=== PATIENT | male | born 1965 | race Caucasian/White ===

== ENCOUNTER 2025-10-07 09:55 | Emergency (ER) | payer OTHER, SELFPAY ==
[2025-10-07 09:59] VITALS: BP 133/91; PULSE 65; RESP 12; TEMP 36.7; O2SAT 99; BMI 29.8
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
--- NOTE | 2025-10-07 11:20 | CT_ITS ---
PROCEDURE: BRAIN/HEAD WITHOUT CONTRAST 10/07/2025 REASON FOR EXAM: DIZZINESS TECHNIQUE: Procedure Code: CTBR Modality: CT Procedure: BRAIN/HEAD WITHOUT CONTRAST Coronal and Sagittal reconstruction series were provided. One or more dose reduction techniques were used (e.g., Automated exposure control, adjustment of the mA and/or kV according to patient size, use of iterative reconstruction technique. RADIATION DOSE SUMMARY: CTDlvol: 44.99 mGy DLP: 762.36 mGycm COMPARISON: None. FINDINGS: Brain: No acute territorial infarction. No acute intracranial hemorrhage. No mass-effect or midline shift. Diffuse white matter hypodensities which are nonspecific but likely due to chronic small-vessel ischemia. Parenchymal volume loss consistent with brain atrophy. No ventriculomegaly. The orbits are unremarkable. The craniocervical junction is unremarkable. CSF Spaces: Mild generalized cerebral atrophy Sinuses/Mastoids: Clear. Bones: No acute bony abnormalities. CT/Brain/Head without Contrast IMPRESSION: No acute intracranial abnormalities. Reading Location: [id number]
[2025-10-07 11:56] VITALS: BP 141/97; PULSE 62; RESP 12; O2SAT 98
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
[2025-10-07 12:36] VITALS: BP 145/80; PULSE 64; RESP 14; TEMP 36.6; O2SAT 100
== END 2025-10-07 12:37 | disposition home or self-care (01) ==
LOC: ED 10:41
PROVIDERS: Emergency Provider Emergency Medicine; PCP Family Medicine; Visit Provider Emergency Medicine
DX: H81.391 Other peripheral vertigo, right ear (principal); F41.9 Anxiety disorder, unspecified; Z87.891 Personal history of nicotine dependence; E78.00 Pure hypercholesterolemia, unspecified; Z79.899 Other long term (current) drug therapy
CPT/HCPCS: 70450; 99285; A4216

== ENCOUNTER 2025-10-12 13:15 | Observation (INO) | payer OTHER, SELFPAY ==
[2025-10-12 13:16] VITALS: BP 168/83; PULSE 71; RESP 10; TEMP 36.6; O2SAT 98; BMI 29.1
[2025-10-12 13:22] VITALS: BMI 29.0
--- NOTE | 2025-10-12 13:42 | EKG12_ITS ---
Test Reason : Blood Pressure : */* mmHG Vent. Rate : 67 BPM Atrial Rate : 67 BPM P-R Int : 152 ms QRS Dur : 92 ms QT Int : 396 ms P-R-T Axes : 42 -18 9 degrees QTcB Int : 418 ms Normal sinus rhythm Minimal voltage criteria for LVH, may be normal variant ( R in aVL ) Borderline ECG Confirmed by Joshua Baxter ([id number]), social media editor LB OMALLEY ([id number]) on 10/14/2025 8:26:45 AM Referred By: Confirmed By: Joshua Baxter
--- NOTE | 2025-10-12 13:42 | CT_ITS ---
PROCEDURE: BRAIN/HEAD WITHOUT CONTRAST 10/12/2025 REASON FOR EXAM: AMS, CONFUSION TECHNIQUE: Procedure Code: CTBR Modality: CT Procedure: BRAIN/HEAD WITHOUT CONTRAST Coronal and Sagittal reconstruction series were provided. One or more dose reduction techniques were used (e.g., Automated exposure control, adjustment of the mA and/or kV according to patient size, use of iterative reconstruction technique. RADIATION DOSE SUMMARY: DLP: 779 mGycm COMPARISON: CT from 10/07/2025 FINDINGS: There is no acute infarct, intracranial hemorrhage, or mass effect. There is no hydrocephalus or significant midline shift. There is mild chronic microvascular ischemic changes and mild parenchymal volume loss. No acute, depressed calvarial fractures. No large scalp hematomas. The paranasal sinuses are clear. CT/Brain/Head without Contrast IMPRESSION: No acute intracranial process. Reading Location: [id number]
--- NOTE | 2025-10-12 13:43 | CT_ITS ---
PROCEDURE: CTA HEAD AND NECK W/ CONTRAST 10/12/2025 REASON FOR EXAM: HYPERTENSIVE 220S FOR EMS, MENTAL STATUS CHANGES TECHNIQUE: Procedure Code: CTCTA.HDNCK Modality: CT Procedure: CTA HEAD AND NECK W/ CONTRAST Multiplanar Sagittal and Coronal images were obtained. CONTRAST: 100 mL of Isovue 370 One or more dose reduction techniques were used (e.g., Automated exposure control, adjustment of the mA and/or kV according to patient size, use of iterative reconstruction technique). RADIATION DOSE SUMMARY: DLP: 1516 mGycm COMPARISON: None FINDINGS: The aortic arch demonstrates a type I configuration. The ostia of the great vessels are patent. There is conventional branching. The right CCA is patent. There is no significant stenosis of the right carotid bifurcation by NASCET criteria although there is calcified plaque. The cervical right ICA is patent. There is minimal stenosis at the right carotid siphon due to atherosclerotic plaque. The right MCA and right ARGELIA appear patent. There is no large vessel occlusion. The left CCA is patent. There is no significant stenoses at the left carotid bifurcation by NASCET criteria although there is calcified plaque. The cervical left ICA is patent. The left MCA and left ARGELIA appear patent. There is no large vessel occlusion. The right vertebral artery arises from the right subclavian artery. The left vertebral artery arises from the left subclavian artery. Both vertebral arteries are patent. Left vertebral artery dominance. Both posterior cerebral arteries arise from the tip of the basilar. Both proximal ENTERPRISE SOFTWARE DEVELOPER segments are patent. There is no large vessel occlusion. There is no enhancing intracranial mass. Shotty cervical lymph nodes are identified. The thyroid gland is heterogeneous. The lung apices demonstrate no pneumothorax. No destructive osseous abnormalities identified. CT/CTA Head AND Neck W/ Contrast IMPRESSION: No high-grade stenosis or large vessel occlusion. No sizable aneurysm is noted . Scattered mild atherosclerotic plaque. Minimal stenosis of the right carotid s iphon. Reading Location: [id number]
--- OUTSIDE RECORDS SUMMARY | 2025-10-12 13:52 | XMS RPT_ITS | CCD ---
Author Organization [facility] Care Team Providers Care Histological Illustrator Name Role Phone Steve Baron Unavailable Unavailable Steve Baron Unavailable LEXUS BARRAZA Unavailable Unavailcheng Baron MD, Steve Gallardo Primary Care Provider Steve Baron MD Primary Care Provider Steve Baron MD Primary Care Provider Steve Baron MD Primary Care Provider Yonagen SOLE STAPLER WELT.FLAKEBOARD LINE TENDERSierra Unavailable Suppan SOLE STAPLER WELT.FLAKEBOARD LINE TENDERSindhu Unavailable JOSIAH ACOSTA Admitting Unavailable JOSIAH ACOSTA Attending Unavailable STEVE BARON Primary Care Unavailable STEVE BARON Primary Care Unavailable STEVE BARON Referring Unavailable STEVE BARON Primary Care Unavailable JOSIAH ACOSTA Attending Unavailable STEVE BARON Primary Care Unavailable ARACELY ARDON Attending Unavailable STEVE BARON Primary Care Unavailable JOSIAH ACOSTA Attending Unavailable STEVE BARON Primary Care Unavailable STEVE BARON Attending Unavailable Allergies Allergy Classification Reported Allergen(s) Allergy Type Date of Onset Reaction(s) Facility HMG-CoA Reductase Inhibitors (statins) (1 source) Simvastatin Drug Allergy 02-25-2006 [facility] Work Phone: Macrolides (antibiotic) (1 source) Erythromycin Drug Allergy 08-03-2005 GI Upset [facility] Work Phone: (20 sources) Erythromycin; Translations: [ERYTHROMYCIN] Drug Allergy 08-03-2005 GI Upset [facility] Repository (20 sources) Simvastatin; Translations: [SIMVASTATIN] Drug Allergy 02-25-2006 [facility] Repository Medications Current Medications Medication Drug Class(es) Dates Sig (Normalized) Sig (Original) cephalexin 500 mg oral capsule (1 source) Cephalosporin Antibacterial Start: 07-02-2022 End: 07-07-2022 take 1 capsule by mouth four times daily cephALEXin (KEFLEX) 500 mg capsule Take 1 capsule by mouth four times daily for 5 days. 20 capsule 0 07/02/2022 07/07/2022 Active Comment on above: Take 1 capsule by mo [facility] four times daily for 5 days. pravastatin sodium 20 mg oral tablet (20 sources) HMG-CoA Reductase Inhibitor Start: 07-23-2024 End: 08-22-2025 take 1 tablet by mouth once daily at bedtime pravastatin (PRAVACHOL) 20 mg tablet Indications: Mixed hyperlipidemia Take 1 tablet by mouth daily at bedtime. 90 tablet 1 02/23/2025 08/22/2025 Active Start: 10-30-2021 End: 07-21-2024 take 1 tablet by mouth once daily at bedtime pravastatin (PRAVACHOL) 20 mg tablet Indications: Mixed hyperlipidemia Take 1 tablet by mouth daily at bedtime. 90 tablet 3 10/30/2021 07/22/2022 Discontinued Comment on above: Take 1 tablet by michael th daily at bedtime. sertraline 100 mg oral tablet (20 sources) Serotonin Reuptake Inhibitor Start: 09-05-2023 End: 08-22-2025 take 1 tablet by mouth once daily sertraline (ZOLOFT) 100 mg tablet Indications: Anxiety state Take 1 tablet by mouth once daily. 90 tablet 1 02/23/2025 08/22/2025 Active Start: 10-30-2021 End: 12-13-2023 take 1 tablet by mouth once daily sertraline (ZOLOFT) 50 mg tablet Indications: Anxiety state Take 1 tablet by mouth once daily. 90 tablet 1 10/30/2021 07/22/2022 Discontinued Comment on above: Take 1 tablet by michael th once daily. VITAMIN B COMPLEX ORAL (4 sources) VITAMIN B COMPLE X ORAL Take by mouth. Active Completed/Discontinued Medications Medication Drug Class(es) Dates Sig (Normalized) Sig (Original) 1 ml alprostadil 0.02 mg/ml cartridge (1 source) Prostaglandin Analog, Prostaglandin E1 Agonist Start: 02-02-2023 End: 02-03-2023 Alprostadil kit 20 mcg betamethasone 3 mg/ml / betamethasone acetate 3 mg/ml injectable suspension (4 sources) Corticosteroid Start: 08-30-2023 End: 08-30-2023 betamethasone acetate-betamethas one sodium phosphate 3 mg injection (CELESTONE) Start: 06-10-2022 End: 06-10-2022 betamethasone acetate-betame thasone sodium phosphate 6 mg injection (CELESTONE) Start: 03-11-2022 End: 03-11-2022 betamethasone acetate-betame thasone sodium phosphate 3 mg injection (CELESTONE) Glucosamine (20 sources) End: 07-30-2024 GLUCOSAMINE SULFATE (GLUCOSA MINE ORAL) Take by mouth once daily. [employer] Extend flex 07/30/2024 Discontinued (Other) GLUCOSAMINE SULF ATE (GLUCOSAMINE ORAL) Take by mouth once daily. [employer]NC Extend flex Active GLUCOSAMINE SULF ATE (GLUCOSAMINE ORAL) Take by mouth once daily. GNC Extend flex 0 Active Comment on above: Take by mouth once d aily. GNC Extend flex 10 ml lidocaine hydrochloride 10 mg/ml injection (4 sources) Antiarrhythmic, Amide Local Anesthetic Start: 08-30-2023 End: 08-30-2023 lidocaine (PF) 10 mg/mL (1 %) 0.5 mL injection (XYLOCAINE) Start: 06-10-2022 End: 06-10-2022 lidocaine (PF) 10 mg/mL (1 % ) 4 mL injection (XYLOCAINE) Start: 03-11-2022 End: 03-11-2022 lidocaine (PF) 10 mg/mL (1 % ) 0.5 mL injection (XYLOCAINE) meloxicam 15 mg oral tablet (13 sources) Nonsteroidal Anti-inflammatory Drug Start: 02-09-2024 End: 07-30-2024 take 1 tablet by mouth once daily meloxicam (MOBIC) 15 mg tablet Indications: Trigger ring finger of right hand Take 1 tablet by mouth once daily. 30 tablet 2 02/09/2024 07/30/2024 Discontinued (Other) Start: 06-10-2022 End: 11-25-2022 take 1 tablet by mouth once daily meloxicam (MOBIC) 15 mg tablet Take 1 tablet by mouth once daily. 30 tablet 1 06/10/2022 11/25/2022 Discontinued Comment on above: Take 1 tablet by michael th once daily. PHENYLephrine 0.3-0.8 mg in NaCl 0.9% 0.3-0.8 mL (1 source) Start: End: PHENYLephrine 0.3-0.8 mg in NaCl 0.9% 0.3-0.8 mL tadalafil 5 mg oral tablet (5 sources) Phosphodiesterase 5 Inhibitor Start: End: take 1 tablet by mouth once daily Tadalafil 5 mg tablet Take 1 tablet by mouth once daily. 30 tablet 5 01/13/2023 02/12/2023 Comment on above: Take 1 tablet by michael th once daily. tiZANidine 4 mg oral tablet (13 sources) Central alpha-2 Adrenergic Agonist Start: End: take 1 tablet by mouth every eight hours as needed tiZANidine (ZANAFLEX) 4 mg tablet Take 1 tablet by mouth every 8 hours as needed (muscle spasms). 30 tablet 12/06/2019 11/25/2022 Discontinued Comment on above: Take 1 tablet by michael th every 8 hours as needed (muscle spasms). Problems Active Problems Problem Classification Problem Date Documented Date Episodic/Chronic Anxiety disorders (20 sources) Anxiety state; Translations: [Generalized anxiety disorder] Onset: 03-04-2016 Chronic Disorders of lipid metabolism (20 sources) Mixed hyperlipidemia; Translations: [Mixed hyperlipidemia] Onset: 03-04-2016 Chronic Fluid and electrolyte disorders (1 source) Hyperkalemia; Translations: [Hyperkalemia] Episodic Osteoarthritis (1 source) Osteoarthritis of left knee joint; Translations: [Unilateral primary osteoarthritis, left knee] Chronic Other connective tissue disease (15 sources) Triggering of digit; Translations: [Trigger finger, left middle finger] Episodic Other connective tissue disease (3 sources) Trigger thumb of left hand; Translations: [Trigger thumb, left thumb] 08-30-2023 Episodic Other connective tissue disease (2 sources) Acquired trigger finger of right index finger; Translations: [Trigger finger, right index finger] 06-06-2025 Episodic Other connective tissue disease (2 sources) Acquired trigger finger of right middle finger; Translations: [Trigger finger, right middle finger] 06-06-2025 Episodic Other connective tissue disease (2 sources) Acquired trigger finger of left ring finger; Translations: [Trigger finger, left ring finger] 06-06-2025 Episodic Other connective tissue disease (1 source) Trigger finger, right index finger; Translations: [Trigger finger, right index finger] Onset: 06-19-2025 Episodic Other connective tissue disease (1 source) Trigger finger, right middle finger; Translations: [Trigger middle finger of right hand] Onset: 06-19-2025 Episodic Other connective tissue disease (1 source) Trigger finger, left ring finger; Translations: [Trigger ring finger of left hand] Onset: 06-19-2025 Episodic Other ear and sense organ disorders (1 source) Bilateral hearing loss; Translations: [Unspecified hearing loss, bilateral] Chronic Other ear and sense organ disorders (2 sources) Bilateral tinnitus; Translations: [Tinnitus, bilateral] Episodic Other male genital disorders (2 sources) Induratio penis plastica; 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 Other nervous system disorders (1 source) Other chronic pain; Translations: [OTHER CHRONIC PAIN] Onset: 06-29-2017 Chronic Other non-traumatic joint disorders (3 sources) Pain in left knee; Translations: [Pain in joint, lower leg] Onset: 06-29-2017 Episodic Sprains and strains (1 source) Unspecified sprain of right wrist, initial encounter; Translations: [Unspecified sprain of right wrist, initial encounter] Onset: 11-18-2018 Episodic Unclassified (1 source) Post Op Onset: 07-29-2025 Past or Other Problems Problem Classification Problem Date Documented Date Episodic/Chronic Abdominal hernia (12 sources) Left inguinal hernia ; Translations: [Unilateral inguinal hernia, without obstruction or gangrene, not specified as recurrent] Onset: 10-11-2011 Resolved: 01-25-2012 01-25-2012 Episodic Cardiac dysrhythmias (20 sources) Palpitations; Translations: [Palpitations] Onset: 03-23-2007 03-23-2007 Episodic Other circulatory disease (20 sources) Elevated blood-pressure reading without diagnosis of hypertension; Translations: [Elevated blood-pressure reading, without diagnosis of hypertension] Onset: 06-27-2008 06-27-2008 Episodic Other connective tissue disease (1 source) Lateral epicondylitis, right elbow; Translations: [LATERAL EPICONDYLITIS, RIGHT ELBOW] Onset: 06-29-2017 Episodic Other connective tissue disease (20 sources) Lateral epicondylitis of bilateral humerus; Translations: [Lateral epicondylitis, right elbow] Onset: 08-02-2014 08-02-2014 Episodic Other non-traumatic joint disorders (12 sources) Pain in elbow; Translations: [Pain in unspecified elbow] Onset: 08-02-2014 Resolved: 09-09-2016 09-09-2016 Episodic Screening and history of mental health and substance abuse codes (2 sources) Patient encounter status; Translations: [Encounter for screening for depression] Onset: 02-23-2025 02-23-2025 Episodic Superficial injury; contusion (2 sources) Contusion of rib; Translations: [Contusion of unspecified front wall of thorax, subsequent encounter] Onset: 02-23-2025 02-23-2025 Episodic Results Test Name Value Interpretation Reference Range Facility [facility] 07-29-2025 CNOV Office Visit (ORTHWS ) GAMALEDUARDO ([id number]) 1965 M Date Time Provider Department 07/29/25 10:00 AM JOSIAH ACOSTA During your visit today, we recorded the following information about you: Josiah Acosta MD 08/05/2025 1:34 PM Signed Josiah Acosta MD Department of Orthopaedics Orthopaedics [address] [facility] [address] Dept: [phone] Dept July 29, 2025 CHIEF COMPLAINT: Post Op of the Left Hand and Post Op of the Right Hand. Vijaya Evelyne Sadetim is a 60-year-old male presenting for follow-up on trigger finger surgery and new onset of burning pain in the thumb. Ed reports stiffness and swelling in the middle knuckles following recent trigger finger surgery. He notes a longer recovery time than expected, stating, I remembered it being like that, I just didn't remember it being this long. Additionally, he reports a new onset of burning pain in the thumb, describing it as really sore and stating, I can't squeeze nothing in there. He denies any clicking or catching sensations in the thumb. ASSESSMENT: M65.321 Acquired trigger finger of right index finger (primary encounter diagnosis) M65.331 Acquired trigger finger of right middle finger M65.342 Acquired trigger finger of left ring finger 1. Acquired trigger finger of right index finger (M65.321) 2. Acquired trigger finger of right middle finger (M65.331) 3. Acquired trigger finger of left ring finger (M65.342) 6 weeks post trigger finger release for right index, right middle, and left ring fingers. Mild stiffness, swelling, and residual scar tenderness at the middle knuckles, as expected at this stage. No current locking or catching. Symptoms and exam consistent with normal post-op course; improvement expected over the next month. - Reassured that stiffness and swelling are typical at 6 weeks post-op and should resolve by 10 weeks. - Advised gentle massage to the scar and continued use of the hand as tolerated. - No restrictions on activity at this time. - Instructed to return if new locking, catching, or worsening symptoms develop. - Patient may follow up as needed. Exam: - Musculoskeletal: - Hand: Mild swelling and stiffness noted in the proximal interphalangeal joints; tenderness over the thumb flexor tendon. Review of Systems: Musculoskeletal: (+) burning pain in thumb, (+) thumb tenderness, (+) difficulty gripping objects Supporting Information Below: Medications: Current Outpatient Medications Medication Sig VITAMIN B COMPLEX ORAL Take by mouth. pravastatin (PRAVACHOL) 20 mg tablet Take 1 tablet by mouth daily at bedtime. sertraline (ZOLOFT) 100 mg tablet Take 1 tablet by mouth once daily. No current facility-administered medications for this visit. Allergies: E-Mycin [Erythromycin] and Zocor [Simvastatin] Recording using [email or web address] software for draft documentation of the visit was discussed with the patient/authorized technology sales representative; all questions welcomed and answered. Patient/authorized technology sales representative agreed to proceed Josiah Acosta MD Allergies As of Date: 07/29/2025 Noted Allergy Reaction E-MYCIN (ERYTHROMYCIN) 08/03/2005 8 - GI Upset ZOCOR (SIMVASTATIN) 02/25/2006 Comments: caused body aches Date Reviewed: 07/29/2025 Reviewed by: Carin Gil MA - Fully Assessed Reason for Visit: Post Op [174] Post Op [174] Primary Visit Diagnosis:Acquired trigger finger of right index finger [M65.321] Other Visit Diagnoses:Acquired trigger finger of right middle finger [M65.331] Acquired trigger finger of left ring finger [M65.342] Prescriptions as of 08/05/2025 - VITAMIN B COMPLEX ORAL Take by mouth. - pravastatin (PRAVACHOL) 20 mg tablet Take 1 tablet by mouth daily at bedtime. - sertraline (ZOLOFT) 100 mg tablet Take 1 tablet by mouth once daily. Problem List As Of Date 07/29/2025 Noted Resolved Anxiety state [F41.1] Mixed hyperlipidemia [E78.2] PALPITATIONS [R00.2] 03/23/2007 ELEV BL PRES W/O HYPERTN [R03.0] 06/27/2008 Left inguinal hernia [K40.90] 10/11/2011 01/25/2012 Elbow pain [M25.529] 08/02/2014 09/09/2016 Lateral epicondylitis of both elbows [M77.11, M*08/02/2014 Encounter Status:Closed by JOSIAH ACOSTA on 08/05/25 [facility] Na 07-01-2025 CNOV Office Visit (GRETCHEN ) EDUARDO YEUNG ([id number]) 1965 M Date Time Provider Department 07/01/25 8:00 AM ARACELY ARDON During your visit today, we recorded the following information about you: Wendy Lawson MA 07/01/2025 10:40 AM Signed Patient presents with: Left Hand - Post Op Right Hand - Post Op: 1 week 5 days post op Right index, middle, and Left ring trigger finger releases AMB ROOMING INTAKE FLOWSHEET DATA Patient denies any pain. He does have some tenderness in his hands. Sutures intact. No redness or drainage. Aracely Ardon PA-C 07/01/2025 10:40 AM Signed Aracely Ardon PA-C Department of Orthopaedics Orthopaedics [address] [place] [address] Dept: [phone] Dept July 01, 2025 CHIEF COMPLAINT: Post Op of the Left Hand and Post Op of the Right Hand (1 week 5 days post op Right index, middle, and Left ring trigger finger releases). ASSESSMENT: M65.321 Acquired trigger finger of right index finger (primary encounter diagnosis) M65.331 Acquired trigger finger of right middle finger M65.342 Acquired trigger finger of left ring finger SUMMARY/PLAN: Patient presents 1 week and 5 days status post right index and middle trigger finger releases and left ring trigger finger release. He is doing extremely well and denies any pain.We discussed proper hand washing, no soaking of the operative hand. No heavy lifting, pushing or pulling with the operative hand, encourage gentle motion. We discussed scar massage. Follow up as planned. Exam: All incision sites are well-approximated without erythema or drainage, there is mild edema at the base of the right index and middle digits. Patient is able to form a full composite fist with each hand and fully release all digits without any locking or catching. Imaging: Deferred today. Mr. Eduardo Yeung was advised as to contrast therapies and/or to take analgesics/anti-inflam matories as needed and all contraindications were reviewed. Supporting Information Below: Medications: Current Outpatient Medications Medication Sig VITAMIN B COMPLEX ORAL Take by mouth. pravastatin (PRAVACHOL) 20 mg tablet Take 1 tablet by mouth daily at bedtime. sertraline (ZOLOFT) 100 mg tablet Take 1 tablet by mouth once daily. No current facility-administered medications for this visit. Allergies: E-Mycin [Erythromycin] and Zocor [Simvastatin] This note was partially generated using [employer] recognition system, and there may be some incorrect words, spellings, and punctuation that were not noted in checking the note before saving. Aracely Ardon PA-C Allergies As of Date: 07/01/2025 Noted Allergy Reaction E-MYCIN (ERYTHROMYCIN) 08/03/2005 8 - GI Upset ZOCOR (SIMVASTATIN) 02/25/2006 Comments: caused body aches Date Reviewed: 07/01/2025 Reviewed by: Wendy Lawson MA - Fully Assessed Reason for Visit: Post Op [174] Post Op [174] Cmt: 1 week 5 days post op Right index, middle, and Left ring trigger finger releases Primary Visit Diagnosis:Acquired trigger finger of right index finger [M65.321] Other Visit Diagnoses:Acquired trigger finger of right middle finger [M65.331] Acquired trigger finger of left ring finger [M65.342] Prescriptions as of 07/01/2025 - VITAMIN B COMPLEX ORAL Take by mouth. - pravastatin (PRAVACHOL) 20 mg tablet Take 1 tablet by mouth daily at bedtime. - sertraline (ZOLOFT) 100 mg tablet Take 1 tablet by mouth once daily. Problem List As Of Date 07/01/2025 Noted Resolved Anxiety state [F41.1] Mixed hyperlipidemia [E78.2] PALPITATIONS [R00.2] 03/23/2007 ELEV BL PRES W/O HYPERTN [R03.0] 06/27/2008 Left inguinal hernia [K40.90] 10/11/2011 01/25/2012 Elbow pain [M25.529] 08/02/2014 09/09/2016 Lateral epicondylitis of both elbows [M77.11, M*08/02/2014 Encounter Status:Closed by ARACELY ARDON on 07/01/25 [facility] OPERATIVE NOon 06-19-2025 OPERATIVE NO HNO ID: [id number] Author: JOSIAH ACOSTA MD Service: Orthopaedic Surgery Author Type: Physician Type: Operative Report Filed: 06/19/2025 13:54 Note Text: OPERATIVE/PROCEDURE REPORT LOG ID: [id number] Surgery/Procedure Date: 06/19/2025 Incision/Procedure Start Time: 10:55 AM Incision Close/Procedure End Time: 11:25 AM Surgeon(s)/Procedurali st(s) and Stores Laborer(s): Surgeons and Role: * Josiah Acosta MD - Primary Nurse Practitioner: Kary So APRN Physician Stores Laborer: Aracely Ardon PA-C Procedure(s): right index, middle, and left ring trigger releases. Anesthesia: Local. Procedure Details: On 06/19/2025, the patient was clearly identified in the preoperative area and marked accordingly on the right index and middle and the left, ring finger by myself. After a chloroprep swab, Local anesthetic was provided at the base of the aforementioned digits near their A1 owen sites for a total of 2.5 mL each of 1% lidocaine with Epinephrine. Patient was taken to the operative suite and placed in the supine position with an arm board on the right and left. All other bony landmarks were appropriately padded in standard fashion. The left upper extremity was sterilely prepped and draped in standard fashion. An appropriate time-out was conducted and all in the room were in agreement, signed consent form was on the chart. An incision was made over the A1 owen of the ring. This was done superficially with a 15 blade and blunt dissection was taken down longitudinally to the flexor apparatus. The digital nerves were clearly identified and protected throughout the case with Crile retractors. Under direct visualization, I divided the A1 owen site of the ring with a 15 blade. There was obvious tenosynovitis and a slight synovectomy was made with Littler scissors. I used him fully flex and extend the fist, confirming its complete release. The wound was copiously irrigated. Hemostasis was observed with bipolar electrocautery. Closure was done with 3-0 Nylon sutures in horizontal mattress fashion for a total of 2. Xeroform gauze, an eye patch, light Yovani wrap and Coban was used for final bandage. Next, we moved to the right hand. The right upper extremity was sterilely prepped and draped in standard fashion. An incision was made over the A1 owen of the index and middle digits. This was done superficially with a 15 blade and blunt dissection was taken down longitudinally to the flexor apparatus of each. The digital nerves were clearly identified and protected throughout the case with Crile retractors. Under direct visualization, I divided the A1 owen sites of the index and middle fingers with a 15 blade. There was obvious tenosynovitis and a slight synovectomy was made with Littler scissors. I then had him make a full fist, confirming their complete releases. The wounds were copiously irrigated. Hemostasis was observed with bipolar electrocautery. Closure was done with 3-0 Nylon sutures in horizontal mattress fashion for a total of 2 at each site. Xeroform gauze, an eye patch, light Yovani wrap and Coban was used for final bandages. There were no complications during the procedure. Patient was safely transferred to the Postanesthetic Care Unit in stable condition. There were no complications during the procedures. Patient was safely awoken and transferred to the Postanesthetic Care Unit in stable condition. Pre-Op/Pre-Procedure Diagnosis: right index, and middle; left, ring trigger fingers. Post-Op/Post-Procedure Diagnosis: same Estimated Blood Loss: None Specimens: None Implantable Devices: None Drains: None Complications: None The primary surgeon/proceduralist performed the entire procedure. SIGNATURE: Josiah Acosta MD PATIENT NAME: Vijayaarnel Hintoncoreen DATE: June 19, 2025 TIME: 1:37 PM PAGER/CONTACT #: [facility] 05-23-2025 [facility] Office Visit (OTMBHT ) GAMALEDUARDO ([id number]) 1965 M Date Time Provider Department 05/23/25 9:15 AM JOSIAH ACOSTA During your visit today, we recorded the following information about you: Josiah Acosta MD 06/06/2025 9:03 AM Signed AMB ROOMING INTAKE FLOWSHEET DATA Pain Pain Level: 0 (6/10 pain when finger begin to lock up) Pain Location: Hand-Right (left) Description: Aching, Sharp Duration Amount of Time: 2 Duration Units: Months Frequency: Intermittent Intervention/Comfort measure: Reposition, Relaxation, Medication (ibuprofen) Comments: Pt is here today bilateral hand trigger fingers aching, sharp, locking. Flare up 2months ago. At times pain goes to 6/10 when fingers locks up.Pt take ibuprofen.Pt is right hand dominant, Pt states it hard to open and twist items. Josiah Acosta MD Department of Orthopaedics Orthopaedic Surgery [facility] [address] [address] [facility] [address] Dept: [phone] Dept May 23, 2025 CHIEF COMPLAINT: Established Patient, Follow Up, and Pain of the Left Thumb (Pt is here today bilateral hand trigger fingers aching, sharp, locking. Flare up 2months ago. At times pain goes to 6/10 when fingers locks up.Pt take ibuprofen.Pt is right hand dominant, Pt states it hard to open and twist items.) and Established Patient, Follow Up, and Pain of the Right Hand (Pt is here today bilateral hand trigger fingers aching, sharp, locking. Flare up 2months ago. At times pain goes to 6/10 when fingers locks up.Pt take ibuprofen.Pt is right hand dominant, Pt states it hard to open and twist items.) HPI: HPI Ed Evelyne Yeung is a 59-year-old male presenting with recurrent trigger finger symptoms. Ed reports recurrent trigger finger symptoms affecting the left ring finger and right middle finger. He notes that the left ring finger is really, really short and the right middle finger has been acting up, though he did not experience symptoms this morning. He mentions that his pinky fingers are still functioning well. He has a history of previous trigger finger releases, including the left middle finger and right ring finger, as well as the thumb and index finger in February. He inquires about the possibility of performing multiple trigger finger releases in one session to avoid multiple visits. ASSESSMENT: M65.321 Acquired trigger finger of right index finger M65.331 Acquired trigger finger of right middle finger M65.342 Acquired trigger finger of left ring finger 1. Acquired trigger finger of right index finger (M65.321) Tenderness to palpation at the A1 owen site; no current locking or catching observed. - Scheduled trigger finger release surgery for the first week of June at [place]. - Procedure will involve local anesthetic, two stitches, and a soft bandage for 1.5 days. - Advised to avoid strenuous activities for 10-14 days post-surgery. 2. Acquired trigger finger of right middle finger (M65.331) Tenderness to palpation at the A1 owen site; clicking and some catching observed. - Scheduled trigger finger release surgery for the first week of June at [place]. - Procedure will involve local anesthetic, two stitches, and a soft bandage for 1.5 days. - Advised to avoid strenuous activities for 10-14 days post-surgery. 3. Acquired trigger finger of left ring finger (M65.342) Tenderness, mild swelling, and locking and catching observed. - Scheduled trigger finger release surgery for the first week of June at [place]. - Procedure will involve local anesthetic, two stitches, and a soft bandage for 1.5 days. - Advised to avoid strenuous activities for 10-14 days post-surgery. Will continue to monitor patient for Acquired trigger finger of right index finger Acquired trigger finger of right middle finger Acquired trigger finger of left ring finger, patient to schedule visit as per follow up discussed. We have made the decision to move forward with a major orthopaedic surgery today, and this represents the moderate form of medical decision-making complexity. The patient's diagnosis of Acquired trigger finger of right index finger Acquired trigger finger of right middle finger Acquired trigger finger of left ring finger represents a chronic pathology/diagnosis/in jury that represents a current or possible direct threat to bodily function. The risks, benefits, alternatives and potential complications involving both operative and nonoperative treatment were reviewed patient understands and wishes to pursue surgical procedure outlined. Will get the patient scheduled at their convenience. OBJECTIVE: Mr. Eduardo Yeung is a pleasant 60 year old in no apparent distress. Gen:There were no vitals taken for this visit. nl development, non obese, no deformities ENT: Normocephalic, normal h (more content not included)... Normal [facility] [place] 05-23-2025 [facility] EDUARDO YEUNG ([id number]) 1965 M Date Time Provider Department 05/23/25 JOSIAH ACOSTA [facility] During your visit today, we recorded the following information about you: Wendy Lawson MA 05/23/2025 1:40 PM Signed Patient scheduled for Right and middle trigger finger releases and Left ring trigger finger release. Offered patient next 05/30 in [place] if he is doing a local. Left a message for patient to call the office and ask to speak with Wendy Vergara MA 05/27/2025 7:48 AM Signed Patient returned call and surgery was scheduled for 06/19/25. Wendy Lawson MA 05/28/2025 11:50 AM Signed Surgical request completed. Post op appointments scheduled and mailed to the patient. Wendy Lawson MA 05/29/2025 3:06 PM Signed Surgery scheduled as requested. Nichol Mcrae LPN 06/17/2025 3:47 PM Addendum Pt called in stating he will be out of town tomorrow and will not have cell service and may miss the call with the time or surgery. Patient is requesting a vm be left. NAMRATA Florez Amy M, MA 06/17/2025 3:49 PM Signed Notes updated ok to leave a message. Allergies As of Date: 05/23/2025 Noted Allergy Reaction E-MYCIN (ERYTHROMYCIN) 08/03/2005 8 - GI Upset ZOCOR (SIMVASTATIN) 02/25/2006 Comments: caused body aches Date Reviewed: 05/23/2025 Reviewed by: Daysi Banda OCCA - Fully Assessed Reason for Visit: Schedule Surgery [1330] Primary Visit Diagnosis:Trigger finger, right index finger [M65.321] Other Visit Diagnoses:Trigger middle finger of right hand [M65.331] Trigger ring finger of left hand [M65.342] Order(s):SURGICAL REQUEST - ELECTIVE (06/2020) [[id number]] Order #: [id number]: 1 Prescriptions as of 06/17/2025 - VITAMIN B COMPLEX ORAL Take by mouth. - pravastatin (PRAVACHOL) 20 mg tablet Take 1 tablet by mouth daily at bedtime. - sertraline (ZOLOFT) 100 mg tablet Take 1 tablet by mouth once daily. Problem List As Of Date 05/23/2025 Noted Resolved Anxiety state [F41.1] Mixed hyperlipidemia [E78.2] PALPITATIONS [R00.2] 03/23/2007 ELEV BL PRES W/O HYPERTN [R03.0] 06/27/2008 Left inguinal hernia [K40.90] 10/11/2011 01/25/2012 Elbow pain [M25.529] 08/02/2014 09/09/2016 Lateral epicondylitis of both elbows [M77.11, M*08/02/2014 Letter Text Encounter Status:Closed by WENDY LAWSON on 05/29/25 [facility] CNOVon 02-23-2025 CNOV Office Visit (FAMPWS ) GAMALVIJAYAARNEL Stubbs ([id number]) 1965 M Date Time Provider Department 02/23/25 10:40 AM [facility] During your visit today, we recorded the following information about you: Pulse Respiration Blood pressure Weight 64/minute 16/minute 128/74 89.8 kg Steve Baron MD 02/23/2025 10:54 AM Signed Chief Complaint Patient presents with: Follow Up HPI Eduardo Stubbs Jamaallobokeith is a 59 year old male who presents here today for follow up on labs. Patient did have a fall about 3 weeks ago. No dizziness/lightheaded. Injured lower/mid back on right side. Was on a ladder that gave out and he fell onto a plastic garage can. Was mechanical. Did not hit his head or loc. Did hurt to breathe for about a week but then went slowly away. Is more sore if works out. No bruising. No shortness of breath currently. No urinary issues. No hematuria. No gi issues. Hyperlipidemia: overall meds are stable. Labs are improving. No chest pain or edema. Psych:sertraline is working well. Moods are doing well. He is getting in July. Happy with meds. Latest Ref Rng 01/28/2025 WBC 3.70 - 11.00 k/uL 4.43 RBC 4.20 - 6.00 m/uL 5.29 Hemoglobin 13.0 - 17.0 g/dL 15.3 Hematocrit 39.0 - 51.0 % 47.5 MCV 80.0 - 100.0 fL 89.8 MCH 26.0 - 34.0 pg 28.9 MCHC 30.5 - 36.0 g/dL 32.2 RDW-CV 11.5 - 15.0 % 13.2 Platelet Count 150 - 400 k/uL 249 MPV 9.0 - 12.7 fL 9.6 Neut% % 48.3 Abs Neut (ANC) 1.45 - 7.50 k/uL 2.14 Lymph% % 34.5 Abs Lymph 1.00 - 4.00 k/uL 1.53 Churchill% % 12.9 Abs Churchill <0.87 k/uL 0.57 Eosin% % 2.9 Abs Eosin <0.46 k/uL 0.13 Baso% % 0.9 Abs Baso <0.11 k/uL 0.04 Immature Gran % % 0.5 IMMATURE GRANS (ABS) <0.10 k/uL <0.03 NRBC /100 WBC 0.0 Absolute nRBC <0.01 k/uL <0.01 DTYPE Auto Protein, Total 6.3 - 8.0 g/dL 7.3 Albumin 3.9 - 4.9 g/dL 4.5 Calcium 8.5 - 10.2 mg/dL 9.7 Bilirubin, Total 0.2 - 1.3 mg/dL 0.5 Alkaline Phosphatase 38 - 113 U/L 58 AST 14 - 40 U/L 25 ALT 10 - 54 U/L 30 Glucose 74 - 99 mg/dL 94 BUN 9 - 24 mg/dL 14 Creatinine 0.73 - 1.22 mg/dL 1.09 Sodium 136 - 144 mmol/L 142 Potassium 3.7 - 5.1 mmol/L 5.0 Chloride 98 - 107 mmol/L 104 CO2 22 - 30 mmol/L 30 Anion Gap 8 - 15 mmol/L 8 eGFR >=60 mL/min/1.73m? 78 Cholesterol, Total <200 mg/dL 191 Triglyceride <150 mg/dL 87 HDL Cholesterol >39 mg/dL 42 Non HDL Cholesterol <130 mg/dL 149 (H) Fasting Time hrs 12 VLDL Cholesterol <30 mg/dL 17 TC:HDL Ratio <5.10 4.55 LDL Cholesterol <100 mg/dL 132 (H) LDL:HDL Ratio <2.54 3.14 (H) Legend: (H) Highast medical history, appointments, medications, allergies reviewed. Previous Medical History PAST MEDICAL HISTORY Diagnosis Date Anxiety state, unspecified Other and unspecified hyperlipidemia borderline Previous Surgical History PAST SURGICAL HISTORY Procedure Laterality Date ANESTH DIAGNOSTIC ARTHROSCOPIC PROC KNEE JOINT remote right knee COLONOSCOPY FLX DX W/COLLJ SPEC WHEN PFRMD 05/10/2016 Colonoscopy INCISE FINGER TENDON SHEATH Left 06/16/2022 Left middle trigger finger release INCISE FINGER TENDON SHEATH Left 03/01/2024 left thumb and index trigger release. INGUINAL HERNIA REPAIR HX 12/15/2011 left PAST SURGICAL HISTORY OF remote vasectomy reversal VASECTOMY UNI/BI SPX W/POSTOP SEMEN EXAMS remote Family History FAMILY HISTORY Problem Relation Age of Onset Diabetes Father Hypertension Father Heart Mother stents Heart Maternal Grandmother Heart Maternal Grandfather CABG at 90 Heart Paternal Grandfather [place] Patient Allergies ALLERGIES Allergen Reactions E-Mycin [Erythromyc* GI Upset Zocor [Simvastatin] caused body aches Current Medications Current Outpatient Medications on File Prior to Visit Medication Sig pravastatin (PRAVACHOL) 20 mg tablet Take 1 tablet by mouth daily at bedtime. sertraline (ZOLOFT) 100 mg tablet Take 1 tablet by mouth once daily. No current facility-administered medications on file prior to visit. Social History Social History Tobacco Use Smoking status: Former Types: Cigarettes Smokeless tobacco: Never Tobacco comments: intermittent smoker, quit in 1997 Vaping Use Vaping status: Never Used Substance Use Topics Alcohol use: No Drug use: No Review of Symptoms REVIEW OF SYSTEMS No gi or gu issues. EXAM: BP 128/74 Pulse 64 Resp 16 Wt 89.8 kg (198 lb) BMI 27.62 kg/m? Skin: Skin color, texture, turgor normal, no suspicious rashes or lesions. Neck: Supple, no adenopathy; thyroid symmetric, normal size, no bruits. Lungs: Lungs clear to auscultation. No wheezing, rhonchi, rales.. Heart: RRR without murmur, gallop, or rubs. No ectopy. Abdomen: Normal abdominal exam, Abdomen soft, non-tender. Bowel sounds normal. No masses, organomegaly. Extremities: No deformities, edema, skin discoloration, clubbing or cyanosis. Good capillary (more content not included)... Normal [facility] CBC W Auto Differential pane l (Bld)on 01-28-2025 Basophils (Bld) [#/Vol] 0.04 10*3/uL Normal <0.11 [facility] Comment on above: Order Comment: Speci men Type: BLOOD SPECIMEN Ordering Facility: [facility] Address: [address] [place] [address] Performed By: #### 5 7021-8 #### [facility] CLIA [id number] [address] [place] [address] [place] Basophils/100 WBC (Bld) 0.9 % Normal [facility] Comment on above: Order Comment: Speci men Type: BLOOD SPECIMEN Ordering Facility: [facility] Address: [address] [place] [address] Performed By: #### 5 7021-8 #### [facility] CLIA [id number] [address] [place] [address] [place] Differential cell count method Nom (Bld) Auto Normal [facility] Comment on above: Order Comment: Speci men Type: BLOOD SPECIMEN Ordering Facility: [facility] Address: [address] [place] [address] Performed By: #### 5 7021-8 #### [facility] CLIA [id number] [address] [place] [address] [place] Eosinophils (Bld) [#/Vol] 0.13 10*3/uL Normal <0.46 [facility] Comment on above: Order Comment: Speci men Type: BLOOD SPECIMEN Ordering Facility: [facility] Address: [address] [place] [address] Performed By: #### 5 7021-8 #### [facility] CLIA [id number] [address] [place] [address] [place] Eosinophils/100 WBC (Bld) 2.9 % Normal [facility] Comment on above: Order Comment: Speci men Type: BLOOD SPECIMEN Ordering Facility: [facility] Address: [address] [place] [address] Performed By: #### 5 7021-8 #### [facility] CLIA [id number] [address] [place] [address] [place] Erythrocyte distribution width (RBC) [Ratio] 13.2 % Normal 11.5-15.0 [facility] Comment on above: Order Comment: Speci men Type: BLOOD SPECIMEN Ordering Facility: [facility] Address: [address] [place] [address] Performed By: #### 5 7021-8 #### [facility] CLIA [id number] [address] [place] [address] [place] Hematocrit (Bld) [Volume fraction] 47.5 % Normal 39.0-51.0 [facility] Comment on above: Order Comment: Speci men Type: BLOOD SPECIMEN Ordering Facility: [facility] Address: [address] [place] [address] Performed By: #### 5 7021-8 #### [facility] CLIA [id number] [address] [place] [address] [place] Hemoglobin (Bld) [Mass/Vol] 15.3 g/dL Normal 13.0-17.0 [facility] Comment on above: Order Comment: Speci men Type: BLOOD SPECIMEN Ordering Facility: [facility] Address: [address] [place] [address] Performed By: #### 5 7021-8 #### [facility] CLIA [id number] [address] [place] [address] [place] Immature granulocytes (Bld) [#/Vol] 10*3/uL Normal <0.10 [facility] Comment on above: Order Comment: Speci men Type: BLOOD SPECIMEN Ordering Facility: [facility] Address: [address] [place] [address] Performed By: #### 5 7021-8 #### [facility] CLIA [id number] [address] [place] [address] [place] Immature granulocytes/100 WBC (Bld) 0.5 % Normal [facility] Comment on above: Order Comment: Speci men Type: BLOOD SPECIMEN Ordering Facility: [facility] Address: [address] [place] [address] Performed By: #### 5 7021-8 #### [facility] CLIA [id number] [address] [place] [address] [place] Lymphocytes (Bld) [#/Vol] 1.53 10*3/uL Normal 1.00-4.00 [facility] Comment on above: Order Comment: Speci men Type: BLOOD SPECIMEN Ordering Facility: [facility] Address: [address] [place] [address] Performed By: #### 5 7021-8 #### [facility] CLIA [id number] [address] [place] [address] [place] Lymphocytes/100 WBC (Bld) 34.5 % Normal [facility] Comment on above: Order Comment: Speci men Type: BLOOD SPECIMEN Ordering Facility: [facility] Address: [address] [place] [address] Performed By: #### 5 7021-8 #### [facility] CLIA [id number] [address] [place] [address] [place] MCH (RBC) [Entitic mass] 28.9 pg Normal 26.0-34.0 [facility] Comment on above: Order Comment: Speci men Type: BLOOD SPECIMEN Ordering Facility: [facility] Address: [address] [place] [address] Performed By: #### 5 7021-8 #### [facility] CLIA [id number] [address] [place] [address] [place] MCHC (RBC) [Mass/Vol] 32.2 g/dL Normal 30.5-36.0 [facility] Comment on above: Order Comment: Speci men Type: BLOOD SPECIMEN Ordering Facility: [facility] Address: [address] [place] [address] Performed By: #### 5 7021-8 #### [facility] CLIA [id number] [address] [place] [address] [place] MCV (RBC) [Entitic vol] 89.8 fL Normal 80.0-100.0 [facility] Comment on above: Order Comment: Speci men Type: BLOOD SPECIMEN Ordering Facility: [facility] Address: [address] [place] [address] Performed By: #### 5 7021-8 #### [facility] CLIA [id number] [address] [place] [address] [place] Monocytes (Bld) [#/Vol] 0.57 10*3/uL Normal <0.87 [facility] Comment on above: Order Comment: Speci men Type: BLOOD SPECIMEN Ordering Facility: [facility] Address: [address] [place] [address] Performed By: #### 5 7021-8 #### [facility] CLIA [id number] [address] [place] [address] [place] Monocytes/100 WBC (Bld) 12.9 % Normal [facility] Comment on above: Order Comment: Speci men Type: BLOOD SPECIMEN Ordering Facility: [facility] Address: [address] [place] [address] Performed By: #### 5 7021-8 #### [facility] CLIA [id number] [address] [place] [address] [place] Neutrophils (Bld) [#/Vol] 2.14 10*3/uL Normal 1.45-7.50 [facility] Comment on above: Order Comment: Speci men Type: BLOOD SPECIMEN Ordering Facility: [facility] Address: [address] [place] [address] Performed By: #### 5 7021-8 #### [facility] CLIA [id number] [address] [place] [address] [place] Neutrophils/100 WBC (Bld) 48.3 % Normal [facility] Comment on above: Order Comment: Speci men Type: BLOOD SPECIMEN Ordering Facility: [facility] Address: [address] [place] [address] Performed By: #### 5 7021-8 #### [facility] CLIA [id number] [address] [place] [address] [place] Nucleated RBC (Bld) [#/Vol] 10*3/uL Normal <0.01 [facility] Comment on above: Order Comment: Speci men Type: BLOOD SPECIMEN Ordering Facility: [facility] Address: [address] [place] [address] Performed By: #### 5 7021-8 #### [facility] CLIA [id number] [address] [place] [address] [place] Nucleated RBC/100 WBC (Bld) [Ratio] 0.0 /100 WBC Normal [facility] Comment on above: Order Comment: Speci men Type: BLOOD SPECIMEN Ordering Facility: [facility] Address: [address] [place] [address] Performed By: #### 5 7021-8 #### [facility] CLIA [id number] [address] [place] [address] [place] Platelet mean volume (Bld) [Entitic vol] 9.6 fL Normal 9.0-12.7 [facility] Comment on above: Order Comment: Speci men Type: BLOOD SPECIMEN Ordering Facility: [facility] Address: [address] [place] [address] Performed By: #### 5 7021-8 #### [facility] CLIA [id number] [address] [place] [address] [place] Platelets (Bld) [#/Vol] 249 10*3/uL Normal 150-400 [facility] Comment on above: Order Comment: Speci men Type: BLOOD SPECIMEN Ordering Facility: [facility] Address: [address] [place] [address] Performed By: #### 5 7021-8 #### [facility] CLIA [id number] [address] [place] [address] [place] RBC (Bld) [#/Vol] 5.29 10*6/uL Normal 4.20-6.00 [facility] Comment on above: Order Comment: Speci men Type: BLOOD SPECIMEN Ordering Facility: [facility] Address: [address] [place] [address] Performed By: #### 5 7021-8 #### [facility] CLIA [id number] [address] [place] [address] [place] WBC (Bld) [#/Vol] 4.43 10*3/uL Normal 3.70-11.00 [facility] Comment on above: Order Comment: Speci men Type: BLOOD SPECIMEN Ordering Facility: [facility] Address: [address] [place] [address] Performed By: #### 5 7021-8 #### [facility] CLIA [id number] [address] [place] [address] [place] Comprehensive metabolic 2000 panelon 01-28-2025 Albumin [Mass/Vol] 4.5 g/dL Normal 3.9-4.9 [facility] Comment on above: Order Comment: Speci men Type: BLOOD SPECIMEN Ordering Facility: [facility] Address: [address] [place] [address] Performed By: #### 2 4323-8, 77403-9 #### [facility] CLIA [id number] [address] [place] [address] [place] ALP [Catalytic activity/Vol] 58 U/L Normal 38-113 [facility] Comment on above: Order Comment: Speci men Type: BLOOD SPECIMEN Ordering Facility: [facility] Address: [address] [id number] Performed By: #### 2 4323-8, 49396-0 #### [facility] CLIA [id number] [address] [place] [address] [place] ALT [Catalytic activity/Vol] 30 U/L Normal 10-54 [facility] Comment on above: Order Comment: Speci men Type: BLOOD SPECIMEN Ordering Facility: [facility] Address: [address] [place] [address] Performed By: #### 2 4323-8, 23985-0 #### [facility] CLIA [id number] [address] [place] [address] [place] Anion gap [Moles/Vol] 8 mmol/L Normal 8-15 [facility] Comment on above: Order Comment: Speci men Type: BLOOD SPECIMEN Ordering Facility: [facility] Address: [address] [place] [address] Performed By: #### 2 4323-8, 45996-4 #### [facility] CLIA [id number] [address] [place] [address] [place] AST [Catalytic activity/Vol] 25 U/L Normal 14-40 [facility] Comment on above: Order Comment: Speci men Type: BLOOD SPECIMEN Ordering Facility: [facility] Address: [address] [place] [address] Performed By: #### 2 4323-8, 43071-5 #### [facility] CLIA [id number] [address] [place] [address] [place] Bilirubin [Mass/Vol] 0.5 mg/dL Normal 0.2-1.3 [facility] Comment on above: Order Comment: Speci men Type: BLOOD SPECIMEN Ordering Facility: [facility] Address: [address] [place] [address] Performed By: #### 2 4323-8, 95410-5 #### [facility] CLIA [id number] [address] [place], [place] [address] [place] Calcium [Mass/Vol] 9.7 mg/dL Normal 8.5-10.2 [facility] Comment on above: Order Comment: Speci men Type: BLOOD SPECIMEN Ordering Facility: [facility] Address: [address] [place] [address] Performed By: #### 2 4323-8, 85219-3 #### [facility] CLIA [id number] [address] [place] [address] [place] Chloride [Moles/Vol] 104 mmol/L Normal 98-107 [facility] Comment on above: Order Comment: Speci men Type: BLOOD SPECIMEN Ordering Facility: [facility] Address: [address] [place] [address] Performed By: #### 2 4323-8, 40836-7 #### [facility] CLIA [id number] [address] [place] [address] [place] CO2 [Moles/Vol] 30 mmol/L Normal 22-30 [facility] Comment on above: Order Comment: Speci men Type: BLOOD SPECIMEN Ordering Facility: [facility] Address: [address] [place] [address] Performed By: #### 2 4323-8, 48901-1 #### [facility] CLIA [id number] [address] [place] [address] [place] Creatinine [Mass/Vol] 1.09 mg/dL Normal 0.73-1.22 [facility] Comment on above: Order Comment: Speci men Type: BLOOD SPECIMEN Ordering Facility: [facility] Address: [address] [place] [address] Performed By: #### 2 4323-8, 50470-2 #### [facility] CLIA [id number] [address] [place] [address] [place] Creatinine and Glomerular filtration rate.predicted panel (S/P/Bld) 78 mL/min/1.73m??? Normal >=60 [facility] Comment on above: Order Comment: Pamela callaway Type: BLOOD SPECIMEN Ordering Facility: [facility] Address: [address] [place] [address] Result Comment: Nancy mated Glomerular Filtration Rate (eGFR) is calculated using the 2020 CKD-EPI creatinine equation. This equation utilizes serum creatinine, sex, and age as parameters. The creatinine assay has traceable calibration to isotope dilution-mass spectrometry. Refer to KDIGO guidelines for clinical interpretation. In patients with unstable renal function, e.g. those with acute kidney injury, the eGFR may not accurately reflect actual GFR. Performed By: #### 2 4323-8, 31015-3 #### [facility] CLIA [id number] [address] [place] [address] [place] Glucose [Mass/Vol] 94 mg/dL Normal 74-99 [facility] Comment on above: Order Comment: Pamela callaway Type: BLOOD SPECIMEN Ordering Facility: [facility] Address: [address] [place] [address] Result Comment: The [place] Diabetes Association (ADA) provides guidance for cutoff values for fasting glucose and random glucose. The ADA defines fasting as no caloric intake for at least 8 hours. Fasting plasma glucose results between 100 to 125 mg/dL indicate increased risk for diabetes (prediabetes). Fasting plasma glucose results greater than or equal to 126 mg/dL meet the criteria for diagnosis of diabetes. In the absence of unequivocal hyperglycemia, results should be confirmed by repeat testing. In a patient with classic symptoms of hyperglycemia or hyperglycemic crisis, random plasma glucose results greater than or equal to 200 mg/dL meet the criteria for diagnosis of diabetes. Reference: Standards of Medical Care in Diabetes 2016, [place] Diabetes Association. Diabetes Care. 2016.39(Suppl 1). Performed By: #### 2 4323-8, 93167-7 #### [facility] CLIA [id number] [address] [place] [address] [place] Potassium [Moles/Vol] 5.0 mmol/L Normal 3.7-5.1 [facility] Comment on above: Order Comment: Speci men Type: BLOOD SPECIMEN Ordering Facility: [facility] Address: [address] [place], [place] [address] Performed By: #### 2 4323-8, 63523-3 #### [facility] CLIA [id number] [address] [place] [address] [place] Protein [Mass/Vol] 7.3 g/dL Normal 6.3-8.0 [facility] Comment on above: Order Comment: Speci men Type: BLOOD SPECIMEN Ordering Facility: [facility] Address: [address] [place] [address] Performed By: #### 2 4323-8, 21304-2 #### [facility] CLIA [id number] [address] [place] [address] [place] Sodium [Moles/Vol] 142 mmol/L Normal 136-144 [facility] Comment on above: Order Comment: Speci men Type: BLOOD SPECIMEN Ordering Facility: [facility] Address: [address] [place] [address] Performed By: #### 2 4323-8, 39191-8 #### [facility] CLIA [id number] [address] [place] [address] [place] Urea nitrogen [Mass/Vol] 14 mg/dL Normal 9-24 [facility] Comment on above: Order Comment: Speci men Type: BLOOD SPECIMEN Ordering Facility: [facility] Address: [address] [place] [address] Performed By: #### 2 4323-8, 58160-1 #### [facility] CLIA [id number] [address] [place], [place] [id number] [place] Lipid 1996 panelon 5 Cholesterol [Mass/Vol] 191 mg/dL Normal <200 [facility] Comment on above: Order Comment: Speci men Type: BLOOD SPECIMEN Ordering Facility: [facility] Address: [address] [place], [place] [id number] Result Comment: <200 mg/dL, Desirable 200-239 mg/dL, Borderline high >239 mg/dL, High Performed By: #### 2 4323-8, 17903-8 #### [facility] CLIA [id number] [address] [place] [address] [place] Cholesterol in HDL [Mass/Vol] 42 mg/dL Normal >39 [facility] Comment on above: Order Comment: Pamela callaway Type: BLOOD SPECIMEN Ordering Facility: [facility] Address: [address] [place] [address] Result Comment: 40-5 9 mg/dL, Acceptable >59 mg/dL, High: Negative risk factor for coronary heart disease <40 mg/dL, Low: Positive risk factor for coronary heart disease Performed By: #### 2 4323-8, 34916-7 #### [facility] CLIA [id number] [address] [place] [address] [place] [facility] Cholesterol in LDL [Mass/Vol] 132 mg/dL High <100 [facility] Comment on above: Order Comment: Pamela callaway Type: BLOOD SPECIMEN Ordering Facility: [facility] Address: [address] [place] [address] Result Comment: <100 mg/dL, Optimal 100-129 mg/dL, Near optimal/above optimal 130-159 mg/dL, Borderline high 160-189 mg/dL, High >189 mg/dL, Very high Secondary prevention optimal LDL Cholesterol levels are recommended to be < 70 mg/dL Performed By: #### 2 4323-8, 33676-0 #### [facility] CLIA [id number] [address] [place] [address] [place] Cholesterol in LDL/Cholesterol in HDL [Mass ratio] 3.14 {ratio} High <2.54 [facility] Comment on above: Order Comment: Pamela callaway Type: BLOOD SPECIMEN Ordering Facility: [facility] Address: [address] [place] [address] Result Comment: Refe rence: 1. National Cholesterol Education Program ATP III Guideline At-A-Glance Quick Desk Reference: National Heart, Lung, and Blood [place]. National Institutes of Health. 2001: NIH Publication No. 01-3305. 2. An International Atherosclerosis Society position paper: global recommendations for the management of dyslipidemia: executive summary, Atherosclerosis. 2014: 232(2):410-413. Performed By: #### 2 4323-8, 81838-0 #### [facility] CLIA [id number] [address] [place] [address] [place] Cholesterol in VLDL [Mass/Vol] 17 mg/dL Normal <30 [facility] Comment on above: Order Comment: Speci men Type: BLOOD SPECIMEN Ordering Facility: [facility] Address: [address] [place] [address] Performed By: #### 2 432-8, 44209-9 #### [facility] CLIA [id number] [address] [place] [address] [place] Cholesterol non HDL [Mass/Vol] 149 mg/dL High <130 [facility] Comment on above: Order Comment: Pamela callaway Type: BLOOD SPECIMEN Ordering Facility: [facility] Address: [address] [place] [address] Result Comment: <130 mg/dL, Optimal 130-159 mg/dL, Near optimal/above optimal 160-189 mg/dL, Borderline high 190-219 mg/dL, High >219 mg/dL, Very high Secondary prevention optimal non HDL Cholesterol levels are recommended to be <100 mg/dL Performed By: #### 2 4328, 57846-3 #### [facility] CLIA [id number] [address] [place] [address] [place] Cholesterol.total/Ch olesterol in HDL [Mass ratio] 4.55 {ratio} Normal <5.10 [facility] Comment on above: Order Comment: Pamela callaway Type: BLOOD SPECIMEN Ordering Facility: [facility] Address: [address] [place] [address] Performed By: #### 2 4323-8, 06047-8 #### [facility] CLIA [id number] [address] [place] [address] [place] FASTING TIME 12 hrs Normal [facility] Comment on above: Order Comment: Speci men Type: BLOOD SPECIMEN Ordering Facility: [facility] Address: [address] [place] [address] Performed By: #### 2 4323-8, 73032-3 #### [facility] CLIA [id number] [address] [place] [address] [place] Triglyceride [Mass/Vol] 87 mg/dL Normal <150 [facility] Comment on above: Order Comment: Speci men Type: BLOOD SPECIMEN Ordering Facility: [facility] Address: [address] [place] [address] Result Comment: <150 mg/dL, Normal 150-199 mg/dL, Borderline high 200-499 mg/dL, High >499 mg/dL, Very high Performed By: #### 2 4323-8, 79700-7 #### [facility] CLIA [id number] [address] [place] [address] [place] No Panel Informationon 06-10 [facility] XR HAND GENERAL 3V PA/LAT/OB L LEFTon 02-15-2022 [facility] XR Hand - left PA and Latera l and Obliqueon 02-15-2022 IMPRESSION: No acute osseous abnormality. Mild osteoarthritis. Photo Studio Assistant: JESSICA Transcribe Date/Time: Feb 15 2022 10:39A Dictated by : ANA ALCALA MD This examination was interpreted and the report reviewed and electronically signed by: ANA ALCALA MD on Feb 15 2022 10:41AM [facility] DIVISION OF RADIOLOGY * * *Final Report* * * DATE OF EXAM: Feb 15 2022 9:13AM WOX [id number] - XR HAND 3V PA/LAT/OBL LT / PROCEDURE REASON: Trigger middle finger of left hand * * * * Physician Interpretation * * * * EXAMINATION / TECHNIQUE: XR HAND 3V PA/LAT/OBL LT PATIENT/TECHNOLOGIST PROVIDED HISTORY: No injury, Left hand middle finger PIP joint pain and locking CLINICAL INFORMATION ( PROVIDED BY ORDERING CLINICIAN) : Trigger middle finger of left hand COMPARISON: None RESULT: No acute fracture or dislocation. Mild degenerative changes in the first CMC joint with joint space narrowing and small marginal osteophytes. Mild degenerative changes are also noted at the distal radioulnar joint. Scattered degenerative changes in multiple interphalangeal joints, most notable at the index and long finger DIP joints. No bony erosions. No other significant abnormality. DIVISION OF RADIOLOGY Provider, [facility] - 02/15/2022 * * *Final Report* * * DATE OF EXAM: Feb 15 2022 9:13AM WOX [id number] - XR HAND 3V PA/LAT/OBL LT / PROCEDURE REASON: Trigger middle finger of left hand * * * * Physician Interpretation * * * * EXAMINATION / TECHNIQUE: XR HAND 3V PA/LAT/OBL LT PATIENT/TECHNOLOGIST PROVIDED HISTORY: No injury, Left hand middle finger PIP joint pain and locking CLINICAL INFORMATION ( PROVIDED BY ORDERING CLINICIAN) : Trigger middle finger of left hand COMPARISON: None RESULT: No acute fracture or dislocation. Mild degenerative changes in the first CMC joint with joint space narrowing and small marginal osteophytes. Mild degenerative changes are also noted at the distal radioulnar joint. Scattered degenerative changes in multiple interphalangeal joints, most notable at the index and long finger DIP joints. No bony erosions. No other significant abnormality. IMPRESSION IMPRESSION: No acute osseous abnormality. Mild osteoarthritis. Photo Studio Assistant: JESSICA Transcribe Date/Time: Feb 15 2022 10:39A Dictated by : ANA ALCALA MD This examination was interpreted and the report reviewed and electronically signed by: ANA ALCALA MD on Feb 15 2022 10:41AM EST [facility] Radiology Study observation (narrative) [facility] XR Hand - left PA and Latera l and ObliqueOrdered By: [facility] Provider on 02-15-2022 [facility] WRIST INJURY 4V PA/LAT/OBL/S CAPH RIGHTon 11-18-2018 Protein mass conc Performed at [facility] APPROVED BY: Clement Montoya MD EXAM TITLE: WRIST INJURY 4V PA/LAT/OBL/SCAPH RIGHT DATE: 11/18/2018 15:59 INDICATION: Right wrist pain secondary to injury COMPARISON: None. FINDINGS: There is no fracture or dislocation. Joint spaces and soft tissues are normal. IMPRESSION: Within normal limits. Normal [facility] No Panel Information [facility] Vital Signs Date Time Vital Sign Value Performing Clinician Lynsey soni 02-23-2025 10:31-0400 Body mass index (BMI) [Ratio] 27.62 kg/m2 Steve Baron MD Work Phone: [facility] 02-23-2025 10:31-0400 Body weight 89.81 kg Steve Baron MD Work Phone: [facility] 02-23-2025 10:31-0400 Diastolic blood pressure 74 mm[Hg] Steve Baron MD Work Phone: [facility] 02-23-2025 10:31-0400 Heart rate 64 /min Steve Baron MD Work Phone: [facility] 02-23-2025 10:31-0400 Respiratory rate 16 /min Steve Baron MD Work Phone: [facility] 02-23-2025 10:31-0400 Systolic blood pressure 128 mm[Hg] Steve Baron MD Work Phone: [facility] 07-30-2024 09:16-0400 Body height 180.3 cm Steve Baron MD Work Phone: [facility] 07-30-2024 09:16-0400 Body mass index (BMI) [Ratio] 26.9 kg/m2 Steve Baron MD Work Phone: [facility] 07-30-2024 09:16-0400 Body weight 87.5 kg Steve Baron MD Work Phone: [facility] 07-30-2024 09:16-0400 Diastolic blood pressure 78 mm[Hg] Steve Baron MD Work Phone: [facility] 07-30-2024 09:16-0400 Heart rate 67 /min Steve Baron MD Work Phone: [facility] 07-30-2024 09:16-0400 Systolic blood pressure 124 mm[Hg] Steve Baron MD Work Phone: [facility] 01-20-2024 14:46-0500 Body height 180.3 cm Steve Baron MD Work Phone: [facility] 01-20-2024 14:46-0500 Body weight 88 kg Steve Baron MD Work Phone: [facility] 01-20-2024 14:46-0500 Diastolic blood pressure 64 mm[Hg] Steve Baron MD Work Phone: [facility] 01-20-2024 14:46-0500 Heart rate 71 /min Steve Baron MD Work Phone: [facility] 01-20-2024 14:46-0500 SaO2% (BldA) [Mass fraction] 97 % Steve Baron MD Work Phone: [facility] 01-20-2024 14:46-0500 Systolic blood pressure 114 mm[Hg] Steve Baron MD Work Phone: [facility] 10-05-2023 08:49-0500 Body height 180.3 cm Steve Baron MD Work Phone: [facility] 10-05-2023 08:49-0500 Body weight 92.99 kg Steve Baron MD Work Phone: [facility] 10-05-2023 08:49-0500 Diastolic blood pressure 81 mm[Hg] Steve Baron MD Work Phone: [facility] 10-05-2023 08:49-0500 Heart rate 69 /min Steve Baron MD Work Phone: [facility] 10-05-2023 08:49-0500 Systolic blood pressure 118 mm[Hg] Steve Baron MD Work Phone: [facility] 09-05-2023 18:17-0400 Body weight 91.63 kg Steve Baron MD Work Phone: [facility] 09-05-2023 18:17-0400 Diastolic blood pressure 72 mm[Hg] Steve Baron MD Work Phone: [facility] 09-05-2023 18:17-0400 Heart rate 78 /min Steve Baron MD Work Phone: [facility] 09-05-2023 18:17-0400 SaO2% (BldA) [Mass fraction] 96 % Steve Baron MD Work Phone: [facility] 09-05-2023 18:17-0400 Systolic blood pressure 122 mm[Hg] Steve Baron MD Work Phone: [facility] 06-16-2023 09:16-0400 Body height 180.3 cm Steve Baron MD Work Phone: [facility] 06-16-2023 09:16-0400 Body weight 91.99 kg Steve Baron MD Work Phone: [facility] 06-16-2023 09:16-0400 Diastolic blood pressure 72 mm[Hg] Steve Baron MD Work Phone: [facility] 06-16-2023 09:16-0400 Heart rate 68 /min Steve Baron MD Work Phone: [facility] 06-16-2023 09:16-0400 SaO2% (BldA) [Mass fraction] 97 % Steve Baron MD Work Phone: [facility] 06-16-2023 09:16-0400 Systolic blood pressure 124 mm[Hg] Steve Baron MD Work Phone: [facility] 01-13-2023 08:04-0500 Body height 180.3 cm James Shook MD Work Phone: [facility] 01-13-2023 08:04-0500 Body weight 94.71 kg James Shook MD Work Phone: [facility] 11-25-2022 10:32-0500 Body weight 93.44 kg Steve Baron MD Work Phone: [facility] 11-25-2022 10:32-0500 Diastolic blood pressure 74 mm[Hg] Steve Baron MD Work Phone: [facility] 11-25-2022 10:32-0500 Heart rate 59 /min Steve Baron MD Work Phone: [facility] 11-25-2022 10:32-0500 SaO2% (BldA) [Mass fraction] 96 % Steve Baron MD Work Phone: [facility] 11-25-2022 10:32-0500 Systolic blood pressure 118 mm[Hg] Steve Baron MD Work Phone: [facility] 02-15-2022 08:09-0400 Body weight 89.36 kg Steve Baron MD Work Phone: [facility] 02-15-2022 08:09-0400 Diastolic blood pressure 70 mm[Hg] Steve Baron MD Work Phone: [facility] 02-15-2022 08:09-0400 Heart rate 64 /min Steve Baron MD Work Phone: [facility] 02-15-2022 08:09-0400 Systolic blood pressure 122 mm[Hg] Steve Baron MD Work Phone: [facility] Encounters Encounter Date Encounter Type Care Provider Facility Start: 07-29-2025 End: 07-29-2025 ambulatory [facility] Facility:[facility] Start: 07-01-2025 End: 07-01-2025 Patient encounter procedure Aracely Ardon PA-C Work Phone: Orthopaedics Comment on above: Acquired trigger fin funmi of right index finger (Primary Dx); Acquired trigger finger of right middle finger; Acquired trigger finger of left ring finger Start: 07-01-2025 End: 07-01-2025 ambulatory STEVE BARON Facility:[facility] Start: 06-19-2025 End: 06-19-2025 ambulatory JOSIAH ACOSTA Facility:[facility] Start: 05-23-2025 End: 05-29-2025 Telephone encounter Josiah Acosta MD Work Phone: Rheumatology Comment on above: Schedule Surgery Start: 05-23-2025 End: 05-23-2025 Patient encounter procedure Josiah Acosta MD Work Phone: Orthopaedic Surgery [facility] Comment on above: Acquired trigger fin funmi of right index finger; Acquired trigger finger of right middle finger; Acquired trigger finger of left ring finger Start: 05-23-2025 End: 05-23-2025 ambulatory STEVE Gallardo TOD Facility:[facility] Start: 02-23-2025 End: 02-23-2025 Patient encounter procedure Steve Baron MD Work Phone: [facility] Comment on above: Mixed hyperlipidemia (Primary Dx); Anxiety state; Screening for depression; Contusion of rib, unspecified laterality, subsequent encounter Start: 02-23-2025 End: 02-23-2025 [facility] Start: 01-28-2025 End: 01-29-2025 Follow-up encounter Steve Baron MD Work Phone: [facility] Comment on above: Results Start: 01-28-2025 End: 01-28-2025 ambulatory STEVE TOD Facility:[facility] Start: 01-15-2025 End: 01-15-2025 Refill Steve Baron MD Work Phone: [facility] Comment on above: Refill Request Start: 07-30-2024 End: 07-30-2024 Patient encounter procedure Steve Baron MD Work Phone: [facility] Comment on above: Mixed hyperlipidemia (Primary Dx); Anxiety state Start: 07-21-2024 End: 07-23-2024 Refill [facility] Comment on above: Refill Request Start: 04-23-2024 End: 04-23-2024 Patient encounter procedure Josiah Acosta MD Work Phone: Orthopaedics Comment on above: Trigger thumb of lef t hand (Primary Dx); Trigger index finger of left hand Start: 03-22-2024 Refill Steve Baron MD [facility] Comment on above: Refill Request Start: 03-12-2024 End: 03-12-2024 Patient encounter procedure Aracely Ardon PA-C Work Phone: Orthopaedics Comment on above: Trigger thumb of lef t hand (Primary Dx); Trigger index finger of left hand Start: 01-20-2024 End: 01-20-2024 Patient encounter procedure Steve Baron MD Work Phone: [facility] Comment on above: Mixed hyperlipidemia (Primary Dx); Anxiety state Start: 01-18-2024 Telephone encounter Stvee Baron MD Work Phone: [facility] Comment on above: Orders Start: 10-05-2023 End: 10-05-2023 Patient encounter procedure Steve Baron MD Work Phone: [facility] Comment on above: Mixed hyperlipidemia (Primary Dx); Anxiety state Start: 09-19-2023 Telephone encounter Josiah crespo MD Work Phone: Orthopaedics Comment on above: Appointment (Resched ule surgery to october) Start: 09-05-2023 End: 09-05-2023 Patient encounter procedure Steve Baron MD Work Phone: [facility] Comment on above: Anxiety state Start: 09-02-2023 ambulatory Steve Baron MD Work Phone: [facility] Comment on above: Stress related Start: 08-30-2023 End: 08-30-2023 Patient encounter procedure Aracely Ardon PA-C Work Phone: Orthopaedics Comment on above: Trigger ring finger of right hand (Primary Dx); Trigger finger of left thumb; Trigger index finger of left hand Start: 07-20-2023 Telephone encounter Josiah crespo MD Work Phone: [facility] [place] Comment on above: Appointment Start: 06-16-2023 End: 06-16-2023 Patient encounter procedure Steve Baron MD Work Phone: [facility] Comment on above: Mixed hyperlipidemia (Primary Dx); Anxiety state Start: 02-02-2023 End: 02-02-2023 Patient encounter procedure Nacho Bedoya MD Work Phone: Urology Comment on above: Peyronie's disease ( Primary Dx) Start: 01-27-2023 Refill Steve Baron MD Work Phone: [facility] Comment on above: Refill Request Start: 01-26-2023 Refill Steve [facility] MD [facility] Comment on above: Refill Request Start: 01-23-2023 Refill Steve Baron MD Work Phone: [facility] Comment on above: Refill Request Start: 01-13-2023 End: 01-13-2023 Patient encounter procedure James Shook MD Work Phone: Urology Comment on above: Peyronie's disease ( Primary Dx) Start: 12-07-2022 Telephone encounter Noe Javier MD Work Phone: Otolaryngology Comment on above: Appointment Start: 11-25-2022 End: 11-25-2022 Patient encounter procedure Steve Baron MD Work Phone: [facility] Comment on above: Bilateral hearing lo ss, unspecified hearing loss type (Primary Dx); Anxiety state; Tinnitus of both ears; Mixed hyperlipidemia Start: 07-26-2022 End: 07-26-2022 Patient encounter procedure Josiah Acosta MD Work Phone: Orthopaedics Comment on above: Trigger middle finge r of left hand (Primary Dx) Start: 07-22-2022 Refill Steve Baron MD Work Phone: [facility] Comment on above: Refill Request Start: 07-05-2022 End: 07-05-2022 Patient encounter procedure Aracely Vetovitz PA-C Work Phone: Orthopaedics Comment on above: Trigger middle finge r of left hand (Primary Dx) Start: 07-01-2022 Telephone encounter Josiah crespo MD Work Phone: Orthopaedics Comment on above: Incision draining Start: 06-28-2022 End: 06-28-2022 Patient encounter procedure Aracely Vetovitz PA-C Work Phone: Orthopaedics Comment on above: Trigger middle finge r of left hand (Primary Dx) Start: 06-10-2022 Telephone encounter Josiah crespo MD Work Phone: Orthopaedics Comment on above: Schedule Surgery Start: 06-10-2022 End: 06-10-2022 Subsequent hospital visit by physician Xr [facility] [place] Vito Work Phone: Radiology Comment on above: Acute pain of left k nee [M25.562] Start: 06-10-2022 End: 06-10-2022 Patient encounter procedure Josiah Acosta MD Work Phone: Orthopaedics Comment on above: Acute pain of left k nee (Primary Dx); Primary osteoarthritis of left knee; Trigger middle finger of left hand Start: 03-11-2022 End: 03-11-2022 Patient encounter procedure Josiah Acosta MD Work Phone: Orthopaedics Comment on above: Trigger middle finge r of left hand Start: 02-15-2022 Telephone encounter Steve Baron MD Work Phone: [facility] Comment on above: Results Start: 02-15-2022 End: 02-15-2022 Subsequent hospital visit by physician Xr [facility] [place] Work Phone: Radiology Comment on above: Trigger middle finge r of left hand [M65.332] Start: 02-15-2022 End: 02-15-2022 Patient encounter procedure Steve Baron MD Work Phone: [facility] Comment on above: Mixed hyperlipidemia (Primary Dx); Anxiety state; Trigger middle finger of left hand; Tinnitus of both ears Start: 11-18-2018 End: 11-18-2018 Emergency department patient visit [facility] Start: 09-06-2016 End: 09-06-2016 Ambulatory Steve Baron Facility:[facility] Procedures Date Procedure Procedure Detail Performing Clinician Start: 02-23-2025 Adult depression scr eening assessment Steve Baron MD Work Phone: Start: 01-28-2025 Lipid 1996 panel - S wander or Plasma Steve Baron MD Work Phone: Start: 01-19-2024 Lipid 1996 panel - S wander or Plasma Steve Baron MD Work Phone: Start: 08-30-2023 End: 08-30-2023 Injection 1 tendon sheath/ligament aponeurosis Aracely Ardon PA-C Work Phone: Start: 05-18-2023 Lipid 1996 panel - S wander or Plasma Aracely Ardon PA-C Work Phone: Start: 06-10-2022 Arthrocentesis aspir &/inj major jt/bursa w/o us Josiah Acosta MD Work Phone: Start: 06-10-2022 Radiologic exam knee complete 4/more views Josiah Acosta MD Work Phone: Start: 03-11-2022 Injection 1 tendon sheath/ligament aponeurosis Josiah Acosta MD Work Phone: Start: 02-15-2022 Radex hand minimum 3 views Steve Baron MD Work Phone: Start: 02-21-2019 Adult depression scr eening assessment Steve Baron MD Work Phone: Start: 05-10-2016 Colonoscopy Steve Macedo MD Work Phone: Plan of Treatment Date Care Activity Detail Author Start: 2040 RSV Vaccine (1 - 1-d ose 75+ series) RSV Vaccine (1 - 1-dose 75+ series) [facility] Start: 05-23-2034 Urine microalbumin profile DTaP,Tdap,Td Vaccine (3 - Td or Tdap) [facility] Start: 01-28-2030 Lipid panel Lipid Screening [facility] Start: 01-19-2029 Prostate specific antigen measurement Prostate Cancer Screening Discussion [facility] Start: 01-18-2029 Lipid panel Lipid Screening [facility] Start: 05-18-2028 Lipid 1996 panel - Serum or Plasma Lipid Screening [facility] Start: 05-18-2028 Lipid panel Lipid Screening [facility] Start: 05-18-2028 LIPID SCREEN LIPID SCREEN [facility] Start: 01-29-2028 Diabetes Screening Diabetes Screenin g [facility] Start: 02-15-2027 LIPID SCREEN LIPID SCREEN [facility] Start: 02-15-2027 PROSTATE CANCER SCREENING DISCUSSION PROSTATE CANCER SCREENING DISCUSSION [facility] Start: 02-15-2027 Prostate specific antigen measurement Prostate Cancer Screening Discussion [facility] Start: 01-18-2027 Diabetes Screening Diabetes Screenin g [facility] Start: 05-18-2026 DIABETES SCREEN [facility]EN [facility] Start: 05-18-2026 Diabetes Screening Diabetes Screenin g [facility] Start: 05-10-2026 Colonoscopy COLONOSCOPY [facility] Start: 05-10-2026 COLORECTAL CANCER SCREENING COLORECTAL CANCER SCREENING [facility] Start: 05-10-2026 Screening for malign ant neoplasm of colon [facility] Start: 02-23-2026 Depression Screening Depression Scre ening [facility] Start: 02-23-2026 Pneumococcal Vaccine : 50+ (1 of 1 - PCV) Pneumococcal Vaccine: 50+ (1 of 1 - PCV) [facility] Comment on above: Postponed from 06/04 (Declined at this time) Start: 08-30-2025 End: 08-30-2025 Patient encounter procedure 08/30/2025 8:40 AM EDT Office Visit Family [facility]la [place] [address] [place] [address] Steve Baron MD [address] [place] [address] 6 month follow up Family [facility]la [facility] Comment on above: 6 month follow up Start: 07-30-2025 Covid-19 Vaccine ( season) Covid-19 Vaccine ( season) [facility] Comment on above: Postponed from 07/15 (Declined at this time) Start: 07-30-2025 Covid-19 Vaccine ( season) Covid-19 Vaccine ( season) [facility] Comment on above: Postponed from 07/15 (Declined at this time) Start: 07-30-2025 Shingrix Vaccine (1 of 2) Shingrix Vaccine (1 of 2) [facility] Comment on above: Postponed from 06/04 (Declined at this time) Start: 07-29-2025 End: 07-29-2025 Patient encounter procedure Orthopaedics Comment on above: Post op right index and middle trigger finger releases, Left ring trigger finger release Start: 07-15-2025 Influenza vaccination Influenza Vacc ine (#1) [facility] Start: 07-02-2025 DIABETES SCREEN DIABETES SCREEN [facility] Start: 07-01-2025 End: 07-01-2025 Patient encounter procedure 07/01/2025 8:00 AM EDT Office Visit Orthopaedics [address] [place] [address] Aracely Ardon PA-C [address] [place] [address] Post op right index and middle trigger finger releases, Left ring trigger finger release [facility] Comment on above: Post op right index and middle trigger finger releases, Left ring trigger finger release Start: 06-19-2025 End: 06-19-2025 Admission to same day surgery center [facility] Comment on above: DECOMPRESSION NERVE MEDIAN CARPAL TUNNEL Start: 06-19-2025 End: 06-19-2025 Neuroplasty &/transpos median nrv carpal tunne DECOMPRESSION NERVE MEDIAN CARPAL TUNNEL Trigger finger, right index finger Trigger middle finger of right hand Trigger ring finger of left hand 06/19/2025 7:30 AM EDT ME OR Start: 06-19-2025 Subsequent hospital visit by physician 06/19/2025 7:30 AM EDT Hospital Encounter [facility] [address] [place] [address] Josiah Acosta MD [address] [facility] [place] [address] Trigger finger, right index finger [M65.321], Trigger middle finger of right hand [M65.331], Trigger ring finger of left hand [M65.342] [facility] Comment on above: Trigger finger, righ t index finger [M65.321], Trigger middle finger of right hand [M65.331], Trigger ring finger of left hand [M65.342] Start: 05-13-2025 Influenza vaccination Influenza Vacc ine (#1) [facility] Comment on above: Postponed from 07/15 (Declined at this time) Start: 02-15-2025 DIABETES SCREEN DIABETES SCREEN [facility] Start: 01-28-2025 End: 01-28-2025 ambulatory 01/28/2025 7:00 AM EDT Results Only lAiyah [facility] Draw Station [address] [place] [address] Aliyah [facility] Draw Station Start: 01-27-2025 End: 04-28-2025 CBC W Auto Differential panel - Blood COMPLETE BLOOD COUNT AND DIFFERENTIAL Lab Routine Anxiety state Mixed hyperlipidemia Expected: 01/27/2025, Expires: 04/28/2025 [facility] Work Phone: Comment on above: Expected: 01/27/2025 , Expires: 04/28/2025 Start: 01-27-2025 End: 04-28-2025 Comprehensive metabolic 2000 panel - Serum or Plasma COMPREHENSIVE METABOLIC PANEL Lab Routine Anxiety state Mixed hyperlipidemia Expected: 01/27/2025, Expires: 04/28/2025 [facility] Comment on above: Expected: 01/27/2025 , Expires: 04/28/2025 Start: 01-27-2025 End: 04-28-2025 Lipid 1996 panel - Serum or Plasma LIPID PANEL BASIC Lab Routine Mixed hyperlipidemia Expected: 01/27/2025, Expires: 04/28/2025 [facility] Comment on above: Expected: 01/27/2025 , Expires: 04/28/2025 Start: 12-03-2024 LIPID SCREEN LIPID SCREEN [facility] Start: 09-05-2024 Covid-19 Vaccine () Covid-19 Vaccine () [facility] Comment on above: Postponed from 07/15 (Declined at this time) Start: 07-30-2024 Depression Screening Depression Scre ening [facility] Comment on above: Postponed from 06/04 (Declined at this time) Start: 07-30-2024 End: 07-30-2024 Patient encounter procedure 07/30/2024 9:20 AM EDT Office Visit Family Medicine [place] [address] [place] [address] Steve Baron MD [address] [facility] [place] [address] 6 mth followup Family [facility] [place] Comment on above: 6 mth followup Start: 07-15-2024 Covid-19 Vaccine ( season) Covid-19 Vaccine ( season) [facility] Start: 07-15-2024 Influenza vaccination [facility] Start: 06-16-2024 COVID-19 VACCINE (2 - Moderna series) COVID-19 VACCINE (2 - Moderna series) [facility] Comment on above: Postponed from 08/28 (Declined at this time) Start: 06-16-2024 HEPATITIS B (1 of 3 - 3-dose series) HEPATITIS B (1 of 3 - 3-dose series) [facility] Comment on above: Postponed from 06/04 (Declined at this time) Start: 06-16-2024 Hepatitis B Vaccine (1 of 3 - 19+ 3-dose series) Hepatitis B Vaccine (1 of 3 - 19+ 3-dose series) [facility] Comment on above: Postponed from 06/04 (Declined at this time) Start: 06-16-2024 Hepatitis B Vaccine (1 of 3 - 3-dose series) Hepatitis B Vaccine (1 of 3 - 3-dose series) [facility] Comment on above: Postponed from 06/04 (Declined at this time) Start: 06-16-2024 SHINGRIX VACCINE (1 of 2) SHINGRIX VACCINE (1 of 2) [facility] Comment on above: Postponed from 06/04 (Declined at this time) Start: 06-16-2024 Urine microalbumin profile [facility] Comment on above: Postponed from 02/23 (Declined at this time) Start: 05-13-2024 Influenza vaccination Influenza Vacc ine (#1) [facility] Comment on above: Postponed from 07/15 (Declined at this time) Start: 04-23-2024 End: 04-23-2024 Patient encounter procedure 04/23/2024 4:00 PM EDT Office Visit Orthopaedics [address] [place], [place] [id number] Josiah Acosta MD [address] [place] [id number] Post op left thumb and index trigger finger releases Orthopaedics Comment on above: Post op left thumb a nd index trigger finger releases Start: 04-04-2024 End: 07-04-2024 CBC W Auto Differential panel - Blood CBC + DIFF Lab Routine Anxiety state Expected: 04/04/2024, Expires: 07/04/2024 [facility] Work Phone: Comment on above: Expected: 04/04/2024 , Expires: 07/04/2024 Start: 04-04-2024 End: 07-04-2024 Comprehensive metabolic 2000 panel - Serum or Plasma COMP METABOLIC PANEL Lab Routine Anxiety state Expected: 04/04/2024, Expires: 07/04/2024 [facility] Work Phone: Comment on above: Expected: 04/04/2024 , Expires: 07/04/2024 Start: 04-04-2024 End: 07-04-2024 Lipid 1996 panel - Serum or Plasma LIPID PANEL BASIC Lab Routine Mixed hyperlipidemia Expected: 04/04/2024, Expires: 07/04/2024 [facility] Work Phone: Comment on above: Expected: 04/04/2024 , Expires: 07/04/2024 Start: 01-18-2024 End: 04-18-2024 CBC W Auto Differential panel - Blood CBC + DIFF Lab Routine Generalized anxiety disorder Expected: 01/18/2024, Expires: 04/18/2024 [facility] Work Phone: Comment on above: Expected: 01/18/2024 , Expires: 04/18/2024 Start: 01-18-2024 End: 04-18-2024 Comprehensive metabolic 2000 panel - Serum or Plasma COMP METABOLIC PANEL Lab Routine Generalized anxiety disorder Expected: 01/18/2024, Expires: 04/18/2024 [facility] Work Phone: Comment on above: Expected: 01/18/2024 , Expires: 04/18/2024 Start: 01-18-2024 End: 04-18-2024 Lipid 1996 panel - Serum or Plasma LIPID PANEL BASIC Lab Routine Mixed hyperlipidemia Expected: 01/18/2024, Expires: 04/18/2024 [facility] Work Phone: Comment on above: Expected: 01/18/2024 , Expires: 04/18/2024 Start: 11-14-2023 Behavioral Health Screening Behavioral Health Screening [facility] Start: 11-14-2023 Depression Assessment Depression Ass essment [facility] Start: 07-15-2023 Covid-19 Vaccine () Covid-19 Vaccine () [facility] Start: 07-15-2023 Influenza vaccination C [facility] Start: 05-25-2023 End: 07-25-2023 CBC W Auto Differential panel - Blood CBC + DIFF Lab Routine Anxiety state Expected: 05/25/2023, Expires: 07/25/2023 [facility] Work Phone: Comment on above: Expected: 05/25/2023 , Expires: 07/25/2023 Start: 05-25-2023 End: 07-25-2023 Comprehensive metabolic 2000 panel - Serum or Plasma COMP METABOLIC PANEL Lab Routine Anxiety state Mixed hyperlipidemia Expected: 05/25/2023, Expires: 07/25/2023 [facility] Work Phone: Comment on above: Expected: 05/25/2023 , Expires: 07/25/2023 Start: 05-25-2023 End: 07-25-2023 Lipid 1996 panel - Serum or Plasma LIPID PANEL BASIC Lab Routine Mixed hyperlipidemia Expected: 05/25/2023, Expires: 07/25/2023 [facility] Work Phone: Comment on above: Expected: 05/25/2023 , Expires: 07/25/2023 Start: 05-13-2023 Influenza vaccination INFLUENZA (#1) [facility] Comment on above: Postponed from 07/15 (Declined at this time) Start: 12-03-2022 DIABETES SCREEN DIABETES SCREEN [facility] Start: 07-15-2022 Influenza vaccination INFLUENZA (#1) [facility] Start: 02-23-2022 Urine microalbumin profile [facility] Start: 02-15-2022 End: 02-15-2023 CBC W Auto Differential panel - Blood [facility] Work Phone: Comment on above: Expected: 02/15/2022 , Expires: 02/15/2023 Start: 02-15-2022 End: 02-15-2023 Comprehensive metabolic 2000 panel - Serum or Plasma [facility] Work Phone: Comment on above: Expected: 02/15/2022 , Expires: 02/15/2023 Start: 02-15-2022 End: 02-15-2023 LIPID PANEL BASIC [facility] Work Phone: Comment on above: Expected: 02/15/2022 , Expires: 02/15/2023 Start: 02-15-2022 End: 04-17-2022 POTASSIUM BLD POTASSIUM BLD Lab Routine Hyperkalemia Expected: 02/15/2022, Expires: 04/17/2022 [facility] Work Phone: Comment on above: Expected: 02/15/2022 , Expires: 04/17/2022 Start: 07-31-2021 COVID-19 VACCINE (2 - Moderna 3-dose series) COVID-19 VACCINE (2 - Moderna 3-dose series) [facility] Start: 07-31-2021 COVID-19 VACCINE (2 - Moderna series) COVID-19 VACCINE (2 - Moderna series) [facility] Start: 02-22-2020 Adult depression screening assessment DEPRESSION SCREENING [facility] Start: 2015 Pneumococcal Vaccine : 50+ (1 of 1 - PCV) Pneumococcal Vaccine: 50+ (1 of 1 - PCV) [facility] Start: 2015 SHINGRIX VACCINE (1 of 2) SHINGRIX VACCINE (1 of 2) [facility] Start: 2010 COLOGUARD (FIT-DNA) COLOGUARD (FIT-D NA) [facility] Start: [address] [facility] Start: 2010 FECAL OCCULT BLOOD FECAL OCCULT BLOO D [facility] Start: 2010 Screening for malign ant neoplasm of colon [facility] Start: 2010 [facility] Start: 1983 Depression Screening Depression Scre ening [facility] Start: 1965 HEPATITIS B (1 of 3 - 3-dose series) HEPATITIS B (1 of 3 - 3-dose series) [facility] PENILE DOPPLER UROLOGY PENILE DO PPLER UROLOGY Procedures Routine Peyronie's disease Ordered: 01/13/2023 [facility] Work Phone: Comment on above: Ordered: 01/13/2023 US PENILE DOPPLER (P OC) GUKI USE ONLY US PENILE DOPPLER (POC) GUKI USE ONLY Imaging Diagnostic Routine Peyronie's disease Ordered: 02/15/2023 [facility] Work Phone: Comment on above: Ordered: 02/15/2023 [facility] Immunizations Immunization Date Immunization Notes Care Provider Fa [facility] 05-23-2024 hepatitis A vaccine, adult dosage Steve Baron MD Work Phone: [facility] 05-23-2024 tetanus toxoid, redu vicky diphtheria toxoid, and acellular pertussis vaccine, adsorbed Steve Baron MD Work Phone: [facility] 05-23-2024 yellow fever vaccine Steve Baron MD Work Phone: [facility] 07-03-2021 COVID-19 vaccine, fu ll dose (MODERNA) Steve Baron MD Work Phone: [facility] 07-03-2021 influenza, high dose seasonal, preservative-free Steve Baron MD Work Phone: [facility] 07-03-2021 influenza, injectabl e, quadrivalent, preservative free Steve Baron MD Work Phone: [facility] Work Phone: 07-03-2021 influenza virus vaccine, unspecified formulation Aracely Ardon PA-C Work Phone: [facility] 09-25-2020 Seasonal, quadrivale nt, recombinant, injectable influenza vaccine, preservative free Steve Baron MD Work Phone: [facility] Work Phone: 08-30-2019 influenza, injectabl e, quadrivalent, preservative free Steve Baron MD Work Phone: [facility] 08-30-2018 influenza, injectabl e, quadrivalent, contains preservative Steve Baron MD Work Phone: [facility] Work Phone: 08-30-2018 influenza, injectabl e, quadrivalent, preservative free Steve Baron MD Work Phone: [facility] 09-09-2016 influenza, injectabl e, quadrivalent, contains preservative Steve Baron MD Work Phone: [facility] 09-03-2015 influenza, injectabl e, quadrivalent, contains preservative Steve Baron MD Work Phone: [facility] 03-06-2014 hepatitis A vaccine, adult dosage Steve Baron MD Work Phone: [facility] Work Phone: 08-01-2013 influenza virus vaccine, unspecified formulation Steve Barno MD Work Phone: [facility] Work Phone: 10-17-2012 influenza virus vaccine, unspecified formulation Steve Baron MD Work Phone: [facility] 02-24-2012 tetanus toxoid, redu vicky diphtheria toxoid, and acellular pertussis vaccine, adsorbed Steve Baron MD Work Phone: [facility] 08-29-2010 influenza virus vaccine, unspecified formulation Steve Baron MD Work Phone: [facility] Work Phone: 08-28-2009 influenza virus vaccine, unspecified formulation Steve Baron MD Work Phone: [facility] Payers Date Payer Category Payer Unknown [id number] 2023 Unknown [id number] 2020 Private Health Insurance [employer] [place] PPO [id number] 2020-Present [phone] [address] [place] [id number] PPO [id number] 2020 Private Health Insurance [id number] 2015 Unknown [id number] Social History Date Type Detail Facility Start: 06-28-2022 End: 07-30-2024 Tobacco smoking status NHIS Ex-smoker [facility] Start: 02-15-2022 End: 07-01-2025 Alcohol intake Current non-drinker of alcohol (finding) [facility] Start: 01-25-2012 End: 06-28-2022 Tobacco Comment intermittent smoker, quit in 1997 [facility] Start: 1965 Sex Assigned At Not on file [facility] Start: 02-05-2022 End: 07-26-2022 Exposure to SARS-CoV-2 (event) Not sure [facility] History of tobacco use Current smoker [facility] Work Phone: History of tobacco use Cigarette Smoker C [facility] Work Phone: Start: 06-28-2022 End: 07-30-2024 Tobacco use and exposure Smokeless tobacco non-user [facility] Work Phone: Start: 11-19-2022 History SDOH Alcohol Frequency 1 [facility] Start: 11-19-2022 History SDOH Social Connections Phone 5 [facility] Start: 11-19-2022 History SDOH Social Connections Evangelical 3 [facility] Start: 11-19-2022 History SDOH Social Connections Living 4 [facility] Start: 11-19-2022 History SDOH Stress 2 [facility] Start: 11-18-2022 End: 06-16-2023 History of Social function [facility] Start: 11-18-2022 End: 06-16-2023 Social connection and isolation panel [facility] Do you belong to any clubs or organizations such as jewish groups, unions, fraternal or athletic groups, or school groups? Yes [facility] Are you now , , , , never or living with a partner? [facility] How often to you hav e a drink containing alcohol? Never [facility] Start: 10-15-2012 Average Number of Drinks Not [facility] Do you feel stress - tense, restless, nervous, or anxious, or unable to sleep at night because your mind is troubled all the time - these days [OSQ] Only a little [facility] (I/We) worried fabiano er (my/our) food would run out before (I/we) got money to buy more. Never true [facility] In the past 12 month s, was there a time when you were not able to pay the mortgage or rent on time? No [facility] How hard is it for y ou to pay for the very basics like food, housing, medical care, and heating Not very hard [facility] Medical Equipment Procedure Code Equipment Code Equipment Origin al Text Equipment Identifier Dates Mesh Srg Pariete x 6x4in Lt - [id number] Start: 12-20-2011 Functional Status Date Assessment Result Facility 12-20-2014 Are you deaf, or do you have serious difficulty hearing No 12/20/2014 8:39 AM Roxy Pérez Ma No [facility] 12-20-2014 Are you blind, or do you have serious difficulty seeing, even when wearing glasses No 12/20/2014 8:39 AM Roxy Pérez Ma No [facility] 12-20-2014 Do you have serious difficulty walking or climbing stairs No 12/20/2014 8:39 AM Roxy Pérez Ma No [facility] 12-20-2014 Do you have difficul ty dressing or bathing No 12/20/2014 8:39 AM Roxy Pérez Ma No [facility] 12-20-2014 Because of a physica l, mental, or emotional condition, do you have difficulty doing errands alone such as visiting a physician's office or shopping No 12/20/2014 8:39 AM Roxy Pérez Ma No [facility] Mental Status Date Assessment Result Facility 12-20-2014 Because of a physica l, mental, or emotional condition, do you have serious difficulty concentrating, remembering, or making decisions No 12/20/2014 8:39 AM Roxy Pérez Ma No [facility] Clinical Notes 08-02-2014 to 07-29-2025 Aracely Ardon PA-C - 07/01/2025 10:35 AM Wendy Blue MA - 07/01/2025 8:07 AM EDTTelephone Encounter - Wendy Lawson MA - 05/29/2025 3:05 PM Josiah Smith MD - 05/23/2025 9:17 AM EDT Note Date & Type Note Facility 07-29-2025 Note HNO ID: [id number] Author: JOSIAH ACOSTA MD Service: ? Author Type: Physician Type: Progress Notes Filed: 08/05/2025 13:34 Note Text: Josiah Acosta MD Department of Orthopaedics Orthopa[facility]ics [address] [facility] [address] Dept: [phone] Dept July 29, 2025 CHIEF COMPLAINT: Post Op of the Left Hand and Post Op of the Right Hand. Vijaya Yeung is a 60-year-old male presenting for follow-up on trigger finger surgery and new onset of burning pain in the thumb. Ed reports stiffness and swelling in the middle knuckles following recent trigger finger surgery. He notes a longer recovery time than expected, stating, I remembered it being like that, I just didn't remember it being this long. Additionally, he reports a new onset of burning pain in the thumb, describing it as really sore and stating, I can't squeeze nothing in there. He denies any clicking or catching sensations in the thumb. ASSESSMENT: M65.321 Acquired trigger finger of right index finger (primary encounter diagnosis) M65.331 Acquired trigger finger of right middle finger M65.342 Acquired trigger finger of left ring finger 1. Acquired trigger finger of right index finger (M65.321) 2. Acquired trigger finger of right middle finger (M65.331) 3. Acquired trigger finger of left ring finger (M65.342) 6 weeks post trigger finger release for right index, right middle, and left ring fingers. Mild stiffness, swelling, and residual scar tenderness at the middle knuckles, as expected at this stage. No current locking or catching. Symptoms and exam consistent with normal post-op course; improvement expected over the next month. - Reassured that stiffness and swelling are typical at 6 weeks post-op and should resolve by 10 weeks. - Advised gentle massage to the scar and continued use of the hand as tolerated. - No restrictions on activity at this time. - Instructed to return if new locking, catching, or worsening symptoms develop. - Patient may follow up as needed. Exam: - Musculoskeletal: - Hand: Mild swelling and stiffness noted in the proximal interphalangeal joints; tenderness over the thumb flexor tendon. Review of Systems: Musculoskeletal: (+) burning pain in thumb, (+) thumb tenderness, (+) difficulty gripping objects Supporting Information Below: Medications: Current Outpatient Medications Medication Sig VITAMIN B COMPLEX ORAL Take by mouth. pravastatin (PRAVACHOL) 20 mg tablet Take 1 tablet by mouth daily at bedtime. sertraline (ZOLOFT) 100 mg tablet Take 1 tablet by mouth once daily. No current facility-administered medications for this visit. Allergies: E-Mycin [Erythromycin] and Zocor [Simvastatin] Recording using [email or web address] software for draft documentation of the visit was discussed with the patient/authorized technology sales representative; all questions welcomed and answered. Patient/authorized technology sales representative agreed to proceed Josiah Acosta MD [facility] 07-01-2025 Note HNO ID: [id number] Author: ARACELY ARDON PA-C Service: ? Author Type: Physician Stores Laborer Type: Progress Notes Filed: 07/01/2025 10:40 Note Text: Aracely Ardon PA-C Department of Orthopaedics Orthopaedics [address] [facility] [address] Dept: [phone] Dept July 01, 2025 CHIEF COMPLAINT: Post Op of the Left Hand and Post Op of the Right Hand (1 week 5 days post op Right index, middle, and Left ring trigger finger releases). ASSESSMENT: M65.321 Acquired trigger finger of right index finger (primary encounter diagnosis) M65.331 Acquired trigger finger of right middle finger M65.342 Acquired trigger finger of left ring finger SUMMARY/PLAN: Patient presents 1 week and 5 days status post right index and middle trigger finger releases and left ring trigger finger release. He is doing extremely well and denies any pain.We discussed proper hand washing, no soaking of the operative hand. No heavy lifting, pushing or pulling with the operative hand, encourage gentle motion. We discussed scar massage. Follow up as planned. Exam: All incision sites are well-approximated without erythema or drainage, there is mild edema at the base of the right index and middle digits. Patient is able to form a full composite fist with each hand and fully release all digits without any locking or catching. Imaging: Deferred today. Mr. Eduardo Yeung was advised as to contrast therapies and/or to take analgesics/anti-inflammatories as needed and all contraindications were reviewed. Supporting Information Below: Medications: Current Outpatient Medications Medication Sig VITAMIN B COMPLEX ORAL Take by mouth. pravastatin (PRAVACHOL) 20 mg tablet Take 1 tablet by mouth daily at bedtime. sertraline (ZOLOFT) 100 mg tablet Take 1 tablet by mouth once daily. No current facility-administered medications for this visit. Allergies: E-Mycin [Erythromycin] and Zocor [Simvastatin] This note was partially generated using [employer] voice recognition system, and there may be some incorrect words, spellings, and punctuation that were not noted in checking the note before saving. Aracely Ardon PA-C [facility] 07-01-2025 History of Presen t illness Narrative Aracely Ardon PA-C Department of Orthopaedics Orthopaedics [address] [facility] [address] Dept: [phone] Dept July 01, 2025 CHIEF COMPLAINT: Post Op of the Left Hand and Post Op of the Right Hand (1 week 5 days post op Right index, middle, and Left ring trigger finger releases). ASSESSMENT: M65.321 Acquired trigger finger of right index finger (primary encounter diagnosis) M65.331 Acquired trigger finger of right middle finger M65.342 Acquired trigger finger of left ring finger SUMMARY/PLAN: Patient presents 1 week and 5 days status post right index and middle trigger finger releases and left ring trigger finger release. He is doing extremely well and denies any pain.We discussed proper hand washing, no soaking of the operative hand. No heavy lifting, pushing or pulling with the operative hand, encourage gentle motion. We discussed scar massage. Follow up as planned. Exam: All incision sites are well-approximated without erythema or drainage, there is mild edema at the base of the right index and middle digits. Patient is able to form a full composite fist with each hand and fully release all digits without any locking or catching. Imaging: Deferred today. Mr. Eduardo Yeung was advised as to contrast therapies and/or to take analgesics/anti-inflammatories as needed and all contraindications were reviewed. Supporting Information Below: Medications: Current Outpatient Medications Medication Sig VITAMIN B COMPLEX ORAL Take by mouth. pravastatin (PRAVACHOL) 20 mg tablet Take 1 tablet by mouth daily at bedtime. sertraline (ZOLOFT) 100 mg tablet Take 1 tablet by mouth once daily. No current facility-administered medications for this visit. Allergies: E-Mycin [Erythromycin] and Zocor [Simvastatin] This note was partially generated using [employer] voice recognition system, and there may be some incorrect words, spellings, and punctuation that were not noted in checking the note before saving. Aracely Ardon PA-C Patient presents with: Left Hand - Post Op Right Hand - Post Op: 1 week 5 days post op Right index, middle, and Left ring trigger finger releases AMB ROOMING INTAKE FLOWSHEET DATA Patient denies any pain. He does have some tenderness in his hands. Sutures intact. No redness or drainage. documented in this encounter [facility] 07-01-2025 Note HNO ID: [id number] Author: WENDY LAWSON MA Service: ? Author Type: Spinner Frame Type: Progress Notes Filed: 07/01/2025 10:40 Note Text: Patient presents with: Left Hand - Post Op Right Hand - Post Op: 1 week 5 days post op Right index, middle, and Left ring trigger finger releases AMB ROOMING INTAKE FLOWSHEET DATA Patient denies any pain. He does have some tenderness in his hands. Sutures intact. No redness or drainage. [facility] 05-29-2025 Telephone encounter Note Surgery scheduled as requested. [facility] 05-29-2025 Miscellaneous Notes Surgery scheduled as requested. Surgical request completed. Post op appointments scheduled and mailed to the patient. Patient returned call and surgery was scheduled for 06/19/25. Patient scheduled for Right and middle trigger finger releases and Left ring trigger finger release. Offered patient next 05/30 in [place] if he is doing a local. Left a message for patient to call the office and ask to speak with Wendy documented in this encounter [facility] 05-28-2025 Telephone encounter Note Surgical request completed. Post op appointments scheduled and mailed to the patient. [facility] 05-27-2025 Telephone encounter Note Patient returned call and surgery was scheduled for 06/19/25. [facility] 05-23-2025 Telephone encounter Note Patient scheduled for Right and middle trigger finger releases and Left ring trigger finger release. Offered patient next 05/30 in [place] if he is doing a local. Left a message for patient to call the office and ask to speak with Wendy [facility] 05-23-2025 Note HNO ID: [id number] Author: JOSIAH ACOSTA MD Service: ? Author Type: Physician Type: Progress Notes Filed: 06/06/2025 09:03 Note Text: AMB ROOMING INTAKE FLOWSHEET DATA Pain Pain Level: 0 (6/10 pain when finger begin to lock up) Pain Location: Hand-Right (left) Description: Aching, Sharp Duration Amount of Time: 2 Duration Units: Months Frequency: Intermittent Intervention/Comfort measure: Reposition, Relaxation, Medication (ibuprofen) Comments: Pt is here today bilateral hand trigger fingers aching, sharp, locking. Flare up 2months ago. At times pain goes to 6/10 when fingers locks up.Pt take ibuprofen.Pt is right hand dominant, Pt states it hard to open and twist items. Josiah Acosta MD Department of Orthopaedics Orthopaedic Surgery [facility] [address] [facility] [address] Dept: [phone] Dept May 23, 2025 CHIEF COMPLAINT: Established Patient, Follow Up, and Pain of the Left Thumb (Pt is here today bilateral hand trigger fingers aching, sharp, locking. Flare up 2months ago. At times pain goes to 6/10 when fingers locks up.Pt take ibuprofen.Pt is right hand dominant, Pt states it hard to open and twist items.) and Established Patient, Follow Up, and Pain of the Right Hand (Pt is here today bilateral hand trigger fingers aching, sharp, locking. Flare up 2months ago. At times pain goes to 6/10 when fingers locks up.Pt take ibuprofen.Pt is right hand dominant, Pt states it hard to open and twist items.) HPI: HPI Ed Evelyne Yeung is a 59-year-old male presenting with recurrent trigger finger symptoms. Ed reports recurrent trigger finger symptoms affecting the left ring finger and right middle finger. He notes that the left ring finger is really, really short and the right middle finger has been acting up, though he did not experience symptoms this morning. He mentions that his pinky fingers are still functioning well. He has a history of previous trigger finger releases, including the left middle finger and right ring finger, as well as the thumb and index finger in February. He inquires about the possibility of performing multiple trigger finger releases in one session to avoid multiple visits. ASSESSMENT: M65.321 Acquired trigger finger of right index finger M65.331 Acquired trigger finger of right middle finger M65.342 Acquired trigger finger of left ring finger 1. Acquired trigger finger of right index finger (M65.321) Tenderness to palpation at the A1 owen site; no current locking or catching observed. - Scheduled trigger finger release surgery for the first week of June at [place]. - Procedure will involve local anesthetic, two stitches, and a soft bandage for 1.5 days. - Advised to avoid strenuous activities for 10-14 days post-surgery. 2. Acquired trigger finger of right middle finger (M65.331) Tenderness to palpation at the A1 owen site; clicking and some catching observed. - Scheduled trigger finger release surgery for the first week of June at [place]. - Procedure will involve local anesthetic, two stitches, and a soft bandage for 1.5 days. - Advised to avoid strenuous activities for 10-14 days post-surgery. 3. Acquired trigger finger of left ring finger (M65.342) Tenderness, mild swelling, and locking and catching observed. - Scheduled trigger finger release surgery for the first week of June at [place]. - Procedure will involve local anesthetic, two stitches, and a soft bandage for 1.5 days. - Advised to avoid strenuous activities for 10-14 days post-surgery. Will continue to monitor patient for Acquired trigger finger of right index finger Acquired trigger finger of right middle finger Acquired trigger finger of left ring finger, patient to schedule visit as per follow up discussed. We have made the decision to move forward with a major orthopaedic surgery today, and this represents the moderate form of medical decision-making complexity. The patient's diagnosis of Acquired trigger finger of right index finger Acquired trigger finger of right middle finger Acquired trigger finger of left ring finger represents a chronic pathology/diagnosis/injury that represents a current or possible direct threat to bodily function. The risks, benefits, alternatives and potential complications involving both operative and nonoperative treatment were reviewed patient understands and wishes to pursue surgical procedure outlined. Will get the patient scheduled at their convenience. OBJECTIVE: Mr. Eduardo Yeung is a pleasant 60 year old in no apparent distress. Gen:There were no vitals taken for this visit. nl development, non obese, no deformities ENT: Normocephalic, normal hearing, moist mucosa CV: Pulses:Radial= 2+ and symmetric, capillary refill < 2 secs, no peripheral edema/varicosities Skin: no rash, bruising or lesions. Good turgor. Psych: cooperative an (more content not included)... [facility] 05-23-2025 History of Presen t illness Narrative AMB ROOMING INTAKE FLOWSHEET DATA Pain Pain Level: 0 (6/10 pain when finger begin to lock up) Pain Location: Hand-Right (left) Description: Aching, Sharp Duration Amount of Time: 2 Duration Units: Months Frequency: Intermittent Intervention/Comfort measure: Reposition, Relaxation, Medication (ibuprofen) Comments: Pt is here today bilateral hand trigger fingers aching, sharp, locking. Flare up 2months ago. At times pain goes to 6/10 when fingers locks up.Pt take ibuprofen.Pt is right hand dominant, Pt states it hard to open and twist items. Josiah Acosta MD Department of Orthopaedics Orthopaedic Surgery [facility] [address] [facility] [address] Dept: [phone] Dept May 23, 2025 CHIEF COMPLAINT: Established Patient, Follow Up, and Pain of the Left Thumb (Pt is here today bilateral hand trigger fingers aching, sharp, locking. Flare up 2months ago. At times pain goes to 6/10 when fingers locks up.Pt take ibuprofen.Pt is right hand dominant, Pt states it hard to open and twist items.) and Established Patient, Follow Up, and Pain of the Right Hand (Pt is here today bilateral hand trigger fingers aching, sharp, locking. Flare up 2months ago. At times pain goes to 6/10 when fingers locks up.Pt take ibuprofen.Pt is right hand dominant, Pt states it hard to open and twist items.) HPI: HPI Vijaya Yeung is a 59-year-old male presenting with recurrent trigger finger symptoms. Ed reports recurrent trigger finger symptoms affecting the left ring finger and right middle finger. He notes that the left ring finger is really, really short and the right middle finger has been acting up, though he did not experience symptoms this morning. He mentions that his pinky fingers are still functioning well. He has a history of previous trigger finger releases, including the left middle finger and right ring finger, as well as the thumb and index finger in February. He inquires about the possibility of performing multiple trigger finger releases in one session to avoid multiple visits. ASSESSMENT: M65.321 Acquired trigger finger of right index finger M65.331 Acquired trigger finger of right middle finger M65.342 Acquired trigger finger of left ring finger 1. Acquired trigger finger of right index finger (M65.321) Tenderness to palpation at the A1 owen site; no current locking or catching observed. - Scheduled trigger finger release surgery for the first week of June at [place]. - Procedure will involve local anesthetic, two stitches, and a soft bandage for 1.5 days. - Advised to avoid strenuous activities for 10-14 days post-surgery. 2. Acquired trigger finger of right middle finger (M65.331) Tenderness to palpation at the A1 owen site; clicking and some catching observed. - Scheduled trigger finger release surgery for the first week of June at [place]. - Procedure will involve local anesthetic, two stitches, and a soft bandage for 1.5 days. - Advised to avoid strenuous activities for 10-14 days post-surgery. 3. Acquired trigger finger of left ring finger (M65.342) Tenderness, mild swelling, and locking and catching observed. - Scheduled trigger finger release surgery for the first week of June at [place]. - Procedure will involve local anesthetic, two stitches, and a soft bandage for 1.5 days. - Advised to avoid strenuous activities for 10-14 days post-surgery. Will continue to monitor patient for Acquired trigger finger of right index finger Acquired trigger finger of right middle finger Acquired trigger finger of left ring finger, patient to schedule visit as per follow up discussed. We have made the decision to move forward with a major orthopaedic surgery today, and this represents the moderate form of medical decision-making complexity. The patient's diagnosis of Acquired trigger finger of right index finger Acquired trigger finger of right middle finger Acquired trigger finger of left ring finger represents a chronic pathology/diagnosis/injury that represents a current or possible direct threat to bodily function. The risks, benefits, alternatives and potential complications involving both operative and nonoperative treatment were reviewed patient understands and wishes to pursue surgical procedure outlined. Will get the patient scheduled at their convenience. OBJECTIVE: Mr. Eduardo Yeung is a pleasant 60 year old in no apparent distress. Gen:There were no vitals taken for this visit. nl development, non obese, no deformities ENT: Normocephalic, normal hearing, moist mucosa CV: Pulses:Radial= 2+ and symmetric, capillary refill < 2 secs, no peripheral edema/varicosities Skin: no rash, bruising or lesions. Good turgor. Psych: cooperative and appropriate, alert and oriented x 3, good mood and affect. Musculoskeletal: - Musculoskeletal: - Right Hand: - Tenderness at the A1 owen site of the index and middle fingers; no obvious swelling. - Middle finger: Clicking and some catching noted; no current locking or catching of the index finger. - Left Hand: - Ring finger: Tenderness, mild swelling, and locking and catching noted. Supporting Subjective Information Below: Past Medical History: PAST MEDICAL HISTORY Diagnosis Date Anxiety state, unspecified Other and unspecified hyperlipidemia borderline Past Surgical History: PAST SURGICAL HISTORY Procedure Laterality Date ANESTH DIAGNOSTIC ARTHROSCOPIC PROC KNEE JOINT remote right knee COLONOSCOPY FLX DX W/COLLJ SPEC WHEN PFRMD 05/10/2016 Colonoscopy INCISE FINGER TENDON SHEATH Left 06/16/2022 Left middle trigger finger release INCISE FINGER TENDON SHEATH Left 03/01/2024 left thumb and index trigger release. INGUINAL HERNIA REPAIR HX 12/15/2011 left PAST SURGICAL HISTORY OF remote vasectomy reversal VASECTOMY UNI/BI SPX W/POSTOP SEMEN EXAMS remote Medications: Current Outpatient Medications Medication Sig VITAMIN B COMPLEX ORAL Take by mouth. pravastatin (PRAVACHOL) 20 mg tablet Take 1 tablet by mouth daily at bedtime. sertraline (ZOLOFT) 100 mg tablet Take 1 tablet by mouth once daily. No current facility-administered medications for this visit. Allergies: E-Mycin [Erythromycin] and Zocor [Simvastatin] ROS: General (negative for fatigue, malaise, weight loss/gain) HEENT (negative for headache, earache, recent vision changes, sinus pain, sore throat) Respiratory (no recent shortness of breath, hemoptysis) CV (negative for chest tightness, palpitations) Musculoskeletal (see HPI) Psych (no depression, anxiety) Recording using [email or web address] software for draft documentation of the visit was discussed with the patient/authorized technology sales representative; all questions welcomed and answered. Patient/authorized technology sales representative agreed to proceed Josiah Acosta MD documented in this encounter [facility] 02-23-2025 Note HNO ID: [id number] Author: STEVE BARON MD Service: ? Author Type: Physician Type: Progress Notes Filed: 02/23/2025 10:54 Note Text: Chief Complaint Patient presents with: Follow Up HPI Eduardo Yeung is a 59 year old male who presents here today for follow up on labs. Patient did have a fall about 3 weeks ago. No dizziness/lightheaded. Injured lower/mid back on right side. Was on a ladder that gave out and he fell onto a plastic garage can. Was mechanical. Did not hit his head or loc. Did hurt to breathe for about a week but then went slowly away. Is more sore if works out. No bruising. No shortness of breath currently. No urinary issues. No hematuria. No gi issues. Hyperlipidemia: overall meds are stable. Labs are improving. No chest pain or edema. Psych:sertraline is working well. Moods are doing well. He is getting in July. Happy with meds. Latest Ref Rng 01/28/2025 WBC 3.70 - 11.00 k/uL 4.43 RBC 4.20 - 6.00 m/uL 5.29 Hemoglobin 13.0 - 17.0 g/dL 15.3 Hematocrit 39.0 - 51.0 % 47.5 MCV 80.0 - 100.0 fL 89.8 MCH 26.0 - 34.0 pg 28.9 MCHC 30.5 - 36.0 g/dL 32.2 RDW-CV 11.5 - 15.0 % 13.2 Platelet Count 150 - 400 k/uL 249 MPV 9.0 - 12.7 fL 9.6 Neut% % 48.3 Abs Neut (ANC) 1.45 - 7.50 k/uL 2.14 Lymph% % 34.5 Abs Lymph 1.00 - 4.00 k/uL 1.53 Churchill% % 12.9 Abs Churchill <0.87 k/uL 0.57 Eosin% % 2.9 Abs Eosin <0.46 k/uL 0.13 Baso% % 0.9 Abs Baso <0.11 k/uL 0.04 Immature Gran % % 0.5 IMMATURE GRANS (ABS) <0.10 k/uL <0.03 NRBC /100 WBC 0.0 Absolute nRBC <0.01 k/uL <0.01 DTYPE Auto Protein, Total 6.3 - 8.0 g/dL 7.3 Albumin 3.9 - 4.9 g/dL 4.5 Calcium 8.5 - 10.2 mg/dL 9.7 Bilirubin, Total 0.2 - 1.3 mg/dL 0.5 Alkaline Phosphatase 38 - 113 U/L 58 AST 14 - 40 U/L 25 ALT 10 - 54 U/L 30 Glucose 74 - 99 mg/dL 94 BUN 9 - 24 mg/dL 14 Creatinine 0.73 - 1.22 mg/dL 1.09 Sodium 136 - 144 mmol/L 142 Potassium 3.7 - 5.1 mmol/L 5.0 Chloride 98 - 107 mmol/L 104 CO2 22 - 30 mmol/L 30 Anion Gap 8 - 15 mmol/L 8 eGFR >=60 mL/min/1.73m? 78 Cholesterol, Total <200 mg/dL 191 Triglyceride <150 mg/dL 87 HDL Cholesterol >39 mg/dL 42 Non HDL Cholesterol <130 mg/dL 149 (H) Fasting Time hrs 12 VLDL Cholesterol <30 mg/dL 17 TC:HDL Ratio <5.10 4.55 LDL Cholesterol <100 mg/dL 132 (H) LDL:HDL Ratio <2.54 3.14 (H) Legend: (H) [place] medical history, appointments, medications, allergies reviewed. Previous Medical History PAST MEDICAL HISTORY Diagnosis Date Anxiety state, unspecified Other and unspecified hyperlipidemia borderline Previous Surgical History PAST SURGICAL HISTORY Procedure Laterality Date ANESTH DIAGNOSTIC ARTHROSCOPIC PROC KNEE JOINT remote right knee COLONOSCOPY FLX DX W/COLLJ SPEC WHEN PFRMD 05/10/2016 Colonoscopy INCISE FINGER TENDON SHEATH Left 06/16/2022 Left middle trigger finger release INCISE FINGER TENDON SHEATH Left 03/01/2024 left thumb and index trigger release. INGUINAL HERNIA REPAIR HX 12/15/2011 left PAST SURGICAL HISTORY OF remote vasectomy reversal VASECTOMY UNI/BI SPX W/POSTOP SEMEN EXAMS remote Family History FAMILY HISTORY Problem Relation Age of Onset Diabetes Father Hypertension Father Heart Mother stents Heart Maternal Grandmother Heart Maternal Grandfather CABG at 90 Heart Paternal Grandfather [place] Patient Allergies ALLERGIES Allergen Reactions E-Mycin [Erythromyc* GI Upset Zocor [Simvastatin] caused body aches Current Medications Current Outpatient Medications on File Prior to Visit Medication Sig pravastatin (PRAVACHOL) 20 mg tablet Take 1 tablet by mouth daily at bedtime. sertraline (ZOLOFT) 100 mg tablet Take 1 tablet by mouth once daily. No current facility-administered medications on file prior to visit. Social History Social History Tobacco Use Smoking status: Former Types: Cigarettes Smokeless tobacco: Never Tobacco comments: intermittent smoker, quit in 1997 Vaping Use Vaping status: Never Used Substance Use Topics Alcohol use: No Drug use: No Review of Symptoms REVIEW OF SYSTEMS No gi or gu issues. EXAM: BP 128/74 Pulse 64 Resp 16 Wt 89.8 kg (198 lb) BMI 27.62 kg/m? Skin: Skin color, texture, turgor normal, no suspicious rashes or lesions. Neck: Supple, no adenopathy; thyroid symmetric, normal size, no bruits. Lungs: Lungs clear to auscultation. No wheezing, rhonchi, rales.. Heart: RRR without murmur, gallop, or rubs. No ectopy. Abdomen: Normal abdominal exam, Abdomen soft, non-tender. Bowel sounds normal. No masses, organomegaly. Extremities: No deformities, edema, skin discoloration, clubbing or cyanosis. Good capillary refill. Rib: slightly tender over rib cage. No instability or step off. No bruising. Health Maintenance List Depression Screening Never done Pneumococcal Vaccine: 50+(1 of 1 - PCV) Never done Influenza Vaccine(1) due on 05/13/2025 Shingrix Vaccine(1 of 2) due on 0 (more content not included)... [facility] 02-23-2025 History of Presen t illness Narrative Chief Complaint Patient presents with: Follow Up HPI Eduardo Yeung is a 59 year old male who presents here today for follow up on labs. Patient did have a fall about 3 weeks ago. No dizziness/lightheaded. Injured lower/mid back on right side. Was on a ladder that gave out and he fell onto a plastic garage can. Was mechanical. Did not hit his head or loc. Did hurt to breathe for about a week but then went slowly away. Is more sore if works out. No bruising. No shortness of breath currently. No urinary issues. No hematuria. No gi issues. Hyperlipidemia: overall meds are stable. Labs are improving. No chest pain or edema. Psych:sertraline is working well. Moods are doing well. He is getting in July. Happy with meds. Latest Ref Rng 01/28/2025 WBC 3.70 - 11.00 k/uL 4.43 RBC 4.20 - 6.00 m/uL 5.29 Hemoglobin 13.0 - 17.0 g/dL 15.3 Hematocrit 39.0 - 51.0 % 47.5 MCV 80.0 - 100.0 fL 89.8 MCH 26.0 - 34.0 pg 28.9 MCHC 30.5 - 36.0 g/dL 32.2 RDW-CV 11.5 - 15.0 % 13.2 Platelet Count 150 - 400 k/uL 249 MPV 9.0 - 12.7 fL 9.6 Neut% % 48.3 Abs Neut (ANC) 1.45 - 7.50 k/uL 2.14 Lymph% % 34.5 Abs Lymph 1.00 - 4.00 k/uL 1.53 Churchill% % 12.9 Abs Churchill <0.87 k/uL 0.57 Eosin% % 2.9 Abs Eosin <0.46 k/uL 0.13 Baso% % 0.9 Abs Baso <0.11 k/uL 0.04 Immature Gran % % 0.5 IMMATURE GRANS (ABS) <0.10 k/uL <0.03 NRBC /100 WBC 0.0 Absolute nRBC <0.01 k/uL <0.01 DTYPE Auto Protein, Total 6.3 - 8.0 g/dL 7.3 Albumin 3.9 - 4.9 g/dL 4.5 Calcium 8.5 - 10.2 mg/dL 9.7 Bilirubin, Total 0.2 - 1.3 mg/dL 0.5 Alkaline Phosphatase 38 - 113 U/L 58 AST 14 - 40 U/L 25 ALT 10 - 54 U/L 30 Glucose 74 - 99 mg/dL 94 BUN 9 - 24 mg/dL 14 Creatinine 0.73 - 1.22 mg/dL 1.09 Sodium 136 - 144 mmol/L 142 Potassium 3.7 - 5.1 mmol/L 5.0 Chloride 98 - 107 mmol/L 104 CO2 22 - 30 mmol/L 30 Anion Gap 8 - 15 mmol/L 8 eGFR >=60 mL/min/1.73m 78 Cholesterol, Total <200 mg/dL 191 Triglyceride <150 mg/dL 87 HDL Cholesterol >39 mg/dL 42 Non HDL Cholesterol <130 mg/dL 149 (H) Fasting Time hrs 12 VLDL Cholesterol <30 mg/dL 17 TC:HDL Ratio <5.10 4.55 LDL Cholesterol <100 mg/dL 132 (H) LDL:HDL Ratio <2.54 3.14 (H) Legend: (H) [place] medical history, appointments, medications, allergies reviewed. Previous Medical History PAST MEDICAL HISTORY Diagnosis Date Anxiety state, unspecified Other and unspecified hyperlipidemia borderline Previous Surgical History PAST SURGICAL HISTORY Procedure Laterality Date ANESTH DIAGNOSTIC ARTHROSCOPIC PROC KNEE JOINT remote right knee COLONOSCOPY FLX DX W/COLLJ SPEC WHEN PFRMD 05/10/2016 Colonoscopy INCISE FINGER TENDON SHEATH Left 06/16/2022 Left middle trigger finger release INCISE FINGER TENDON SHEATH Left 03/01/2024 left thumb and index trigger release. INGUINAL HERNIA REPAIR HX 12/15/2011 left PAST SURGICAL HISTORY OF remote vasectomy reversal VASECTOMY UNI/BI SPX W/POSTOP SEMEN EXAMS remote Family History FAMILY HISTORY Problem Relation Age of Onset Diabetes Father Hypertension Father Heart Mother stents Heart Maternal Grandmother Heart Maternal Grandfather CABG at 90 Heart Paternal Grandfather [place] Patient Allergies ALLERGIES Allergen Reactions E-Mycin [Erythromyc* GI Upset Zocor [Simvastatin] caused body aches Current Medications Current Outpatient Medications on File Prior to Visit Medication Sig pravastatin (PRAVACHOL) 20 mg tablet Take 1 tablet by mouth daily at bedtime. sertraline (ZOLOFT) 100 mg tablet Take 1 tablet by mouth once daily. No current facility-administered medications on file prior to visit. Social History Social History Tobacco Use Smoking status: Former Types: Cigarettes Smokeless tobacco: Never Tobacco comments: intermittent smoker, quit in 1997 Vaping Use Vaping status: Never Used Substance Use Topics Alcohol use: No Drug use: No Review of Symptoms REVIEW OF SYSTEMS No gi or gu issues. EXAM: BP 128/74 Pulse 64 Resp 16 Wt 89.8 kg (198 lb) BMI 27.62 kg/m Skin: Skin color, texture, turgor normal, no suspicious rashes or lesions. Neck: Supple, no adenopathy; thyroid symmetric, normal size, no bruits. Lungs: Lungs clear to auscultation. No wheezing, rhonchi, rales.. Heart: RRR without murmur, gallop, or rubs. No ectopy. Abdomen: Normal abdominal exam, Abdomen soft, non-tender. Bowel sounds normal. No masses, organomegaly. Extremities: No deformities, edema, skin discoloration, clubbing or cyanosis. Good capillary refill. Rib: slightly tender over rib cage. No instability or step off. No bruising. Health Maintenance List Depression Screening Never done Pneumococcal Vaccine: 50+(1 of 1 - PCV) Never done Influenza Vaccine(1) due on 05/13/2025 Shingrix Vaccine(1 of 2) due on 07/30/2025 Covid-19 Vaccine(2 - season) due on 07/30/2025 Colorectal Cancer Screening due on 05/10/2026 Diabetes Screening due on 01/29/2028 Prostate Cancer Screening Discussion due on 01/19/2029 Lipid Screening due on 01/28/2030 DTaP,Tdap,Td Vaccine(3 - Td or Tdap) due on 05/23/2034 Hepatitis C Screening Completed HIV Screening Discontinued ASSESSMENT/PLAN: 1. Mixed hyperlipidemia - ICD9: 272.2, ICD10: E78.2 (primary diagnosis) - continue current meds. - PRAVASTATIN 20 MG TABLET 2. Anxiety state - ICD9: 300.00, ICD10: F41.1 - Continue current medications. Notify us if any difficulties are noted. - SERTRALINE 100 MG TABLET 3. Screening for depression - ICD9: V79.0, ICD10: Z13.31- - DEPRESSION SCREENING 4. Contusion of rib, unspecified laterality, subsequent encounter - ICD9: V58.89, 922.1, ICD10: S20.219D - ice and heat. Offered xrays. Red flags for re-assessment reviewed with patient in detail. Call if symptoms worsen at all or if not better in one to two weeks Steve Baron MD documented in this encounter [facility] 01-29-2025 Telephone encounter Note Notified via mychart of results and that he needs to call office to set up appt. Kamilla Elizabeth MA [facility] 01-29-2025 Miscellaneous Notes Notified via [employer] of results and that he needs to call office to set up appt. Kamilla Elizabeth MA ----- Message from Steve Baron MD sent at 01/28/2025 7:23 PM EDT ----- Labs are stable. These were supposed to be done and then to have a follow up appt to go over them. He never set up the appt documented in this encounter [facility] 01-29-2025 Telephone encounter Note ----- Message from Steve Baron MD sent at 01/28/2025 7:23 PM EDT ----- Labs are stable. These were supposed to be done and then to have a follow up appt to go over them. He never set up the appt [facility] 01-15-2025 Telephone encounter Note Last apt 04/29/2024 Patient has been identified by name and date of : Yes Last office visit in this department: 07/30/2024 RX INSTRUCTIONS: Patient aware RX will be sent to pharmacy. No need to notify patient. Patient phones requesting refills as follows: Requested Prescriptions Pending Prescriptions Disp Refills pravastatin (PRAVACHOL) 20 mg tablet 90 tablet 1 Sig: Take 1 tablet by mouth daily at bedtime. sertraline (ZOLOFT) 100 mg tablet 90 tablet 1 Sig: Take 1 tablet by mouth once daily. Please review and advise. Mabel Aguero [facility] 01-15-2025 Miscellaneous Notes Last apt 04/29/2024 Patient has been identified by name and date of : Yes Last office visit in this department: 07/30/2024 RX INSTRUCTIONS: Patient aware RX will be sent to pharmacy. No need to notify patient. Patient phones requesting refills as follows: Requested Prescriptions Pending Prescriptions Disp Refills pravastatin (PRAVACHOL) 20 mg tablet 90 tablet 1 Sig: Take 1 tablet by mouth daily at bedtime. sertraline (ZOLOFT) 100 mg tablet 90 tablet 1 Sig: Take 1 tablet by mouth once daily. Please review and advise. Mabel Aguero documented in this encounter [facility] 07-30-2024 History of Presen t illness Narrative Patient presents with: 6 Month Exam HPI: Patient presents today for office visit for follow up. No concerns today. HLD: Continues on Pravastatin 20 mg qhs. No myalgias. Did labs labs last time. No chest pain. No shortness of breath. PSYCH: Continues on Sertraline 100 mg daily. Doing well. Just was on a mission trip to [place]. Moods have been good. No depressive symptoms. MEDICATIONS: Current Outpatient Medications Medication Sig pravastatin (PRAVACHOL) 20 mg tablet Take 1 tablet by mouth daily at bedtime. sertraline (ZOLOFT) 100 mg tablet Take 1 tablet by mouth once daily. No current facility-administered medications for this visit. ALLERGIES: ALLERGIES Allergen Reactions E-Mycin [Erythromyc* GI Upset Zocor [Simvastatin] caused body aches PAST MEDICAL HISTORY Diagnosis Date Anxiety state, unspecified Other and unspecified hyperlipidemia borderline PAST SURGICAL HISTORY Procedure Laterality Date ANESTH DIAGNOSTIC ARTHROSCOPIC PROC KNEE JOINT remote right knee COLONOSCOPY FLX DX W/COLLJ SPEC WHEN PFRMD 05/10/2016 Colonoscopy INCISE FINGER TENDON SHEATH Left 06/16/2022 Left middle trigger finger release INCISE FINGER TENDON SHEATH Left 03/01/2024 left thumb and index trigger release. INGUINAL HERNIA REPAIR HX 12/15/2011 left PAST SURGICAL HISTORY OF remote vasectomy reversal VASECTOMY UNI/BI SPX W/POSTOP SEMEN EXAMS remote FAMILY HISTORY Problem Relation Age of Onset Diabetes Father Hypertension Father Heart Mother stents Heart Maternal Grandmother Heart Maternal Grandfather CABG at 90 Heart Paternal Grandfather [place] Social History Tobacco Use Smoking status: Former Types: Cigarettes Smokeless tobacco: Never Tobacco comments: intermittent smoker, quit in 1997 Vaping Use Vaping status: Never Used Substance Use Topics Alcohol use: No Drug use: No Reviewed current medications, allergies, past medical history, surgical history, family history and social history today. REVIEW OF SYSTEMS GI: Negative for blood in stools or black stools, change in bowel habit : Negative All other reviewed and negative other than HPI. HEALTH MAINTENANCE: Reviewed health maintenance issues today and recommended the following in detail. Depression Screening Never done Shingrix Vaccine(1 of 2) Never done Covid-19 Vaccine(2 - 2022- season) due on 07/15/2024 Influenza Vaccine(1) due on 07/15/2024 Had discussion with patient regarding risks and benefits of prostate screening. Allowed them to decide if they wished to proceed with screening including GLENN and PSA. VITALS: BP 124/78 Pulse 67 Ht 180.3 cm (5' 11) Wt 87.5 kg (192 lb 14.4 oz) BMI 26.90 kg/m Last 4 Encounter Wt Readings: Date: Wt: 01/20/2024 88 kg (194 lb) 10/05/2023 93 kg (205 lb) 09/05/2023 91.6 kg (202 lb) 06/16/2023 92 kg (202 lb 12.8 oz) PHYSICAL EXAMINATION: General appearance: Well appearing, alert, in no acute distress, well-hydrated, well nourished. Skin: Skin color, texture, turgor normal, no suspicious rashes or lesions Head: Normocephalic, no masses, lesions, tenderness or abnormalities Lungs: Lungs clear to auscultation. No wheezing, rhonchi, rales Heart: RRR without murmur, gallop, or rubs. No ectopy Abdomen: Normal abdominal exam, Abdomen soft, non-tender. Bowel sounds normal. No masses, organomegaly Extremities: No deformities, edema, skin discoloration, clubbing or cyanosis. Good capillary refill. ASSESSMENT/PLAN: 1. Mixed hyperlipidemia - ICD9: 272.2, ICD10: E78.2 (primary diagnosis) - Controlled - Continue current medications - COMPLETE BLOOD COUNT AND DIFFERENTIAL - COMPREHENSIVE METABOLIC PANEL - LIPID PANEL BASIC 2. Anxiety state - ICD9: 300.00, ICD10: F41.1 - Continue current medications. Notify us if any difficulties are noted. - SERTRALINE 100 MG TABLET - COMPLETE BLOOD COUNT AND DIFFERENTIAL - COMPREHENSIVE METABOLIC PANEL Steve Baron RTO in six months or prn RTO in six months and prn. documented in this encounter [facility] 07-21-2024 Telephone encounter Note Patient has been identified by name and date of : Yes, Provider tod Date 07/21/2024 Time 8:30 Patient phones for refill(s): Requested Prescriptions Pending Prescriptions Disp Refills pravastatin (PRAVACHOL) 20 mg tablet 90 tablet 1 Sig: Take 1 tablet by mouth daily at bedtime. Date of last office visit in primary care: 01/20/2024 Date of next office visit in primary care: 07/30/2024 Please advise. Thank you. Razia Aguero. [facility] 07-21-2024 Miscellaneous Notes Patient has been identified by name and date of : Yes, Provider tod Date 07/21/2024 Time 8:30 Patient phones for refill(s): Requested Prescriptions Pending Prescriptions Disp Refills pravastatin (PRAVACHOL) 20 mg tablet 90 tablet 1 Sig: Take 1 tablet by mouth daily at bedtime. Date of last office visit in primary care: 01/20/2024 Date of next office visit in primary care: 07/30/2024 Please advise. Thank you. Razia Aguero. documented in this encounter [facility] 04-23-2024 History of Presen t illness Narrative Josiah Acosta MD Department of Orthopaedics Orthopa[facility] [address] [place] [address] Dept: [phone] Dept April 23, 2024 CHIEF COMPLAINT: Post Op of the Left Thumb, Post Op of the Left Index Finger, and 7 weeks 4 days post op left thumb and index trigger (finger releases). HPI Patient here post op Left thumb and left index trigger finger releases. Patient denies any pain but he still having some stiffness. ASSESSMENT: M65.312 Trigger thumb of left hand (primary encounter diagnosis) M65.322 Trigger index finger of left hand SUMMARY/PLAN: He's very pleased with his trigger surgery results thus far. Mild and appropriate stiffness. No locking, catching, etc. Continue return to normal activities as tolerated. Exam: As above Supporting Information Below: Medications: Current Outpatient Medications Medication Sig sertraline (ZOLOFT) 100 mg tablet Take 1 tablet by mouth once daily. pravastatin (PRAVACHOL) 20 mg tablet Take 1 tablet by mouth daily at bedtime. GLUCOSAMINE SULFATE (GLUCOSAMINE ORAL) Take by mouth once daily. [employer] Extend flex meloxicam (MOBIC) 15 mg tablet Take 1 tablet by mouth once daily. (Patient not taking: Reported on 04/23/2024) No current facility-administered medications for this visit. Allergies: E-Mycin [Erythromycin] and Zocor [Simvastatin] Josiah Acosta MD documented in this encounter [facility] 03-22-2024 Telephone encounter Note Patient has been identified by name and date of : Yes Requested Prescriptions Pending Prescriptions Disp Refills sertraline (ZOLOFT) 100 mg tablet 90 tablet 1 Sig: Take 1 tablet by mouth once daily. RX INSTRUCTIONS: Patient aware RX will be sent to pharmacy. No need to notify patient. Jeanine Aguero [facility] 03-22-2024 Miscellaneous Notes Patient has been identified by name and date of : Yes Requested Prescriptions Pending Prescriptions Disp Refills sertraline (ZOLOFT) 100 mg tablet 90 tablet 1 Sig: Take 1 tablet by mouth once daily. RX INSTRUCTIONS: Patient aware RX will be sent to pharmacy. No need to notify patient. Jeanine Gayle Pss documented in this encounter [facility] 03-12-2024 History of Presen t illness Narrative Aracely Ardon PA-C Department of Orthopaedics Orthopaedics [address] [facility] [address] Dept: [phone] Dept March 12, 2024 CHIEF COMPLAINT: Established Patient and Post Op of the Left Hand. ASSESSMENT: M65.312 Trigger thumb of left hand (primary encounter diagnosis) M65.322 Trigger index finger of left hand SUMMARY/PLAN: Patient presents 11 days status post left index and trigger thumb release. He is doing very well, denies any pain today. 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 We discussed proper hand washing, no soaking of the operative hand. No heavy lifting, pushing or pulling with the operative hand, encourage gentle motion. We discussed scar massage. Follow up as planned. Exam: Both incision sites are well-approximated without erythema or drainage. Patient is able to form a full composite fist and extend all digits without locking or catching. Imaging: Deferred today. Mr. Eduardo Yeung was advised as to contrast therapies and/or to take analgesics/anti-inflammatories as needed and all contraindications were reviewed. Supporting Information Below: Medications: Current Outpatient Medications Medication Sig sertraline (ZOLOFT) 100 mg tablet Take 1 tablet by mouth once daily. pravastatin (PRAVACHOL) 20 mg tablet Take 1 tablet by mouth daily at bedtime. GLUCOSAMINE SULFATE (GLUCOSAMINE ORAL) Take by mouth once daily. [employer] Extend flex meloxicam (MOBIC) 15 mg tablet Take 1 tablet by mouth once daily. No current facility-administered medications for this visit. Allergies: E-Mycin [Erythromycin] and Zocor [Simvastatin] This note was partially generated using [employer] voice recognition system, and there may be some incorrect words, spellings, and punctuation that were not noted in checking the note before saving. Aracely Ardon PA-C [employer]OWS[employer] DATA documented in this encounter [facility] 01-20-2024 Instructions Steve Baron MD - 01/20/2024 3:04 PM EST Guidelines for low cholesterol, low triglyceride diets FOODS TO USE MEATS/FISH - Choose lean meats (chicken, turkey, veal, and nonfatty cuts of beef with excess fat trimmed; one serving = 3 oz. of cooked meat). Also, fresh or frozen fish, canned fish packed in water, and shellfish (lobster, crab, shrimp, oysters). Limit use to no more than one serving of one of these per week. Shellfish are high in cholesterol but low in saturated fat and should be used sparingly. Meats and fish should be broiled (vallecillo or oven) or baked on a rack. EGGS - Egg substitutes and egg whites (use freely). Egg yolks (limit two per week). FRUITS - Eat three servings of fresh fruit per day (1 serving = 1/2 cup). Be sure to have at least one citrus fruit daily. Frozen or canned fruit with no sugar or syrup added may be used. VEGETABLES - Most vegetables are not limited (see Foods to Avoid). One dark green (string beans, escarole) or one deep yellow (squash) vegetable is recommended daily. Cauliflower, broccoli, and celery, as well as potato skins, are recommended for their fiber content (fiber is associated with cholesterol reduction). It is preferable to steam vegetables, but they may be boiled, strained, or braised with polyunsaturated vegetable oil (see below). BEANS - Dried peas or beans (1 serving = 1/2 cup) may be used as a bread substitute. NUTS - Almonds, walnuts, and peanuts may be used sparingly (1 serving = 1 tablespoon). Use pumpkin, sesame, or sunflower seeds. BREADS/GRAINS - One roll or one slice of whole grain or enriched bread may be used, or three soda crackers or four pieces of dre toast as a substitute. Spaghetti, rice or noodles (1/2 cup) or 1/2 large ear of corn may be used as a bread substitute. In preparing these foods, do not use butter or shortening; use soft margarine. Also use egg and sugar substitutes. Choose high fiber grains, such as oats and whole wheat. CEREALS - Use 1/2 cup of hot cereal or 1/4 cup of cold cereal per day. Add a sugar substitute if desired, with 99% fat-free or skim milk. MILK PRODUCTS - Always use 99% fat-free or skim milk, dairy products such as low-fat cheeses (javier's, uncreamed diet cottage), low-fat yogurt, and powdered skim milk. FATS/OILS - Use soft (not stick) margarine, vegetable oils that are high in polyunsaturated fats (such as safflower, sunflower, soybean, corn, and cottonseed). Always refrigerate meat drippings to harden the fat and remove it before preparing gravies. DESSERTS/SNACKS - Limit to two servings per day; substitute each serving for a bread/cereal serving; ice milk or water sherbet (1/4 cup); unflavored gelatin or gelatin flavored with sugar substitute (1/2 cup); pudding prepared with skim milk (1/2 cup); egg white souffles; unbuttered popcorn (1 1/2 cups). Substitute carob for chocolate. BEVERAGES - Fresh fruit juices (limit to 4 oz. per day); black coffee; plain or herbal teas; soft drinks with sugar substitutes; club soda, preferably salt-free; cocoa made with skim milk or nonfat dried milk and water (sugar substitute added, if desired); clear broth. Alcohol - limit to two servings per day (see Foods to Avoid). MISCELLANEOUS - You may use the following freely: vinegar; spices; herbs; nonfat bouillon; mustard; Worcestershire sauce; soy sauce; flavoring essence. FOODS TO AVOID MEATS/FISH - Marbled beef, pork, dias, sausage and other pork products; fatty fowl (duck, goose); skin and fat of turkey and chicken; processed meats; luncheon meats (salami, bologna); frankfurters and fast food hambergers (they are loaded with fat); organ meats (kidneys, liver); canned fish packed in oil. EGGS - Limit egg yolks to two per week. FRUITS - Coconuts (rich in saturated fat) VEGETABLES - Avoid avocados. Starchy vegetables (potatoes, corn sena beans, dried peas, beans) may be used only if they are substitutes for a serving of bread or cereal. (Baked potato skin, however, is desirable for its fiber content). BEANS - Commercial baked beans with sugar and/or pork added. NUTS - Avoid nuts. Limit peanuts and walnuts to one tablespoonful per day. BREADS/GRAINS - Any baked goods with shortening and/or sugar. Commercial mixes with dried eggs and whole milk. Avoid sweet rolls, doughnuts, breakfast pastries (Setswana), and sweetened packaged cereals (the added sugar converts readily to triglycerides). MILK PRODUCTS - Whole milk and whole-milk packaged goods; cream; ice cream; whole-milk puddings, yogurt, or cheeses; nondairy cream substitutes. FATS/OILS - Butter, lard, animal fats, dias drippings, gravies, cream sauces, as well as palm and coconut oils. All these are high in saturated fats. Examine labels on cholesterol free products for hydrogenated fats. (These are oils that have been hardened into solids and in the process have become saturated.) DESSERTS/SNACKS - Fried snack foods like potato chips; chocolate; candies in general; jams, jellies, syrups; whole-milk puddings; ice cream and milk sherberts; hydrogenatd peanut butter. BEVERAGES - Sugared fruit juices and soft drinks; cocoa made with whole milk and/or sugar. When using alcohol (1 oz. liquor, 5 oz. beer, or 2 1/2 oz. dry table wine per serving), one serving must be substituted for one bread or cereal serving (limit two servings of alcohol per day). SPECIAL NOTES 1. Remember that even nonlimited foods should be used in moderation. 2. While on a cholesterol-lowering diet, be sure to avoid animal fats and marbled meats. 3. While on a triglyceride-lowering diet, be sure to avoid sweets and to control the amount of carbohydrates you eat (starchy foods such as flower, bread, or potatoes). 4. Buy a good low-fat cookbook, such as the one published by the [employer] [employer]. 5. Consult your physician if you have any questions. documented in this encounter [facility] 01-20-2024 History of Presen t illness Narrative Patient presents with: 6 Month Exam HPI: Patient presents today for office visit for follow up. Continues on Pravastatin 20 mg daily. No myalgias. Watches diet. Continues on Sertraline 100 mg daily. Medication working well. Denies any current anxiety or depression. Moods are good. The 10-year ASCVD risk score (Valeria GREGG, et al., 2019) is: 6.9% Values used to calculate the score: Age: 58 years Sex: Male Is Non- : No Diabetic: No Tobacco smoker: No Systolic Blood Pressure: 114 mmHg Is BP treated: No HDL Cholesterol: 43 mg/dL Total Cholesterol: 206 mg/dL Component Latest Ref Rng & Units 01/19/2024 WBC 3.70 - 11.00 k/uL 4.17 RBC 4.20 - 6.00 m/uL 5.63 Hemoglobin 13.0 - 17.0 g/dL 15.9 Hematocrit 39.0 - 51.0 % 48.3 MCV 80.0 - 100.0 fL 85.8 MCH 26.0 - 34.0 pg 28.2 MCHC 30.5 - 36.0 g/dL 32.9 RDW-CV 11.5 - 15.0 % 13.4 Platelet Count 150 - 400 k/uL 233 MPV 9.0 - 12.7 fL 9.4 Neut% % 54.5 Abs Neut (ANC) 1.45 - 7.50 k/uL 2.27 Lymph% % 26.6 Abs Lymph 1.00 - 4.00 k/uL 1.11 Churchill% % 14.1 Abs Churchill <0.87 k/uL 0.59 Eosin% % 3.1 Abs Eosin <0.46 k/uL 0.13 Baso% % 1.0 Abs Baso <0.11 k/uL 0.04 Immature Gran % % 0.7 IMMATURE GRANS (ABS) <0.10 k/uL 0.03 NRBC /100 WBC 0.0 Absolute nRBC <0.01 k/uL <0.01 DTYPE Auto Protein, Total 6.3 - 8.0 g/dL 7.5 Albumin 3.9 - 4.9 g/dL 4.8 Calcium 8.5 - 10.2 mg/dL 9.7 Bilirubin, Total 0.2 - 1.3 mg/dL 0.4 Alkaline Phosphatase 38 - 113 U/L 63 AST 14 - 40 U/L 17 ALT 10 - 54 U/L 23 Glucose 74 - 99 mg/dL 99 BUN 9 - 24 mg/dL 21 Creatinine 0.73 - 1.22 mg/dL 1.14 Sodium 136 - 144 mmol/L 140 Potassium 3.7 - 5.1 mmol/L 4.8 Chloride 97 - 105 mmol/L 102 CO2 22 - 30 mmol/L 29 Anion Gap 9 - 18 mmol/L 9 eGFR >=60 mL/min/1.73m 75 Cholesterol, Total <200 mg/dL 206 (H) Triglyceride <150 mg/dL 86 HDL Cholesterol >39 mg/dL 43 Non HDL Cholesterol <130 mg/dL 163 (H) Fasting Time hrs 12 VLDL Cholesterol <30 mg/dL 17 TC:HDL Ratio <5.10 4.79 LDL Cholesterol <100 mg/dL 146 (H) LDL:HDL Ratio <2.54 3.40 (H) MEDICATIONS: Current Outpatient Medications Medication Sig sertraline (ZOLOFT) 100 mg tablet Take 1 tablet by mouth once daily. pravastatin (PRAVACHOL) 20 mg tablet Take 1 tablet by mouth daily at bedtime. GLUCOSAMINE SULFATE (GLUCOSAMINE ORAL) Take by mouth once daily. [employer] Extend flex No current facility-administered medications for this visit. ALLERGIES: ALLERGIES Allergen Reactions E-Mycin [Erythromyc* GI Upset Zocor [Simvastatin] caused body aches PAST MEDICAL HISTORY Diagnosis Date Anxiety state, unspecified Other and unspecified hyperlipidemia borderline PAST SURGICAL HISTORY Procedure Laterality Date ANESTH DIAGNOSTIC ARTHROSCOPIC PROC KNEE JOINT remote right knee COLONOSCOPY FLX DX W/COLLJ SPEC WHEN PFRMD 05/10/2016 Colonoscopy INCISE FINGER TENDON SHEATH Left 06/16/2022 Left middle trigger finger release INGUINAL HERNIA REPAIR HX 12/15/2011 left PAST SURGICAL HISTORY OF remote vasectomy reversal VASECTOMY UNI/BI SPX W/POSTOP SEMEN EXAMS remote FAMILY HISTORY Problem Relation Age of Onset Diabetes Father Hypertension Father Heart Mother stents Heart Maternal Grandmother Heart Maternal Grandfather CABG at 90 Heart Paternal Grandfather [place] Social History Tobacco Use Smoking status: Former Years: 10 Types: Cigarettes Smokeless tobacco: Never Tobacco comments: intermittent smoker, quit in 1997 Vaping Use Vaping Use: Never used Substance Use Topics Alcohol use: No Drug use: No Reviewed current medications, allergies, past medical history, surgical history, family history and social history today. REVIEW OF SYSTEMS RESPIRATORY: Negative for cough, hemoptysis, wheezing, COPD, dyspnea or shortness of breath CARDIOVASCULAR: Negative for chest pain, leg swelling, hypertension, CHF or palpitations GI: No nausea, vomiting, or diarrhea : No history of dysuria, frequency or incontinence All other reviewed and negative other than HPI. HEALTH MAINTENANCE: Reviewed health maintenance issues today and recommended the following in detail. Depression Assessment due on 11/14/2023 Had discussion with patient regarding risks and benefits of prostate screening. Allowed them to decide if they wished to proceed with screening including GLENN and PSA. VITALS: BP 114/64 Pulse 71 Ht 180.3 cm (5' 11) Wt 88 kg (194 lb) SpO2 97% BMI 27.06 kg/m Last 4 Encounter Wt Readings: Date: Wt: 10/05/2023 93 kg (205 lb) 09/05/2023 91.6 kg (202 lb) 06/16/2023 92 kg (202 lb 12.8 oz) 01/13/2023 94.7 kg (208 lb 12.8 oz) PHYSICAL EXAMINATION: General appearance: Well appearing, alert, in no acute distress, well-hydrated, well nourished. Skin: Skin color, texture, turgor normal, no suspicious rashes or lesions Head: Normocephalic, no masses, lesions, tenderness or abnormalities Lungs: Lungs clear to auscultation. No wheezing, rhonchi, rales Heart: RRR without murmur, gallop, or rubs. No ectopy Abdomen: Normal abdominal exam, Abdomen soft, non-tender. Bowel sounds normal. No masses, organomegaly Extremities: No deformities, edema, skin discoloration, clubbing or cyanosis. Good capillary refill. ASSESSMENT/PLAN: 1. Mixed hyperlipidemia - ICD9: 272.2, ICD10: E78.2 (primary diagnosis) - Worsening control - Counseled on healthy diet and regular exercise - given low cholesterol diet. - PRAVASTATIN 20 MG TABLET 2. Anxiety state - ICD9: 300.00, ICD10: F41.1 - continue meds. - SERTRALINE 100 MG TABLET Steve Baron MD documented in this encounter [facility] 01-18-2024 Miscellaneous Notes Patient informed via labs were placed. Peggy Warner MA ordered Pt calling in to get his lab orders changed so he can come in now to get done. He has an apt on Tuesday and would like to have fasting labs done ahead of time. Please advise pt so he can come in to get done. Aga Briceño LPN documented in this encounter [facility] 10-05-2023 History of Presen t illness Narrative Patient presents with: Anxiety: Follow up HPI: Patient presents today for office visit for anxiety follow up. PSYCH: Currently tolerating medications well: Yes. Started on Zoloft 100 mg daily. Side effects: No. Sleep issues: No. Energy changes: No. Appetite changes: No. Current depression: No. Current anxiety: No. Suicidal ideation: No. Refers to doing very well. See previous OV: Has had a lot of things that have come to a head this past week. Was pretty anxious and distressed over the last week. Was having panic attacks. Has taken some time off from work. Is doing better. No suicidal ideation. We talked about either increasing and continuing or even increasing temporarily every winter. MEDICATIONS: Current Outpatient Medications Medication Sig sertraline (ZOLOFT) 100 mg tablet Take 1 tablet by mouth once daily. pravastatin (PRAVACHOL) 20 mg tablet Take 1 tablet by mouth daily at bedtime. GLUCOSAMINE SULFATE (GLUCOSAMINE ORAL) Take by mouth once daily. [employer] Extend flex No current facility-administered medications for this visit. ALLERGIES: ALLERGIES Allergen Reactions E-Mycin [Erythromyc* GI Upset Zocor [Simvastatin] caused body aches PAST MEDICAL HISTORY Diagnosis Date Anxiety state, unspecified Other and unspecified hyperlipidemia borderline PAST SURGICAL HISTORY Procedure Laterality Date ANESTH DIAGNOSTIC ARTHROSCOPIC PROC KNEE JOINT remote right knee COLONOSCOPY FLX DX W/COLLJ SPEC WHEN PFRMD 05/10/2016 Colonoscopy INCISE FINGER TENDON SHEATH Left 06/16/2022 Left middle trigger finger release INGUINAL HERNIA REPAIR HX 12/15/2011 left PAST SURGICAL HISTORY OF remote vasectomy reversal VASECTOMY UNI/BI SPX W/POSTOP SEMEN EXAMS remote FAMILY HISTORY Problem Relation Age of Onset Diabetes Father Hypertension Father Heart Mother stents Heart Maternal Grandmother Heart Maternal Grandfather CABG at 90 Heart Paternal Grandfather [place] Social History Tobacco Use Smoking status: Former Years: 10 Types: Cigarettes Smokeless tobacco: Never Tobacco comments: intermittent smoker, quit in 1997 Vaping Use Vaping Use: Never used Substance Use Topics Alcohol use: No Drug use: No Reviewed current medications, allergies, past medical history, surgical history, family history and social history today. REVIEW OF SYSTEMS All other reviewed and negative other than HPI. HEALTH MAINTENANCE: Reviewed health maintenance issues today and recommended the following in detail. There are no preventive care reminders to display for this patient. VITALS: BP 118/81 Pulse 69 Ht 180.3 cm (5' 11) Wt 93 kg (205 lb) BMI 28.59 kg/m Last 4 Encounter Wt Readings: Date: Wt: 09/05/2023 91.6 kg (202 lb) 06/16/2023 92 kg (202 lb 12.8 oz) 01/13/2023 94.7 kg (208 lb 12.8 oz) 11/25/2022 93.4 kg (206 lb) PHYSICAL EXAMINATION: General appearance: Well appearing, alert, in no acute distress, well-hydrated, well nourished. Skin: Skin color, texture, turgor normal, no suspicious rashes or lesions Head: Normocephalic, no masses, lesions, tenderness or abnormalities Lungs: Lungs clear to auscultation. No wheezing, rhonchi, rales Heart: RRR without murmur, gallop, or rubs. No ectopy Abdomen: Normal abdominal exam, Abdomen soft, non-tender. Bowel sounds normal. No masses, organomegaly Extremities: No deformities, edema, skin discoloration, clubbing or cyanosis. Good capillary refill. ASSESSMENT/PLAN: 1. Mixed hyperlipidemia - ICD9: 272.2, ICD10: E78.2 (primary diagnosis) - Controlled - labs in six months. - LIPID PANEL BASIC 2. Anxiety state - ICD9: 300.00, ICD10: F41.1 - continue meds. - CBC + DIFF - COMP METABOLIC PANEL Steve Baron MD documented in this encounter [facility] 09-22-2023 Miscellaneous Notes I called and spoke with the patient. His surgery will be changed to 11/03/2023 at [facility]. Case message sent and post op appointments have been changed. Patient called. Verified name and date of . Patient calling regarding previous message. He is asking to be scheduled in October due to harvest time right now. Rachel Sneed LPN Eduardo called in asking to have his trigger finger surgery rescheduled for October. Please review and advise. Thank you. Eduardo# [phone] Gin Morales LPN documented in this encounter [facility] 09-05-2023 History of Presen t illness Narrative Patient presents with: Depression HPI: Patient presents today for office visit for follow up. Has had a lot of things that have come to a head this past week. Was pretty anxious and distressed over the last week. Was having panic attacks. Has taken some time off from work. Is doing better. No suicidal ideation. We talked about either increasing and continuing or even increasing temporarily every winter. See triage note from last week: 1. CONCERN: States 25 years ago he felt like this when his daughter was diagnosed with seizures and hasn't felt this way. States this is the first setback. His 3 years ago his dies in August and they were in August. He late 's birthday is in September, and the holidays are coming up. 2. ANXIETY SYMPTOMS: Pt has been feeling tense, panicky, anxious, keyed up, and overwhelmed. 3. ONSET: Been feeling this way since Tuesday/Tuesday. 4. SEVERITY: Pt rates level of anxiety 06/23. 5. FUNCTIONAL IMPAIRMENT: Pt states he isn't sure how is is with doing daily things right now. 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 He has taken a leave of absence from work. States he has been doing housework but not much to do. Mowed lawn yesterday. Went outside yesterday with son. States he hasn't been outside today, went to bed at 8 and up at 8. Just listening to Christen music. 6. HISTORY: 25 years ago when daughter started having seizures. Pt was put on Zoloft for anxiety. 7. RISK OF HARM - SUICIDAL IDEATION: Denies thoughts of hurting or killing himself, and denies having a plan to do this. 8. TREATMENT: Treating this anxiety Zoloft, will go outside and take deep breaths. States he will talk himself out of having a panic attack. 9. TREATMENT - THERAPIST: Pt sees a grief counselor, Lm Hugo. 10. POTENTIAL TRIGGERS: Pt reports he drinks 1 cup of coffee daily in the morning. States when he was working he was drinking a lot of Diet Coke, but hasn't been recently. Denies drinking alcohol or use any drugs. Started sleep aid Diphenhydramine. 11. PATIENT SUPPORT: Lives alone, son is right beside him. States he can talk with his son. 12. 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 Pt denies chest pain, sweating, nausea, or diarrhea. 13. : N/A MEDICATIONS: Current Outpatient Medications Medication Sig sertraline (ZOLOFT) 50 mg tablet Take 1 tablet by mouth once daily. pravastatin (PRAVACHOL) 20 mg tablet Take 1 tablet by mouth daily at bedtime. GLUCOSAMINE SULFATE (GLUCOSAMINE ORAL) Take by mouth once daily. [employer] Extend flex No current facility-administered medications for this visit. ALLERGIES: ALLERGIES Allergen Reactions E-Mycin [Erythromyc* GI Upset Zocor [Simvastatin] caused body aches PAST MEDICAL HISTORY Diagnosis Date Anxiety state, unspecified Other and unspecified hyperlipidemia borderline PAST SURGICAL HISTORY Procedure Laterality Date ANESTH DIAGNOSTIC ARTHROSCOPIC PROC KNEE JOINT remote right knee COLONOSCOPY FLX DX W/COLLJ SPEC WHEN PFRMD 05/10/2016 Colonoscopy INCISE FINGER TENDON SHEATH Left 06/16/2022 Left middle trigger finger release INGUINAL HERNIA REPAIR HX 12/15/2011 left PAST SURGICAL HISTORY OF remote vasectomy reversal VASECTOMY UNI/BI SPX W/POSTOP SEMEN EXAMS remote FAMILY HISTORY Problem Relation Age of Onset Diabetes Father Hypertension Father Heart Mother stents Heart Maternal Grandmother Heart Maternal Grandfather CABG at 90 Heart Paternal Grandfather [place] Social History Tobacco Use Smoking status: Former Years: 10 Types: Cigarettes Smokeless tobacco: Never Tobacco comments: intermittent smoker, quit in 1997 Vaping Use Vaping Use: Never used Substance Use Topics Alcohol use: No Drug use: No Reviewed current medications, allergies, past medical history, surgical history, family history and social history today. REVIEW OF SYSTEMS No chest pain or shortness of breath or gi issues. All other reviewed and negative other than HPI. HEALTH MAINTENANCE: Reviewed health maintenance issues today and recommended the following in detail. Influenza Vaccine(1) due on 07/15/2023 Covid-19 Vaccine(2 - 2022- season) due on 07/15/2023 VITALS: BP 122/72 Pulse 78 Wt 91.6 kg (202 lb) SpO2 96% BMI 28.17 kg/m Last 4 Encounter Wt Readings: Date: Wt: 09/05/2023 91.6 kg (202 lb) 06/16/2023 92 kg (202 lb 12.8 oz) 01/13/2023 94.7 kg (208 lb 12.8 oz) 11/25/2022 93.4 kg (206 lb) PHYSICAL EXAMINATION: General appearance: Well appearing, alert, in no acute distress, well-hydrated, well nourished. Skin: Skin color, texture, turgor normal, no suspicious rashes or lesions Head: Normocephalic, no masses, lesions, tenderness or abnormalities Lungs: Lungs clear to auscultation. No wheezing, rhonchi, rales Heart: RRR without murmur, gallop, or rubs. No ectopy Abdomen: Normal abdominal exam, Abdomen soft, non-tender. Bowel sounds normal. No masses, organomegaly ASSESSMENT/PLAN: 1. Anxiety state - ICD9: 300.00, ICD10: F41.1 - increase meds. Call if symptoms worsen at all - SERTRALINE 100 MG TABLET Steve Baron MD RTO in one month. documented in this encounter [facility] 09-02-2023 Miscellaneous Notes see triage note today. Routed to triage pool. Matt Villarreal LPN Can we triage this documented in this encounter [facility] 08-30-2023 History of Presen t illness Narrative Associated Order(s): Additional Injections: L thumb A1; Additional Injections: L index A1 Post-Procedure Diagnose(s): Trigger index finger of left hand; Trigger finger of left thumb Aracely Ardon PA-C [facility] [address] [place] [id number] Dept: [phone] August 30, 2023 CHIEF COMPLAINT: New and Trigger Finger of the Right Ring Finger Mr. Eduardo Yeung is a 58 year old male who presents with locking and catching in his right ring finger which is getting worse over the past several months. Pain is 4/10. Patient states that he is unable to bend the finger and when he does it locks and must be manually unlocked. This is very painful. 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 He has had previous trigger finger releases in the past. He also complains of some catching in the left index and thumb, no locking of those digits. ASSESSMENT: M65.341 Trigger ring finger of right hand (primary encounter diagnosis) M65.312 Trigger finger of left thumb M65.322 Trigger index finger of left hand PLAN: She would like to proceed with right ring trigger finger release under local anesthesia. Since the left index and thumb just started bothering him recently we decided to try corticosteroid injection for those digits. Mr. Eduardo Yeung was advised as to contrast therapies and/or to take analgesics/anti-inflammatories as needed and all contraindications were reviewed. OBJECTIVE: Mr. Eduardo Yeung is a pleasant 58 year old in no apparent distress. Gen:There were no vitals taken for this visit. nl development, non obese, no deformities ENT: Normocephalic, normal hearing, moist mucosa CV: Pulses:Radial= 2+ and symmetric, capillary refill < 2 secs, no peripheral edema/varicosities Skin: no rash, bruising or lesions. Good turgor. Psych: cooperative and appropriate, alert and oriented x 3, good mood and affect. Musculoskeletal: Right ring finger with a palpable nodule at the A1 owen site. Patient has difficulty coming to a full fist with the digit, once the digit is flexed it must be manually unlocked. Palpable nodule over the left thumb A1 owen site, some clicking of the digit but no locking is noted. Soreness over the left index A1 owen site, no palpable nodule, no locking or catching of the digit is noted with flexion or extension. Additional Injections: L thumb A1 for trigger finger Informed Consent Consent Obtained: Verbal [place] Protocol A moment to CARE was completed. SIGN IN Sign in communication not applicable due to emergent procedure. Personnel directly involved with the procedure wore the appropriate PPE. Special Equipment: N/A Patient/Surrogate Stated/Verified: Patient name, Date of , Relevant allergies and Intended procedure TIME OUT Intended patient and procedure match the source document(s). Consent documented and matches the intended procedure. Relevant labs, photos, and/or imaging studies have been reviewed. Correct side/site marked and visible. Medications required for procedure verified. No fire risk assessment and interventions applicable. No implant(s) inserted. 08/30/2023 12:32 PM The procedure site was prepped in the usual sterile fashion. Medications: 3 mg betamethasone acetate-betamethasone sodium phosphate 6 mg/mL Anesthetics: 0.5 mL lidocaine (PF) 10 mg/mL (1 %) Outcome: tolerated well, no immediate complications Post-injection instructions were reviewed with the patient and the patient voiced understanding of these instructions. SIGN OUT No instruments, equipment or retained foreign bodies applicable. Additional Injections: L index A1 for trigger finger Informed Consent Consent Obtained: Verbal [place] Protocol A moment to CARE was completed. SIGN IN Sign in communication not applicable due to emergent procedure. Personnel directly involved with the procedure wore the appropriate PPE. Special Equipment: N/A Patient/Surrogate Stated/Verified: Patient name, Date of , Relevant allergies and Intended procedure TIME OUT Intended patient and procedure match the source document(s). Consent documented and matches the intended procedure. Relevant labs, photos, and/or imaging studies have been reviewed. Correct side/site marked and visible. Medications required for procedure verified. No fire risk assessment and interventions applicable. No implant(s) inserted. 08/30/2023 12:33 PM The procedure site was prepped in the usual sterile fashion. Medications: 3 mg betamethasone acetate-betamethasone sodium phosphate 6 mg/mL Anesthetics: 0.5 mL lidocaine (PF) 10 mg/mL (1 %) Outcome: tolerated well, no immediate complications Post-injection instructions were reviewed with the patient and the patient voiced understanding of these instructions. SIGN OUT No instruments, equipment or retained foreign bodies applicable. Imaging: Deferred today Supporting Subjective Information Below: Past Surgical History: PAST SURGICAL HISTORY Procedure Laterality Date ANESTH DIAGNOSTIC ARTHROSCOPIC PROC KNEE JOINT remote right knee COLONOSCOPY FLX DX W/COLLJ SPEC WHEN PFRMD 05/10/2016 Colonoscopy INCISE FINGER TENDON SHEATH Left 06/16/2022 Left middle trigger finger release INGUINAL HERNIA REPAIR HX 12/15/2011 left PAST SURGICAL HISTORY OF remote vasectomy reversal VASECTOMY UNI/BI SPX W/POSTOP SEMEN EXAMS remote Medications: Current Outpatient Medications Medication Sig sertraline (ZOLOFT) 50 mg tablet Take 1 tablet by mouth once daily. pravastatin (PRAVACHOL) 20 mg tablet Take 1 tablet by mouth daily at bedtime. GLUCOSAMINE SULFATE (GLUCOSAMINE ORAL) Take by mouth once daily. [employer] Extend flex No current facility-administered medications for this visit. Allergies: E-Mycin [Erythromycin] and Zocor [Simvastatin] ROS: General (negative for fatigue, malaise, weight loss/gain) HEENT (negative for headache, earache, recent vision changes, sinus pain, sore throat) Respiratory (no recent shortness of breath, hemoptysis) CV (negative for chest tightness, palpitations) Musculoskeletal (see HPI) Psych (no depression, anxiety) This note was partially generated using [employer] voice recognition system, and there may be some incorrect words, spellings, and punctuation that were not noted in checking the note before saving. Aracely Ardon PA-C documented in this encounter [facility] 07-20-2023 Miscellaneous Notes Pt scheduled 1st available From waitlist previous patient is requesting an appt with provider for right hand ring trigger finger pt previously had surgery for left hand trigger finger with provider and is having more pain with the right scheduled first available with [facility] [phone] documented in this encounter [facility] 06-16-2023 History of Presen t illness Narrative Patient presents with: 6 Month Exam HPI: Patient presents today for office visit for follow up. No concerns today. Overall doing well. HLD: Continues on Pravastatin 20 mg daily. No myalgias. Watching diet. No issues. Labs are stable. PSYCH: Continues on Sertraline 50 mg daily. Feels medication is working well. Emotionally doing well. No current depression or anxiety. Component Latest Ref Rng & Units 05/18/2023 WBC 3.70 - 11.00 k/uL 4.77 RBC 4.20 - 6.00 m/uL 5.14 Hemoglobin 13.0 - 17.0 g/dL 14.9 Hematocrit 39.0 - 51.0 % 45.7 MCV 80.0 - 100.0 fL 88.9 MCH 26.0 - 34.0 pg 29.0 MCHC 30.5 - 36.0 g/dL 32.6 RDW-CV 11.5 - 15.0 % 13.4 Platelet Count 150 - 400 k/uL 243 MPV 9.0 - 12.7 fL 9.8 Neut% % 47.1 Abs Neut (ANC) 1.45 - 7.50 k/uL 2.25 Lymph% % 33.8 Abs Lymph 1.00 - 4.00 k/uL 1.61 Churchill% % 13.4 Abs Churchill <0.87 k/uL 0.64 Eosin% % 3.4 Abs Eosin <0.46 k/uL 0.16 Baso% % 1.0 Abs Baso <0.11 k/uL 0.05 Immature Gran % % 1.3 IMMATURE GRANS (ABS) <0.10 k/uL 0.06 NRBC /100 WBC 0.0 Absolute nRBC <0.01 k/uL <0.01 DTYPE Auto Protein, Total 6.3 - 8.0 g/dL 7.0 Albumin 3.9 - 4.9 g/dL 4.4 Calcium 8.5 - 10.2 mg/dL 9.0 Bilirubin, Total 0.2 - 1.3 mg/dL 0.3 Alkaline Phosphatase 38 - 113 U/L 57 AST 14 - 40 U/L 19 ALT 10 - 54 U/L 23 Glucose 74 - 99 mg/dL 95 BUN 9 - 24 mg/dL 16 Creatinine 0.73 - 1.22 mg/dL 1.02 Sodium 136 - 144 mmol/L 139 Potassium 3.7 - 5.1 mmol/L 4.4 Chloride 97 - 105 mmol/L 104 CO2 22 - 30 mmol/L 22 Anion Gap 9 - 18 mmol/L 13 eGFR >=60 mL/min/1.73m 86 Cholesterol, Total <200 mg/dL 176 Triglyceride <150 mg/dL 54 HDL Cholesterol >39 mg/dL 44 Non HDL Cholesterol <130 mg/dL 132 (H) Fasting Time hrs 11 VLDL Cholesterol <30 mg/dL 11 TC:HDL Ratio <5.10 4.00 LDL Cholesterol <100 mg/dL 121 (H) LDL:HDL Ratio <2.54 2.75 (H) MEDICATIONS: Current Outpatient Medications Medication Sig pravastatin (PRAVACHOL) 20 mg tablet Take 1 tablet by mouth daily at bedtime. sertraline (ZOLOFT) 50 mg tablet Take 1 tablet by mouth once daily. GLUCOSAMINE SULFATE (GLUCOSAMINE ORAL) Take by mouth once daily. [employer] Extend flex No current facility-administered medications for this visit. ALLERGIES: ALLERGIES Allergen Reactions E-Mycin [Erythromyc* GI Upset Zocor [Simvastatin] caused body aches PAST MEDICAL HISTORY Diagnosis Date Anxiety state, unspecified Other and unspecified hyperlipidemia borderline PAST SURGICAL HISTORY Procedure Laterality Date ANESTH DIAGNOSTIC ARTHROSCOPIC PROC KNEE JOINT remote right knee COLONOSCOPY FLX DX W/COLLJ SPEC WHEN PFRMD 05/10/2016 Colonoscopy INCISE FINGER TENDON SHEATH Left 06/16/2022 Left middle trigger finger release INGUINAL HERNIA REPAIR HX 12/15/2011 left PAST SURGICAL HISTORY OF remote vasectomy reversal VASECTOMY UNI/BI SPX W/POSTOP SEMEN EXAMS remote FAMILY HISTORY Problem Relation Age of Onset Diabetes Father Hypertension Father Heart Mother stents Heart Maternal Grandmother Heart Maternal Grandfather CABG at 90 Heart Paternal Grandfather [place] Social History Tobacco Use Smoking status: Former Years: 10.00 Types: Cigarettes Smokeless tobacco: Never Tobacco comments: intermittent smoker, quit in 1997 Vaping Use Vaping Use: Never used Substance Use Topics Alcohol use: No Drug use: No Reviewed current medications, allergies, past medical history, surgical history, family history and social history today. REVIEW OF SYSTEM No chest pain or shortness of breath. No issues with urine or bowels. HEALTH MAINTENANCE: Reviewed health maintenance issues today and recommended the following in detail. HEPATITIS B(1 of 3 - 3-dose series) Never done SHINGRIX VACCINE(1 of 2) Never done COVID-19 VACCINE(2 - Moderna series) due on 08/28/2021 DTAP,TDAP,TD(2 - Td or Tdap) due on 02/23/2022 VITALS: BP 124/72 Pulse 68 Ht 180.3 cm (5' 11) Wt 92 kg (202 lb 12.8 oz) SpO2 97% BMI 28.28 kg/m Last 4 Encounter Wt Readings: Date: Wt: 01/13/2023 94.7 kg (208 lb 12.8 oz) 11/25/2022 93.4 kg (206 lb) 07/02/2022 86.2 kg (190 lb) 06/10/2022 86.2 kg (190 lb) PHYSICAL EXAMINATION: General appearance: Well appearing, alert, in no acute distress, well-hydrated, well nourished. Skin: Skin color, texture, turgor normal, no suspicious rashes or lesions Head: Normocephalic, no masses, lesions, tenderness or abnormalities Lungs: Lungs clear to auscultation. No wheezing, rhonchi, rales Heart: RRR without murmur, gallop, or rubs. No ectopy Abdomen: Normal abdominal exam, Abdomen soft, non-tender. Bowel sounds normal. No masses, organomegaly Extremities: No deformities, edema, skin discoloration, clubbing or cyanosis. Good capillary refill. ASSESSMENT/PLAN: 1. Mixed hyperlipidemia - ICD9: 272.2, ICD10: E78.2 (primary diagnosis) - Controlled - Continue current medications 2. Anxiety state - ICD9: 300.00, ICD10: F41.1 - continue meds. Doing well. - SERTRALINE 50 MG TABLET Steve Baron MD documented in this encounter [facility] 02-02-2023 Nurse Note Actual procedure/procedure scheduled: Yes Performing provider/scheduled provider: Yes Patient was roomed in: Q9- 12 Medical Equipment Repairer offered:Patient declines Patient arrived in the room at: 1419 Patient ready for procedure: 1423 The procedure started at ( Time Only): 1504 The procedure ended at: 1544 Was the procedure delayed: No The patient left the procedure room at: 1605 Mian Lockhart RN PRE PROCEDURE NURSE ASSESSMENT Patient ID with two (2) identifiers verified by: Mina Lockhart RN Procedure/Indication:Penile Doppler with Intracavernous Injection February 02, 2023, Time In: 1513 Latex Allergy: No Allergies reviewed and updated: Yes Pre- Procedure Vital Signs: BP: 159/86 Pulse: 66 Current pain intensity is 0 on a 0-10 pain scale. Does the patient have any concerns about safety in the home/falls? Not at risk for falls PROCEDURE The patient is here for an injection of Prostaglandin E1 by Nacho Bedoya MD Lot # [id number] Expiration Date: 02/2024 Injection Time: 1513 POST INJECTION VITAL SIGNS Time 1555 BP: 165/99 Pulse: 70 Time 1602 BP: 170/87 Pulse: 58 The patient was injected with Phenylephrine (1mg/0.1cc): Yes TIME: 155 Phenylephrine injection given by Nacho Bedoya MD Lot #: [id number] Expiration Date: 02/2024 POST PROCEDURE NURSE ASSESSMENT Current Pain intensity is: 0 on a 0-10 pain scale. Post injection evaluation: Condition of penis is soft and non-erect AMBULATORY PATIENT EDUCATION THE FOLLOWING WAS EVALUATED Motivation To Learn: Eager Interested Family/Significant Other Support: None - Unavailable/disinterested Cognitive Ability: Alert/Oriented Method of Instruction: Individual instruction The Following Influencing Factors Were Barriers To This Education Session: None The Following Physical Limitations Were Barriers To This Education Session: None Instruction Provided To: Patient Button Decorating Machine Operator Present: not applicable Discipline: Nursing Learning Topic: SURVIVAL SKILLS: Symptom Management Patient Evaluation: Verbalizes understanding: Yes Supplemental Material Given: Written Material Instructed By Mian Lockhart RN In Department documented in this encounter [facility] 02-02-2023 History of Presen t illness Narrative February 02, 2023 Eduardo Yeung [id number] 1965 Focused history 57/M with chronic Peyronie's (40 degree dorsal, no length loss, 10/10 erections) PENILE DUPLEX DOPPLER ULTRASOUND (PDDUS) Penile ultrasound -- CPT 00026 Penile injection for erection -- CPT 83703 Injection for reversal of erection -- CPT 88790 Associated Conditions: Peyronie's Disease Current Erectogenic Medications: Cialis 5mg daily - seems to help Patient underwent penile duplex ultrasound procedure with pulsed Doppler analysis following vasoactive medication in order to objectively define and understand the underlying cause and degree of sexual dysfunction. The benefits and risks of the procedure were discussed with the patient, and all questions were answered to the patient's satisfaction. Verbal consent for the procedure was obtained from the patient. The patient was placed on the procedure table in the supine position. Medication: Edex Redosing: No Procedure: A baseline penile examination was performed: Stretched penile length (pubis to green): 10 cm Palpable plaques: Yes The penis was scanned in the flaccid state (baseline) with images obtained both transversely and longitudinally. Plaque calcifications: No The cavernosal artery diameter was measured at baseline. Pharmacologic injection of erectogenic agent was performed. After 10 minutes the penis was rescanned and the cavernosal arteries were measured again to assess distensibility in response to the vasoactive medication. (A 100% increase in diameter is normally expected.) Cavernosal Artery Diameter Measurements: Left Cavernosal Artery (LCA): Baseline measurement: 0.8 mm 2nd measurement: 1.2 mm Right Cavernosal Artery (RCA): Baseline measurement: 0.7 mm 2nd measurement: 1.6 mm Each of the selectively imaged arteries underwent penile Doppler analysis with generation of waveform approximately 10 minutes following injection of vasoactive agents. The peak systolic velocity and the end-diastolic velocity data of the corporal arteries are tabulated below. (A velocity of 30 cm/sec or more is normally expected for peak systolic velocity and a velocity of 0-3 cm/sec is normally expected for the end-diastolic velocity.) Resistive Index (RI) parameters were obtained bilaterally (normal 1.00). Cavernosal Artery Velocity (V) Measurements: Left Cavernosal Artery (LCA) V: Peak systolic velocity: 43 cm/second End diastolic velocity: 9 cm/second Resistive index: 0.8 Right Cavernosal Artery (RCA) V: Peak systolic velocity: 43.6 cm/second End diastolic velocity: 5 cm/second Resistive index: 0.9 POST INJECTION PENILE EXAM: Deformity present: Yes Curvature and direction: 40 dorsal Point of maximum curvature (from green): mid/distal shaft distal to plaque 3cm from green Indentation: No Narrowing: No Hourglass: No Hinge effect: No BQE Achieved: Yes Erection grade (0-10): 7 Spontaneous Detumescence: No Phenylephrine Required: Yes, 600mcg Adverse Reactions: No Sign Out Details of Procedure: Listed Above Sign Out Discussion: Completed IMPRESSION: Arterial Distensibility Normal Arterial Peak Flow Velocities: Normal End Diastolic Velocities/Resistive Index: Normal Peyronie's Plaque and Curvature Yes PLAN: Detumescence was observed and the patient was discharged with a flaccid penis. Patient was advised to go to the emergency room immediately and notify our office should an erection occur and last more than 4 hours. 57/M with Hx stable peyronie's (40deg dorsal, palp non-calcified plaque, excellent erections). Main goal is to rule out concerning pathology -Discussed management options -He elects observation for now -He will let us know if he would like to pursue treatment in the future -All questions answered We discussed the findings above at length. The patient will be scheduled for an in person or virtual follow up visit in the near future to discuss further. Nacho Bedoya MD, PhD Associate Staff Urologist [facility] [place] [facility] documented in this encounter [facility] 01-28-2023 Miscellaneous Notes Patient phones requesting refills as follows: Requested Prescriptions Pending Prescriptions Disp Refills pravastatin (PRAVACHOL) 20 mg tablet 90 tablet 3 Sig: Take 1 tablet by mouth daily at bedtime. Please review and advise. Matt Villarreal LPN documented in this encounter [facility] 01-26-2023 Miscellaneous Notes Patient went to [facility] prescriptions at [facility] and was told that he had no refills to [facility] picker. Patient asking if provider can send in new prescription for medication? Please review and advise, Daysi Silver RN documented in this encounter [facility] 01-24-2023 Miscellaneous Notes Patient has been identified by name and date of : Yes Requested Prescriptions Pending Prescriptions Disp Refills sertraline (ZOLOFT) 50 mg tablet 90 tablet 1 Sig: Take 1 tablet by mouth once daily. Refused Prescriptions Disp Refills pravastatin (PRAVACHOL) 20 mg tablet 90 tablet 3 Sig: Take 1 tablet by mouth daily at bedtime. RX INSTRUCTIONS: Follow up is scheduled in May Lexus Stuart LPN documented in this encounter [facility] 01-13-2023 History of Presen t illness Narrative [facility] UR[facility]Y NEW PATIENT CLINIC NOTE UROL [facility] Eduardo Evelyne Gamal Referred by: SELF 01/13/2023 CC: Peyronie's Disease HPI: 57 year old, male presents for evaluation of Peyronie's Disease. Patient lost his to pancreatic cancer 2 years ago and states that he did not have any sexual activity at least 6 months prior to her . Patient began to notice development of curvature shortly after her passing. Onset: 2 years Trauma: No Degree & direction of Curvature: 30 to 40 degrees upward Erections Painful: No Painful at baseline: No Partner bothered?: Patient is , no sexual partner in 2 years Length loss (inches): no Narrowing: Yes Indentation: Yes Hourglass deformity: No Instability/hinge effect: No On ED meds?: No Erections (baseline): 10/10 Libido intact: Yes Orgasm/ejaculation intact: Yes Sensation intact: Yes Overall energy level: Yes Prostate Cancer: No Currently taking Nitrates: No ROS: Urinary sx: none Hematuria: none Patient Entered Questionnaires Peyronie's Disease Questionnaire (PDQ) INSTRUCTIONS: The purpose of this questionnaire is to identify any problems you may be having with erection or vaginal intercourse. Some of the questions apply to vaginal intercourse with a female partner, others do not. Vaginal [place] within the last 3 months: No -If yes, how many times have your had vaginal intercourse in the last 3 months? NA -If yes, what was the date of the last time you had vaginal intercourse? NA Men with Peyronie s disease may have problems during vaginal intercourse. The questions below ask about the severity of any problems that you may be having during vaginal [place]. For each problem below, please nenana the number that best describes how severe the problem was THE LAST TIME YOU HAD VAGINAL INTERCOURSE. - UNABLE TO ANSWER Q1. Concern about damaging penis while having vaginal intercourse: Q2. Bending or collapsing of penis while having vaginal intercourse: Q3. Trouble inserting erect penis into partner s vagina: Q4. Difficulty with some positions that you used to enjoy when having vaginal intercourse: Q5. Awkwardness with some positions that you used to enjoy when having vaginal intercourse: Q6. Discomfort with some positions that you used to enjoy when having vaginal intercourse: Thinking of your last erection or the last time you had vaginal intercourse, please indicate the level of pain or discomfort you felt. (0-10; 0= No Pain or Discomfort- 10= Extreme Pain for Discomfort) DID NOT ANSWER ANY OTHER QUESTIONS Q7. In the LAST 24 HOURS, how much pain or discomfort have you felt in your penis when it was NOT erect? Please answer for the LAST 24 HOURS only. 0 Q8. Thinking about the LAST TIME you were erect, how much pain or discomfort did you feel in your penis when it was erect? Please answer for the LAST TIME YOU HAD AN ERECTION. 0 Q9. Thinking about the LAST TIME you had vaginal intercourse, how much pain or discomfort did you feel in your penis when having vaginal intercourse? Please answer for the LAST TIME YOU HAD VAGINAL INTERCOURSE. 0 Men with Peyronie s disease may have problems with erection and/or vaginal intercourse. These problems can be bothersome for some men and not for others. Q10. Thinking about the LAST TIME you had an erection, how bothered were you by any pain or discomfort you may have felt in your erect penis? Please answer for the LAST TIME YOU HAD AN ERECTION. -(if 'did not feel any pain or discomfort,' got to Q11) Q11. Thinking about the LAST TIME you looked at your erect penis, how bothered were you by the way your penis looked? Please answer for the LAST TIME YOU HAD AN ERECTION. Moderately bothered Q12. Does your Peyronie s Disease make having vaginal intercourse difficult or impossible? -If NO: go to Q14; If YES: go to Q13 Q13. Thinking of the LAST TIME you had or tried to have vaginal intercourse, how bothered were you by your Peyronie s Disease? Q14. Are you having vaginal intercourse LESS OFTEN than you used to due to your Peyronie s Disease? -If NO: end questionnaire; If YES: go to Q15 Q15. How bothered are YOU with having vaginal intercourse less often? PAST MEDICAL HISTORY Diagnosis Date Anxiety state, unspecified Other and unspecified hyperlipidemia borderline PAST SURGICAL HISTORY Procedure Laterality Date ANESTH DIAGNOSTIC ARTHROSCOPIC PROC KNEE JOINT remote right knee COLONOSCOPY FLX DX W/COLLJ SPEC WHEN PFRMD 05/10/2016 Colonoscopy INCISE FINGER TENDON SHEATH Left 06/16/2022 Left middle trigger finger release INGUINAL HERNIA REPAIR HX 12/15/2011 left PAST SURGICAL HISTORY OF remote vasectomy reversal VASECTOMY UNI/BI SPX W/POSTOP SEMEN EXAMS remote Current Outpatient Medications Medication Sig sertraline (ZOLOFT) 50 mg tablet Take 1 tablet by mouth once daily. pravastatin (PRAVACHOL) 20 mg tablet Take 1 tablet by mouth daily at bedtime. GLUCOSAMINE SULFATE (GLUCOSAMINE ORAL) Take by mouth once daily. [employer] Extend flex Tadalafil 5 mg tablet Take 1 tablet by mouth once daily. No current facility-administered medications for this visit. Allergies: E-Mycin [Erythromycin] and Zocor [Simvastatin] Family Hx: Denies family history of genitourinary malignancy Social History Tobacco Use Smoking status: Former Years: 10.00 Types: Cigarettes Smokeless tobacco: Never Tobacco comments: intermittent smoker, quit in 1997 Vaping Use Vaping Use: Never used Substance Use Topics Alcohol use: No Drug use: No Review of Systems: All other systems reviewed and noncontributory PE: vitals: see above General: Well masculinized, well nourished male CV: well perfused Resp: normal effort Chest: no lesions or gynecomastia Abdomen: soft, NT Phallus: normal, stretched penile length cm, circumcised, no lesions, decreased elasticity, Dorsal mid-shaft plaque is noted Meatus: orthotopic, patent, no discharge Scrotum: no lesions, normal rugae Testes: Descended, nontender, and no masses bilaterally Epididymides: L Palp, non-tender R palp, non-tender Vas deferens: palpable bilaterally Varicocele:None ASSESSMENT/PLAN: 1. 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 Based on his history he seems to be in the Chronic phase of Peyronie's disease. We thoroughly discussed the diagnosis of Peyronie's disease including the etiology and natural history of the disease. Only a small percentage of Peyronie's disease cases improve spontaneously. We discussed the management of Peyronie's disease including penile traction therapy, oral therapies, intralesional injections (Xiaflex and verapamil) and surgical treatments including plication, partial plaque excision or incision and grafting and penile prosthesis implantation with straightening maneuvers. Risks and benefits for each therapy were discussed with the patient and all questions were answered. Recommend starting patient on 5mg daily Tadalafil to improve penile circulation. In order to determine the optimal treatment approach and to further characterize his deformity and erections, the patient will return for a penile duplex ultrasound with intracavernosal injection. Discussed Restorex, penile traction therapy. I will see the patient after his doppler study. James Shook MD, MS Associate Staff [facility] [place] [facility] Cc: Dr. Nacho Bedoya documented in this encounter [facility] 12-07-2022 Miscellaneous Notes Tried to call patient to try and schedule an appointment for an audiogram, no answer. I left a VM documented in this encounter [facility] 11-25-2022 History of Presen t illness Narrative Patient presents with: 6 Month Exam HPI: Patient presents today for office visit for follow up. HYPERLIPIDEMIA: Patient is taking medications: Yes. Patient is watching diet: Yes. Patient denies myalgias: Yes. Patient denies gi upset: Yes PSYCH: Currently tolerating medications well: Yes . Side effects: No. Sleep issues: No. Energy changes: No. Appetite changes: No. Current depression: No. Current anxiety: No. Suicidal ideation: No. Has noted chronic tinnitus and hearing loss. Has to sleep with a sound machine. Bp is good. No chest pain No shortness of breath. No edema. MEDICATIONS: Current Outpatient Medications Medication Sig sertraline (ZOLOFT) 50 mg tablet Take 1 tablet by mouth once daily. pravastatin (PRAVACHOL) 20 mg tablet Take 1 tablet by mouth daily at bedtime. GLUCOSAMINE SULFATE (GLUCOSAMINE ORAL) Take by mouth once daily. [employer] Extend flex meloxicam (MOBIC) 15 mg tablet Take 1 tablet by mouth once daily. (Patient not taking: Reported on 07/05/2022) tiZANidine (ZANAFLEX) 4 mg tablet Take 1 tablet by mouth every 8 hours as needed (muscle spasms). (Patient not taking: Reported on 06/10/2022 ) No current facility-administered medications for this visit. ALLERGIES: ALLERGIES Allergen Reactions E-Mycin [Erythromyc* GI Upset Zocor [Simvastatin] caused body aches PAST MEDICAL HISTORY Diagnosis Date Anxiety state, unspecified Other and unspecified hyperlipidemia borderline PAST SURGICAL HISTORY Procedure Laterality Date ANESTH DIAGNOSTIC ARTHROSCOPIC PROC KNEE JOINT remote right knee COLONOSCOPY FLX DX W/COLLJ SPEC WHEN PFRMD 05/10/2016 Colonoscopy INCISE FINGER TENDON SHEATH Left 06/16/2022 Left middle trigger finger release INGUINAL HERNIA REPAIR HX 12/15/2011 left PAST SURGICAL HISTORY OF remote vasectomy reversal VASECTOMY UNI/BI SPX W/POSTOP SEMEN EXAMS remote FAMILY HISTORY Problem Relation Age of Onset Diabetes Father Hypertension Father Heart Mother stents Heart Maternal Grandmother Heart Maternal Grandfather CABG at 90 Heart Paternal Grandfather [place] Social History Tobacco Use Smoking status: Former Years: 10.00 Types: Cigarettes Smokeless tobacco: Never Tobacco comments: intermittent smoker, quit in 1997 Vaping Use Vaping Use: Never used Substance Use Topics Alcohol use: No Drug use: No Reviewed current medications, allergies, past medical history, surgical history, family history and social history today. REVIEW OF SYSTEMS No issues with bowel or bladder. All other reviewed and negative other than HPI. HEALTH MAINTENANCE: Reviewed health maintenance issues today and recommended the following in detail. HEPATITIS B(1 of 3 - 3-dose series) Never done SHINGRIX VACCINE(1 of 2) Never done COVID-19 VACCINE(2 - Moderna series) due on 07/31/2021 DTAP,TDAP,TD(2 - Td or Tdap) due on 02/23/2022 DEPRESSION ASSESSMENT Never done Had discussion with patient regarding risks and benefits of prostate screening. Allowed them to decide if they wished to proceed with screening including GLENN and PSA. VITALS: BP 118/74 Pulse (!) 59 Wt 93.4 kg (206 lb) SpO2 96% BMI 28.73 kg/m Last 4 Encounter Wt Readings: Date: Wt: 11/25/2022 93.4 kg (206 lb) 07/02/2022 86.2 kg (190 lb) 06/10/2022 86.2 kg (190 lb) 02/15/2022 89.4 kg (197 lb) PHYSICAL EXAMINATION: General appearance: Well appearing, alert, in no acute distress, well-hydrated, well nourished. Skin: Skin color, texture, turgor normal, no suspicious rashes or lesions Head: Normocephalic, no masses, lesions, tenderness or abnormalities Neck: Supple, no adenopathy; thyroid symmetric, normal size, no bruits Lungs: Lungs clear to auscultation. No wheezing, rhonchi, rales Heart: RRR without murmur, gallop, or rubs. No ectopy Abdomen: Normal abdominal exam, Abdomen soft, non-tender. Bowel sounds normal. No masses, organomegaly Extremities: No deformities, edema, skin discoloration, clubbing or cyanosis. Good capillary refill. Musculoskeletal: No joint swelling, deformity, or tenderness ASSESSMENT/PLAN: 1. Bilateral hearing loss, unspecified hearing loss type - ICD9: 389.9, ICD10: H91.93 (primary diagnosis) - see ent. - CONSULT TO ENT 2. Anxiety state - ICD9: 300.00, ICD10: F41.1 - continue meds. Labs in six months. - SERTRALINE 50 MG TABLET - CBC + DIFF - COMP METABOLIC PANEL 3. Tinnitus of both ears - ICD9: 388.30, ICD10: H93.13 - CONSULT TO ENT 4. Mixed hyperlipidemia - ICD9: 272.2, ICD10: E78.2 - to be determined upon return of lab results - Continue current medication. - COMP METABOLIC PANEL - LIPID PANEL BASIC Steve Baron MD documented in this encounter [facility] 07-26-2022 History of Presen t illness Narrative Patient presents with: Left Hand - Established Patient, Post Op: 5 wks 5 days post op left middle trigger finger release Josiah Acosta MD Department of Orthopaedics Orthopaedics [address] [facility] [address] Dept: [phone] Dept July 26, 2022 CHIEF COMPLAINT: Established Patient and Post Op of the Left Hand (5 wks 5 days post op left middle trigger finger release). HPI AMB ROOMING INTAKE FLOWSHEET DATA Risk Screening Do you have concerns about personal safety or safety in the home?: No Pain Pain Level: 2 Pain Location: (LEFT MIDDLE TRIGGER FINGER) Description: Burning Duration Amount of Time: (POST OP) Frequency: Intermittent Intervention/Comfort measure: Cold Patient is here for 5 wk 5 day post op left middle trigger finger release. Patient states he feels a burning sensation when stretching his finger and still feels some of the same pain as he felt from before the surgery. ASSESSMENT: M65.332 Trigger middle finger of left hand (primary encounter diagnosis) SUMMARY/PLAN: Patient is about 6 weeks. Doing quite well. Some normal stiffness in the PIP joint. Otherwise looking good and he can anticipate activities as tolerated Exam: Healed incision. Mild and appropriate swelling, mild and appropriate stiffness at the PIP joint Supporting Information Below: Medications: Current Outpatient Medications Medication Sig sertraline (ZOLOFT) 50 mg tablet Take 1 tablet by mouth once daily. pravastatin (PRAVACHOL) 20 mg tablet Take 1 tablet by mouth daily at bedtime. GLUCOSAMINE SULFATE (GLUCOSAMINE ORAL) Take by mouth once daily. [employer] Extend flex meloxicam (MOBIC) 15 mg tablet Take 1 tablet by mouth once daily. (Patient not taking: Reported on 07/05/2022) tiZANidine (ZANAFLEX) 4 mg tablet Take 1 tablet by mouth every 8 hours as needed (muscle spasms). (Patient not taking: Reported on 06/10/2022 ) No current facility-administered medications for this visit. Allergies: E-Mycin [Erythromycin] and Zocor [Simvastatin] Josiah Acosta MD documented in this encounter [facility] 07-23-2022 Miscellaneous Notes [facility] 02/15/22 NOV 08/19/22 Patient has been identified by name and date of : Yes Requested Prescriptions Pending Prescriptions Disp Refills sertraline (ZOLOFT) 50 mg tablet 90 tablet 1 Sig: Take 1 tablet by mouth once daily. pravastatin (PRAVACHOL) 20 mg tablet 90 tablet 3 Sig: Take 1 tablet by mouth daily at bedtime. RX INSTRUCTIONS: Patient aware RX will be sent to pharmacy. No need to notify patient. Kiki Manrique [employer] Electronically signed by [facility] Manrique [facility] at 07/22/2022 4:42 PM EDT documented in this encounter [facility] 07-05-2022 History of Presen t illness Narrative Aracely Ardon PA-C Department of Orthopaedics [facility]edics [address] [facility] [address] Dept: [phone] Dept July 05, 2022 CHIEF COMPLAINT: Established Patient, Post Op, and ED Follow-up of the Left Hand. ASSESSMENT: M65.332 Trigger middle finger of left hand (primary encounter diagnosis) SUMMARY/PLAN: Patient presents just about 2-week status post left middle trigger finger release. After his sutures were removed he had some clear yellow tinted drainage coming from his incision site. He went to the emergency room and was started on Keflex. He is no longer getting any drainage from the incision site. Swelling and pain are much improved. Pain today is a 2 out of 10 aching. He complains more of stiffness than anything. We discussed proper hand washing, no soaking of the operative hand. No heavy lifting, pushing or pulling with the operative hand, encourage gentle motion. We discussed scar massage. Follow up as planned. Exam: Incision site with a small area of dehiscence. No purulent drainage, no bleeding. There is moderate edema around the incision site and at the base of the digit. Subjective stiffness at the PIP with difficulty upon full extension. No locking or catching of the digit with motion. Sensation is intact. Imaging: Deferred today Mr. Eduardo Yeung was advised as to contrast therapies and/or to take analgesics/anti-inflammatories as needed and all contraindications were reviewed. Supporting Information Below: Medications: Current Outpatient Medications Medication Sig cephALEXin (KEFLEX) 500 mg capsule Take 1 capsule by mouth four times daily for 5 days. pravastatin (PRAVACHOL) 20 mg tablet Take 1 tablet by mouth daily at bedtime. sertraline (ZOLOFT) 50 mg tablet Take 1 tablet by mouth once daily. GLUCOSAMINE SULFATE (GLUCOSAMINE ORAL) Take by mouth once daily. GNC Extend flex meloxicam (MOBIC) 15 mg tablet Take 1 tablet by mouth once daily. (Patient not taking: Reported on 07/05/2022) tiZANidine (ZANAFLEX) 4 mg tablet Take 1 tablet by mouth every 8 hours as needed (muscle spasms). (Patient not taking: Reported on 06/10/2022 ) No current facility-administered medications for this visit. Allergies: E-Mycin [Erythromycin] and Zocor [Simvastatin] This note was partially generated using [employer] voice recognition system, and there may be some incorrect words, spellings, and punctuation that were not noted in checking the note before saving. Aracely Ardon PA-C AMB ROOMING INTAKE FLOWSHEET DATA Patient here today for ED follow up. He is taking Keflex and has 1 day left. Patient denies any pain. documented in this encounter [facility] 07-02-2022 Miscellaneous Notes I called and spoke with patient. He has been scheduled with Aracely Ardon PA-C on 07/05/2022. I did leave a message as I tried to get in touch with him yesterday. I spoke with ER and we'll get an oral antibiotic going. Can Aracely or I see him beginning of next week to evaluate? Thanks. Patient calls office again in regards to the below. States he missed a call from Dr. Acosta and is concerned about his finger. Patient states he thinks it's infected and is requesting an appointment today. Advised patient that Dr. Acosta is in the OR today and he should report to [place] ED to have finger evaluated. Patient verbalized understanding and states he will go to ED. Patient calls office to ask if this has been addressed. Advised patient Dr. Acosta was in the OR this afternoon. Patient denies increasing redness or swelling, purulent drainage, pain or flu like symptoms. Reports clear drainage from incision site. Advised patient to go to ED with any signs of infection. Patient calling and states he is having some clear drainage from his incision site. States it looks like clear fluid from a blister. Having no yellow drainage or redness. Continuing to have some swelling. Patient asking is there is any concern. documented in this encounter [facility] 06-28-2022 History of Presen t illness Narrative Aracely Ardon PA-C Department of Orthopaedics Orthopaedics [address] [place] [id number] Dept: [phone] Dept June 28, 2022 CHIEF COMPLAINT: Post Op of the Left Middle Finger (1 week 5 days post op Left middle trigger finger release). ASSESSMENT: M65.332 Trigger middle finger of left hand (primary encounter diagnosis) SUMMARY/PLAN: Patient presents 1 week and 5 days status post left middle finger trigger release. He complains of 7 out of 10 aching pain and swelling in the finger. He admits that he was using a chainsaw to cut timber over the weekend. We discussed proper hand washing, no soaking of the operative hand. No heavy lifting, pushing or pulling with the operative hand, encourage gentle motion. We discussed scar massage. Follow up as planned. Exam: Incision site is well approximated without erythema, there is some moderate edema near the incision site extending up into the digit. Subjective stiffness at the PIP and difficulty with full extension of the digit. No locking or catching of the digit with flexion or extension. Sensation is intact to the hand. Imaging: Deferred today. Mr. Eduardo Yeung was advised as to contrast therapies and/or to take analgesics/anti-inflammatories as needed and all contraindications were reviewed. Supporting Information Below: Medications: Current Outpatient Medications Medication Sig meloxicam (MOBIC) 15 mg tablet Take 1 tablet by mouth once daily. pravastatin (PRAVACHOL) 20 mg tablet Take 1 tablet by mouth daily at bedtime. sertraline (ZOLOFT) 50 mg tablet Take 1 tablet by mouth once daily. GLUCOSAMINE SULFATE (GLUCOSAMINE ORAL) Take by mouth once daily. GNC Extend flex tiZANidine (ZANAFLEX) 4 mg tablet Take 1 tablet by mouth every 8 hours as needed (muscle spasms). (Patient not taking: Reported on 06/10/2022 ) No current facility-administered medications for this visit. Allergies: E-Mycin [Erythromycin] and Zocor [Simvastatin] This note was partially generated using [employer] voice recognition system, and there may be some incorrect words, spellings, and punctuation that were not noted in checking the note before saving. Aracely Ardon PA-C Patient presents with: Left Middle Finger - Post Op: 1 week 5 days post op Left middle trigger finger release AMB ROOMING INTAKE FLOWSHEET DATA Risk Screening Do you have concerns about personal safety or safety in the home?: No Pain Pain Level: 7 Pain Location: (Left middle finger) Description: Aching Duration Amount of Time: (Post op) Frequency: Intermittent Intervention/Comfort measure: Cold, Medication Patient states he is having some soreness in his hand. He used a chain saw over the weekend cutting up timber. Has been icing his hand when needed and taking Tylenol. documented in this encounter [facility] 06-10-2022 Miscellaneous Notes Patient scheduled for left middle trigger finger release under local on 06/16/22. Surgical request completed. Post op appointments mailed to patient. documented in this encounter [facility] 06-10-2022 History of Presen t illness Narrative PT ASSESSMENT - CASTING ROOM Edward presents for Application of brace. Applied DonJoy OA Reaction knee brace size medium to Left knee. Patient tolerated well. Patient has been instructed in Care and proper application of brace.Patient signed DonSkylar PPA electronically and verbalized understanding. Wendy Lawson Ma Associated Order(s): Large Joint Arthro/Inj: L knee joint Josiah Acosta MD Department of Orthopaedics Orth[facility] [place][note 2] [address] [facility] [address] Dept: [phone] Dept June 10, 2022 CHIEF COMPLAINT: Established Patient and Knee Pain of the Left Knee and Last seen 03/11/22 Left middle trigger finger (with injection given) HPI Patient states he started having pain in his left knee 4 days after he went [place] a run [place]. He had been working out during the winter at [employer] and did not want to lose what he was doing from exercising. He has medial knee pain. At times he can get a throbbing pain underneath his knee cap. 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 The pain can wake him up at night. Has been taking Motrin, Icing and putting a pillow between his knees at bedtime and helps take the edge off. AMB ROOMING INTAKE FLOWSHEET DATA Risk Screening Do you have concerns about personal safety or safety in the home?: No Pain Pain Level: 6 Pain Location: Knee-Left Description: Burning, Sharp, Dull, Aching, Throbbing Duration Amount of Time: 2 Duration Units: Months Frequency: Intermittent (Worse with driving and certain activities) Intervention/Comfort measure: Medication, Cold ASSESSMENT: M25.562 Acute pain of left knee (primary encounter diagnosis) M17.12 Primary osteoarthritis of left knee M65.332 Trigger middle finger of left hand PLAN: It appears to me that he had a bit of an exacerbation of some mild arthritis in that knee. We discussed anti-inflammatory as well as a cortisone injection today. On a separate note, he would like to get his trigger finger taken care of. The risks, benefits, alternatives and potential complications were reviewed. We will get him scheduled at his convenience Mr. Eduardo Yeung was advised as to contrast therapies and/or to take analgesics/anti-inflammatories as needed and all contraindications were reviewed. OBJECTIVE: Mr. Eduardo Yeung is a pleasant 57 year old in no apparent distress. Gen:There were no vitals taken for this visit. nl development, non obese, no deformities ENT: Normocephalic, normal hearing, moist mucosa CV: Pulses:DP/PT= 2+ and symmetric, capillary refill < 2 secs, no peripheral edema/varicosities Skin: no rash, bruising or lesions. Good turgor. Psych: cooperative and appropriate, alert and oriented x 3, good mood and affect. Musculoskeletal: No effusion. Very mildly antalgic gait to the left. He has pain on palpation over the medial joint line and medial distal femoral condyle. Slight varus on clinical exam which corrects to neutral and he has some mild medial joint space widening with valgus stress consistent with some of his slight laxity. Good range of motion from 0 to 130 degrees. He remains with some mild tenderness palpation at the A1 owen site of the left middle finger. Clicking and catching but no locking of the digit. Large Joint Arthro/Inj: L knee joint Informed Consent Consent Obtained: Verbal [place] Protocol A moment to CARE was completed. SIGN IN Sign in communication not applicable due to emergent procedure. Personnel directly involved with the procedure wore the appropriate PPE. Special Equipment: N/A Patient/Surrogate Stated/Verified: Patient name, Date of , Relevant allergies and Intended procedure TIME OUT Intended patient and procedure match the source document(s). Relevant labs, photos, and/or imaging studies have been reviewed. Correct side/site marked and visible. Medications required for procedure verified. No fire risk assessment and interventions applicable. No implant(s) inserted. 06/10/2022 9:54 AM The procedure site was prepped in the usual sterile fashion. Site: L knee joint Medications: 6 mg betamethasone acetate-betamethasone sodium phosphate 6 mg/mL Anesthetics: 4 mL lidocaine (PF) 10 mg/mL (1 %) Outcome: Tolerated well, no immediate complications Post-injection instructions were reviewed with the patient and the patient voiced understanding of these instructions. SIGN OUT No specimen collected. All instruments, equipment, possible retained foreign bodies accounted for. Post-procedure follow-up management communicated and Plan of Care Visit completed when applicable Imagin views of the left knee with standing weightbearing films of both show medial joint space narrowing of both knees right greater than left. Supporting Subjective Information Below: Past Surgical History: PAST SURGICAL HISTORY Procedure Laterality Date ANESTH DIAGNOSTIC ARTHROSCOPIC PROC KNEE JOINT remote right knee COLONOSCOPY FLX DX W/COLLJ SPEC WHEN PFRMD 05/10/16 Colonoscopy INGUINAL HERNIA REPAIR HX 12/2011 left PAST SURGICAL HISTORY OF remote vasectomy reversal VASECTOMY UNI/BI SPX W/POSTOP SEMEN EXAMS remote Medications: Current Outpatient Medications Medication Sig pravastatin (PRAVACHOL) 20 mg tablet Take 1 tablet by mouth daily at bedtime. sertraline (ZOLOFT) 50 mg tablet Take 1 tablet by mouth once daily. GLUCOSAMINE SULFATE (GLUCOSAMINE ORAL) Take by mouth once daily. GNC Extend flex tiZANidine (ZANAFLEX) 4 mg tablet Take 1 tablet by mouth every 8 hours as needed (muscle spasms). (Patient not taking: Reported on 06/10/2022 ) No current facility-administered medications for this visit. Allergies: E-Mycin [Erythromycin] and Zocor [Simvastatin] ROS: General (negative for fatigue, malaise, weight loss/gain) HEENT (negative for headache, earache, recent vision changes, sinus pain, sore throat) Respiratory (no recent shortness of breath, hemoptysis) CV (negative for chest tightness, palpitations) Musculoskeletal (see HPI) Psych (no depression, anxiety) Josiah Acosta MD documented in this encounter [facility] 06-10-2022 History of Presen t illness Narrative Radiology Service Progress Note PATIENT NAME: Eduardo Yeung DATE OF SERVICE: June 10, 2022 TIME: 9:34 AM PATIENT IDENTITY VERIFICATION COMPLETED USING TWO (2) IDENTIFIERS: Name and Date of confirmed by patient verbally. FALL SCREENING: Has the patient had 2 falls in the last year or 1 fall with injury or currently using an Ambulatory Assistive Device (Walker, Cane, Wheelchair, Crutches, etc.)? No PATIENT GENDER DATA: Male PATIENT RELEVANT IMPLANT DATA REVIEWED: Yes RADIOLOGY DEPARTMENT: General X-ray: Exam(s) Completed: Lower Extremity X-Ray(s): Knee, AP / Lat / Tunne / Merchant Left and Wt. Bearing PERIPHERAL IV DATA: Not applicable SIGNED BY: Tia Cooper RT(R) June 10, 2022 9:34 AM documented in this encounter [facility] 03-11-2022 History of Presen t illness Narrative Associated Order(s): Additional Injections: L long A1 Josiah Acosta MD Department of Orthopaedics Orthopaedics [address] [facility] [address] Dept: [phone] Dept March 11, [address] baron for an opinion regarding Left, middle trigger finger. My final recommendations will be communicated back to the requesting physician by way of shared Medical record or letter to requesting physician via US mail. CHIEF COMPLAINT: New and Pain of the Left Hand HPI Patient here today for left middle trigger finger x 3 months. 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 ASSESSMENT: M65.332 Trigger middle finger of left hand PLAN: We had a lengthy discussion about treatment options. He would like to try cortisone injection for now. He is into his busy season for both work and recreation. He may consider surgery down the line if the injection does not help. FOLLOW UP INSTRUCTIONS: As needed Mr. Eduardo Yeung was advised as to contrast therapies and/or to take analgesics/anti-inflammatories as needed and all contraindications were reviewed. OBJECTIVE: Mr. Eduardo Yeung is a pleasant 56 year old in no apparent distress. Gen:There were no vitals taken for this visit. nl development, non obese, no deformities ENT: Normocephalic, normal hearing, moist mucosa CV: Pulses:Radial= 2+ and symmetric, capillary refill < 2 secs, no peripheral edema/varicosities Skin: no rash, bruising or lesions. Good turgor. Psych: cooperative and appropriate, alert and oriented x 3, good mood and affect. Musculoskeletal: Active locking and catching of the middle digit on the left hand. Tenderness palpation at the A1 owen site. Additional Injections: L long A1 for trigger finger Informed Consent Consent Obtained: Verbal [place] Protocol A moment to CARE was completed. SIGN IN Personnel directly involved with the procedure wore the appropriate PPE. Special Equipment: N/A Patient/Surrogate Stated/Verified: Patient name, Date of , Relevant allergies and Intended procedure TIME OUT Intended patient and procedure match the source document(s). Consent documented and matches the intended procedure. Relevant labs, photos, and/or imaging studies have been reviewed. Correct side/site marked and visible. Medications required for procedure verified. No fire risk assessment and interventions applicable. No implant(s) inserted. 03/11/2022 8:36 AM The procedure site was prepped in the usual sterile fashion. Medications: 3 mg betamethasone acetate-betamethasone sodium phosphate 6 mg/mL Anesthetics: 0.5 mL lidocaine (PF) 10 mg/mL (1 %) Outcome: tolerated well, no immediate complications Post-injection instructions were reviewed with the patient and the patient voiced understanding of these instructions. SIGN OUT No specimen collected. All instruments, equipment, possible retained foreign bodies accounted for. Post-procedure follow-up management communicated and Plan of Care Visit completed when applicable Supporting Subjective Information Below: Past Medical History: PAST MEDICAL HISTORY Diagnosis Date Anxiety state, unspecified Other and unspecified hyperlipidemia borderline Past Surgical History: PAST SURGICAL HISTORY Procedure Laterality Date ANESTH DIAGNOSTIC ARTHROSCOPIC PROC KNEE JOINT remote right knee COLONOSCOPY FLX DX W/COLLJ SPEC WHEN PFRMD 05/10/16 Colonoscopy INGUINAL HERNIA REPAIR HX 12/2011 left PAST SURGICAL HISTORY OF remote vasectomy reversal VASECTOMY UNI/BI SPX W/POSTOP SEMEN EXAMS remote Family History: FAMILY HISTORY Problem Relation Age of Onset Diabetes Father Hypertension Father Heart Mother stents Heart Maternal Grandmother Heart Maternal Grandfather CABG at 90 Heart Paternal Grandfather [place] Social History: Social History Tobacco Use Smoking status: Former Smoker Years: 10.00 Smokeless tobacco: Never Used Tobacco comment: intermittent smoker, quit in 1997 Vaping Use Vaping Use: Never used Substance Use Topics Alcohol use: No Drug use: No Medications: Current Outpatient Medications Medication Sig pravastatin (PRAVACHOL) 20 mg tablet Take 1 tablet by mouth daily at bedtime. sertraline (ZOLOFT) 50 mg tablet Take 1 tablet by mouth once daily. GLUCOSAMINE SULFATE (GLUCOSAMINE ORAL) Take by mouth once daily. GNC Extend flex tiZANidine (ZANAFLEX) 4 mg tablet Take 1 tablet by mouth every 8 hours as needed (muscle spasms). No current facility-administered medications for this visit. Allergies: E-Mycin [Erythromycin] and Zocor [Simvastatin] ROS: General (negative for fatigue, malaise, weight loss/gain) HEENT (negative for headache, earache, recent vision changes, sinus pain, sore throat) Respiratory (no recent shortness of breath, hemoptysis) CV (negative for chest tightness, palpitations) Musculoskeletal (see HPI) Psych (no depression, anxiety) REFERRING PHYSICIAN: Mr. Eduardo Yeung was referred to me for consultation by the following physician. This consultation note will be sent to the following physician by either mail or electronic medical record. Steve Baron [address] [facility] [address] Steve Baron MD [address] [facility] [address] Josiah Acosta MD documented in this encounter [facility] 02-15-2022 Miscellaneous Notes Pt notified. He verbalized understanding. Matt Villarreal LPN Labs are overall ok. Potassium is borderline elevated. May likely be lab error. Recheck potassium in one week documented in this encounter [facility] 02-15-2022 History of Presen t illness Narrative Radiology Service Progress Note PATIENT NAME: Eduardo Yeung DATE OF SERVICE: February 15, 2022 TIME: 9:04 AM PATIENT IDENTITY VERIFICATION COMPLETED USING TWO (2) IDENTIFIERS: Name and Date of confirmed by patient verbally. FALL SCREENING: Has the patient had 2 falls in the last year or 1 fall with injury or currently using an Ambulatory Assistive Device (Walker, Cane, Wheelchair, Crutches, etc.)? No PATIENT GENDER DATA: Male PATIENT RELEVANT IMPLANT DATA REVIEWED: Yes RADIOLOGY DEPARTMENT: General X-ray: Exam(s) Completed: Upper Extremity X-Ray(s): Hand, left PERIPHERAL IV DATA: Not applicable SIGNED BY: RT Yesenia(R) February 15, 2022 9:04 AM documented in this encounter [facility] 02-15-2022 Miscellaneous Notes Addended by: STEVE BARON on: 02/15/2022 08:50 AM Modules accepted: Orders documented in this encounter [facility] 02-15-2022 History of Presen t illness Narrative Patient presents with: Joint Pain: fingers left middle finger has a knuckle that locks Ear Problem: ringing in ears that has been going on for a long time-no dizziness HPI: Patient presents today for office visit for several issues. Overall feels well. HYPERLIPIDEMIA: Patient is taking medications: Yes. Patient is watching diet: Patient denies myalgias: Nothing new. Psych:continues to use meds. Is hesitant to change. No side effects. His did pass away. His about a year and a half ago. Complains of trigger finger. No injury. Started a month or so a go. No pain. No swelling. Discussed nsaid use. Complains of tinnitus:has been going on for years. Has chronic hearing loss. No dizziness. No drainage. Declines ENT for now. He is concerned about peyronie's disease. Is not currently sexually active. Can be uncomfortable. Will call if worsens and wants urology to look at him. MEDICATIONS: Current Outpatient Medications Medication Sig pravastatin (PRAVACHOL) 20 mg tablet Take 1 tablet by mouth daily at bedtime. sertraline (ZOLOFT) 50 mg tablet Take 1 tablet by mouth once daily. GLUCOSAMINE SULFATE (GLUCOSAMINE ORAL) Take by mouth once daily. GNC Extend flex tiZANidine (ZANAFLEX) 4 mg tablet Take 1 tablet by mouth every 8 hours as needed (muscle spasms). No current facility-administered medications for this visit. ALLERGIES: ALLERGIES Allergen Reactions E-Mycin [Erythromyc* GI Upset Zocor [Simvastatin] caused body aches PAST MEDICAL HISTORY Diagnosis Date Anxiety state, unspecified Other and unspecified hyperlipidemia borderline PAST SURGICAL HISTORY Procedure Laterality Date ANESTH DIAGNOSTIC ARTHROSCOPIC PROC KNEE JOINT remote right knee COLONOSCOPY FLX DX W/COLLJ SPEC WHEN PFRMD 05/10/16 Colonoscopy INGUINAL HERNIA REPAIR HX 12/2011 left PAST SURGICAL HISTORY OF remote vasectomy reversal VASECTOMY UNI/BI SPX W/POSTOP SEMEN EXAMS remote FAMILY HISTORY Problem Relation Age of Onset Diabetes Father Hypertension Father Heart Mother stents Heart Maternal Grandmother Heart Maternal Grandfather CABG at 90 Heart Paternal Grandfather [place] Social History Tobacco Use Smoking status: Former Smoker Years: 10.00 Smokeless tobacco: Never Used Tobacco comment: intermittent smoker, quit in 1997 Substance Use Topics Alcohol use: No Drug use: No Reviewed current medications, allergies, past medical history, surgical history, family history and social history today. REVIEW OF SYSTEMS RESPIRATORY: Negative for cough, hemoptysis, wheezing, COPD, dyspnea or shortness of breath CARDIOVASCULAR: Negative for chest pain, leg swelling, hypertension, CHF or palpitations GI: No nausea, vomiting, or diarrhea : No history of dysuria, frequency or incontinence SKIN: Negative for lesions, rash, and itching All other reviewed and negative other than HPI. HEALTH MAINTENANCE: Reviewed health maintenance issues today and recommended the following in detail. HIV SCREENING - gives blood. SHINGRIX VACCINE(1 of 2) Never done PROSTATE CANCER SCREENING DISCUSSION-Had discussion with patient regarding risks and benefits of prostate screening. Allowed them to decide if they wished to proceed with screening including GLENN and PSA. COVID-19 VACCINE(2 - Moderna 3-dose series)-only got one vaccine. DTAP,TDAP,TD(2 - Td or Tdap) -consider at some point. VITALS: BP 122/70 Pulse 64 Wt 89.4 kg (197 lb) BMI 27.48 kg/m Last 4 Encounter Wt Readings: Date: Wt: 02/15/2022 89.4 kg (197 lb) 12/23/2020 90.4 kg (199 lb 6.4 oz) 12/06/2019 94.8 kg (209 lb) 11/16/2019 94.8 kg (209 lb) PHYSICAL EXAMINATION: General appearance: Well appearing, alert, in no acute distress, well-hydrated, well nourished. Skin: Skin color, texture, turgor normal, no suspicious rashes or lesions Head: Normocephalic, no masses, lesions, tenderness or abnormalities Eyes: Anicteric sclera. Pupils are equally round and reactive to light. Extraocular movements are intact. Ears: External ears normal, canals clear Neck: Supple, no adenopathy; thyroid symmetric, normal size, no bruits Lungs: Lungs clear to auscultation. No wheezing, rhonchi, rales Heart: RRR without murmur, gallop, or rubs. No ectopy Abdomen: Normal abdominal exam, Abdomen soft, non-tender. Bowel sounds normal. No masses, organomegaly Extremities: No deformities, edema, skin discoloration, clubbing or cyanosis. Good capillary refill. Trigger finger as noted above. Musculoskeletal: No joint swelling, deformity, or tenderness Peripheral pulses: Normal Neuro: Negative. ASSESSMENT/PLAN: 1. Mixed hyperlipidemia - ICD9: 272.2, ICD10: E78.2 (primary diagnosis) - good control - Continue current medication. - LIPID PANEL BASIC 2. Anxiety state - ICD9: 300.00, ICD10: F41.1 - continue meds. - CBC + DIFF - COMP METABOLIC PANEL 3. Trigger middle finger of left hand - ICD9: 727.03, ICD10: M65.332 - CONSULT TO ORTHOPAEDICS - XR HAND GENERAL 3V PA/LAT/OBL LEFT 4. Tinnitus of both ears - ICD9: 388.30, ICD10: H93.13 - call if worsens. Consider ent if worsens. Steve Baron RTO in six months and prn. documented in this encounter [facility] 08-02-2014 History of Past i llness Narrative Problem Noted Date Resolved Date Elbow pain 08/02/2014 09/09/2016 Left inguinal hernia 10/11/2011 01/25/2012 documented as of this encounter (statuses as of 02/15/2022) [facility] History of Past illness Narrative* Problem Noted Date Resolved Date Elbow pain 08/02/2014 09/09/2016 Left inguinal hernia 10/11/2011 01/25/2012 documented as of this encounter (statuses as of 02/15/2022) [facility] History of Past illness Narrative* Problem Noted Date Resolved Date Elbow pain 08/02/2014 09/09/2016 Left inguinal hernia 10/11/2011 01/25/2012 documented as of this encounter (statuses as of 03/11/2022) [facility] History of Past illness Narrative* Problem Noted Date Resolved Date Elbow pain 08/02/2014 09/09/2016 Left inguinal hernia 10/11/2011 01/25/2012 documented as of this encounter (statuses as of 06/10/2022) [facility] History of Past illness Narrative* Problem Noted Date Resolved Date Elbow pain 08/02/2014 09/09/2016 Left inguinal hernia 10/11/2011 01/25/2012 documented as of this encounter (statuses as of 06/11/2022) [facility] History of Past illness Narrative* Problem Noted Date Resolved Date Elbow pain 08/02/2014 09/09/2016 Left inguinal hernia 10/11/2011 01/25/2012 documented as of this encounter (statuses as of 06/16/2022) [facility] History of Past illness Narrative* Problem Noted Date Resolved Date Elbow pain 08/02/2014 09/09/2016 Left inguinal hernia 10/11/2011 01/25/2012 documented as of this encounter (statuses as of 06/28/2022) [facility] History of Past illness Narrative* Problem Noted Date Resolved Date Elbow pain 08/02/2014 09/09/2016 Left inguinal hernia 10/11/2011 01/25/2012 documented as of this encounter (statuses as of 07/02/2022) [facility] History of Past illness Narrative* Problem Noted Date Resolved Date Elbow pain 08/02/2014 09/09/2016 Left inguinal hernia 10/11/2011 01/25/2012 documented as of this encounter (statuses as of 07/05/2022) [facility] History of Past illness Narrative* Problem Noted Date Resolved Date Elbow pain 08/02/2014 09/09/2016 Left inguinal hernia 10/11/2011 01/25/2012 documented as of this encounter (statuses as of 07/23/2022) [place] [address]-19-2014 History of Past illness Narrative* Problem Noted Date Resolved Date Elbow pain 08/02/2014 09/09/2016 Left inguinal hernia 10/11/2011 01/25/2012 documented as of this encounter (statuses as of 07/26/2022) [place] [address]-19-2014 History of Past illness Narrative* Problem Noted Date Resolved Date Elbow pain 08/02/2014 09/09/2016 Left inguinal hernia 10/11/2011 01/25/2012 documented as of this encounter (statuses as of 11/25/2022) [place] [address]-19-2014 History of Past illness Narrative* Problem Noted Date Resolved Date Elbow pain 08/02/2014 09/09/2016 Left inguinal hernia 10/11/2011 01/25/2012 documented as of this encounter (statuses as of 12/07/2022) [facility] History of Past illness Narrative* Problem Noted Date Resolved Date Elbow pain 08/02/2014 09/09/2016 Left inguinal hernia 10/11/2011 01/25/2012 documented as of this encounter (statuses as of 01/14/2023) [facility] History of Past illness Narrative* Problem Noted Date Resolved Date Elbow pain 08/02/2014 09/09/2016 Left inguinal hernia 10/11/2011 01/25/2012 documented as of this encounter (statuses as of 01/25/2023) [facility] History of Past illness Narrative* Problem Noted Date Resolved Date Elbow pain 08/02/2014 09/09/2016 Left inguinal hernia 10/11/2011 01/25/2012 documented as of this encounter (statuses as of 01/26/2023) [facility] History of Past illness Narrative* Problem Noted Date Resolved Date Elbow pain 08/02/2014 09/09/2016 Left inguinal hernia 10/11/2011 01/25/2012 documented as of this encounter (statuses as of 01/28/2023) [place] [address]-19-2014 History of Past illness Narrative* Problem Noted Date Resolved Date Elbow pain 08/02/2014 09/09/2016 Left inguinal hernia 10/11/2011 01/25/2012 documented as of this encounter (statuses as of 02/24/2023) [facility] History of Past illness Narrative* Problem Noted Date Diagnosed Date Resolved Date Elbow pain 08/02/2014 09/09/2016 Left inguinal hernia 10/11/2011 012 documented as of this encounter (statuses as of 06/16/2023) [facility] History of Past illness Narrative* Problem Noted Date Diagnosed Date Resolved Date Elbow pain 08/02/2014 09/09/2016 Left inguinal hernia 10/11/2011 012 documented as of this encounter (statuses as of 07/20/2023) [facility] History of Past illness Narrative* Problem Noted Date Diagnosed Date Resolved Date Elbow pain 08/02/2014 09/09/2016 Left inguinal hernia 10/11/2011 012 documented as of this encounter (statuses as of 08/30/2023) [facility] History of Past illness Narrative* Problem Noted Date Diagnosed Date Resolved Date Elbow pain 08/02/2014 09/09/2016 Left inguinal hernia 10/11/2011 012 documented as of this encounter (statuses as of 09/02/2023) [facility] History of Past illness Narrative* Problem Noted Date Diagnosed Date Resolved Date Elbow pain 08/02/2014 09/09/2016 Left inguinal hernia 10/11/2011 012 documented as of this encounter (statuses as of 09/06/2023) [place] [address]-19-2014 History of Past illness Narrative* Problem Noted Date Diagnosed Date Resolved Date Elbow pain 08/02/2014 09/09/2016 Left inguinal hernia 10/11/2011 012 documented as of this encounter (statuses as of 09/23/2023) [facility] History of Past illness Narrative* Problem Noted Date Diagnosed Date Resolved Date Elbow pain 08/02/2014 09/09/2016 Left inguinal hernia 10/11/2011 012 documented as of this encounter (statuses as of 10/05/2023) [facility] History of Past illness Narrative* Problem Noted Date Diagnosed Date Resolved Date Elbow pain 08/02/2014 09/09/2016 Left inguinal hernia 10/11/2011 012 documented as of this encounter (statuses as of 01/19/2024) [facility] History of Past illness Narrative* Problem Noted Date Diagnosed Date Resolved Date Elbow pain 08/02/2014 09/09/2016 Left inguinal hernia 10/11/2011 012 documented as of this encounter (statuses as of 01/20/2024) [facility]* Diagnosis Mixed hyperlipidemia- Primary Anxiety state Anxiety state, unspecified Trigger middle finger of left hand Trigger finger (acquired) Tinnitus of both ears Unspecified tinnitus [facility] Diagnosis Hyperkalemia- Primary [facility]potassemia [facility] Diagnosis Trigger middle finger of left hand Trigger finger (acquired) [facility] Diagnosis Acute pain of left knee- Primary Primary osteoarthritis of left knee Primary localized osteoarthrosis, lower leg Trigger middle finger of left hand Trigger finger (acquired) Trigger middle finger of left hand Trigger finger (acquired) [facility] Diagnosis Acute pain of left knee Trigger middle finger of left hand Trigger finger (acquired) [facility] Trigger middle finger of left hand- Primary Trigger finger (acquired) [facility] Diagnosis Trigger middle finger of left hand- Primary Trigger finger (acquired) [facility] Diagnosis Anxiety state Anxiety state, unspecified Mixed hyperlipidemia [facility] Diagnosis Trigger middle finger of left hand- Primary Trigger finger (acquired) [facility] Diagnosis Bilateral hearing loss, unspecified hearing loss type- Primary Anxiety state Anxiety state, unspecified Tinnitus of both ears Unspecified tinnitus Mixed hyperlipidemia [facility] Diagnosis Peyronie's disease- Primary [facility] Diagnosis Mixed hyperlipidemia Anxiety state Anxiety state, unspecified [facility] Diagnosis Mixed hyperlipidemia [facility] Diagnosis Peyronie's disease- Primary [facility] Diagnosis Mixed hyperlipidemia- Primary Anxiety state Anxiety state, unspecified [facility] Diagnosis Trigger ring finger of right hand- Primary Trigger finger (acquired) Trigger finger of left thumb Trigger index finger of left hand Trigger finger (acquired) [facility] Diagnosis Anxiety state Anxiety state, unspecified Trigger ring finger of right hand Trigger finger (acquired) [facility] Diagnosis Mixed hyperlipidemia- Primary Anxiety state Anxiety state, unspecified Trigger ring finger of right hand Trigger finger (acquired) [facility] Diagnosis Mixed hyperlipidemia- Primary Generalized anxiety disorder [facility] Diagnosis Mixed hyperlipidemia- Primary Anxiety state Anxiety state, unspecified [facility] Diagnosis Trigger thumb of left hand- Primary Trigger finger (acquired) Trigger index finger of left hand Trigger finger (acquired) [facility] Diagnosis Anxiety state Anxiety state, unspecified [facility] Diagnosis Trigger thumb of left hand- Primary Trigger finger (acquired) Trigger index finger of left hand Trigger finger (acquired) [facility] Diagnosis Mixed hyperlipidemia [facility] Diagnosis Mixed hyperlipidemia- Primary Anxiety state Anxiety state, unspecified [facility] Diagnosis Trigger middle finger of left hand Trigger finger (acquired) [facility] Diagnosis Mixed hyperlipidemia- Primary Anxiety state Anxiety state, unspecified Screening for depression Contusion of rib, unspecified laterality, subsequent encounter [facility] Diagnosis Trigger finger, right index finger- Primary Trigger middle finger of right hand Trigger finger (acquired) Trigger ring finger of left hand Trigger finger (acquired) Trigger finger, right index finger Trigger middle finger of right hand Trigger finger (acquired) Trigger ring finger of left hand Trigger finger (acquired) [facility] Diagnosis Acquired trigger finger of right index finger Acquired trigger finger of right middle finger Acquired trigger finger of left ring finger Trigger finger, right index finger Trigger middle finger of right hand Trigger finger (acquired) Trigger ring finger of left hand Trigger finger (acquired) [facility] Acquired trigger finger of right index finger- Primary Acquired trigger finger of right middle finger Acquired trigger finger of left ring finger documented in this encounter [facility] [place] for referral (narrative)* Diagnostic Procedure Only (Routine) - Closed Specialty Diagnoses / Procedures Referred By Contac t Referred To Contact XR IMAGING Diagnoses Trigger middle finger of left hand Procedures XR HAND GENERAL 3V PA/LAT/OBL LEFT RADEX HAND MINIMUM 3 VIEWS Steve Baron MD [address] [place] [address] Xr Imaging Referral ID Status Reason Start Date Expiration Date V isits Requested Visits Authorized [id number] Closed Auto-Generate d Referral 02/15/2022 03/17/2023 1 1 * Consult, Test, Treat (Routine) - Authorized Specialty Diagnoses / Procedures Referred By Contac t Referred To Contact Orthopedics Diagnoses Trigger middle finger of left hand Procedures CONSULT TO ORTHOPAEDICS OFFICE/OUTPATIENT [facility] 60-74 MINUTES Steve Baron MD [address] [place] [address] Referral ID Status Reason Start Date Expiration Date Visits Requested Visits Authorized [id number] Authorized PCP Requested Referral 02/15/2022 02/15/2023 1 1 [facility] for referral (narrative)* Diagnostic Procedure Only (Routine) - Closed Specialty Diagnoses / Procedures Referred By Contac t Referred To Contact XR IMAGING Diagnoses Acute pain of left knee Procedures XR KNEE GENERAL 4V AP BOTH/PA BOTH/LAT/MERC LEFT RADIOLOGIC EXAM KNEE COMPLETE 4/MORE VIEWS Josiah Acosta MD [address] [place] [address] Xr Imaging Referral ID Status Reason Start Date Expiration Date V isits Requested Visits Authorized [id number] Closed Auto-Generate d Referral 06/10/2022 07/10/2023 1 1 [facility] for referral (narrative)* Diagnostic Procedure Only (Routine) - Closed Specialty Diagnoses / Procedures Referred By Contac t Referred To Contact XR IMAGING Diagnoses Acute pain of left knee Procedures XR KNEE GENERAL 4V AP BOTH/PA BOTH/LAT/MERC LEFT RADIOLOGIC EXAM KNEE COMPLETE 4/MORE VIEWS Josiah Acosta MD [address] [place] [address] Xr Imaging Referral ID Status Reason Start Date Expiration Date V isits Requested Visits Authorized [id number] Closed Auto-Generate d Referral 06/10/2022 07/10/2023 1 1 [facility] [place] for referral (narrative)* Outpatient Procedure (Routine) - Pending Review Specialty Diagnoses / Procedures Referred By Contac t Referred To Contact [facility] Diagnoses Peyronie's disease Procedures PENILE DOPPLER UROLOGY DUP-SCAN ARTL INFL&DOUG O/F PEN VSL COMPL NJX C/P/A CAVERNOSA W/PHARMACOLOGIC AGT James Shook MD [address] [place] [address] [facility] [address] [place] [address] Referral ID Status Reason Start Date Expiration Date Visits Requested Visits Authorized [id number] Pending Review Auto-Generat ed Referral 01/13/2023 01/14/2024 1 1 [facility] for referral (narrative)* Diagnostic Procedure Only (Routine) - Closed Specialty Diagnoses / Procedures Referred By Contac t Referred To Contact XR IMAGING Diagnoses Trigger middle finger of left hand Procedures XR HAND GENERAL 3V PA/LAT/OBL LEFT RADEX HAND MINIMUM 3 VIEWS Steve Baron MD [address] [place] [address] [place] [id number] Referral ID Status Reason Start Date Expiration Date V isits Requested Visits Authorized [id number] Closed Auto-Generate d Referral 02/15/2022 03/17/2023 1 1 [facility] [place] for visit Narrative* Diagnostic Procedure Only (Routine) - Closed Specialty Diagnoses / Procedures Referred By Contac t Referred To Contact XR IMAGING Diagnoses Acute pain of left knee Procedures XR KNEE GENERAL 4V AP BOTH/PA BOTH/LAT/MERC LEFT RADIOLOGIC EXAM KNEE COMPLETE 4/MORE VIEWS Josiah Acosta MD [address] [place] [address] Xr Imaging Referral ID Status Reason Start Date Expiration Date V isits Requested Visits Authorized [id number] Closed Auto-Generate d Referral 06/10/2022 07/10/2023 1 1 [facility] [place] for visit Narrative* Diagnostic Procedure Only (Routine) - Closed Specialty Diagnoses / Procedures Referred By Contac t Referred To Contact XR IMAGING Diagnoses Trigger middle finger of left hand Procedures XR HAND GENERAL 3V PA/LAT/OBL LEFT RADEX HAND MINIMUM 3 VIEWS Steve Baron MD [address] [place] [address] [place] [address] Referral ID Status Reason Start Date Expiration Date V isits Requested Visits Authorized [id number] Closed Auto-Generate d Referral 02/15/2022 03/17/2023 1 1 [facility] Summary Purpose Family History No Family History Records FoundNo Family History Records FoundNo Family History Records FoundNo Family History Records FoundNo Family History Records Found Advance Directives No Advanced Directives Records FoundDocuments on File Type Date Recorded Patient Radiologist Chief Of Breast Imaging Expl anation Advance Directive(s) 11/18/2018 4:55 PM Advance Directive(s) 05/10/2016 9:21 AM Documents on File Type Date Recorded Patient Radiologist Chief Of Breast Imaging Expl anation Advance Directive(s) 11/18/2018 4:55 PM Advance Directive(s) 05/10/2016 9:21 AM Documents on File Type Date Recorded Patient Radiologist Chief Of Breast Imaging Expl anation Advance Directive(s) 06/16/2022 9:03 AM Advance Directive(s) 06/14/2022 11:55 AM Advance Directive(s) 11/18/2018 4:55 PM Advance Directive(s) 05/10/2016 9:21 AM Medications Administered Section Inactive Administered Medications - up to 3 most recent administrations Medication Order MAR Action Action Date Dose Rate Site betamethasone acetate-betamethasone sodium phosphate 3 mg injection (CELESTONE) 3 mg, Injection - FOR ORTHO USE ONLY, ONE TIME INJECTION, 1 dose, Starting on Radha 03/11/22 at 0836, Until Radha 03/11/22 at 0836 Given 03/11/2022 8:36 AM EDT 3 mg lidocaine (PF) 10 mg/mL (1 %) 0.5 mL injection (XYLOCAINE) 0.5 mL, Injection - FOR ORTHO USE ONLY, ONE TIME INJECTION, 1 dose, Starting on Radha 03/11/22 at 0836, Until Radha 03/11/22 at 0836 Given 03/11/2022 8:36 AM EDT 0.5 mL Inactive Administered Medications - up to 3 most recent administrations Medication Order MAR Action Action Date Dose Rate Site betamethasone acetate-betamethasone sodium phosphate 6 mg injection (CELESTONE) 6 mg, Injection - FOR ORTHO USE ONLY, ONE TIME INJECTION, 1 dose, Starting on Radha 06/10/22 at 0954, Until Radha 06/10/22 at 0954 Given 06/10/2022 9:54 AM EDT 6 mg lidocaine (PF) 10 mg/mL (1 %) 4 mL injection (XYLOCAINE) 4 mL, Injection - FOR ORTHO USE ONLY, ONE TIME INJECTION, 1 dose, Starting on Radha 06/10/22 at 0954, Until Radha 06/10/22 at 0954 Given 06/10/2022 9:54 AM EDT 4 mL Inactive Administered Medications - up to 3 most recent administrations Medication Order MAR Action Action Date Dose Rate Site betamethasone acetate-betamethasone sodium phosphate 3 mg injection (CELESTONE) 3 mg, Injection - FOR ORTHO USE ONLY, ONCE, 1 dose, Starting on Tue08/30/23 at 1232, Until Tue08/30/23 at 1232 Given 08/30/2023 12:32 PM EDT 3 mg Hand , Left betamethasone acetate-betamethasone sodium phosphate 3 mg injection (CELESTONE) 3 mg, Injection - FOR ORTHO USE ONLY, ONCE, 1 dose, Starting on Tue08/30/23 at 1233, Until Tue08/30/23 at 1233 Given 08/30/2023 12:33 PM EDT 3 mg Hand , Left lidocaine (PF) 10 mg/mL (1 %) 0.5 mL injection (XYLOCAINE) 0.5 mL, Injection - FOR ORTHO USE ONLY, ONCE, 1 dose, Starting on Tue08/30/23 at 1232, Until Tue08/30/23 at 1232 Given 08/30/2023 12:32 PM EDT 0.5 mL Hand, Left lidocaine (PF) 10 mg/mL (1 %) 0.5 mL injection (XYLOCAINE) 0.5 mL, Injection - FOR ORTHO USE ONLY, ONCE, 1 dose, Starting on Tue08/30/23 at 1233, Until Tue08/30/23 at 1233 Given 08/30/2023 12:33 PM EDT 0.5 mL Hand, Left Reason for Referral Specialty Diagnoses / Procedures Referred By Juan silver Referred To Contact Ent - Otolaryngology Diagnoses Bilateral hearing loss, unspecified hearing loss type Tinnitus of both ears Procedures CONSULT TO ENT OFFICE/OUTPATIENT [facility] 60-74 MINUTES Steve Baron MD [address] [place] [address] Referral ID Status Reason Start Date Expiration Date Visits Requested Visits Authorized [id number] Authorized PCP Requested Referral 11/25/2022 11/25/2023 1 1 Additional Source Comments (unrecognized sect ion and content) No Status Records FoundNo Status Records FoundNo Status Records FoundNo Status Records FoundNo Status Records Found INFORMATION SOURCE (unrecogn ized section and content) DATE CREATED AUTHOR 05/10/2018 [facility] DATE CREATED AUTHOR AUTHOR'S ORGANIZ ATION 11/18/2018 [facility] DATE CREATED AUTHOR AUTHOR'S ORGANIZ ATION 11/18/2018 [facility] DATE CREATED AUTHOR AUTHOR'S ORGANIZ ATION 06/21/2025 [facility] DATE CREATED AUTHOR AUTHOR'S ORGANIZ ATION 08/06/2025 [facility] Source Comments (unrecognize d section and content) In the event this informatio n is protected by the Federal Confidentiality of Alcohol and Drug Abuse Patient Records regulations: The Federal rules restrict any use of the information to criminally investigate or prosecute any alcohol or drug abuse patient.[facility] event this information is protected by the Federal Confidentiality of Alcohol and Drug Abuse Patient Records regulations: The Federal rules restrict any use of the information to criminally investigate or prosecute any alcohol or drug abuse patient.[facility] the event this information is protected by the Federal Confidentiality of Alcohol and Drug Abuse Patient Records regulations: The Federal rules restrict any use of the information to criminally investigate or prosecute any alcohol or drug abuse patient.[facility] the event this information is protected by the Federal Confidentiality of Alcohol and Drug Abuse Patient Records regulations: The Federal rules restrict any use of the information to criminally investigate or prosecute any alcohol or drug abuse patient.[facility] the event this information is protected by the Federal Confidentiality of Alcohol and Drug Abuse Patient Records regulations: The Federal rules restrict any use of the information to criminally investigate or prosecute any alcohol or drug abuse patient.[facility] the event this information is protected by the Federal Confidentiality of Alcohol and Drug Abuse Patient Records regulations: The Federal rules restrict any use of the information to criminally investigate or prosecute any alcohol or drug abuse patient.[facility] the event this information is protected by the Federal Confidentiality of Alcohol and Drug Abuse Patient Records regulations: The Federal rules restrict any use of the information to criminally investigate or prosecute any alcohol or drug abuse patient.[facility] the event this information is protected by the Federal Confidentiality of Alcohol and Drug Abuse Patient Records regulations: The Federal rules restrict any use of the information to criminally investigate or prosecute any alcohol or drug abuse patient.[facility] the event this information is protected by the Federal Confidentiality of Alcohol and Drug Abuse Patient Records regulations: The Federal rules restrict any use of the information to criminally investigate or prosecute any alcohol or drug abuse patient.[facility] the event this information is protected by the Federal Confidentiality of Alcohol and Drug Abuse Patient Records regulations: The Federal rules restrict any use of the information to criminally investigate or prosecute any alcohol or drug abuse patient.[facility] the event this information is protected by the Federal Confidentiality of Alcohol and Drug Abuse Patient Records regulations: The Federal rules restrict any use of the information to criminally investigate or prosecute any alcohol or drug abuse patient.[facility] the event this information is protected by the Federal Confidentiality of Alcohol and Drug Abuse Patient Records regulations: The Federal rules restrict any use of the information to criminally investigate or prosecute any alcohol or drug abuse patient.[facility] the event this information is protected by the Federal Confidentiality of Alcohol and Drug Abuse Patient Records regulations: The Federal rules restrict any use of the information to criminally investigate or prosecute any alcohol or drug abuse patient.[facility] the event this information is protected by the Federal Confidentiality of Alcohol and Drug Abuse Patient Records regulations: The Federal rules restrict any use of the information to criminally investigate or prosecute any alcohol or drug abuse patient.[facility] the event this information is protected by the Federal Confidentiality of Alcohol and Drug Abuse Patient Records regulations: The Federal rules restrict any use of the information to criminally investigate or prosecute any alcohol or drug abuse patient.[facility]In the event this information is protected by the Federal Confidentiality of Alcohol and Drug Abuse Patient Records regulations: The Federal rules restrict any use of the information to criminally investigate or prosecute any alcohol or drug abuse patient.[facility] HospitalIn the event this information is protected by the Federal Confidentiality of Alcohol and Drug Abuse Patient Records regulations: The Federal rules restrict any use of the information to criminally investigate or prosecute any alcohol or drug abuse patient.[facility] HospitalIn the event this information is protected by the Federal Confidentiality of Alcohol and Drug Abuse Patient Records regulations: The Federal rules restrict any use of the information to criminally investigate or prosecute any alcohol or drug abuse patient.[facility] HospitalIn the event this information is protected by the Federal Confidentiality of Alcohol and Drug Abuse Patient Records regulations: The Federal rules restrict any use of the information to criminally investigate or prosecute any alcohol or drug abuse patient.[facility] HospitalIn the event this information is protected by the Federal Confidentiality of Alcohol and Drug Abuse Patient Records regulations: The Federal rules restrict any use of the information to criminally investigate or prosecute any alcohol or drug abuse patient.[facility] HospitalIn the event this information is protected by the Federal Confidentiality of Alcohol and Drug Abuse Patient Records regulations: The Federal rules restrict any use of the information to criminally investigate or prosecute any alcohol or drug abuse patient.[facility] HospitalIn the event this information is protected by the Federal Confidentiality of Alcohol and Drug Abuse Patient Records regulations: The Federal rules restrict any use of the information to criminally investigate or prosecute any alcohol or drug abuse patient.[facility] HospitalIn the event this information is protected by the Federal Confidentiality of Alcohol and Drug Abuse Patient Records regulations: The Federal rules restrict any use of the information to criminally investigate or prosecute any alcohol or drug abuse patient.[facility] HospitalIn the event this information is protected by the Federal Confidentiality of Alcohol and Drug Abuse Patient Records regulations: The Federal rules restrict any use of the information to criminally investigate or prosecute any alcohol or drug abuse patient.[facility] HospitalIn the event this information is protected by the Federal Confidentiality of Alcohol and Drug Abuse Patient Records regulations: The Federal rules restrict any use of the information to criminally investigate or prosecute any alcohol or drug abuse patient.[facility] HospitalIn the event this information is protected by the Federal Confidentiality of Alcohol and Drug Abuse Patient Records regulations: The Federal rules restrict any use of the information to criminally investigate or prosecute any alcohol or drug abuse patient.[facility] HospitalIn the event this information is protected by the Federal Confidentiality of Alcohol and Drug Abuse Patient Records regulations: The Federal rules restrict any use of the information to criminally investigate or prosecute any alcohol or drug abuse patient.[facility] HospitalIn the event this information is protected by the Federal Confidentiality of Alcohol and Drug Abuse Patient Records regulations: The Federal rules restrict any use of the information to criminally investigate or prosecute any alcohol or drug abuse patient.[facility] HospitalIn the event this information is protected by the Federal Confidentiality of Alcohol and Drug Abuse Patient Records regulations: The Federal rules restrict any use of the information to criminally investigate or prosecute any alcohol or drug abuse patient.[facility] HospitalIn the event this information is protected by the Federal Confidentiality of Alcohol and Drug Abuse Patient Records regulations: The Federal rules restrict any use of the information to criminally investigate or prosecute any alcohol or drug abuse patient.[facility] HospitalIn the event this information is protected by the Federal Confidentiality of Alcohol and Drug Abuse Patient Records regulations: The Federal rules restrict any use of the information to criminally investigate or prosecute any alcohol or drug abuse patient.[facility] HospitalIn the event this information is protected by the Federal Confidentiality of Alcohol and Drug Abuse Patient Records regulations: The Federal rules restrict any use of the information to criminally investigate or prosecute any alcohol or drug abuse patient.[facility] HospitalIn the event this information is protected by the Federal Confidentiality of Alcohol and Drug Abuse Patient Records regulations: The Federal rules restrict any use of the information to criminally investigate or prosecute any alcohol or drug abuse patient.[facility] HospitalIn the event this information is protected by the Federal Confidentiality of Alcohol and Drug Abuse Patient Records regulations: The Federal rules restrict any use of the information to criminally investigate or prosecute any alcohol or drug abuse patient.[facility] HospitalIn the event this information is protected by the Federal Confidentiality of Alcohol and Drug Abuse Patient Records regulations: The Federal rules restrict any use of the information to criminally investigate or prosecute any alcohol or drug abuse patient.[facility] HospitalIn the event this information is protected by the Federal Confidentiality of Alcohol and Drug Abuse Patient Records regulations: The Federal rules restrict any use of the information to criminally investigate or prosecute any alcohol or drug abuse patient.[facility] HospitalIn the event this information is protected by the Federal Confidentiality of Alcohol and Drug Abuse Patient Records regulations: The Federal rules restrict any use of the information to criminally investigate or prosecute any alcohol or drug abuse patient.[facility] HospitalIn the event this information is protected by the Federal Confidentiality of Alcohol and Drug Abuse Patient Records regulations: The Federal rules restrict any use of the information to criminally investigate or prosecute any alcohol or drug abuse patient.[facility] HospitalIn the event this information is protected by the Federal Confidentiality of Alcohol and Drug Abuse Patient Records regulations: The Federal rules restrict any use of the information to criminally investigate or prosecute any alcohol or drug abuse patient.[facility] Reason for Visit (unrecogniz ed section and content) Reason Comments 6 Month Exam Specialty Diagnoses / Procedures Referred By Juan silver Referred To Contact Family Medicine / FAMILY MEDICINE Diagnoses Mixed hyperlipidemia 6 mth followup Procedures 4C EST Self Steve Baron MD [address] [place] [address] Referral ID Status Reason Start Date Expiration Date Visits Requested Visits Authorized [id number] Closed Financial Clearance Required - OON Payor OON Notification Letter Patient Cleared - Admin/Director Vaccine/D irector advise to proceed or did not respond 07/30/2024 11/13/2024 1 1 Reason Comments Joint Pain fingers left middle finger has a knuckle that locks Ear Problem ringing in ears that has been going on for a long time-no dizziness Reason Comments Results Reason Comments New Pain Specialty Diagnoses / Procedures Referred By Juan silver Referred To Contact Orthopedics Diagnoses Trigger middle finger of left hand Procedures CONSULT TO ORTHOPAEDICS OFFICE/OUTPATIENT NEW HIGH MDM 60-74 MINUTES Steve Baron MD [address] [place] [address] Referral ID Status Reason Start Date Expiration Date V isits Requested Visits Authorized [id number] Closed PCP Requested Referral 02/15/2022 02/15/2023 1 1 Reason Comments Last seen 03/11/22 Left middle trigger fi nger with injection given Established Patient Knee Pain Reason Comments Schedule Surgery Reason Comments Post Op 1 week 5 days post o p Left middle trigger finger release Reason Comments Incision draining Reason Comments Established Patient Post Op ED Follow-up Reason Comments Refill Request Reason Comments Established Patient 5 wks 5 days post op left middle trigger finger release Post Op 5 wks 5 days post op left middle trigger finger release Reason Comments 6 Month Exam Reason Comments Appointment Reason Comments Peyronie's Disease Sx for approximately 18 months. Reason Onset Date Comments Refill Request 01/23/2023 Reason Onset Date Comments Refill Request 01/26/2023 Reason Onset Date Comments Refill Request 01/27/2023 Reason Comments New Trigger Finger Reason Comments Depression Reason Comments Appointment Reschedule surgery october Reason Comments Anxiety Follow up Reason Comments Orders Reason Comments Established Patient Post Op Reason Onset Date Comments Refill Request 03/22/2024 Reason Comments Post Op 7 weeks 4 days post op left thumb and in dex trigger finger releases Reason Onset Date Comments Refill Request 07/21/2024 Reason Onset Date Comments Refill Request 01/15/2025 Reason Onset Date Comments Results 01/28/2025 Reason Comments Follow Up Reason Comments Established Patient Pt is here today susan ateral hand trigger fingers aching, sharp, locking. Flare up 2months ago. At times pain goes to 6/10 when fingers locks up.Pt take ibuprofen.Pt is right hand dominant, Pt states it hard to open and twist items. Follow Up Pt is here today susan ateral hand trigger fingers aching, sharp, locking. Flare up 2months ago. At times pain goes to 6/10 when fingers locks up.Pt take ibuprofen.Pt is right hand dominant, Pt states it hard to open and twist items. Pain Pt is here today susan ateral hand trigger fingers aching, sharp, locking. Flare up 2months ago. At times pain goes to 6/10 when fingers locks up.Pt take ibuprofen.Pt is right hand dominant, Pt states it hard to open and twist items. Reason Comments Post Op Post Op 1 week 5 days post o p Right index, middle, and Left ring trigger finger releases Care Teams (unrecognized sec tion and content) Histological Illustrator Relationship Specialty Start Date End Date Steve Baron MD [address], [place] [id number] PCP - General Family Practice 09/03/15 Histological Illustrator Relationship Specialty Start Date End Date Steve Baron MD [address], [place] [id number] PCP - General Family Practice 09/03/15 Histological Illustrator Relationship Specialty Start Date End Date Steve Baron MD [address] [place], [place] [id number] PCP - General Family Practice 09/03/15 Histological Illustrator Relationship Specialty Start Date End Date Steve Baron MD [address] [place], [place] [id number] PCP - General Family Practice 09/03/15 Histological Illustrator Relationship Specialty Start Date End Date Steve Baron MD [address] [facility] [place] [address] PCP - General Family Practice 09/03/15 Histological Illustrator Relationship Specialty Start Date End Date Steve Baron MD [address] [facility] [place] [address] PCP - General Family Practice 09/03/15 Histological Illustrator Relationship Specialty Start Date End Date Steve Baron MD [address] [facility] [place] [address] PCP - General Family Practice 09/03/15 Histological Illustrator Relationship Specialty Start Date End Date Steve Baron MD [address] [facility] [place] [address] PCP - General Family Practice 09/03/15 Histological Illustrator Relationship Specialty Start Date End Date Steve Baron MD [address] [facility] [address] PCP - General Family Practice 09/03/15 Histological Illustrator Relationship Specialty Start Date End Date Steve Baron MD [address] [facility] [address] PCP - General Family Practice 09/03/15 Histological Illustrator Relationship Specialty Start Date End Date Steve Baron MD [address] [facility] [place] [address] PCP - General Family Medicine 09/03/15 Histological Illustrator Relationship Specialty Start Date End Date Steve Baron MD [address] [facility] [address] PCP - General Family Medicine 09/03/15 Histological Illustrator Relationship Specialty Start Date End Date Steve Baron MD [address] [facility] [address] PCP - General Family Medicine 09/03/15 Histological Illustrator Relationship Specialty Start Date End Date Steve Baron MD [address] [place] [address] PCP - General Family Medicine 09/03/15 Histological Illustrator Relationship Specialty Start Date End Date Steve Baron MD [address] [place] [address] PCP - General Family Medicine 09/03/15 Histological Illustrator Relationship Specialty Start Date End Date Steve Baron MD [address] [place] [address] PCP - General Family Medicine 09/03/15 Histological Illustrator Relationship Specialty Start Date End Date Steve Baron MD [address] [place] [address] PCP - General Family Medicine 09/03/15 Histological Illustrator Relationship Specialty Start Date End Date Steve Baron MD [address] [place] [address] PCP - General Family Medicine 09/03/15 Histological Illustrator Relationship Specialty Start Date End Date Steve Baron MD [address] [place] [address] PCP - General Family Medicine 09/03/15 Histological Illustrator Relationship Specialty Start Date End Date Steve Baron MD [address] [place], [place] [id number] PCP - General Family Medicine 09/03/15 Histological Illustrator Relationship Specialty Start Date End Date Steve Baron MD [address] [place] [address] PCP - General Family Medicine 09/03/15 Histological Illustrator Relationship Specialty Start Date End Date Steve Baron MD [address], [place] [address] PCP - General Family Medicine 09/03/15 Histological Illustrator Relationship Specialty Start Date End Date Steve Baron MD [address] [place], [place] [id number] PCP - General Family Medicine 09/03/15 Histological Illustrator Relationship Specialty Start Date End Date Steve Baron MD [address] [place] [address] PCP - General Family Medicine 09/03/15 Histological Illustrator Relationship Specialty Start Date End Date Steve Baron MD [address] [place] [address] PCP - General Family Medicine 09/03/15 Histological Illustrator Relationship Specialty Start Date End Date Steve Baron MD [address] [place] [address] PCP - General Family Medicine 09/03/15 Histological Illustrator Relationship Specialty Start Date End Date Steve Baron MD [address] [place] [address] PCP - General Family Medicine 09/03/15 Histological Illustrator Relationship Specialty Start Date End Date Steve Baron MD [address] [place], [place] [address] PCP - General Family Medicine 09/03/15 Sierra Francisco APRN.CARLOS [address] [place] [address] Blunger Machine Operator Family [facility] 10/22/24 Sindhu Mahmood SOLE STAPLER WELT.FLAKEBOARD LINE TENDER [address] [place] [address] [facility] 10/22/24 Histological Illustrator Relationship Specialty Start Date End Date Steve Baron MD [address] [place], [place] [address] [phone] PCP - General Family Medicine 09/03/15 Sierra Francisco SOLE STAPLER WELT.FLAKEBOARD LINE TENDER [address] [place] [address] [facility] 10/22/24 Sindhu Mahmood SOLE STAPLER WELT.FLAKEBOARD LINE TENDER [address] [place] [address] [facility] 10/22/24 Histological Illustrator Relationship Specialty Start Date End Date Steve Baron MD [address] [place] [address] PCP - General Family Medicine 09/03/15 Sierra Francisco SOLE STAPLER WELT.FLAKEBOARD LINE TENDER [address] [place] [address] [facility] Medicine 10/22/24 Sindhu Mahmood SOLE STAPLER WELT.FLAKEBOARD LINE TENDER [address] [place] [address] [facility] Medicine 10/22/24 Histological Illustrator Relationship Specialty Start Date End Date Steve Baron MD [address] [place], [place] [address] [phone] PCP - General Family Medicine 09/03/15 Sierra Francisco APRN.FLAKEBOARD LINE TENDER [address] [facility] [place] [place] [address] [facility] 10/22/24 Sindhu Mahmood APRN.FLAKEBOARD LINE TENDER [address] [place] [address] [facility] 10/22/24 Histological Illustrator Relationship Specialty Start Date End Date Steve Baron MD [address] [facility] [place], [place] [address] [phone] PCP - General Family Medicine 09/03/15 Sierra Francisco APRN.FLAKEBOARD LINE TENDER [address] [facility] [place] [place] [address] [facility] 10/22/24 Sindhu Mahmood SOLE STAPLER WELT.FLAKEBOARD LINE TENDER [address] [facility] [address] [facility] 10/22/24 Histological Illustrator Relationship Specialty Start Date End Date Steve Baron MD [address] [facility] [address] PCP - General Family Medicine 09/03/15 Sierra Francisco APRN.FLAKEBOARD LINE TENDER [address] [place] [address] [facility] 10/22/24 Sindhu Mahmood APRN.FLAKEBOARD LINE TENDER [address] [facility] [address] [facility] 10/22/24 FOR RECORDS PERTAINING TO PATIENTS WHO ARE OR HAVE BEEN ENROLLED IN A CHEMICAL DEPENDENCY/SUBSTANCEABUSE PROGRAM, SOME INFORMATION MAY BE OMITTED. This clinical summary was aggregated from multiple sources. Caution should be exercised in using it in the provision of clinical care. This summary normalizes information from multiple sources, and as a consequence, information in this document may materially change the coding, format and clinical context of patient data. In addition, data may be omitted in some cases. CLINICAL DECISIONS SHOULD BE BASED ON THE PRIMARY CLINICAL RECORDS. [facility] provides no warranty or guarantee of the accuracy or completeness of information in this document.
[2025-10-12 14:20] LABS: Mucous, Urine 0 SEEN /hpf (<or=2+); Squamous Epithelial Cells - UA 0 SEEN /hpf (0-5)
[2025-10-12 14:28] LABS: Color, Urine Yellow (Yellow); Glucose, Dipstick Normal (Normal); Ketone-Dipstick Negative (Negative); Leukocyte Esterase-Dipstick Negative /ul (Negative); Nitrite-Dipstick Negative (Negative); Occult Blood-Urine 10 /ul (Negative); Protein-Dipstick 15 mg/dl (Negative); Specific Gravity, Urine 1.020 (1.002-1.030); Urine Bilirubin Dipstick Negative (Negative)
[2025-10-12 14:29] LABS: Hematocrit 44.6 % (40-54); Hemoglobin 14.9 g/dL (13.0-16.5); Immature Granulocytes Count 0.050 X10^3/uL (0.0-0.0); Mean Corp Hgb Conc 33.4 g/dL (32-36); Mean Corpuscular Volume 87.8 fL (80-94); Mean Platelet Vol. 9.4 fl (6.2-12.0); NRBC Flagged by Analyzer 0 % (0-5); Platelet Count 249 K/mm3 (150-450); RBC Distribution Width CV 12.7 % (11.6-14.6); RBC Distribution Width SD 41.3 fl (35.1-43.9); Red Blood Count 5.08 M/mm3 (4.6-6.2); White Blood Count 5.8 K/mm3 (4.4-11.0)
[2025-10-12 14:34] LABS: Red Blood Cells-Urine 0-5 SEEN /hpf (0-5)
[2025-10-12 14:44] LABS: Anion Gap 10 (5-15); BUN 17 mg/dL (4-19); BUN/Creat Ratio 16.9 RATIO (10-20); Calcium,Total 9.2 mg/dL (7.6-11.0); Carbon Dioxide 27.1 mmol/L (21.0-32.0); Chloride 102 mmol/L (98-108); Estimated Creatinine Clearance 89.60 ml/min (50-250); Glucose 97 mg/dL (70-99); Potassium 4.3 mmol/L (3.3-5.1)
[2025-10-12 14:46] VITALS: BP 134/80; PULSE 80; RESP 16; O2SAT 97
--- NOTE | 2025-10-12 15:28 | EX.ED.DYSGE1 ---
HPI History of Present Illness Chief Complaint: Neuro S/Sx Narrative Narrative: Patient is a 60-year-old male presenting to the emergency department for memory loss. Patient has a past medical history of hyperlipidemia and anxiety. Son who is at bedside helps provide majority of history. 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 Reports that he was seen here on Tuesday for vertiginous symptoms. The following day he began having issues remembering things. Today son from out of state called him and he was unable to remember one of his longtime neighbors. He was also unable to remember what he did the following evening. He denies any recent head trauma or falls. Denies headache, visual changes, slurred speech, focal numbness or weakness. Has no complaints at time of evaluation. Denies fever or chills. States this has never happened before. Denies any alcohol or drug use. Per EMS BP was in the systolics of 220s on arrival. [facility] Medical History (Updated 10/12/25 @ 15:[address] Christine Teresa MD) CKD (chronic kidney disease), stage II Former tobacco use Anxiety and depression HLD (hyperlipidemia) Home Medications ?Medication ?Instructions ?Recorded ?Last Taken ?Type meclizine 25 mg tablet 25 mg PO TID PRN dizziness #20 tabs 10/07/25 Unknown Rx pravastatin 20 mg tablet 20 mg PO DAILY 10/07/25 10/06/25 History sertraline 100 mg tablet 100 mg PO DAILY 10/07/25 10/06/25 History vitamin B complex 1 tab PO DAILY 10/07/25 10/06/25 History Allergy/AdvReac Type Severity Reaction Status Date / Time simvastatin (From Zocor) AdvReac Mild Pain in Verified 10/12/25 13:22 joints erythromycin base (From AdvReac Abd Verified 10/12/25 13:22 E-Mycin) cramps/diarrhea Social History Smoking Status: Former smoker ROS ROS ED ROS Narrative See HPI EXAM Physical Exam Narrative Exam Narrative: Vital signs: Reviewed General: Alert and oriented x 3. No acute distress. Well-appearing, nontoxic. HEENT: Head is normocephalic and atraumatic, sinuses nontender, pupils equal round and reactive. Nares are patent. Oropharynx and throat exams normal. Neck: Supple without lymphadenopathy nontender Cardiovascular: Regular rate and rhythm, no murmurs. No rubs or gallops. Normal S1 and S2 Respiratory: Clear to auscultation bilaterally. No wheezes, rales, rhonchi Abdominal: Soft and nontender. Normal bowel sounds. No guarding or rebound. Nonsurgical abdomen Extremities: No tenderness. No bruising. Normal range of motion. Normal sensation. Skin: No rash or redness. Neurological: Cranial nerves II through XII are grossly intact. Normal strength and sensation. Normal cerebellar function The rest of the physical exam is unremarkable Const Vital Signs: 10/12/25 13:16 10/12/25 14:46 Temperature 97.8 F Temperature Source Oral Pulse Rate 71 80 Respiratory Rate 10 L 16 Blood Pressure 168/83 H 134/80 H Blood Pressure Mean 111 98 Pulse Ox 98 97 Oxygen Delivery Method Room Air Room Air NIHSS NIHSS Initial: 1a Level of Consciousness: 0 1b LOC Questions (Score 2 if aphasic/stupor): 0 1c LOC Commands (Only score 1st attempt): 0 2 Best Gaze (If aphasic, use reflexive mvmts.): 0 3 Visual: 0 4 Facial Palsy: 0 5 Motor Arm Right (UN = amputation/fusion): 0 5 Motor Arm Left: 0 6 Motor Leg Right: 0 6 Motor Leg Left: 0 7 Limb ataxia (Only + if out of proportion): 0 8 Sensory (Aphasia/stupor=0 or 1, coma=2): 0 9 Best Language: 0 10 Dysarthria (mute, coma=2, intubated=UN): 0 11 Extinction and Inattention (only scored if +): 0 Total Score: 0 MDM MDM MDM Narrative Medical decision making narrative: Patient is a 60-year-old male presenting to the emergency department for memory loss. Patient was seen and examined. Vitals are stable. Patient resting in bed comfortably in no acute distress. Differential includes but is not limited to: Transient global amnesia, seizures, hemorrhagic versus ischemic stroke which I think is unlikely however per EMS the blood pressure was in the 220s systolic which could predispose him to a hemorrhagic stroke, electrolyte imbalance EKG shows normal sinus rhythm with no ischemic changes. No dysrhythmia. CBC with no leukocytosis and a normal hemoglobin. BMP with no significant normalities. Urinalysis with no evidence of urinary tract infection. Lactate within normal limits. CT of the brain shows no acute intracranial process. CT of the head and neck shows no acute abnormalities. Will add on a urine drug screen and alcohol level as well however I doubt these. Discussed admission with the patient for MRI and neurology consult due to these memory issues. Unsure if there TIAs versus transient global amnesia, other chronic causes of memory loss. Patient was agreeable with the plan. Discussed with hospitalist, Dr. Teresa for admission who accepted. Clinical impression Memory loss History & Record Review Discussion w/independent historian: Patient and Family Lab Data Attestation: I reviewed the patient's lab results. Labs: Laboratory Results - last 24 hr 10/12/25 10/12/25 13:54 14:15 WBC 5.8 RBC 5.08 Hgb 14.9 Hct 44.6 MCV 87.8 MCH 29.3 MCHC 33.4 RDW Std Deviation 41.3 RDW Coeff of [place]rie[place] 12.7 Plt Count 249 MPV 9.4 Immature Gran % (Auto) 0.900 Neut % (Auto) 71.9 H Lymph % (Auto) 17.0 L [place] % (Auto) 8.7 Eos % (Auto) 1.0 Baso % (Auto) 0.5 Absolute Neuts (auto) 4.2 Absolute Lymphs (auto) 0.98 Nucleated RBC % 0 Sodium 139 Potassium 4.3 Chloride 102 Carbon Dioxide 27.1 Anion Gap 10 BUN 17 Creatinine 1.00 Estim Creat Clear Calc 89.60 Est GFR (MDRD) Non-Af 87 BUN/Creatinine Ratio 16.9 Glucose 97 Lactic Acid 1.0 Calcium 9.2 Urine Color Yellow Urine Clarity Clear Urine pH 6.0 Ur Specific [place] 1.020 Urine Protein 15 H Urine Glucose (UA) Normal Urine Ketones Negative Urine Occult Blood 10 H Urine Nitrite Negative Urine Bilirubin Negative Urine Urobilinogen Normal Ur Leukocyte Esterase Negative Urine RBC 0-5 SEEN Urine WBC 0 SEEN Ur Squamous Epith Cells 0 SEEN Urine Bacteria 0 SEEN Urine Mucus 0 SEEN Radiography Diagnostic Testing: Clinical Impression(s) from Imaging Studies Brain CT 10/12/25 13:42 IMPRESSION: No acute intracranial process. Reading Location: [id number] Head/Neck CTA 10/12/25 13:43 IMPRESSION: No high-grade stenosis or large vessel occlusion. No sizable aneurysm is noted. Scattered mild atherosclerotic plaque. Minimal stenosis of the right carotid siphon. Reading Location: [facility] Discharge Plan Triage Chief Complaint: Neuro S/Sx ED Provider: Valerie Contreras Dx/Rx/DC Orders Prescriptions: No Action sertraline 100 mg tablet 100 mg PO DAILY pravastatin 20 mg tablet 20 mg PO DAILY vitamin B complex Tablet 1 tab PO DAILY meclizine 25 mg tablet 25 mg PO TID PRN (Reason: dizziness) Qty: 20 0RF Primary Care Provider: Steve Aceves Referrals: Steve Aceves MD [Primary Care Provider, Medical] Print Language: Amharic
--- NOTE | 2025-10-12 15:55 | PCM.HP.STD ---
HPI - General General Date of Admission: 10/12/25 Date of Service: 10/12/25 Chief Complaint: Memory impairment. HPI Narrative The patient is a 60 y/o M w/ PMHx: Former tobacco use, HLD, Anxiety and Depression who presents to [facility] ED on 10/12/2025 with history of recent evaluation secondary to vertiginous symptoms on Tuesday which have improved however on day of presentation he began to have issues remembering short-term and long-term items including the name of his neighbor or events of the evening prior but no recent head trauma or fall and no associated headache or other neurological symptoms but given this confusion and recent issues prompted son to bring patient in for evaluation. 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 Per EMS patient initial blood pressure was 220 prior to arrival. In the ED NIH stroke assessment 0. Workup in the ED included T97.8, heart 71, BP 116/83, respiratory rate 16, 90% room air with most recent repeat vitals heart rates 80, BP 134/80, respiratory rate 16, 97% room air, CBC with WBC 5.8, Hgb 14.9, platelet 249 without marked shift, CMP unremarkable, BUN/creatinine 17/1.0, GFR 87, lactic acid 1.0, urinalysis not marked appearing, UDS pending upon request evaluation of patient, CT brain with no acute intracranial findings, CTA head and neck with no evidence of any high-grade stenosis or large vessel occlusion or any sizable aneurysm with scattered mild atherosclerotic plaque and minimal stenosis in the right carotid siphon, EKG with with SR with no acute evidence of ischemia. [facility] Medical History (Updated 10/12/25 @ 16:[address] Christine Teresa MD) CKD (chronic kidney disease), stage II Former tobacco use Anxiety and depression HLD (hyperlipidemia) Home Medications ?Medication ?Instructions ?Recorded ?Last Taken ?Type meclizine 25 mg tablet 25 mg PO TID PRN dizziness #20 tabs 10/07/25 Unknown Rx pravastatin 20 mg tablet 20 mg PO DAILY 10/07/25 10/06/25 History sertraline 100 mg tablet 100 mg PO DAILY 10/07/25 10/06/25 History vitamin B complex 1 tab PO DAILY 10/07/25 10/06/25 History Allergy/AdvReac Type Severity Reaction Status Date / Time simvastatin (From Zocor) AdvReac Mild Pain in Verified 10/12/25 13:22 joints erythromycin base (From AdvReac Abd Verified 10/12/25 13:22 E-Mycin) cramps/diarrhea Family History (Updated 10/12/25 @ 16:[address] Christine Teresa MD) Mother CAD (coronary artery disease) Heart disease Hypertension Myocardial infarction Father Diabetes Hypertension Surgical History (Updated 10/12/25 @ 16:[address] Christine Teresa MD) History of umbilical hernia repair Status post trigger finger release S/P arthroscopic surgery of right knee Social History (Updated 10/12/25 @ 16:[address] Christine Teresa MD) household members: none Smoking Status: Former smoker how long ago did patient quit smoking: Quit 30 years prior, prior to this 1/2 pack/day intermittent since teen. alcohol intake: never substance use type: does not use ROS ROS Narrative Admission Review of Systems: CONSTITUTIONAL: No weight loss, fever, chills, + weakness or fatigue. HEENT: Eyes: No visual loss, blurred vision, double vision or yellow sclerae. Ears, Nose, Throat: No hearing loss, sneezing, congestion, runny nose or sore throat. SKIN: No rash or itching, lesions, wounds except + occasional abrasion, stage ecchymoses. CARDIOVASCULAR: No chest pain, chest pressure or chest discomfort, palpitations, edema, orthopnea, syncopal events. RESPIRATORY: No shortness of breath, cough or sputum, wheezing, hemoptysis. GASTROINTESTINAL: No anorexia, nausea, vomiting or diarrhea, abdominal pain, melena, BRBPR. GENITOURINARY: No dysuria, frequency, urgency or retention. NEUROLOGICAL: + Confusion/memory impairments, recent history of vertigo although improved. No headache, dizziness, syncope, paralysis, ataxia, numbness or tingling in the extremities, focal weakness, change in bowel or bladder control, seizure. MUSCULOSKELETAL: + muscle, back pain, joint pain or stiffness. HEMATOLOGIC: No anemia, bleeding or bruising. LYMPHATICS: No enlarged nodes. No history of splenectomy. PSYCHIATRIC: + History of anxiety and depression. ENDOCRINOLOGIC: No reports of sweating, cold or heat intolerance. No polyuria or polydipsia. ALLERGIES: No history of asthma, hives, eczema or rhinitis. Vital Signs Vital Signs Vital Signs: 10/12/25 13:16 11/29/25 14:46 Temperature 97.8 F Temperature Source Oral Pulse Rate 71 80 Respiratory Rate 10 L 16 Blood Pressure 168/83 H 134/80 H Blood Pressure Mean 111 98 Pulse Ox 98 97 Oxygen Delivery Method Room Air Room Air Weight Weight: 203 lb 0.732 oz Body Mass Index (BMI) 29.0 Physical Exam Narrative Physical Examination: General: Awake, alert, oriented to self, place, year, month but was unable to get the correct primary care physician and several other innocuous inconsistencies, remains cooperative, seated upright in ED bed in no apparent distress, does report feeling improved from earlier in the day, less confused. Skin: Normal color, normal turgor, no icterus, no cyanosis except occasional stage ecchymoses, abrasion. HEENT: AT/NC, EOMI, PERRLA, mildly dry MM, no carotid bruits or JVD noted. Lungs: Diminished, greater bases, proper effort, no rales, ronchi or wheezing. Heart: Regular rate and rhythm; no gallop, rub audible. Abdomen: Soft, overweight, NTTP, ND, mildly hyperactive BS, no HSM. Extremities: No cyanosis, no clubbing, no significant distal edema noted. Neurological: Patient awake, alert, oriented as noted, cognitive function improving, suspect nearing baseline intact, pupils equally reactive to light and accommodation, cranial nerves grossly normal, moving all 4 extremities, no focal deficits, strength preserved, sensation intact, FTN/HTS appropriate BL. Psychiatric: Affect appears mildly flat otherwise normal, no acute evidence of depressive or anxiety feelings but does have underlying history. Results Lab / Micro Data 10/12/25 13:54 10/12/25 13:54 Labs: Laboratory Results - last 24 hr 10/12/25 13:54: WBC 5.8, RBC 5.08, Hgb 14.9, Hct 44.6, MCV 87.8, MCH 29.3, MCHC 33.4, RDW Std Deviation 41.3, RDW Coeff of Gabriele 12.7, Plt Count 249, MPV 9.4, Immature Gran % (Auto) 0.900, Neut % (Auto) 71.9 H, Lymph % (Auto) 17.0 L, [place] % (Auto) 8.7, Eos % (Auto) 1.0, Baso % (Auto) 0.5, Absolute Neuts (auto) 4.2, Absolute Lymphs (auto) 0.98, Nucleated RBC % 0, Sodium 139, Potassium 4.3, Chloride 102, Carbon Dioxide 27.1, Anion Gap 10, BUN 17, Creatinine 1.00, Estim Creat Clear Calc 89.60, Est GFR (MDRD) Non-Af 87, BUN/Creatinine Ratio 16.9, Glucose 97, Lactic Acid 1.0, Calcium 9.2 10/12/25 14:15: Urine Color Yellow, Urine Clarity Clear, Urine pH 6.0, Ur Specific [place] 1.020, Urine Protein 15 H, Urine Glucose (UA) Normal, Urine Ketones Negative, Urine Occult Blood 10 H, Urine Nitrite Negative, Urine Bilirubin Negative, Urine Urobilinogen Normal, Ur Leukocyte Esterase Negative, Urine RBC 0-5 SEEN, Urine WBC 0 SEEN, Ur Squamous Epith Cells 0 SEEN, Urine Bacteria 0 SEEN, Urine Mucus 0 SEEN Imaging Radiology Impression Brain CT 10/12/25 13:42 IMPRESSION: No acute intracranial process. Reading Location: [facility] Head/Neck CTA 10/12/25 13:43 IMPRESSION: No high-grade stenosis or large vessel occlusion. No sizable aneurysm is noted. Scattered mild atherosclerotic plaque. Minimal stenosis of the right carotid siphon. Reading Location: [facility] Assessment & Plan Assessment/Plan (1) TIA (transient ischemic attack): PLAN: Plan The patient is a 60 y/o M w/ PMHx: Former tobacco use, HLD, Anxiety and Depression who presents to [facility] ED on 10/12/2025 with history of recent evaluation secondary to vertiginous symptoms on Tuesday which have improved however on day of presentation he began to have issues remembering short-term and long-term items including the name of his neighbor or events of the evening prior but no recent head trauma or fall and no associated headache or other neurological symptoms but given this confusion and recent issues prompted son to bring patient in for evaluation. #1. Amnesia/memory impairment, recent episode of vertigo currently resolved concerning for possible TIA/CVA: Will admit to PCU, will obtain MRI Brain, ECHO, PT/OT/Speech/Nutrition evaluation per protocol. Will allow permissive HTN, maintain on asa with full-strength aspirin administered upon admission, continue home statin w/ AM FLP, fall precautions. Mag, TSH, FLP, HgbA1c requested. Maintain on fall and aspiration precautions. Will consult neurology especially given patient occupation. UDS pending upon evaluation. Did discuss with patient that if in fact he did suffer an acute stroke given his occupation there may be a significant process to resume or he may be unable. #2. Elevated BP without hypertensive diagnosis: Given presentation we will maintain permissive hypertension per stroke protocol with as needed agents per stroke protocol. #3. Hyperlipidemia: Continue home statin regimen. AM FLP. #4. Chronic Kidney Disease Stage II per GFR trending but uncertain given no comparison labs: Admission BUN/Cr 17/1.0, GFR 87, baseline renal function unknown but certainly could be different baseline, will continue to trend to further elucidate chronicity. #5. Anxiety and depression: Will continue patient home sertraline regimen. #6. Former tobacco use: Encourage continued tobacco cessation. #7. DVT prophylaxis: Lovenox. Charges/Coding Visit Charges Inpatient E&M: 39139 Init Hosp L3
[2025-10-12 16:00] LABS: Barbiturate Urine NEGATIVE (< 200 ng/mL); Benzodiazepine Urine NEGATIVE (< 200 ng/mL); PCP Urine NEGATIVE (< 25 ng/mL); THC Urine NEGATIVE (< 50 ng/mL)
[2025-10-12 16:10] VITALS: BP 137/86; PULSE 79; RESP 16; TEMP 36.9; O2SAT 98
--- OUTSIDE RECORDS SUMMARY | 2025-10-12 16:13 | XMS RPT_ITS | CCD ---
Author Organization [facility] Care Team Providers Care Fur Finisher Tailor Name Role Phone Steve Baron Unavailable Unavailable Steve Baron Unavailable LEXUS BARRAZA Unavailable Unavailcheng Baron MD, Steve Gallardo Primary Care Provider Steve Baron MD Primary Care Provider Steve Baron MD Primary Care Provider Steve Baron MD Primary Care Provider Yonagen LINEN ROOM WORKER.LAMINATION INSPECTORSierra Unavailable Suppan LINEN ROOM WORKER.LAMINATION INSPECTORSindhu Unavailable JOSIAH ACOSTA Admitting Unavailable JOSIAH ACOSTA [...] (statins) (1 source) Simvastatin Drug Allergy 02-25-2006 [facility] Work Phone: Macrolides (antibiotic) (1 source) Erythromycin Drug Allergy 08-03-2005 [facility] Work Phone: (20 sources) Erythromycin; Translations: [ERYTHROMYCIN] Drug Allergy 08-03-2005 [facility] (20 sources) Simvastatin; Translations: [SIMVASTATIN] Drug Allergy 02-25-2006 [facility] Medications Current Medications Medication Drug [...] on above: Take 1 capsule by mo [facility] four times daily for 5 days. pravastatin [...] Test Name Value Interpretation Reference Range Facility [facility] 07-29-2025 CNOV Office Visit (ORTHWS ) GAMALEDUARDO ([id number]) 1965 M Date Time Provider Department 07/29/25 10:00 AM JOSIAH ACOSTA During your visit today, we recorded the following information about you: Josiah Acosta MD 08/05/2025 1:34 PM Signed Josiah Acosta MD Department of Orthopaedics Orthopaedics [address] [facility] [address] Dept: [phone] Dept July 29, 2025 CHIEF COMPLAINT: Post [...] E-Mycin [Erythromycin] and Zocor [Simvastatin] Recording using EZ2CAD software for draft documentation of the visit was discussed with the patient/authorized medical representative; all questions welcomed and answered. Patient/authorized medical representative agreed to proceed Josiah Acosta MD [...] Encounter Status:Closed by JOSIAH ACOSTA on 08/05/[address] [facility] Na 07-01-2025 CNOV Office Visit (GRETCHEN ) EDUARDO YEUNG ([id number]) 1965 M Date Time Provider Department 07/01/25 [...] Department of Orthopaedics Orthopaedics [address] [place] [address] Dept: [phone] Dept July 01, 2025 CHIEF COMPLAINT: Post [...] [Simvastatin] This note was partially generated using [employer] recognition system, and there may be some [...] Encounter Status:Closed by ARACELY ARDON on 07/01/[address] [facility] OPERATIVE NOon 06-19-2025 OPERATIVE NO HNO ID: [id number] Author: OJSIAH ACOSTA MD Service: Orthopaedic Surgery Author Type: Physician Type: Operative Report Filed: 06/19/2025 13:54 Note Text: OPERATIVE/PROCEDURE REPORT LOG ID: [id number] Surgery/Procedure Date: 06/19/2025 Incision/Procedure Start Time: 10:55 AM Incision Close/Procedure End Time: 11:25 AM Surgeon(s)/Procedurali st(s) and Legal Administrator(s): Surgeons and Role: * Josiah Acosta MD - Primary Nurse Practitioner: Kary So APRN Physician Legal Administrator: Aracely Ardon PA-C Procedure(s): right index, middle, [...] 19, 2025 TIME: 1:37 PM PAGER/CONTACT #: [facility] 05-23-2025 [facility] Office Visit (OTMBHT ) GAMALEDUARDO ([id number]) 1965 M Date Time Provider Department 05/23/25 [...] Acosta MD Department of Orthopaedics Orthopaedic Surgery [facility] [address] [address] [facility] [address] Dept: [phone] Dept May 23, 2025 CHIEF COMPLAINT: Established [...] for the first week of June at [place]. - Procedure will involve local anesthetic, two stitches, and a soft bandage for 1.5 days. - Advised to avoid strenuous activities for 10-14 days post-surgery. 2. Acquired trigger finger of right middle finger (M65.331) Tenderness to palpation at the A1 owen site; clicking and some catching observed. - Scheduled trigger finger release surgery for the first week of June at [place]. - Procedure will involve local anesthetic, two stitches, and a soft bandage for 1.5 days. - Advised to avoid strenuous activities for 10-14 days post-surgery. 3. Acquired trigger finger of left ring finger (M65.342) Tenderness, mild swelling, and locking and catching observed. - Scheduled trigger finger release surgery for the first week of June at [place]. - Procedure will involve local anesthetic, two [...] normal h (more content not included)... Normal [facility] 05-23-20[facility] EDUARDO YEUNG ([id number]) 1965 M Date Time Provider Department 05/23/25 JOSIAH ACOSTA [facility] During your visit today, we recorded the following information about you: Wendy Lawson MA 05/23/2025 1:40 PM Signed Patient scheduled for Right and middle trigger finger releases and Left ring trigger finger release. Offered patient next 05/30 in [place] if he is doing a local. Left [...] hand [M65.342] Order(s):SURGICAL REQUEST - ELECTIVE (06/2020) [[id number]] Order #: [id number]: 1 Prescriptions as of 06/17/2025 - VITAMIN [...] Encounter Status:Closed by WENDY LAWSON on 05/29/[address] [facility] CNOVon 02-23-2025 CNOV Office Visit (FAMPWS ) GAMALVIJAYAARNEL Stubbs ([id number]) 1965 M Date Time Provider Department 02/23/25 10:40 AM [facility] During your visit today, we recorded the [...] Abs Lymph 1.00 - 4.00 k/uL 1.53 Graham% % 12.9 Abs Graham <0.87 k/uL 0.57 Eosin% % 2.9 Abs [...] Grandfather CABG at 90 Heart Paternal Grandfather [place] Patient Allergies ALLERGIES Allergen Reactions E-Mycin [Erythromyc* [...] Basophils (Bld) [#/Vol] 0.04 10*3/uL Normal <0.11 [facility] Comment on above: Order Comment: Speci men Type: BLOOD SPECIMEN Ordering Facility: [facility] Address: [address] [place] [address] Performed By: #### 5 7021-8 #### [facility] CLIA [id number] [address] [place] [address] [place] Basophils/100 WBC (Bld) 0.9 % Normal [facility] Comment on above: Order Comment: Speci men Type: BLOOD SPECIMEN Ordering Facility: [facility] Address: [address] [place] [address] Performed By: #### 5 7021-8 #### [facility] CLIA [id number] [address] [place] [address] [place] Differential cell count method Nom (Bld) Auto Normal [facility] Comment on above: Order Comment: Speci men Type: BLOOD SPECIMEN Ordering Facility: [facility] Address: [address] [place] [address] Performed By: #### 5 7021-8 #### [facility] CLIA [id number] [address] [place] [address] [place] Eosinophils (Bld) [#/Vol] 0.13 10*3/uL Normal <0.46 [facility] Comment on above: Order Comment: Speci men Type: BLOOD SPECIMEN Ordering Facility: [facility] Address: [address] [place] [address] Performed By: #### 5 7021-8 #### [facility] CLIA [id number] [address] [place] [address] [place] Eosinophils/100 WBC (Bld) 2.9 % Normal [facility] Comment on above: Order Comment: Speci men Type: BLOOD SPECIMEN Ordering Facility: [facility] Address: [address] [place] [address] Performed By: #### 5 7021-8 #### [facility] CLIA [id number] [address] [place] [address] [place] Erythrocyte distribution width (RBC) [Ratio] 13.2 % Normal 11.5-15.0 [facility] Comment on above: Order Comment: Speci men Type: BLOOD SPECIMEN Ordering Facility: [facility] Address: [address] [place] [address] Performed By: #### 5 7021-8 #### [facility] CLIA [id number] [address] [place] [address] [place] Hematocrit (Bld) [Volume fraction] 47.5 % Normal 39.0-51.0 [facility] Comment on above: Order Comment: Speci men Type: BLOOD SPECIMEN Ordering Facility: [facility] Address: [address] [place] [address] Performed By: #### 5 7021-8 #### [facility] CLIA [id number] [address] [place] [address] [place] Hemoglobin (Bld) [Mass/Vol] 15.3 g/dL Normal 13.0-17.0 [facility] Comment on above: Order Comment: Speci men Type: BLOOD SPECIMEN Ordering Facility: [facility] Address: [address] [place] [address] Performed By: #### 5 7021-8 #### [facility] CLIA [id number] [address] [place] [address] [place] Immature granulocytes (Bld) [#/Vol] 10*3/uL Normal <0.10 [facility] Comment on above: Order Comment: Speci men Type: BLOOD SPECIMEN Ordering Facility: [facility] Address: [address] [place] [address] Performed By: #### 5 7021-8 #### [facility] CLIA [id number] [address] [place] [address] [place] Immature granulocytes/100 WBC (Bld) 0.5 % Normal [facility] Comment on above: Order Comment: Speci men Type: BLOOD SPECIMEN Ordering Facility: [facility] Address: [address] [place] [address] Performed By: #### 5 7021-8 #### [facility] CLIA [id number] [address] [place] [address] [place] Lymphocytes (Bld) [#/Vol] 1.53 10*3/uL Normal 1.00-4.00 [facility] Comment on above: Order Comment: Speci men Type: BLOOD SPECIMEN Ordering Facility: [facility] Address: [address] [place] [address] Performed By: #### 5 7021-8 #### [facility] CLIA [id number] [address] [place] [address] [place] Lymphocytes/100 WBC (Bld) 34.5 % Normal [facility] Comment on above: Order Comment: Speci men Type: BLOOD SPECIMEN Ordering Facility: [facility] Address: [address] [place] [address] Performed By: #### 5 7021-8 #### [facility] CLIA [id number] [address] [place] [address] [place] MCH (RBC) [Entitic mass] 28.9 pg Normal 26.0-34.0 [facility] Comment on above: Order Comment: Speci men Type: BLOOD SPECIMEN Ordering Facility: [facility] Address: [address] [place] [address] Performed By: #### 5 7021-8 #### [facility] CLIA [id number] [address] [place] [address] [place] MCHC (RBC) [Mass/Vol] 32.2 g/dL Normal 30.5-36.0 [facility] Comment on above: Order Comment: Speci men Type: BLOOD SPECIMEN Ordering Facility: [facility] Address: [address] [place] [address] Performed By: #### 5 7021-8 #### [facility] CLIA [id number] [address] [place] [address] [place] MCV (RBC) [Entitic vol] 89.8 fL Normal 80.0-100.0 [facility] Comment on above: Order Comment: Speci men Type: BLOOD SPECIMEN Ordering Facility: [facility] Address: [address] [place] [address] Performed By: #### 5 7021-8 #### [facility] CLIA [id number] [address] [place] [address] [place] Monocytes (Bld) [#/Vol] 0.57 10*3/uL Normal <0.87 [facility] Comment on above: Order Comment: Speci men Type: BLOOD SPECIMEN Ordering Facility: [facility] Address: [address] [place] [address] Performed By: #### 5 7021-8 #### [facility] CLIA [id number] [address] [place] [address] [place] Monocytes/100 WBC (Bld) 12.9 % Normal [facility] Comment on above: Order Comment: Speci men Type: BLOOD SPECIMEN Ordering Facility: [facility] Address: [address] [place] [address] Performed By: #### 5 7021-8 #### [facility] CLIA [id number] [address] [place] [address] [place] Neutrophils (Bld) [#/Vol] 2.14 10*3/uL Normal 1.45-7.50 [facility] Comment on above: Order Comment: Speci men Type: BLOOD SPECIMEN Ordering Facility: [facility] Address: [address] [place] [address] Performed By: #### 5 7021-8 #### [facility] CLIA [id number] [address] [place] [address] [place] Neutrophils/100 WBC (Bld) 48.3 % Normal [facility] Comment on above: Order Comment: Speci men Type: BLOOD SPECIMEN Ordering Facility: [facility] Address: [address] [place] [address] Performed By: #### 5 7021-8 #### [facility] CLIA [id number] [address] [place] [address] [place] Nucleated RBC (Bld) [#/Vol] 10*3/uL Normal <0.01 [facility] Comment on above: Order Comment: Speci men Type: BLOOD SPECIMEN Ordering Facility: [facility] Address: [address] [place] [address] Performed By: #### 5 7021-8 #### [facility] CLIA [id number] [address] [place] [address] [place] Nucleated RBC/100 WBC (Bld) [Ratio] 0.0 /100 WBC Normal [facility] Comment on above: Order Comment: Speci men Type: BLOOD SPECIMEN Ordering Facility: [facility] Address: [address] [place] [address] Performed By: #### 5 7021-8 #### [facility] CLIA [id number] [address] [place] [address] [place] Platelet mean volume (Bld) [Entitic vol] 9.6 fL Normal 9.0-12.7 [facility] Comment on above: Order Comment: Speci men Type: BLOOD SPECIMEN Ordering Facility: [facility] Address: [address] [place] [address] Performed By: #### 5 7021-8 #### [facility] CLIA [id number] [address] [place] [address] [place] Platelets (Bld) [#/Vol] 249 10*3/uL Normal 150-400 [facility] Comment on above: Order Comment: Speci men Type: BLOOD SPECIMEN Ordering Facility: [facility] Address: [address] [place] [address] Performed By: #### 5 7021-8 #### [facility] CLIA [id number] [address] [place] [address] [place] RBC (Bld) [#/Vol] 5.29 10*6/uL Normal 4.20-6.00 [facility] Comment on above: Order Comment: Speci men Type: BLOOD SPECIMEN Ordering Facility: [facility] Address: [address] [place] [address] Performed By: #### 5 7021-8 #### [facility] CLIA [id number] [address] [place] [address] [place] WBC (Bld) [#/Vol] 4.43 10*3/uL Normal 3.70-11.00 [facility] Comment on above: Order Comment: Speci men Type: BLOOD SPECIMEN Ordering Facility: [facility] Address: [address] [place] [address] Performed By: #### 5 7021-8 #### [facility] CLIA [id number] [address] [place] [address] [place] Comprehensive metabolic 2000 panelon 01-28-2025 Albumin [Mass/Vol] 4.5 g/dL Normal 3.9-4.[address] [facility] Comment on above: Order Comment: Speci men Type: BLOOD SPECIMEN Ordering Facility: [facility] Address: [address] [place] [address] Performed By: #### 2 4323-8, 19938-1 #### [facility] CLIA [id number] [address] [place] [address] [place] ALP [Catalytic activity/Vol] 58 U/L Normal 38-113 [facility] Comment on above: Order Comment: Speci men Type: BLOOD SPECIMEN Ordering Facility: [facility] Address: [address] [id number] Performed By: #### 2 4323-8, 01708-2 #### [facility] CLIA [id number] [address] [place] [address] [place] ALT [Catalytic activity/Vol] 30 U/L Normal 10-54 [facility] Comment on above: Order Comment: Speci men Type: BLOOD SPECIMEN Ordering Facility: [facility] Address: [address] [place] [address] Performed By: #### 2 4323-8, 11824-4 #### [facility] CLIA [id number] [address] [place] [address] [place] Anion gap [Moles/Vol] 8 mmol/L Normal 8-15 [facility] Comment on above: Order Comment: Speci men Type: BLOOD SPECIMEN Ordering Facility: [facility] Address: [address] [place] [address] Performed By: #### 2 4323-8, 06310-2 #### [facility] CLIA [id number] [address] [place] [address] [place] AST [Catalytic activity/Vol] 25 U/L Normal 14-40 [facility] Comment on above: Order Comment: Speci men Type: BLOOD SPECIMEN Ordering Facility: [facility] Address: [address] [place] [address] Performed By: #### 2 4323-8, 98678-8 #### [facility] CLIA [id number] [address] [place] [address] [place] Bilirubin [Mass/Vol] 0.5 mg/dL Normal 0.2-1.3 [facility] Comment on above: Order Comment: Speci men Type: BLOOD SPECIMEN Ordering Facility: [facility] Address: [address] [place] [address] Performed By: #### 2 4323-8, 42023-6 #### [facility] CLIA [id number] [address] [place], [place] [address] [place] Calcium [Mass/Vol] 9.7 mg/dL Normal 8.5-10.[address] [facility] Comment on above: Order Comment: Speci men Type: BLOOD SPECIMEN Ordering Facility: [facility] Address: [address] [place] [address] Performed By: #### 2 4323-8, 22806-6 #### [facility] CLIA [id number] [address] [place] [address] [place] Chloride [Moles/Vol] 104 mmol/L Normal 98-107 [facility] Comment on above: Order Comment: Speci men Type: BLOOD SPECIMEN Ordering Facility: [facility] Address: [address] [place] [address] Performed By: #### 2 4323-8, 53239-9 #### [facility] CLIA [id number] [address] [place] [address] [place] CO2 [Moles/Vol] 30 mmol/L Normal 22-30 [facility] Comment on above: Order Comment: Speci men Type: BLOOD SPECIMEN Ordering Facility: [facility] Address: [address] [place] [address] Performed By: #### 2 4323-8, 07185-2 #### [facility] CLIA [id number] [address] [place] [address] [place] Creatinine [Mass/Vol] 1.09 mg/dL Normal 0.73-1.22 [facility] Comment on above: Order Comment: Speci men Type: BLOOD SPECIMEN Ordering Facility: [facility] Address: [address] [place] [address] Performed By: #### 2 4323-8, 30081-6 #### [facility] CLIA [id number] [address] [place] [address] [place] Creatinine and Glomerular filtration rate.predicted panel (S/P/Bld) 78 mL/min/1.73m??? Normal >=60 [facility] Comment on above: Order Comment: Pamela callaway Type: BLOOD SPECIMEN Ordering Facility: [facility] Address: [address] [place] [address] Result Comment: Nancy mated Glomerular Filtration Rate [...] actual GFR. Performed By: #### 2 4323-8, 54542-1 #### [facility] CLIA [id number] [address] [place] [address] [place] Glucose [Mass/Vol] 94 mg/dL Normal 74-[address] [facility] Comment on above: Order Comment: Pamela callaway Type: BLOOD SPECIMEN Ordering Facility: [facility] Address: [address] [place] [address] Result Comment: The [place] Diabetes Association (ADA) provides guidance for cutoff [...] Standards of Medical Care in Diabetes 2016, [place] Diabetes Association. Diabetes Care. 2016.39(Suppl 1). Performed By: #### 2 4323-8, 29742-2 #### [facility] CLIA [id number] [address] [place] [address] [place] Potassium [Moles/Vol] 5.0 mmol/L Normal 3.7-5.1 [facility] Comment on above: Order Comment: Speci men Type: BLOOD SPECIMEN Ordering Facility: [facility] Address: [address] [place], [place] [address] Performed By: #### 2 4323-8, 68776-1 #### [facility] CLIA [id number] [address] [place] [address] [place] Protein [Mass/Vol] 7.3 g/dL Normal 6.3-8.[address] [facility] Comment on above: Order Comment: Speci men Type: BLOOD SPECIMEN Ordering Facility: [facility] Address: [address] [place] [address] Performed By: #### 2 4323-8, 85161-4 #### [facility] CLIA [id number] [address] [place] [address] [place] Sodium [Moles/Vol] 142 mmol/L Normal 136-[address] [facility] Comment on above: Order Comment: Speci men Type: BLOOD SPECIMEN Ordering Facility: [facility] Address: [address] [place] [address] Performed By: #### 2 4323-8, 27974-7 #### [facility] CLIA [id number] [address] [place] [address] [place] Urea nitrogen [Mass/Vol] 14 mg/dL Normal 9-24 [facility] Comment on above: Order Comment: Speci men Type: BLOOD SPECIMEN Ordering Facility: [facility] Address: [address] [place] [address] Performed By: #### 2 4323-8, 68678-8 #### [facility] CLIA [id number] [address] [place], [place] [address] [place] Lipid 1996 panelon 5 Cholesterol [Mass/Vol] 191 mg/dL Normal <200 [facility] Comment on above: Order Comment: Speci men Type: BLOOD SPECIMEN Ordering Facility: [facility] Address: [address] [place], [place] [address] Result Comment: <200 mg/dL, Desirable 200-239 mg/dL, Borderline high >239 mg/dL, High Performed By: #### 2 4323-8, 22031-5 #### [facility] CLIA [id number] [address] [place] [address] [place] Cholesterol in HDL [Mass/Vol] 42 mg/dL Normal >39 [facility] Comment on above: Order Comment: Pamela callaway Type: BLOOD SPECIMEN Ordering Facility: [facility] Address: [address] [place] [address] Result Comment: 40-5 9 mg/dL, Acceptable >59 mg/dL, High: Negative risk factor for coronary heart disease <40 mg/dL, Low: Positive risk factor for coronary heart disease Performed By: #### 2 4323-8, 11611-9 #### [facility] CLIA [id number] [address] [place] [address] STATES [place] [facility] Cholesterol in LDL [Mass/Vol] 132 mg/dL High <100 [facility] Comment on above: Order Comment: Pamela callaway Type: BLOOD SPECIMEN Ordering Facility: [facility] Address: [address] [place] [address] Result Comment: <100 mg/dL, Optimal 100-129 mg/dL, Near optimal/above optimal 130-159 mg/dL, Borderline high 160-189 mg/dL, High >189 mg/dL, Very high Secondary prevention optimal LDL Cholesterol levels are recommended to be < 70 mg/dL Performed By: #### 2 4323-8, 40931-0 #### [facility] CLIA [id number] [address] [place] [address] [place] Cholesterol in LDL/Cholesterol in HDL [Mass ratio] 3.14 {ratio} High <2.54 [facility] Comment on above: Order Comment: Pamela callaway Type: BLOOD SPECIMEN Ordering Facility: [facility] Address: [address] [place] [address] Result Comment: Refe rence: 1. National Cholesterol Education Program ATP III Guideline At-A-Glance Quick Desk Reference: National Heart, Lung, and Blood Ada. National Institutes of Health. 2001: NIH Publication No. 01-3305. 2. An International Atherosclerosis Society position paper: global recommendations for the management of dyslipidemia: executive summary, Atherosclerosis. 2014: 232(2):410-413. Performed By: #### 2 4323-8, 92474-7 #### [facility] CLIA [id number] [address] [place] [address] [place] Cholesterol in VLDL [Mass/Vol] 17 mg/dL Normal <30 [facility] Comment on above: Order Comment: Speci men Type: BLOOD SPECIMEN Ordering Facility: [facility] Address: [address] [place] [address] Performed By: #### 2 432-8, 28488-1 #### [facility] CLIA [id number] [address] [place] [address] [place] Cholesterol non HDL [Mass/Vol] 149 mg/dL High <130 [facility] Comment on above: Order Comment: Pamela callaway Type: BLOOD SPECIMEN Ordering Facility: [facility] Address: [address] [place] [address] Result Comment: <130 mg/dL, Optimal 130-159 mg/dL, Near optimal/above optimal 160-189 mg/dL, Borderline high 190-219 mg/dL, High >219 mg/dL, Very high Secondary prevention optimal non HDL Cholesterol levels are recommended to be <100 mg/dL Performed By: #### 2 4328, 26596-3 #### [facility] CLIA [id number] [address] [place] [address] [place] Cholesterol.total/Ch olesterol in HDL [Mass ratio] 4.55 {ratio} Normal <5.10 [facility] Comment on above: Order Comment: Pamela callaway Type: BLOOD SPECIMEN Ordering Facility: [facility] Address: [address] [place] [address] Performed By: #### 2 4323-8, 83176-9 #### [facility] CLIA [id number] [address] [place] [address] [place] FASTING TIME 12 hrs Normal [facility] Comment on above: Order Comment: Speci men Type: BLOOD SPECIMEN Ordering Facility: [facility] Address: [address] [place] [address] Performed By: #### 2 4323-8, 63198-6 #### [facility] CLIA [id number] [address] [place] [address] [place] Triglyceride [Mass/Vol] 87 mg/dL Normal <150 [facility] Comment on above: Order Comment: Speci men Type: BLOOD SPECIMEN Ordering Facility: [facility] Address: [address] [place] [address] Result Comment: <150 mg/dL, Normal 150-199 mg/dL, Borderline high 200-499 mg/dL, High >499 mg/dL, Very high Performed By: #### 2 4323-8, 88026-5 #### [facility] CLIA [id number] [address] [place] [address] [place] No Panel Informationon 06-10 [facility] XR HAND GENERAL 3V PA/LAT/OB L LEFTon 02-15-2022 [facility] XR Hand - left PA and Latera l and Obliqueon 02-15-2022 IMPRESSION: No acute osseous abnormality. Mild osteoarthritis. Coat Checker: JESSICA Transcribe Date/Time: Feb 15 2022 10:39A Dictated by : ANA ALCALA MD This examination was interpreted and the report reviewed and electronically signed by: ANA ALCALA MD on Feb 15 2022 10:41AM [facility] DIVISION OF RADIOLOGY * * *Final [...] other significant abnormality. DIVISION OF RADIOLOGY Provider, [facility] - 02/15/2022 * * *Final [...] IMPRESSION: No acute osseous abnormality. Mild osteoarthritis. Coat Checker: JESSICA Transcribe Date/Time: Feb 15 2022 10:39A Dictated by : ANA ALCALA MD This examination was interpreted and the report reviewed and electronically signed by: AAN ALCALA MD on Feb 15 2022 10:41AM EST [facility] Radiology Study observation (narrative) [facility] XR Hand - left PA and Latera l and ObliqueOrdered By: [facility] Provider on 02-15-2022 [facility] WRIST INJURY 4V PA/LAT/OBL/S CAPH RIGHTon 11-18-2018 Protein mass conc Performed at [facility] APPROVED BY: Clement Montoya MD EXAM TITLE: WRIST INJURY 4V PA/LAT/OBL/SCAPH RIGHT DATE: 11/18/2018 15:59 INDICATION: Right wrist pain secondary to injury COMPARISON: None. FINDINGS: There is no fracture or dislocation. Joint spaces and soft tissues are normal. IMPRESSION: Within normal limits. Normal [facility] [place] [place] [facility] No Panel Information [facility] Vital Signs Date Time Vital Sign Value Performing Clinician Lynsey soni 02-23-2025 10:31-0400 Body mass index (BMI) [Ratio] 27.62 kg/m2 Steve Baron MD Work Phone: [facility] 02-23-2025 10:31-0400 Body weight 89.81 kg Steve Baron MD Work Phone: [facility] 02-23-2025 10:31-0400 Diastolic blood pressure 74 mm[Hg] Steve Baron MD Work Phone: [facility] 02-23-2025 10:31-0400 Heart rate 64 /min Steve Baron MD Work Phone: [facility] 02-23-2025 10:31-0400 Respiratory rate 16 /min Steve Baron MD Work Phone: [facility] 02-23-2025 10:31-0400 Systolic blood pressure 128 mm[Hg] Steve Baron MD Work Phone: [facility] 07-30-2024 09:16-0400 Body height 180.3 cm Steve Baron MD Work Phone: [facility] 07-30-2024 09:16-0400 Body mass index (BMI) [Ratio] 26.9 kg/m2 Steve Baron MD Work Phone: [facility] 07-30-2024 09:16-0400 Body weight 87.5 kg Steve Baron MD Work Phone: [facility] 07-30-2024 09:16-0400 Diastolic blood pressure 78 mm[Hg] Steve Baron MD Work Phone: [facility] 07-30-2024 09:16-0400 Heart rate 67 /min Steve Baron MD Work Phone: [facility] 07-30-2024 09:16-0400 Systolic blood pressure 124 mm[Hg] Steve Baron MD Work Phone: [facility] 01-20-2024 14:46-0500 Body height 180.3 cm Steve Baron MD Work Phone: [facility] 01-20-2024 14:46-0500 Body weight 88 kg Steve Baron MD Work Phone: [facility] 01-20-2024 14:46-0500 Diastolic blood pressure 64 mm[Hg] Steve Baron MD Work Phone: [facility] 01-20-2024 14:46-0500 Heart rate 71 /min Steve Baron MD Work Phone: [facility] 01-20-2024 14:46-0500 SaO2% (BldA) [Mass fraction] 97 % Steve Baron MD Work Phone: [facility] 01-20-2024 14:46-0500 Systolic blood pressure 114 mm[Hg] Steve Baron MD Work Phone: [facility] 10-05-2023 08:49-0500 Body height 180.3 cm Steve Baron MD Work Phone: [facility] 10-05-2023 08:49-0500 Body weight 92.99 kg Steve Baron MD Work Phone: [facility] 10-05-2023 08:49-0500 Diastolic blood pressure 81 mm[Hg] Steve Baron MD Work Phone: [facility] 10-05-2023 08:49-0500 Heart rate 69 /min Steve Baron MD Work Phone: [facility] 10-05-2023 08:49-0500 Systolic blood pressure 118 mm[Hg] Steve Baron MD Work Phone: [facility] 09-05-2023 18:17-0400 Body weight 91.63 kg Steve Baron MD Work Phone: [facility] 09-05-2023 18:17-0400 Diastolic blood pressure 72 mm[Hg] Steve Baron MD Work Phone: [facility] 09-05-2023 18:17-0400 Heart rate 78 /min Steve Baron MD Work Phone: [facility] 09-05-2023 18:17-0400 SaO2% (BldA) [Mass fraction] 96 % Steve Baron MD Work Phone: [facility] 09-05-2023 18:17-0400 Systolic blood pressure 122 mm[Hg] Steve Baron MD Work Phone: [facility] 06-16-2023 09:16-0400 Body height 180.3 cm Steve Baron MD Work Phone: [facility] 06-16-2023 09:16-0400 Body weight 91.99 kg Steve Baron MD Work Phone: [facility] 06-16-2023 09:16-0400 Diastolic blood pressure 72 mm[Hg] Steve Baron MD Work Phone: [facility] 06-16-2023 09:16-0400 Heart rate 68 /min Steve Baron MD Work Phone: [facility] 06-16-2023 09:16-0400 SaO2% (BldA) [Mass fraction] 97 % Steve Baron MD Work Phone: [facility] 06-16-2023 09:16-0400 Systolic blood pressure 124 mm[Hg] Steve Baron MD Work Phone: [facility] 01-13-2023 08:04-0500 Body height 180.3 cm James Shook MD Work Phone: [facility] 01-13-2023 08:04-0500 Body weight 94.71 kg James Shook MD Work Phone: [facility] 11-25-2022 10:32-0500 Body weight 93.44 kg Steve Baron MD Work Phone: [facility] 11-25-2022 10:32-0500 Diastolic blood pressure 74 mm[Hg] Steve Baron MD Work Phone: [facility] 11-25-2022 10:32-0500 Heart rate 59 /min Steve Baron MD Work Phone: [facility] 11-25-2022 10:32-0500 SaO2% (BldA) [Mass fraction] 96 % Steve Baron MD Work Phone: [facility] 11-25-2022 10:32-0500 Systolic blood pressure 118 mm[Hg] Steve Baron MD Work Phone: [facility] 02-15-2022 08:09-0400 Body weight 89.36 kg Steve Baron MD Work Phone: [facility] 02-15-2022 08:09-0400 Diastolic blood pressure 70 mm[Hg] Steve Baron MD Work Phone: [facility] 02-15-2022 08:09-0400 Heart rate 64 /min Steve Baron MD Work Phone: [facility] 02-15-2022 08:09-0400 Systolic blood pressure 122 mm[Hg] Steve Baron MD Work Phone: [facility] Encounters Encounter Date Encounter Type Care Provider Facility Start: 07-29-2025 End: 07-29-2025 ambulatory [facility] Facility:[facility] Start: 07-01-2025 End: 07-01-2025 Patient encounter procedure Aracely Ardon PA-C Work Phone: Orthopaedics Comment on above: Acquired trigger fin funmi of right index finger (Primary Dx); Acquired trigger finger of right middle finger; Acquired trigger finger of left ring finger Start: 07-01-2025 End: 07-01-2025 ambulatory STEVE BARON Facility:[facility] Start: 06-19-2025 End: 06-19-2025 ambulatory JOSIAH ACOSTA Facility:[facility] Start: 05-23-2025 End: 05-29-2025 Telephone encounter Josiah Acosta MD Work Phone: Rheumatology Comment on above: Schedule Surgery Start: 05-23-2025 End: 05-23-2025 Patient encounter procedure Josiah Acosta MD Work Phone: Orthopaedic Surgery [facility] Comment on above: Acquired trigger fin funmi of right index finger; Acquired trigger finger of right middle finger; Acquired trigger finger of left ring finger Start: 05-23-2025 End: 05-23-2025 ambulatory STEVE Gallardo TOD Facility:[facility] Start: 02-23-2025 End: 02-23-2025 Patient encounter procedure Steve Baron MD Work Phone: [facility] Comment on above: Mixed hyperlipidemia (Primary Dx); Anxiety state; Screening for depression; Contusion of rib, unspecified laterality, subsequent encounter Start: 02-23-2025 End: 02-23-2025 [facility] Start: 01-28-2025 End: 01-29-2025 Follow-up encounter Steve Baron MD Work Phone: [facility] [place] Comment on above: Results Start: 01-28-2025 End: 01-28-2025 ambulatory STEVE TOD Facility:[facility] Start: 01-15-2025 End: 01-15-2025 Refill Steve Baron MD Work Phone: [facility] [place] Comment on above: Refill Request Start: 07-30-2024 End: 07-30-2024 Patient encounter procedure Steve Baron MD Work Phone: [facility] [place] Comment on above: Mixed hyperlipidemia (Primary Dx); Anxiety state Start: 07-21-2024 End: 07-23-2024 Refill [facility] MD [facility] Comment on above: Refill Request Start: 04-23-2024 End: 04-23-2024 Patient encounter procedure Josiah Acosta MD Work Phone: Orthopaedics Comment on above: Trigger thumb of lef t hand (Primary Dx); Trigger index finger of left hand Start: 03-22-2024 Refill Steve Baron MD [facility] Comment on above: Refill Request Start: 03-12-2024 End: 03-12-2024 Patient encounter procedure Aracely Ardon PA-C Work Phone: Orthopaedics Comment on above: Trigger thumb of lef t hand (Primary Dx); Trigger index finger of left hand Start: 01-20-2024 End: 01-20-2024 Patient encounter procedure Steve Baron MD Work Phone: [facility] Comment on above: Mixed hyperlipidemia (Primary Dx); Anxiety state Start: 01-18-2024 Telephone encounter Steve Baron MD Work Phone: [facility] Comment on above: Orders Start: 10-05-2023 End: 10-05-2023 Patient encounter procedure Steve Baron MD Work Phone: [facility] [place] Comment on above: Mixed hyperlipidemia (Primary Dx); Anxiety state Start: 09-19-2023 Telephone encounter Josiah crespo MD Work Phone: Orthopaedics Comment on above: Appointment (Resched ule surgery to october) Start: 09-05-2023 End: 09-05-2023 Patient encounter procedure Steve Baron MD Work Phone: [facility] Comment on above: Anxiety state Start: 09-02-2023 ambulatory Steve Baron MD Work Phone: [facility] [place] Comment on above: Stress related Start: 08-30-2023 End: 08-30-2023 Patient encounter procedure Aracely Ardon PA-C Work Phone: Orthopaedics Comment on above: Trigger ring finger of right hand (Primary Dx); Trigger finger of left thumb; Trigger index finger of left hand Start: 07-20-2023 Telephone encounter Josiah crespo MD Work Phone: [facility] Comment on above: Appointment Start: 06-16-2023 End: 06-16-2023 Patient encounter procedure Steve Baron MD Work Phone: [facility] [place] Comment on above: Mixed hyperlipidemia (Primary Dx); Anxiety state Start: 02-02-2023 End: 02-02-2023 Patient encounter procedure Nacho Bedoya MD Work Phone: Urology Comment on above: Peyronie's disease ( Primary Dx) Start: 01-27-2023 Refill Steve Baron MD Work Phone: [facility] [place] Comment on above: Refill Request Start: 01-26-2023 Refill Steve Baron MD Work Phone: [facility] Comment on above: Refill Request Start: 01-23-2023 Refill Steve Baron MD Work Phone: [facility] Comment on above: Refill Request Start: 01-13-2023 End: 01-13-2023 Patient encounter procedure James Shook MD Work Phone: Urology Comment on above: Peyronie's disease ( Primary Dx) Start: 12-07-2022 Telephone encounter Noe Javier MD Work Phone: Otolaryngology Comment on above: Appointment Start: 11-25-2022 End: 11-25-2022 Patient encounter procedure Steve Baron MD Work Phone: [facility] Comment on above: Bilateral hearing lo ss, unspecified hearing loss type (Primary Dx); Anxiety state; Tinnitus of both ears; Mixed hyperlipidemia Start: 07-26-2022 End: 07-26-2022 Patient encounter procedure Josiah Acosta MD Work Phone: Orthopaedics Comment on above: Trigger middle finge r of left hand (Primary Dx) Start: 07-22-2022 Refill Steve Baron MD Work Phone: [facility] Comment on above: Refill Request Start: 07-05-2022 [...] 06-10-2022 Subsequent hospital visit by physician Xr [facility] [place] Vito Work Phone: Radiology Comment on above: [...] Telephone encounter Steve Baron MD Work Phone: [facility] Comment on above: Results Start: 02-15-2022 End: 02-15-2022 Subsequent hospital visit by physician Xr [facility] [place] Work Phone: Radiology Comment on above: Trigger middle finge r of left hand [M65.332] Start: 02-15-2022 End: 02-15-2022 Patient encounter procedure Steve Baron MD Work Phone: [facility] Comment on above: Mixed hyperlipidemia (Primary Dx); Anxiety state; Trigger middle finger of left hand; Tinnitus of both ears Start: 11-18-2018 End: 11-18-2018 [facility] Start: 09-06-2016 End: 09-06-2016 Ambulatory Steve Baron Facility:[facility] Procedures Date Procedure Procedure Detail Performing Clinician [...] RSV Vaccine (1 - 1-dose 75+ series) [facility] Start: 05-23-2034 Urine microalbumin profile DTaP,Tdap,Td Vaccine (3 - Td or Tdap) [facility] Start: 01-28-2030 Lipid panel Lipid Screening [facility] Start: 01-19-2029 Prostate specific antigen measurement Prostate Cancer Screening Discussion [facility] Start: 01-18-2029 Lipid panel Lipid Screening [facility] Start: 05-18-2028 Lipid 1996 panel - Serum or Plasma Lipid Screening [facility] Start: 05-18-2028 Lipid panel Lipid Screening [facility] Start: 05-18-2028 LIPID SCREEN LIPID SCREEN [facility] Start: 01-29-2028 Diabetes Screening Diabetes Screenin g [facility] Start: 02-15-2027 LIPID SCREEN LIPID SCREEN [facility] Start: 02-15-2027 PROSTATE CANCER SCREENING DISCUSSION PROSTATE CANCER SCREENING DISCUSSION [facility] Start: 02-15-2027 Prostate specific antigen measurement Prostate Cancer Screening Discussion [facility] Start: 01-18-2027 Diabetes Screening Diabetes Screenin g [facility] Start: 05-18-2026 [facility] Start: 05-18-2026 Diabetes Screening Diabetes Screenin g [facility] Start: 05-10-2026 Colonoscopy COLONOSCOPY [facility] Start: 05-10-2026 COLORECTAL CANCER SCREENING COLORECTAL CANCER SCREENING [facility] Start: 05-10-2026 Screening for malign ant neoplasm of colon [facility] Start: 02-23-2026 Depression Screening Depression Scre ening [facility] Start: 02-23-2026 Pneumococcal Vaccine : 50+ (1 of 1 - PCV) Pneumococcal Vaccine: 50+ (1 of 1 - PCV) [facility] Comment on above: Postponed from 06/04 (Declined at this time) Start: 08-30-2025 End: 08-30-2025 Patient encounter procedure 08/30/2025 8:40 AM EDT Office Visit Family [facility]la [place] [address] [place] [address] Steve Baron MD [address] [place] [address] 6 month follow up Family [facility] Comment on above: 6 month follow up Start: 07-30-2025 Covid-19 Vaccine ( season) Covid-19 Vaccine ( season) [facility] Comment on above: Postponed from 07/15 (Declined at this time) Start: 07-30-2025 Covid-19 Vaccine ( season) Covid-19 Vaccine ( season) [facility] Comment on above: Postponed from 07/15 (Declined at this time) Start: 07-30-2025 Shingrix Vaccine (1 of 2) Shingrix Vaccine (1 of 2) [facility] Comment on above: Postponed from 06/04 (Declined at this time) Start: 07-29-2025 End: 07-29-2025 Patient encounter procedure Orthopaedics Comment on above: Post op right index and middle trigger finger releases, Left ring trigger finger release Start: 07-15-2025 Influenza vaccination Influenza Vacc ine (#1) [facility] Start: 07-02-2025 DIABETES SCREEN DIABETES SCREEN [facility] Start: 07-01-2025 End: 07-01-2025 Patient encounter procedure 07/01/2025 8:00 AM EDT Office Visit Orthopaedics [address] [place] [address] Aracely Ardon PA-C [address] [place] [address] Post op right index and middle trigger finger releases, Left ring trigger finger release Orthopaedics Comment on above: Post op right index and middle trigger finger releases, Left ring trigger finger release Start: 06-19-2025 End: 06-19-2025 Admission to same day surgery center [facility] Comment on above: DECOMPRESSION NERVE MEDIAN CARPAL TUNNEL Start: 06-19-2025 End: 06-19-2025 Neuroplasty &/transpos median nrv carpal tunne DECOMPRESSION NERVE MEDIAN CARPAL TUNNEL Trigger finger, right index finger Trigger middle finger of right hand Trigger ring finger of left hand 06/19/2025 7:30 AM EDT ME OR Start: 06-19-2025 Subsequent hospital visit by physician 06/19/2025 7:30 AM EDT Hospital Encounter [facility] [address] [place] [address] Josiah Acosta MD [address] [facility] [place] [address] Trigger finger, right index finger [M65.321], Trigger middle finger of right hand [M65.331], Trigger ring finger of left hand [M65.342] [facility] Comment on above: Trigger finger, righ t index finger [M65.321], Trigger middle finger of right hand [M65.331], Trigger ring finger of left hand [M65.342] Start: 05-13-2025 Influenza vaccination Influenza Vacc ine (#1) [facility] Comment on above: Postponed from 07/15 (Declined at this time) Start: 02-15-2025 DIABETES SCREEN DIABETES SCREEN [facility] Start: 01-28-2025 End: 01-28-2025 ambulatory 01/28/2025 7:00 AM EDT Results Only [facility] Draw Station [address] [place] [address] Aliy[facility] Start: 01-27-2025 End: 04-28-2025 CBC W Auto Differential panel - Blood COMPLETE BLOOD COUNT AND DIFFERENTIAL Lab Routine Anxiety state Mixed hyperlipidemia Expected: 01/27/2025, Expires: 04/28/2025 [facility] Work Phone: Comment on above: Expected: 01/27/2025 , Expires: 04/28/2025 Start: 01-27-2025 End: 04-28-2025 Comprehensive metabolic 2000 panel - Serum or Plasma COMPREHENSIVE METABOLIC PANEL Lab Routine Anxiety state Mixed hyperlipidemia Expected: 01/27/2025, Expires: 04/28/2025 [facility] Comment on above: Expected: 01/27/2025 , Expires: 04/28/2025 Start: 01-27-2025 End: 04-28-2025 Lipid 1996 panel - Serum or Plasma LIPID PANEL BASIC Lab Routine Mixed hyperlipidemia Expected: 01/27/2025, Expires: 04/28/2025 [facility] Comment on above: Expected: 01/27/2025 , Expires: 04/28/2025 Start: 12-03-2024 LIPID SCREEN LIPID SCREEN [facility] Start: 09-05-2024 Covid-19 Vaccine () Covid-19 Vaccine () [facility] Comment on above: Postponed from 07/15 (Declined at this time) Start: 07-30-2024 Depression Screening Depression Scre ening [facility] Comment on above: Postponed from 06/04 (Declined at this time) Start: 07-30-2024 End: 07-30-2024 Patient encounter procedure 07/30/2024 9:20 AM EDT Office Visit Family Medicine [facility] [address] [place] [address] Steve Baron MD [address] [facility] [place] [address] 6 mth followup Family [facility] [place] Comment on above: 6 mth followup Start: 07-15-2024 Covid-19 Vaccine ( season) Covid-19 Vaccine ( season) [facility] Start: 07-15-2024 Influenza vaccination [facility] Start: 06-16-2024 COVID-19 VACCINE (2 - Moderna series) COVID-19 VACCINE (2 - Moderna series) [facility] Comment on above: Postponed from 08/28 (Declined at this time) Start: 06-16-2024 HEPATITIS B (1 of 3 - 3-dose series) HEPATITIS B (1 of 3 - 3-dose series) [facility] Comment on above: Postponed from 06/04 (Declined at this time) Start: 06-16-2024 Hepatitis B Vaccine (1 of 3 - 19+ 3-dose series) Hepatitis B Vaccine (1 of 3 - 19+ 3-dose series) [facility] Comment on above: Postponed from 06/04 (Declined at this time) Start: 06-16-2024 Hepatitis B Vaccine (1 of 3 - 3-dose series) Hepatitis B Vaccine (1 of 3 - 3-dose series) [facility] Comment on above: Postponed from 06/04 (Declined at this time) Start: 06-16-2024 SHINGRIX VACCINE (1 of 2) SHINGRIX VACCINE (1 of 2) [facility] Comment on above: Postponed from 06/04 (Declined at this time) Start: 06-16-2024 Urine microalbumin profile [facility] Comment on above: Postponed from 02/23 (Declined at this time) Start: 05-13-2024 Influenza vaccination Influenza Vacc ine (#1) [facility] Comment on above: Postponed from 07/15 (Declined at this time) Start: 04-23-2024 End: 04-23-2024 Patient encounter procedure 04/23/2024 4:00 PM EDT Office Visit Orthopaedics [address] [place], [place] [id number] Josiah Acosta MD [address] [place] [id number] Post op left thumb and index trigger finger releases Orthopaedics Comment on above: Post op left thumb a nd index trigger finger releases Start: 04-04-2024 End: 07-04-2024 CBC W Auto Differential panel - Blood CBC + DIFF Lab Routine Anxiety state Expected: 04/04/2024, Expires: 07/04/2024 [facility] Work Phone: Comment on above: Expected: 04/04/2024 , Expires: 07/04/2024 Start: 04-04-2024 End: 07-04-2024 Comprehensive metabolic 2000 panel - Serum or Plasma COMP METABOLIC PANEL Lab Routine Anxiety state Expected: 04/04/2024, Expires: 07/04/2024 [facility] Work Phone: Comment on above: Expected: 04/04/2024 , Expires: 07/04/2024 Start: 04-04-2024 End: 07-04-2024 Lipid 1996 panel - Serum or Plasma LIPID PANEL BASIC Lab Routine Mixed hyperlipidemia Expected: 04/04/2024, Expires: 07/04/2024 [facility] Work Phone: Comment on above: Expected: 04/04/2024 , Expires: 07/04/2024 Start: 01-18-2024 End: 04-18-2024 CBC W Auto Differential panel - Blood CBC + DIFF Lab Routine Generalized anxiety disorder Expected: 01/18/2024, Expires: 04/18/2024 [facility] Work Phone: Comment on above: Expected: 01/18/2024 , Expires: 04/18/2024 Start: 01-18-2024 End: 04-18-2024 Comprehensive metabolic 2000 panel - Serum or Plasma COMP METABOLIC PANEL Lab Routine Generalized anxiety disorder Expected: 01/18/2024, Expires: 04/18/2024 [facility] Work Phone: Comment on above: Expected: 01/18/2024 , Expires: 04/18/2024 Start: 01-18-2024 End: 04-18-2024 Lipid 1996 panel - Serum or Plasma LIPID PANEL BASIC Lab Routine Mixed hyperlipidemia Expected: 01/18/2024, Expires: 04/18/2024 [facility] Work Phone: Comment on above: Expected: 01/18/2024 , Expires: 04/18/2024 Start: 11-14-2023 Behavioral Health Screening Behavioral Health Screening [facility] Start: 11-14-2023 Depression Assessment Depression Ass essment [facility] Start: 07-15-2023 Covid-19 Vaccine () Covid-19 Vaccine () [facility] Start: 07-15-2023 Influenza vaccination [facility] Start: 05-25-2023 End: 07-25-2023 CBC W Auto Differential panel - Blood CBC + DIFF Lab Routine Anxiety state Expected: 05/25/2023, Expires: 07/25/2023 [facility] Work Phone: Comment on above: Expected: 05/25/2023 , Expires: 07/25/2023 Start: 05-25-2023 End: 07-25-2023 Comprehensive metabolic 2000 panel - Serum or Plasma COMP METABOLIC PANEL Lab Routine Anxiety state Mixed hyperlipidemia Expected: 05/25/2023, Expires: 07/25/2023 [facility] Work Phone: Comment on above: Expected: 05/25/2023 , Expires: 07/25/2023 Start: 05-25-2023 End: 07-25-2023 Lipid 1996 panel - Serum or Plasma LIPID PANEL BASIC Lab Routine Mixed hyperlipidemia Expected: 05/25/2023, Expires: 07/25/2023 [facility] Work Phone: Comment on above: Expected: 05/25/2023 , Expires: 07/25/2023 Start: 05-13-2023 Influenza vaccination INFLUENZA (#1) [facility] Comment on above: Postponed from 07/15 (Declined at this time) Start: 12-03-2022 DIABETES SCREEN DIABETES SCREEN [facility] Start: 07-15-2022 Influenza vaccination INFLUENZA (#1) [facility] Start: 02-23-2022 Urine microalbumin profile [facility] Start: 02-15-2022 End: 02-15-2023 CBC W Auto Differential panel - Blood [facility] Work Phone: Comment on above: Expected: 02/15/2022 , Expires: 02/15/2023 Start: 02-15-2022 End: 02-15-2023 Comprehensive metabolic 2000 panel - Serum or Plasma [facility] Work Phone: Comment on above: Expected: 02/15/2022 , Expires: 02/15/2023 Start: 02-15-2022 End: 02-15-2023 LIPID PANEL BASIC [facility] Work Phone: Comment on above: Expected: 02/15/2022 , Expires: 02/15/2023 Start: 02-15-2022 End: 04-17-2022 POTASSIUM BLD POTASSIUM BLD Lab Routine Hyperkalemia Expected: 02/15/2022, Expires: 04/17/2022 [facility] Work Phone: Comment on above: Expected: 02/15/2022 , Expires: 04/17/2022 Start: 07-31-2021 COVID-19 VACCINE (2 - Moderna 3-dose series) COVID-19 VACCINE (2 - Moderna 3-dose series) [facility] Start: 07-31-2021 COVID-19 VACCINE (2 - Moderna series) COVID-19 VACCINE (2 - Moderna series) [facility] Start: 02-22-2020 Adult depression screening assessment DEPRESSION SCREENING [facility] Start: 2015 Pneumococcal Vaccine : 50+ (1 of 1 - PCV) Pneumococcal Vaccine: 50+ (1 of 1 - PCV) [facility] Start: 2015 SHINGRIX VACCINE (1 of 2) SHINGRIX VACCINE (1 of 2) [facility] Start: 2010 COLOGUARD (FIT-DNA) COLOGUARD (FIT-D NA) [facility] Start: [address] [facility]: 2010 FECAL OCCULT BLOOD FECAL OCCULT BLOO D [facility] Start: 2010 Screening for malign ant neoplasm of colon [facility] Start: 2010 SIGMOIDOSCOPY [facility] Start: 1983 Depression Screening Depression Scre ening [facility] Start: 1965 HEPATITIS B (1 of 3 - 3-dose series) HEPATITIS B (1 of 3 - 3-dose series) [facility] PENILE DOPPLER UROLOGY PENILE DO PPLER UROLOGY Procedures Routine Peyronie's disease Ordered: 01/13/2023 [facility] Work Phone: Comment on above: Ordered: 01/13/2023 US PENILE DOPPLER (P OC) GUKI USE ONLY US PENILE DOPPLER (POC) GUKI USE ONLY Imaging Diagnostic Routine Peyronie's disease Ordered: 02/15/2023 [facility] Work Phone: Comment on above: Ordered: 02/15/2023 [facility] ALIYAH [facility] Immunizations Immunization Date Immunization Notes Care Provider [facility] 05-23-2024 hepatitis A vaccine, adult dosage Steve Baron MD Work Phone: [facility] 05-23-2024 tetanus toxoid, redu vicky diphtheria toxoid, and acellular pertussis vaccine, adsorbed Steve Baron MD Work Phone: [facility] 05-23-2024 yellow fever vaccine Steve Baron MD Work Phone: [facility] 07-03-2021 COVID-19 vaccine, fu ll dose (MODERNA) Steve Baron MD Work Phone: [facility] 07-03-2021 influenza, high dose seasonal, preservative-free Steve Baron MD Work Phone: [facility] 07-03-2021 influenza, injectabl e, quadrivalent, preservative free Steve Baron MD Work Phone: [facility] Work Phone: 07-03-2021 influenza virus vaccine, unspecified formulation Aracely Ardon PA-C Work Phone: [facility] 09-25-2020 Seasonal, quadrivale nt, recombinant, injectable influenza vaccine, preservative free Steve Baron MD Work Phone: [facility] Work Phone: 08-30-2019 influenza, injectabl e, quadrivalent, preservative free tSeve Baron MD Work Phone: [facility] 08-30-2018 influenza, injectabl e, quadrivalent, contains preservative Steve Baron MD Work Phone: [facility] Work Phone: 08-30-2018 influenza, injectabl e, quadrivalent, preservative free Steve Baron MD Work Phone: [facility] 09-09-2016 influenza, injectabl e, quadrivalent, contains preservative Steve Baron MD Work Phone: [facility] 09-03-2015 influenza, injectabl e, quadrivalent, contains preservative Steve Baron MD Work Phone: [facility] 03-06-2014 hepatitis A vaccine, adult dosage Steve Baron MD Work Phone: [facility] Work Phone: 08-01-2013 influenza virus vaccine, unspecified formulation Steve Baron MD Work Phone: [facility] Work Phone: 10-17-2012 influenza virus vaccine, unspecified formulation Steve Baron MD Work Phone: [facility] 02-24-2012 tetanus toxoid, redu vicky diphtheria toxoid, and acellular pertussis vaccine, adsorbed Steve Baron MD Work Phone: [facility] 08-29-2010 influenza virus vaccine, unspecified formulation Steve Baron MD Work Phone: [facility] Work Phone: 08-28-2009 influenza virus vaccine, unspecified formulation Steve Baron MD Work Phone: [facility] Payers Date Payer Category Payer Unknown [id number] 2023 Unknown [id number] 2020 Private Health Insurance [employer] PPO [id number] 2020-Present [phone] [address] [place] [id number] PPO [id number] 2020 Private Health Insurance [id number] 2015 Unknown [id number] Social History Date Type Detail Facility Start: 06-28-2022 End: 07-30-2024 Tobacco smoking status NHIS Ex-smoker [facility] Start: 02-15-2022 End: 07-01-2025 Alcohol intake Current non-drinker of alcohol (finding) [facility] Start: 01-25-2012 End: 06-28-2022 Tobacco Comment intermittent smoker, quit in 1997 [facility] Start: 1965 Sex Assigned At Not on file [facility] Start: 02-05-2022 End: 07-26-2022 Exposure to SARS-CoV-2 (event) Not sure [facility] History of tobacco use Current smoker [facility] Work Phone: History of tobacco use Cigarette Smoker [facility] Work Phone: Start: 06-28-2022 End: 07-30-2024 Tobacco use and exposure Smokeless tobacco non-user [facility] Work Phone: Start: 11-19-2022 History SDOH Alcohol Frequency 1 [facility] Start: 11-19-2022 History SDOH Social Connections Phone 5 [facility] Start: 11-19-2022 History SDOH Social Connections Jewish 3 [facility] Start: 11-19-2022 History SDOH Social Connections Living 4 [facility] Start: 11-19-2022 History SDOH Stress 2 [facility] Start: 11-18-2022 End: 06-16-2023 History of Social function [facility] Start: 11-18-2022 End: 06-16-2023 Social connection and isolation panel [facility] Do you belong to any clubs or organizations such as sikh groups, unions, fraternal or athletic groups, or school groups? Yes [facility] Are you now , , , , never or living with a partner? [facility] How often to you hav e a drink containing alcohol? Never [facility] Start: 10-15-2012 Average Number [facility] Drinks [facility] Do you feel stress - tense, restless, nervous, or anxious, or unable to sleep at night because your mind is troubled all the time - these days [OSQ] Only a little [facility] (I/We) worried fabiano er (my/our) food would run out before (I/we) got money to buy more. Never true [facility] In the past 12 month s, was there a time when you were not able to pay the mortgage or rent on time? No [facility] How hard is it for y ou to pay for the very basics like food, housing, medical care, and heating Not very hard [facility] Medical Equipment Procedure Code Equipment Code Equipment Origin al Text Equipment Identifier Dates Mesh Srg Pariete x 6x4in Lt - [id number] Start: 12-20-2011 Functional Status Date Assessment Result Facility 12-20-2014 Are you deaf, or do you have serious difficulty hearing No 12/20/2014 8:39 AM Roxy Pérez Ma No [facility] 12-20-2014 Are you blind, or do you have serious difficulty seeing, even when wearing glasses No 12/20/2014 8:39 AM Roxy Pérez Ma No [facility] 12-20-2014 Do you have serious difficulty walking or climbing stairs No 12/20/2014 8:39 AM Roxy Pérez Ma No [facility] 12-20-2014 Do you have difficul ty dressing or bathing No 12/20/2014 8:39 AM Roxy Pérez Ma No [facility] 12-20-2014 Because of a physica l, mental, or emotional condition, do you have difficulty doing errands alone such as visiting a physician's office or shopping No 12/20/2014 8:39 AM Roxy Pérez Ma No [facility] Mental Status Date Assessment Result Facility 12-20-2014 Because of a physica l, mental, or emotional condition, do you have serious difficulty concentrating, remembering, or making decisions No 12/20/2014 8:39 AM Roxy Pérez Ma No [facility] Clinical Notes 08-02-2014 to 07-29-2025 Aracely Ardon PA-C - 07/01/2025 10:35 AM Wendy Blue MA - 07/01/2025 8:07 AM EDTTelephone Encounter - Wendy Lawson MA - 05/29/2025 3:05 PM Josiah Smith MD - 05/23/2025 9:17 AM EDT Note Date & Type Note Facility 07-29-2025 Note HNO ID: [id number] Author: JOSIAH ACOSTA MD Service: ? Author Type: Physician Type: Progress Notes Filed: 08/05/2025 13:34 Note Text: Josiah Acosta MD Department of Orthopaedics Orthopaedics [address] [facility] [address] Dept: [phone] Dept July 29, 2025 CHIEF COMPLAINT: Post [...] E-Mycin [Erythromycin] and Zocor [Simvastatin] Recording using EZ2CAD software for draft documentation of the visit was discussed with the patient/authorized medical representative; all questions welcomed and answered. Patient/authorized medical representative agreed to proceed Josiah Acosta MD [facility] 07-01-2025 Note HNO ID: [id number] Author: ARACELY ARDON PA-C Service: ? Author Type: Physician Legal Administrator Type: Progress Notes Filed: 07/01/2025 10:40 Note Text: Aracely Ardon PA-C Department of Orthopaedics Orthopaedics [address] [facility] [address] Dept: [phone] Dept July 01, 2025 CHIEF COMPLAINT: Post [...] [Simvastatin] This note was partially generated using Buzzni voice recognition system, and there may be some incorrect words, spellings, and punctuation that were not noted in checking the note before saving. Aracely Ardon PA-C [facility] 07-01-2025 History of Presen t illness Narrative Aracely Ardon PA-C Department of Orthopaedics Orthopaedics [address] [facility] [address] Dept: [phone] Dept July 01, 2025 CHIEF COMPLAINT: Post [...] [Simvastatin] This note was partially generated using Buzzni voice recognition system, and there may be [...] redness or drainage. documented in this encounter [facility] 07-01-2025 Note HNO ID: [id number] Author: WENDY LAWSON MA Service: ? Author Type: Teleservices Representative Type: Progress Notes Filed: 07/01/2025 10:40 Note Text: Patient presents with: Left Hand - Post Op Right Hand - Post Op: 1 week 5 days post op Right index, middle, and Left ring trigger finger releases AMB ROOMING INTAKE FLOWSHEET DATA Patient denies any pain. He does have some tenderness in his hands. Sutures intact. No redness or drainage. [facility] 05-29-2025 Telephone encounter Note Surgery scheduled as requested. [facility] 05-29-2025 Miscellaneous Notes Surgery scheduled as requested. Surgical request completed. Post op appointments scheduled and mailed to the patient. Patient returned call and surgery was scheduled for 06/19/25. Patient scheduled for Right and middle trigger finger releases and Left ring trigger finger release. Offered patient next 05/30 in [place] if he is doing a local. Left a message for patient to call the office and ask to speak with Wendy documented in this encounter [facility] 05-28-2025 Telephone encounter Note Surgical request completed. Post op appointments scheduled and mailed to the patient. [facility] 05-27-2025 Telephone encounter Note Patient returned call and surgery was scheduled for 06/19/25. [facility] 05-23-2025 Telephone encounter Note Patient scheduled for Right and middle trigger finger releases and Left ring trigger finger release. Offered patient next 05/30 in [place] if he is doing a local. Left a message for patient to call the office and ask to speak with Wendy [facility] 05-23-2025 Note HNO ID: [id number] Author: JOSIAH ACOSTA MD Service: ? Author [...] Acosta MD Department of Orthopaedics Orthopaedic Surgery [facility] [address] [facility] [address] Dept: [phone] Dept May 23, 2025 CHIEF COMPLAINT: Established [...] for the first week of June at [place]. - Procedure will involve local anesthetic, two stitches, and a soft bandage for 1.5 days. - Advised to avoid strenuous activities for 10-14 days post-surgery. 2. Acquired trigger finger of right middle finger (M65.331) Tenderness to palpation at the A1 owen site; clicking and some catching observed. - Scheduled trigger finger release surgery for the first week of June at [place]. - Procedure will involve local anesthetic, two stitches, and a soft bandage for 1.5 days. - Advised to avoid strenuous activities for 10-14 days post-surgery. 3. Acquired trigger finger of left ring finger (M65.342) Tenderness, mild swelling, and locking and catching observed. - Scheduled trigger finger release surgery for the first week of June at [place]. - Procedure will involve local anesthetic, two [...] Psych: cooperative an (more content not included)... [facility] 05-23-2025 History of Presen t illness Narrative [...] Acosta MD Department of Orthopaedics Orthopaedic Surgery [facility] [address] [address] [facility] [address] Dept: [phone] Dept May 23, 2025 CHIEF COMPLAINT: Established [...] for the first week of June at [place]. - Procedure will involve local anesthetic, two stitches, and a soft bandage for 1.5 days. - Advised to avoid strenuous activities for 10-14 days post-surgery. 2. Acquired trigger finger of right middle finger (M65.331) Tenderness to palpation at the A1 owen site; clicking and some catching observed. - Scheduled trigger finger release surgery for the first week of June at [place]. - Procedure will involve local anesthetic, two stitches, and a soft bandage for 1.5 days. - Advised to avoid strenuous activities for 10-14 days post-surgery. 3. Acquired trigger finger of left ring finger (M65.342) Tenderness, mild swelling, and locking and catching observed. - Scheduled trigger finger release surgery for the first week of June at [place]. - Procedure will involve local anesthetic, two [...] HPI) Psych (no depression, anxiety) Recording using EZ2CAD software for draft documentation of the visit was discussed with the patient/authorized medical representative; all questions welcomed and answered. Patient/authorized medical representative agreed to proceed Josiah Acosta MD documented in this encounter [facility] 02-23-2025 Note HNO ID: [id number] Author: STEVE BARON MD Service: ? Author [...] Abs Lymph 1.00 - 4.00 k/uL 1.53 Graham% % 12.9 Abs Graham <0.87 k/uL 0.57 Eosin% % 2.9 Abs [...] Grandfather CABG at 90 Heart Paternal Grandfather [place] Patient Allergies ALLERGIES Allergen Reactions E-Mycin [Erythromyc* [...] due on 0 (more content not included)... [facility] 02-23-2025 History of Presen t illness Narrative [...] Abs Lymph 1.00 - 4.00 k/uL 1.53 Graham% % 12.9 Abs Graham <0.87 k/uL 0.57 Eosin% % 2.9 Abs [...] Grandfather CABG at 90 Heart Paternal Grandfather [place] Patient Allergies ALLERGIES Allergen Reactions E-Mycin [Erythromyc* [...] Steve Baron MD documented in this encounter [facility] 01-29-2025 Telephone encounter Note Notified via mychart of results and that he needs to call office to set up appt. Kamilla Elizabeth MA [facility] 01-29-2025 Miscellaneous Notes Notified via Ventivehart of results and that he needs to call office to set up appt. Kamilla Elizabeth MA ----- Message from Steve Baron MD sent at 01/28/2025 7:23 PM EDT ----- Labs are stable. These were supposed to be done and then to have a follow up appt to go over them. He never set up the appt documented in this encounter [facility] 01-29-2025 Telephone encounter Note ----- Message from Steve Baron MD sent at 01/28/2025 7:23 PM EDT ----- Labs are stable. These were supposed to be done and then to have a follow up appt to go over them. He never set up the appt [facility] 01-15-2025 Telephone encounter Note Last apt 04/29/2024 [...] daily. Please review and advise. Mabel Aguero [facility] 01-15-2025 Miscellaneous Notes Last apt 04/29/2024 Patient [...] advise. Mabel Aguero documented in this encounter [facility] 07-30-2024 History of Presen t illness Narrative [...] Grandfather CABG at 90 Heart Paternal Grandfather [place] Social History Tobacco Use Smoking status: Former [...] months and prn. documented in this encounter [facility] 07-21-2024 Telephone encounter Note Patient has been [...] 07/30/2024 Please advise. Thank you. Razia Aguero. [facility] 07-21-2024 Miscellaneous Notes Patient has been identified [...] you. Razia Aguero. documented in this encounter [facility] 04-23-2024 History of Presen t illness Narrative Josiah Acosta MD Department of Orthopaedics Orthopaedics [address] [place] [address] Dept: [phone] Dept April 23, 2024 CHIEF COMPLAINT: Post [...] Josiah Acosta MD documented in this encounter [facility] 03-22-2024 Telephone encounter Note Patient has been identified by name and date of : Yes Requested Prescriptions Pending Prescriptions Disp Refills sertraline (ZOLOFT) 100 mg tablet 90 tablet 1 Sig: Take 1 tablet by mouth once daily. RX INSTRUCTIONS: Patient aware RX will be sent to pharmacy. No need to notify patient. Jeanine Aguero [facility] 03-22-2024 Miscellaneous Notes Patient has been identified by name and date of : Yes Requested Prescriptions Pending Prescriptions Disp Refills sertraline (ZOLOFT) 100 mg tablet 90 tablet 1 Sig: Take 1 tablet by mouth once daily. RX INSTRUCTIONS: Patient aware RX will be sent to pharmacy. No need to notify patient. Jeanine Gayle Pss documented in this encounter [facility] 03-12-2024 History of Presen t illness Narrative Aracely Ardon PA-C Department of Orthopaedics Orthopaedics [address] [facility] [address] Dept: [phone] Dept March 12, 2024 CHIEF COMPLAINT: Established [...] [Simvastatin] This note was partially generated using Buzzni voice recognition system, and there may be some incorrect words, spellings, and punctuation that were not noted in checking the note before saving. Aracely Ardon PA-C AMB ROOMING INTAKE FLOWSHEET DATA documented in this encounter [facility] 01-20-2024 Instructions Steve Baron MD - 01/20/2024 [...] such as the one published by the [employer]. 5. Consult your physician if you have any questions. documented in this encounter [facility] 01-20-2024 History of Presen t illness Narrative [...] Abs Lymph 1.00 - 4.00 k/uL 1.11 Graham% % 14.1 Abs Graham <0.87 k/uL 0.59 Eosin% % 3.1 Abs [...] Grandfather CABG at 90 Heart Paternal Grandfather [place] Social History Tobacco Use Smoking status: Former [...] Steve Baron MD documented in this encounter [facility] 01-18-2024 Miscellaneous Notes Patient informed via labs [...] Aga Briceño LPN documented in this encounter [facility] 10-05-2023 History of Presen t illness Narrative [...] Grandfather CABG at 90 Heart Paternal Grandfather [place] Social History Tobacco Use Smoking status: Former [...] Steve Baron MD documented in this encounter [facility] 09-22-2023 Miscellaneous Notes I called and spoke with the patient. His surgery will be changed to 11/03/2023 at [facility]. Case message sent and post op appointments have been changed. Patient called. Verified name and date of . Patient calling regarding previous message. He is asking to be scheduled in October due to harvest time right now. Rachel Sneed LPN Eduardo called in asking to have his trigger finger surgery rescheduled for October. Please review and advise. Thank you. 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 documented in this encounter [facility] 09-02-2023 Miscellaneous Notes see triage note today. Routed to triage pool. Matt Villarreal LPN Can we triage this documented in this encounter [facility] 08-30-2023 History of Presen t illness Narrative Associated Order(s): Additional Injections: L thumb A1; Additional Injections: L index A1 Post-Procedure Diagnose(s): Trigger index finger of left hand; Trigger finger of left thumb Aracely Ardon PA-C Department of Orthopaedics Orthopaedics [address] [place] [address] Dept: [phone] August 30, 2023 CHIEF COMPLAINT: New and [...] trigger finger Informed Consent Consent Obtained: Verbal [place] Protocol A moment to CARE was completed. [...] trigger finger Informed Consent Consent Obtained: Verbal [place] Protocol A moment to CARE was completed. [...] anxiety) This note was partially generated using Buzzni voice recognition system, and there may be some incorrect words, spellings, and punctuation that were not noted in checking the note before saving. Aracely Ardon PA-C documented in this encounter [facility] 07-20-2023 Miscellaneous Notes Pt scheduled 1st available From waitlist previous patient is requesting an appt with provider for right hand ring trigger finger pt previously had surgery for left hand trigger finger with provider and is having more pain with the right scheduled first available with PA Best Contact [phone] documented in this encounter [facility] 06-16-2023 History of Presen t illness Narrative [...] Abs Lymph 1.00 - 4.00 k/uL 1.61 Graham% % 13.4 Abs Graham <0.87 k/uL 0.64 Eosin% % 3.4 Abs [...] Grandfather CABG at 90 Heart Paternal Grandfather [place] Social History Tobacco Use Smoking status: Former [...] Steve Baron MD documented in this encounter [facility] 02-02-2023 Nurse Note Actual procedure/procedure scheduled: Yes Performing provider/scheduled provider: Yes Patient was roomed in: Q9- 12 Engineering Department Chair offered:Patient declines Patient arrived in the room at: 1419 Patient ready for procedure: 1423 The procedure started at ( Time Only): 1504 The procedure ended at: 1544 Was the procedure delayed: No The patient left the procedure room at: 1605 Mian Lockhart RN PRE PROCEDURE NURSE ASSESSMENT Patient ID with two (2) identifiers verified by: Mian Lockhart RN Procedure/Indication:Penile Doppler with Intracavernous Injection [...] E1 by Nacho Bedoya MD Lot # [id number] Expiration Date: 02/2024 Injection Time: 1513 POST INJECTION VITAL SIGNS Time 1555 BP: 165/99 Pulse: 70 Time 1602 BP: 170/87 Pulse: 58 The patient was injected with Phenylephrine (1mg/0.1cc): Yes TIME: 155 Phenylephrine injection given by Nacho Bedoya MD Lot #: [id number] Expiration Date: 02/2024 POST PROCEDURE NURSE ASSESSMENT [...] Education Session: None Instruction Provided To: Patient Non Morse Intercept Technician Present: not applicable Discipline: Nursing Learning Topic: SURVIVAL SKILLS: Symptom Management Patient Evaluation: Verbalizes understanding: Yes Supplemental Material Given: Written Material Instructed By Mian Lockhart RN In Department documented in this encounter [facility] 02-02-2023 History of Presen t illness Narrative February 02, 2023 Eduardo Yeung [id number] Focused history 57/M with chronic Peyronie's (40 degree dorsal, no length loss, 10/10 erections) PENILE DUPLEX DOPPLER ULTRASOUND (PDDUS) Penile ultrasound -- CPT 83190 Penile injection for erection -- CPT 12573 Injection for reversal of erection -- CPT 66303 Associated Conditions: Peyronie's Disease Current Erectogenic Medications: [...] Staff Urologist [facility] documented in this encounter [facility] 01-28-2023 Miscellaneous Notes Patient phones requesting refills as follows: Requested Prescriptions Pending Prescriptions Disp Refills pravastatin (PRAVACHOL) 20 mg tablet 90 tablet 3 Sig: Take 1 tablet by mouth daily at bedtime. Please review and advise. Matt Villarreal LPN documented in this encounter [facility] 01-26-2023 Miscellaneous Notes Patient went to machine operator picker prescriptions at [facility] and was told that he had no refills to machine operator picker. Patient asking if provider can send in new prescription for medication? Please review and advise, Daysi Silver RN documented in this encounter [facility] 01-24-2023 Miscellaneous Notes Patient has been identified [...] Lexus Stuart LPN documented in this encounter [facility] 01-13-2023 History of Presen t illness Narrative [facility] UROLOGY NEW PATIENT CLINIC NOTE UROL [facility] Eduardo Evelyne Gamal Referred by: SELF 01/13/2023 [...] a female partner, others do not. Vaginal [place] within the last 3 months: No -If [...] that you may be having during vaginal [place]. For each problem below, please salamatof the number that best describes how severe [...] study. James Shook MD, MS Associate Staff [facility] Cc: Dr. Nacho Bedoya documented in this encounter [facility] 12-07-2022 Miscellaneous Notes Tried to call patient to try and schedule an appointment for an audiogram, no answer. I left a VM documented in this encounter [facility] 11-25-2022 History of Presen t illness Narrative [...] Grandfather CABG at 90 Heart Paternal Grandfather [place] Social History Tobacco Use Smoking status: Former [...] Steve Baron MD documented in this encounter [facility] 07-26-2022 History of Presen t illness Narrative Patient presents with: Left Hand - Established Patient, Post Op: 5 wks 5 days post op left middle trigger finger release Josiah Acosta MD Department of Orthopaedics Orthopaedics [address] [facility] [address] Dept: [phone] Dept July 26, 2022 CHIEF COMPLAINT: Established [...] Josiah Acosta MD documented in this encounter [facility] 07-23-2022 Miscellaneous Notes [facility] 02/15/22 NOV 08/19/22 [...] need to notify patient. Kiki Manrique [employer] documented in this encounter [facility] 07-05-2022 History of Presen t illness Narrative Aracely Ardon PA-C Department of Orthopaedics Orthopaed[facility] [address] [facility] [address] Dept: [phone] Dept July 05, 2022 CHIEF COMPLAINT: Established [...] [Simvastatin] This note was partially generated using Buzzni voice recognition system, and there may be some incorrect words, spellings, and punctuation that were not noted in checking the note before saving. Aracely Ardon PA-C AMB ROOMING INTAKE FLOWSHEET DATA Patient here today for ED follow up. He is taking Keflex and has 1 day left. Patient denies any pain. documented in this encounter [facility] 07-02-2022 Miscellaneous Notes I called and spoke [...] OR today and he should report to [place] ED to have finger evaluated. Patient verbalized [...] is any concern. documented in this encounter [facility] 06-28-2022 History of Presen t illness Narrative Aracely Ardon PA-C Department of Orthopaedics Orthopaedics [address] [place] [address] Dept: [phone] Dept June 28, 2022 CHIEF COMPLAINT: Post [...] [Simvastatin] This note was partially generated using Buzzni voice recognition system, and there may be [...] and taking Tylenol. documented in this encounter [facility] 06-10-2022 Miscellaneous Notes Patient scheduled for left middle trigger finger release under local on 06/16/22. Surgical request completed. Post op appointments mailed to patient. documented in this encounter [facility] 06-10-2022 History of Presen t illness Narrative [...] Josiah Acosta MD Department of Orthopaedics Orthopaedics [facility] [address] [facility] [address] Dept: [phone] Dept June 10, 2022 CHIEF COMPLAINT: Established Patient and Knee Pain of the Left Knee and Last seen 03/11/22 Left middle trigger finger (with injection given) HPI Patient states he started having pain in his left knee 4 days after he went [place] run [place]. He had been working out during the winter at [employer] and did not want to lose what [...] knee joint Informed Consent Consent Obtained: Verbal [place] Protocol A moment to CARE was completed. 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 ASSESSMENT: M65.332 Trigger middle finger [...] trigger finger Informed Consent Consent Obtained: Verbal [place] Protocol A moment to CARE was completed. [...] Grandfather CABG at 90 Heart Paternal Grandfather [place] Social History: Social History Tobacco Use Smoking [...] electronic medical record. Steve Baron [address] [facility] [address] Steve Baron MD [address] [facility] [address] Josiah Acosta MD documented in this encounter [facility] 02-15-2022 Miscellaneous Notes Pt notified. He verbalized understanding. Matt Villarreal LPN Labs are overall ok. Potassium is borderline elevated. May likely be lab error. Recheck potassium in one week documented in this encounter [facility] 02-15-2022 History of Presen t illness Narrative [...] 2022 9:04 AM documented in this encounter [facility] 02-15-2022 Miscellaneous Notes Addended by: STEVE BARON on: 02/15/2022 08:50 AM Modules accepted: Orders documented in this encounter [facility] 02-15-2022 History of Presen t illness Narrative [...] Grandfather CABG at 90 Heart Paternal Grandfather [place] Social History Tobacco Use Smoking status: Former [...] months and prn. documented in this encounter [facility] 08-02-2014 History of Past i llness Narrative Problem Noted Date Resolved Date Elbow pain 08/02/2014 09/09/2016 Left inguinal hernia 10/11/2011 01/25/2012 documented as of this encounter (statuses as of 02/15/2022) [facility] of Past illness Narrative* Problem Noted Date Resolved Date Elbow pain 08/02/2014 09/09/2016 Left inguinal hernia 10/11/2011 01/25/2012 documented as of this encounter (statuses as of 02/15/2022) [facility] of [facility] Narrative* Problem Noted Date Resolved Date Elbow pain 08/02/2014 09/09/2016 Left inguinal hernia 10/11/2011 01/25/2012 documented as of this encounter (statuses as of 03/11/2022) [facility] of [facility] Narrative* Problem Noted Date Resolved Date Elbow pain 08/02/2014 09/09/2016 Left inguinal hernia 10/11/2011 01/25/2012 documented as of this encounter (statuses as of 06/10/2022) [facility] of [facility] Narrative* Problem Noted Date Resolved Date Elbow pain 08/02/2014 09/09/2016 Left inguinal hernia 10/11/2011 01/25/2012 documented as of this encounter (statuses as of 06/11/2022) [facility] of [facility] Narrative* Problem Noted Date Resolved Date Elbow pain 08/02/2014 09/09/2016 Left inguinal hernia 10/11/2011 01/25/2012 documented as of this encounter (statuses as of 06/16/2022) [facility] Narrative* Problem Noted Date Resolved Date Elbow pain 08/02/2014 09/09/2016 Left inguinal hernia 10/11/2011 01/25/2012 documented as of this encounter (statuses as of 06/28/2022) [facility] of [facility] Narrative* Problem Noted Date Resolved Date Elbow pain 08/02/2014 09/09/2016 Left inguinal hernia 10/11/2011 01/25/2012 documented as of this encounter (statuses as of 07/02/2022) [facility] Narrative* Problem Noted Date Resolved Date Elbow pain 08/02/2014 09/09/2016 Left inguinal hernia 10/11/2011 01/25/2012 documented as of this encounter (statuses as of 07/05/2022) [facility] Narrative* Problem Noted Date Resolved Date Elbow pain 08/02/2014 09/09/2016 Left inguinal hernia 10/11/2011 01/25/2012 documented as of this encounter (statuses as of 07/23/2022) [place] [address]-19-2014 History of Past illness Narrative* Problem Noted Date Resolved Date Elbow pain 08/02/2014 09/09/2016 Left inguinal hernia 10/11/2011 01/25/2012 documented as of this encounter (statuses as of 07/26/2022) [place] [address]-19-2014 History of Past illness Narrative* Problem Noted Date Resolved Date Elbow pain 08/02/2014 09/09/2016 Left inguinal hernia 10/11/2011 01/25/2012 documented as of this encounter (statuses as of 11/25/2022) [place] [address]-19-2014 History of Past illness Narrative* Problem Noted Date Resolved Date Elbow pain 08/02/2014 09/09/2016 Left inguinal hernia 10/11/2011 01/25/2012 documented as of this encounter (statuses as of 12/07/2022) [facility] N[facility]* Problem Noted Date Resolved Date Elbow pain 08/02/2014 09/09/2016 Left inguinal hernia 10/11/2011 01/25/2012 documented as of this encounter (statuses as of 01/14/2023) [facility] N[facility]ative* Problem Noted Date Resolved Date Elbow pain 08/02/2014 09/09/2016 Left inguinal hernia 10/11/2011 01/25/2012 documented as of this encounter (statuses as of 01/25/2023) [facility] N[facility]ative* Problem Noted Date Resolved Date Elbow pain 08/02/2014 09/09/2016 Left inguinal hernia 10/11/2011 01/25/2012 documented as of this encounter (statuses as of 01/26/2023) [facility] Narrative* Problem Noted Date Resolved Date Elbow pain 08/02/2014 09/09/2016 Left inguinal hernia 10/11/2011 01/25/2012 documented as of this encounter (statuses as of 01/28/2023) [place] [address]-19-2014 History of Past illness Narrative* Problem Noted Date Resolved Date Elbow pain 08/02/2014 09/09/2016 Left inguinal hernia 10/11/2011 01/25/2012 documented as of this encounter (statuses as of 02/24/2023) [facility] N[facility]* Problem Noted Date Diagnosed Date Resolved Date Elbow pain 08/02/2014 09/09/2016 Left inguinal hernia 10/11/2011 012 documented as of this encounter (statuses as of 06/16/2023) [facility] N[facility]ative* Problem Noted Date Diagnosed Date Resolved Date Elbow pain 08/02/2014 09/09/2016 Left inguinal hernia 10/11/2011 012 documented as of this encounter (statuses as of 07/20/2023) [facility] N[facility]ative* Problem Noted Date Diagnosed Date Resolved Date Elbow pain 08/02/2014 09/09/2016 Left inguinal hernia 10/11/2011 012 documented as of this encounter (statuses as of 08/30/2023) [facility] N[facility]ative* Problem Noted Date Diagnosed Date Resolved Date Elbow pain 08/02/2014 09/09/2016 Left inguinal hernia 10/11/2011 012 documented as of this encounter (statuses as of 09/02/2023) [facility] N[facility]ative* Problem Noted Date Diagnosed Date Resolved Date Elbow pain 08/02/2014 09/09/2016 Left inguinal hernia 10/11/2011 012 documented as of this encounter (statuses as of 09/06/2023) [place] [address]-19-2014 History of Past illness Narrative* Problem Noted Date Diagnosed Date Resolved Date Elbow pain 08/02/2014 09/09/2016 Left inguinal hernia 10/11/2011 012 documented as of this encounter (statuses as of 09/23/2023) [facility]* Problem Noted Date Diagnosed Date Resolved Date Elbow pain 08/02/2014 09/09/2016 Left inguinal hernia 10/11/2011 012 documented as of this encounter (statuses as of 10/05/2023) [facility] N[facility]* Problem Noted Date Diagnosed Date Resolved Date Elbow pain 08/02/2014 09/09/2016 Left inguinal hernia 10/11/2011 012 documented as of this encounter (statuses as of 01/19/2024) [facility] Narrative* Problem Noted Date Diagnosed Date Resolved Date Elbow pain 08/02/2014 09/09/2016 Left inguinal hernia 10/11/2011 012 documented as of this encounter (statuses as of 01/20/2024) [facility] note* Diagnosis Mixed hyperlipidemia- Primary Anxiety state Anxiety state, unspecified Trigger middle finger of left hand Trigger finger (acquired) Tinnitus of both ears Unspecified tinnitus [facility] [place] [facility] Diagnosis Hyperkalemia- Primary Hyperpotassemia [facility] [place] [facility] Diagnosis Trigger middle finger of left hand Trigger finger (acquired) [facility] [place] [facility] Diagnosis Acute pain of left knee- Primary Primary osteoarthritis of left knee Primary localized osteoarthrosis, lower leg Trigger middle finger of left hand Trigger finger (acquired) Trigger middle finger of left hand Trigger finger (acquired) [facility] [place] [facility] Diagnosis Acute pain of left knee Trigger middle finger of left hand Trigger finger (acquired) [facility] Diagnosis Trigger middle finger of left hand- Primary Trigger finger (acquired) [facility] Diagnosis Trigger middle finger of left hand- Primary Trigger finger (acquired) [facility] [place] [facility]* Diagnosis Anxiety state Anxiety state, unspecified Mixed hyperlipidemia [facility] Diagnosis Trigger middle finger of left hand- Primary Trigger finger (acquired) [facility] Diagnosis Bilateral hearing loss, unspecified hearing loss type- Primary Anxiety state Anxiety state, unspecified Tinnitus of both ears Unspecified tinnitus Mixed hyperlipidemia [facility] Diagnosis Peyronie's disease- Primary [facility] [place] [facility] Diagnosis Mixed hyperlipidemia Anxiety state Anxiety state, unspecified [facility] [place] [facility] Diagnosis Mixed hyperlipidemia [facility] Diagnosis Peyronie's disease- Primary [facility]* Diagnosis Mixed hyperlipidemia- Primary Anxiety state Anxiety state, unspecified [facility] Diagnosis Trigger ring finger of right hand- Primary Trigger finger (acquired) Trigger finger of left thumb Trigger index finger of left hand Trigger finger (acquired) [facility] [place] [facility] Diagnosis Anxiety state Anxiety state, unspecified Trigger ring finger of right hand Trigger finger (acquired) [facility] [place] [facility] Diagnosis Mixed hyperlipidemia- Primary Anxiety state Anxiety state, unspecified Trigger ring finger of right hand Trigger finger (acquired) [facility] Diagnosis Mixed hyperlipidemia- Primary Generalized anxiety disorder [facility]* Diagnosis Mixed hyperlipidemia- Primary Anxiety state Anxiety state, unspecified [facility] [place] [facility]* Diagnosis Trigger thumb of left hand- Primary Trigger finger (acquired) Trigger index finger of left hand Trigger finger (acquired) [facility] [place] [facility] Diagnosis Anxiety state Anxiety state, unspecified [facility] [place] [facility] Diagnosis Trigger thumb of left hand- Primary Trigger finger (acquired) Trigger index finger of left hand Trigger finger (acquired) [facility] Diagnosis Mixed hyperlipidemia [facility] Diagnosis Mixed hyperlipidemia- Primary Anxiety state Anxiety state, unspecified [facility] Diagnosis Trigger middle finger of left hand Trigger finger (acquired) [facility]* Diagnosis Mixed hyperlipidemia- Primary Anxiety state Anxiety state, unspecified Screening for depression Contusion of rib, unspecified laterality, subsequent encounter [facility]* Diagnosis Trigger finger, right index [...] Trigger finger (acquired) [facility] Acquired trigger finger of right index finger- Primary Acquired trigger finger of right middle finger Acquired trigger finger of left ring finger documented in this encounter [facility] for referral (narrative)* Diagnostic Procedure Only (Routine) - Closed Specialty Diagnoses / Procedures Referred By Contac t Referred To Contact XR IMAGING Diagnoses Trigger middle finger of left hand Procedures XR HAND GENERAL 3V PA/LAT/OBL LEFT RADEX HAND MINIMUM 3 VIEWS Steve Baron MD [address] [place] [address] Xr Imaging Referral ID Status Reason Start Date Expiration Date V isits Requested Visits Authorized [id number] Closed Auto-Generate d Referral 02/15/2022 03/17/2023 1 1 * Consult, Test, Treat (Routine) - Authorized Specialty Diagnoses / Procedures Referred By Contac t Referred To Contact Orthopedics Diagnoses Trigger middle finger of left hand Procedures CONSULT TO ORTHOPAEDICS OFFICE/OUTPATIENT [facility] 60-74 MINUTES Steve Baron MD [address] [place] [address] Referral ID Status Reason Start Date Expiration Date Visits Requested Visits Authorized [id number] Authorized PCP Requested Referral 02/15/2022 02/15/2023 1 1 [facility] for referral (narrative)* Diagnostic Procedure Only (Routine) - Closed Specialty Diagnoses / Procedures Referred By Contac t Referred To Contact XR IMAGING Diagnoses Acute pain of left knee Procedures XR KNEE GENERAL 4V AP BOTH/PA BOTH/LAT/MERC LEFT RADIOLOGIC EXAM KNEE COMPLETE 4/MORE VIEWS Josiah Acosta MD [address] [place] [address] Xr Imaging Referral ID Status Reason Start Date Expiration Date V isits Requested Visits Authorized [id number] Closed Auto-Generate d Referral 06/10/2022 07/10/2023 1 1 [facility] for referral (narrative)* Diagnostic Procedure Only (Routine) - Closed Specialty Diagnoses / Procedures Referred By Contac t Referred To Contact XR IMAGING Diagnoses Acute pain of left knee Procedures XR KNEE GENERAL 4V AP BOTH/PA BOTH/LAT/MERC LEFT RADIOLOGIC EXAM KNEE COMPLETE 4/MORE VIEWS Josiah Acosta MD [address] [place] [address] Xr Imaging Referral ID Status Reason Start Date Expiration Date V isits Requested Visits Authorized [id number] Closed Auto-Generate d Referral 06/10/2022 07/10/2023 1 1 [facility] for referral (narrative)* Outpatient Procedure (Routine) - Pending Review Specialty Diagnoses / Procedures Referred By Contac t Referred To Contact [facility] Diagnoses Peyronie's disease Procedures PENILE DOPPLER UROLOGY DUP-SCAN ARTL INFL&DOUG O/F PEN VSL COMPL NJX C/P/A CAVERNOSA W/PHARMACOLOGIC AGT James Shook MD [address] [place] [address] [facility] [address] [place] [address] Referral ID Status Reason Start Date Expiration Date Visits Requested Visits Authorized [id number] Pending Review Auto-Generat ed Referral 01/13/2023 01/14/2024 1 1 [facility] for referral (narrative)* Diagnostic Procedure Only (Routine) - Closed Specialty Diagnoses / Procedures Referred By Contac t Referred To Contact XR IMAGING Diagnoses Trigger middle finger of left hand Procedures XR HAND GENERAL 3V PA/LAT/OBL LEFT RADEX HAND MINIMUM 3 VIEWS Steve Baron MD [address] [place] [address] [place] [address] Referral ID Status Reason Start Date Expiration Date V isits Requested Visits Authorized [id number] Closed Auto-Generate d Referral 02/15/2022 03/17/2023 1 1 [facility] for visit Narrative* Diagnostic Procedure Only (Routine) - Closed Specialty Diagnoses / Procedures Referred By Contac t Referred To Contact XR IMAGING Diagnoses Acute pain of left knee Procedures XR KNEE GENERAL 4V AP BOTH/PA BOTH/LAT/MERC LEFT RADIOLOGIC EXAM KNEE COMPLETE 4/MORE VIEWS Josiah Acosta MD [address] [place] [address] Xr Imaging Referral ID Status Reason Start Date Expiration Date V isits Requested Visits Authorized [id number] Closed Auto-Generate d Referral 06/10/2022 07/10/2023 1 1 [facility] for visit Narrative* Diagnostic Procedure Only (Routine) - Closed Specialty Diagnoses / Procedures Referred By Contac t Referred To Contact XR IMAGING Diagnoses Trigger middle finger of left hand Procedures XR HAND GENERAL 3V PA/LAT/OBL LEFT RADEX HAND MINIMUM 3 VIEWS Steve Baron MD [address] [place] [address] [place] [address] Referral ID Status Reason Start Date Expiration Date V isits Requested Visits Authorized [id number] Closed Auto-Generate d Referral 02/15/2022 03/17/2023 1 1 [facility] Summary Purpose Family History No Family History Records FoundNo Family History Records FoundNo Family History Records FoundNo Family History Records FoundNo Family History Records Found Advance Directives No Advanced Directives Records FoundDocuments on File Type Date Recorded Patient Criminal Intelligence Analyst Expl anation Advance Directive(s) 11/18/2018 4:55 PM Advance Directive(s) 05/10/2016 9:21 AM Documents on File Type Date Recorded Patient Criminal Intelligence Analyst Expl anation Advance Directive(s) 11/18/2018 4:55 PM Advance Directive(s) 05/10/2016 9:21 AM Documents on File Type Date Recorded Patient Criminal Intelligence Analyst Expl anation Advance Directive(s) 06/16/2022 9:03 AM [...] both ears Procedures CONSULT TO ENT OFFICE/OUTPATIENT [facility] 60-74 MINUTES Steve Baron MD [address] [place] [address] Referral ID Status Reason Start Date Expiration Date Visits Requested Visits Authorized [id number] Authorized PCP Requested Referral 11/25/2022 11/25/2023 1 1 Additional Source Comments (unrecognized sect ion and content) No Status Records FoundNo Status Records FoundNo Status Records FoundNo Status Records FoundNo Status Records Found INFORMATION SOURCE (unrecogn ized section and content) DATE CREATED AUTHOR 05/10/2018 [facility] DATE CREATED AUTHOR AUTHOR'S ORGANIZ ATION 11/18/2018 [facility] DATE CREATED AUTHOR AUTHOR'S ORGANIZ ATION 11/18/2018 [facility] DATE CREATED AUTHOR AUTHOR'S ORGANIZ ATION 06/21/2025 [facility] DATE CREATED AUTHOR AUTHOR'S ORGANIZ ATION 08/06/2025 [facility] Source Comments (unrecognize d section and content) In the event this informatio n is protected by the Federal Confidentiality of Alcohol and Drug Abuse Patient Records regulations: The Federal rules restrict any use of the information to criminally investigate or prosecute any alcohol or drug abuse patient.[facility] CenterIn the event this information is protected by the Federal Confidentiality of Alcohol and Drug Abuse Patient Records regulations: The Federal rules restrict any use of the information to criminally investigate or prosecute any alcohol or drug abuse patient.[facility] CenterIn the event this information is protected by the Federal Confidentiality of Alcohol and Drug Abuse Patient Records regulations: The Federal rules restrict any use of the information to criminally investigate or prosecute any alcohol or drug abuse patient.[facility] CenterIn the event this information is protected by the Federal Confidentiality of Alcohol and Drug Abuse Patient Records regulations: The Federal rules restrict any use of the information to criminally investigate or prosecute any alcohol or drug abuse patient.[facility] CenterIn the event this information is protected by the Federal Confidentiality of Alcohol and Drug Abuse Patient Records regulations: The Federal rules restrict any use of the information to criminally investigate or prosecute any alcohol or drug abuse patient.[facility] CenterIn the event this information is protected by the Federal Confidentiality of Alcohol and Drug Abuse Patient Records regulations: The Federal rules restrict any use of the information to criminally investigate or prosecute any alcohol or drug abuse patient.[facility] CenterIn the event this information is protected by the Federal Confidentiality of Alcohol and Drug Abuse Patient Records regulations: The Federal rules restrict any use of the information to criminally investigate or prosecute any alcohol or drug abuse patient.[facility] CenterIn the event this information is protected by the Federal Confidentiality of Alcohol and Drug Abuse Patient Records regulations: The Federal rules restrict any use of the information to criminally investigate or prosecute any alcohol or drug abuse patient.[facility] CenterIn the event this information is protected by the Federal Confidentiality of Alcohol and Drug Abuse Patient Records regulations: The Federal rules restrict any use of the information to criminally investigate or prosecute any alcohol or drug abuse patient.[facility] CenterIn the event this information is protected by the Federal Confidentiality of Alcohol and Drug Abuse Patient Records regulations: The Federal rules restrict any use of the information to criminally investigate or prosecute any alcohol or drug abuse patient.[facility] CenterIn the event this information is protected by the Federal Confidentiality of Alcohol and Drug Abuse Patient Records regulations: The Federal rules restrict any use of the information to criminally investigate or prosecute any alcohol or drug abuse patient.[facility] CenterIn the event this information is protected by the Federal Confidentiality of Alcohol and Drug Abuse Patient Records regulations: The Federal rules restrict any use of the information to criminally investigate or prosecute any alcohol or drug abuse patient.[facility] CenterIn the event this information is protected by the Federal Confidentiality of Alcohol and Drug Abuse Patient Records regulations: The Federal rules restrict any use of the information to criminally investigate or prosecute any alcohol or drug abuse patient.[facility] CenterIn the event this information is protected by the Federal Confidentiality of Alcohol and Drug Abuse Patient Records regulations: The Federal rules restrict any use of the information to criminally investigate or prosecute any alcohol or drug abuse patient.[facility] CenterIn the event this information is protected by the Federal Confidentiality of Alcohol and Drug Abuse Patient Records regulations: The Federal rules restrict any use of the information to criminally investigate or prosecute any alcohol or drug abuse patient.[facility] CenterIn the event this information is protected by the Federal Confidentiality of Alcohol and Drug Abuse Patient Records regulations: The Federal rules restrict any use of the information to criminally investigate or prosecute any alcohol or drug abuse patient.[facility] CenterIn the event this information is protected by the Federal Confidentiality of Alcohol and Drug Abuse Patient Records regulations: The Federal rules restrict any use of the information to criminally investigate or prosecute any alcohol or drug abuse patient.[facility] CenterIn the event this information is protected by the Federal Confidentiality of Alcohol and Drug Abuse Patient Records regulations: The Federal rules restrict any use of the information to criminally investigate or prosecute any alcohol or drug abuse patient.[facility] CenterIn the event this information is protected by the Federal Confidentiality of Alcohol and Drug Abuse Patient Records regulations: The Federal rules restrict any use of the information to criminally investigate or prosecute any alcohol or drug abuse patient.[facility] CenterIn the event this information is protected by the Federal Confidentiality of Alcohol and Drug Abuse Patient Records regulations: The Federal rules restrict any use of the information to criminally investigate or prosecute any alcohol or drug abuse patient.[facility] CenterIn the event this information is protected by the Federal Confidentiality of Alcohol and Drug Abuse Patient Records regulations: The Federal rules restrict any use of the information to criminally investigate or prosecute any alcohol or drug abuse patient.[facility] CenterIn the event this information is protected by the Federal Confidentiality of Alcohol and Drug Abuse Patient Records regulations: The Federal rules restrict any use of the information to criminally investigate or prosecute any alcohol or drug abuse patient.[facility] CenterIn the event this information is protected by the Federal Confidentiality of Alcohol and Drug Abuse Patient Records regulations: The Federal rules restrict any use of the information to criminally investigate or prosecute any alcohol or drug abuse patient.[facility] CenterIn the event this information is protected by the Federal Confidentiality of Alcohol and Drug Abuse Patient Records regulations: The Federal rules restrict any use of the information to criminally investigate or prosecute any alcohol or drug abuse patient.[facility] CenterIn the event this information is protected by the Federal Confidentiality of Alcohol and Drug Abuse Patient Records regulations: The Federal rules restrict any use of the information to criminally investigate or prosecute any alcohol or drug abuse patient.[facility] CenterIn the event this information is protected by the Federal Confidentiality of Alcohol and Drug Abuse Patient Records regulations: The Federal rules restrict any use of the information to criminally investigate or prosecute any alcohol or drug abuse patient.[facility] CenterIn the event this information is protected by the Federal Confidentiality of Alcohol and Drug Abuse Patient Records regulations: The Federal rules restrict any use of the information to criminally investigate or prosecute any alcohol or drug abuse patient.[facility] CenterIn the event this information is protected by the Federal Confidentiality of Alcohol and Drug Abuse Patient Records regulations: The Federal rules restrict any use of the information to criminally investigate or prosecute any alcohol or drug abuse patient.[facility] CenterIn the event this information is protected by the Federal Confidentiality of Alcohol and Drug Abuse Patient Records regulations: The Federal rules restrict any use of the information to criminally investigate or prosecute any alcohol or drug abuse patient.[facility] CenterIn the event this information is protected by the Federal Confidentiality of Alcohol and Drug Abuse Patient Records regulations: The Federal rules restrict any use of the information to criminally investigate or prosecute any alcohol or drug abuse patient.[facility] CenterIn the event this information is protected by the Federal Confidentiality of Alcohol and Drug Abuse Patient Records regulations: The Federal rules restrict any use of the information to criminally investigate or prosecute any alcohol or drug abuse patient.[facility] CenterIn the event this information is protected by the Federal Confidentiality of Alcohol and Drug Abuse Patient Records regulations: The Federal rules restrict any use of the information to criminally investigate or prosecute any alcohol or drug abuse patient.[facility] CenterIn the event this information is protected by the Federal Confidentiality of Alcohol and Drug Abuse Patient Records regulations: The Federal rules restrict any use of the information to criminally investigate or prosecute any alcohol or drug abuse patient.[facility] CenterIn the event this information is protected by the Federal Confidentiality of Alcohol and Drug Abuse Patient Records regulations: The Federal rules restrict any use of the information to criminally investigate or prosecute any alcohol or drug abuse patient.[facility] CenterIn the event this information is protected by the Federal Confidentiality of Alcohol and Drug Abuse Patient Records regulations: The Federal rules restrict any use of the information to criminally investigate or prosecute any alcohol or drug abuse patient.[facility] CenterIn the event this information is protected by the Federal Confidentiality of Alcohol and Drug Abuse Patient Records regulations: The Federal rules restrict any use of the information to criminally investigate or prosecute any alcohol or drug abuse patient.[facility] CenterIn the event this information is protected by the Federal Confidentiality of Alcohol and Drug Abuse Patient Records regulations: The Federal rules restrict any use of the information to criminally investigate or prosecute any alcohol or drug abuse patient.[facility] CenterIn the event this information is protected by the Federal Confidentiality of Alcohol and Drug Abuse Patient Records regulations: The Federal rules restrict any use of the information to criminally investigate or prosecute any alcohol or drug abuse patient.[facility] CenterIn the event this information is protected by the Federal Confidentiality of Alcohol and Drug Abuse Patient Records regulations: The Federal rules restrict any use of the information to criminally investigate or prosecute any alcohol or drug abuse patient.[facility] Reason for Visit (unrecogniz ed section and content) Reason Comments 6 Month Exam Specialty Diagnoses / Procedures Referred By Juan silver Referred To Contact Family Medicine / FAMILY MEDICINE Diagnoses Mixed hyperlipidemia 6 mth followup Procedures 4C EST Self Steve Baron MD [address] [place] [address] Referral ID Status Reason Start Date Expiration Date Visits Requested Visits Authorized [id number] Closed Financial Clearance Required - OON Payor OON Notification Letter Patient Cleared - Admin/Liquid Chlorine Operator/D irector advise to proceed or did not [...] HIGH MDM 60-74 MINUTES Steve Baron MD [address] [place] [address] Referral ID Status Reason Start Date Expiration Date V isits Requested Visits Authorized [id number] Closed PCP Requested Referral 02/15/2022 02/15/2023 1 [...] Care Teams (unrecognized sec tion and content) Fur Finisher Tailor Relationship Specialty Start Date End Date Steve Baron MD [address], [place] [id number] PCP - General Family Practice 09/03/15 Fur Finisher Tailor Relationship Specialty Start Date End Date Steve Baron MD [address], [place] [id number] PCP - General Family Practice 09/03/15 Fur Finisher Tailor Relationship Specialty Start Date End Date Steve Baron MD [address], [place] [id number] PCP - General Family Practice 09/03/15 Fur Finisher Tailor Relationship Specialty Start Date End Date Steve Baron MD [address], [place] [id number] PCP - General Family Practice 09/03/15 Fur Finisher Tailor Relationship Specialty Start Date End Date Steve Baron MD [address] [place] [place] [address] PCP - General Family Practice 09/03/15 Fur Finisher Tailor Relationship Specialty Start Date End Date Steve Baron MD [address] [place] [address] PCP - General Family Practice 09/03/15 Fur Finisher Tailor Relationship Specialty Start Date End Date Steve Baron MD [address] [place] [address] PCP - General Family Practice 09/03/15 Fur Finisher Tailor Relationship Specialty Start Date End Date Steve Baron MD [address] [place] [address] PCP - General Family Practice 09/03/15 Fur Finisher Tailor Relationship Specialty Start Date End Date Steve Baron MD [address] [place] [address] PCP - General Family Practice 09/03/15 Fur Finisher Tailor Relationship Specialty Start Date End Date Steve Baron MD [address] [place] [address] PCP - General Family Practice 09/03/15 Fur Finisher Tailor Relationship Specialty Start Date End Date Steve Baron MD [address] [place] [address] PCP - General Family Medicine 09/03/15 Fur Finisher Tailor Relationship Specialty Start Date End Date Steve Baron MD [address] [place] [address] PCP - General Family Medicine 09/03/15 Fur Finisher Tailor Relationship Specialty Start Date End Date Steve Baron MD [address] [place] [address] PCP - General Family Medicine 09/03/15 Fur Finisher Tailor Relationship Specialty Start Date End Date Steve Baron MD [address] [place] [address] PCP - General Family Medicine 09/03/15 Fur Finisher Tailor Relationship Specialty Start Date End Date Steve Baron MD [address] [place] [address] PCP - General Family Medicine 09/03/15 Fur Finisher Tailor Relationship Specialty Start Date End Date Steve Baron MD [address] [place] [address] PCP - General Family Medicine 09/03/15 Fur Finisher Tailor Relationship Specialty Start Date End Date Steve Baron MD [address] [place] [address] PCP - General Family Medicine 09/03/15 Fur Finisher Tailor Relationship Specialty Start Date End Date Steve Baron MD [address] [place] [address] PCP - General Family Medicine 09/03/15 Fur Finisher Tailor Relationship Specialty Start Date End Date Steve Baron MD [address] [place] [address] PCP - General Family Medicine 09/03/15 Fur Finisher Tailor Relationship Specialty Start Date End Date Steve Baron MD [address], [place] [id number] PCP - General Family Medicine 09/03/15 Fur Finisher Tailor Relationship Specialty Start Date End Date Steve Baron MD [address] [place] [address] PCP - General Family Medicine 09/03/15 Fur Finisher Tailor Relationship Specialty Start Date End Date Steve Baron MD [address], [place] [address] PCP - General Family Medicine 09/03/15 Fur Finisher Tailor Relationship Specialty Start Date End Date Steve Baron MD [address], [place] [address] PCP - General Family Medicine 09/03/15 Fur Finisher Tailor Relationship Specialty Start Date End Date Steve Baron MD [address] [place] [address] PCP - General Family Medicine 09/03/15 Fur Finisher Tailor Relationship Specialty Start Date End Date Steve Baron MD [address] [place] [address] PCP - General Family Medicine 09/03/15 Fur Finisher Tailor Relationship Specialty Start Date End Date Steve Baron MD [address] [place] [address] PCP - General Family Medicine 09/03/15 Fur Finisher Tailor Relationship Specialty Start Date End Date Steve Baron MD [address] [place] [address] PCP - General Family Medicine 09/03/15 Fur Finisher Tailor Relationship Specialty Start Date End Date Steve Baron MD [address], [place] [address] PCP - General Family Medicine 09/03/15 Sierra Francisco APRN.CARLOS [address] [place] [address] Audiometric Technician Family [facility] 10/22/24 Sindhu Mahmood LINEN ROOM WORKER.LAMINATION INSPECTOR [address] [facility] [place] [address] [facility] 10/22/24 Fur Finisher Tailor Relationship Specialty Start Date End Date Steve Baron MD [address], [place] [address] [phone] PCP - General Family Medicine 09/03/15 Sierra Francisco LINEN ROOM WORKER.LAMINATION INSPECTOR [address] [place] [address] [facility] 10/22/24 Sindhu Mahmood LINEN ROOM WORKER.LAMINATION INSPECTOR [address] [place] [address] [facility] 10/22/24 Fur Finisher Tailor Relationship Specialty Start Date End Date Steve Baron MD [address] [place] [address] PCP - General Family Medicine 09/03/15 Sierra Francisco LINEN ROOM WORKER.LAMINATION INSPECTOR [address] [place] [address] [facility] Medicine 10/22/24 Sindhu Mahmood LINEN ROOM WORKER.LAMINATION INSPECTOR [address] [place] [address] [facility] 10/22/24 Fur Finisher Tailor Relationship Specialty Start Date End Date Steve Baron MD [address], [place] [address] [phone] PCP - General Family Medicine 09/03/15 Sierra Francisco APRN.LAMINATION INSPECTOR [address] [place] [address] [facility] 10/22/24 Sindhu Mahmood APRN.LAMINATION INSPECTOR [address] [facility] [place] [address] [facility] 10/22/24 Fur Finisher Tailor Relationship Specialty Start Date End Date Steve Baron MD [address] [facility], [place] [address] [phone] PCP - General Family Medicine 09/03/15 Sierra Francisco APRN.LAMINATION INSPECTOR [address] [place] [address] [facility] 10/22/24 Sindhu Mahmood LINEN ROOM WORKER.LAMINATION INSPECTOR [address] [place] [address] [facility] 10/22/24 Fur Finisher Tailor Relationship Specialty Start Date End Date Steve Baron MD [address] [place] [address] PCP - General Family Medicine 09/03/15 Sierra Francisco APRN.LAMINATION INSPECTOR [address] [place] [address] [facility] 10/22/24 Sindhu Mahmood APRN.LAMINATION INSPECTOR [address] [place] [address] [facility] 10/22/24 FOR RECORDS PERTAINING TO PATIENTS WHO [...] BE BASED ON THE PRIMARY CLINICAL RECORDS. [facility]. provides no warranty or guarantee of the accuracy or completeness of information in this document.
[2025-10-12 16:23] LABS: Magnesium 2.1 mg/dL (1.5-2.2)
[2025-10-12 16:24] LABS: Alcohol, Blood (Medical)-Serum < 10.1 mg/dL (<=10.0)
--- NOTE | 2025-10-12 16:48 | ECHOD_ITS ---
Reason For Study Reason For Study: TIA/CVA Procedure This was a 2D Doppler, Color Flow transthoracic echocardiogram. Exam performed portable in patient room. Left Ventricle Normal size and thickness. The left ventricular ejection fraction is 65 %. Normal diastololic function. Right Ventricle Normal right ventricle. Atria The left atrium is moderately enlarged. Normal right atrium. Bubble contrast study is negative for PFO/ASD. Mitral Valve Mild (1+) mitral valve insufficiency. Tricuspid Valve Trivial tricuspid valve insufficiency. Normal pulmonary artery pressure. Aortic Valve Trisinus/trileaflet aortic valve. Mild (1+) aortic valve insufficiency. Pulmonic Valve The pulmonic valve is not well visualized. Great Vessels Normal sized aortic root. Pericardium/Pleural No pericardial effusion. Medication Performed a rapid injection of agitated mix of 9 cc saline and 1cc air to assess for atrial septal defect. MMode/2D Measurements & Calculations LVIDd: 5.1 cm IVSd: 0.97 cm Ao root diam: 3.3 cm LVIDs: 3.3 cm LVPWd: 1.1 cm RVDd: 4.1 cm FS: 35.8 % LAV(MOD-bp): 51.2 ml LVAd ap4: 32.7 cm2 SV(MOD-sp4): 62.2 ml LAV(MOD-bp) Indexed: 24.4 ml/m2 LVLd ap4: 9.0 cm SI(MOD-sp4): 29.6 ml/m2 LAV(MOD-sp2): 43.9 ml EDV(MOD-sp4): 96.8 ml LAV(MOD-sp4): 47.1 ml EDV(sp4-el): 100.7 ml LVAs ap4: 16.8 cm2 LVLs ap4: 7.3 cm ESV(MOD-sp4): 34.6 ml ESV(sp4-el): 32.7 ml EF(MOD-sp4): 64.2 % EF(sp4-el): 67.6 % SV(sp4-el): 68.1 ml LA A4 area: 18.6 cm2 LA dimension(2D): 4.6 cm RA A4 area: 17.0 cm2 TAPSE: 2.0 cm Time Measurements MV dec time: 0.30 sec Doppler Measurements & Calculations MV E max pino: 69.2 cm/sec Lat Peak E' Pino: 12.2 cm/sec Med Peak E' Pino: 9.4 cm/sec MV A max pino: 71.9 cm/sec E/E' lat: 5.7 E/E' med: 7.4 MV E/A: 0.96 MV V2 max: 87.1 cm/sec MV P1/2t max pino: 86.3 cm/sec Ao V2 max: 161.2 cm/sec MV max P.0 mmHg MV P1/2t: 107.7 msec Ao max P.4 mmHg MV V2 mean: 46.4 cm/sec MV dec slope: 234.7 cm/sec2 MV mean P.0 mmHg MVA(P1/2t): 2.0 cm2 MV V2 VTI: 29.7 cm LV V1 max: 117.1 cm/sec MR max pino: 516.4 cm/sec PA V2 max: 105.8 cm/sec LV V1 max P.5 mmHg MR max P.7 mmHg TR max pino: 219.1 cm/sec TR max P.2 mmHg ECHO/Echo Complete Interpretation Summary The left ventricular ejection fraction is 65 %. The left atrium is moderately enlarged. Bubble contrast study is negative for PFO/ASD. Mild (1+) mitral valve insufficiency. Mild (1+) aortic valve insufficiency. Ordering Physician: Christine Teresa Performed By: Johny Mcfarland RCS
[2025-10-12 17:00] VITALS: BMI 27.6
[2025-10-12 17:03] VITALS: BMI 27.6
[2025-10-12 17:20] VITALS: BP 149/91; PULSE 77; RESP 18; TEMP 36.8; O2SAT 94
[2025-10-12] MEDS: 0.9% Normal Saline (1000mL) 1,000 ML 100 ML IV (18:07)
[2025-10-12 21:15] VITALS: BP 135/78; PULSE 62; RESP 18; TEMP 36.9; O2SAT 96
[2025-10-12 22:13] VITALS: BMI 27.6
[2025-10-13] VITALS (9 sets, daily range): BP systolic 112–141; BP diastolic 70–92; PULSE 52–71; RESP 16–18; TEMP 36.2–36.9; O2SAT 94–99; BMI 28.2
[2025-10-13] MEDS: 0.9% Saline Lock 10 ML Syringe IV (05:25)
[2025-10-13 07:15] LABS: Hematocrit 41.2 % (40-54); Hemoglobin 13.9 g/dL (13.0-16.5); Immature Granulocytes Count 0.030 X10^3/uL (0.0-0.0); Mean Corp Hgb Conc 33.7 g/dL (32-36); Mean Corpuscular Volume 87.5 fL (80-94); Mean Platelet Vol. 9.3 fl (6.2-12.0); NRBC Flagged by Analyzer 0 % (0-5); Platelet Count 208 K/mm3 (150-450); RBC Distribution Width CV 13.1 % (11.6-14.6); RBC Distribution Width SD 41.9 fl (35.1-43.9); Red Blood Count 4.71 M/mm3 (4.6-6.2); White Blood Count 4.7 K/mm3 (4.4-11.0)
--- NOTE | 2025-10-13 07:16 | PCM.PN.HOSP ---
Reason for Visit Chief Complaint: Memory impairment. Subjective Subjective Patient is a 60-year-old gentleman who presented with transient amnesia. Patient had been seen in the emergency department 4 days prior for acute vertigo. Objective Data Objective Data Vital Signs: Vital Signs Temp Pulse Resp BP Pulse Ox O2 Del Method 98.5 F 60 16 128/83 H 98 Room Air 10/13/25 05:15 10/13/25 05:15 10/13/25 05:15 10/13/25 05:15 10/13/25 05:15 10/13/25 05:15 Oxygen Delivery Method Room Air Weight: 91.8 kg Body Mass Index (BMI) 28.2 Intake & Output: Intake and Output for Last 24 Hours 10/11/25 10/12/25 10/13/25 23:59 23:59 23:59 Intake Total 240 / 480 1240 / 1240 Balance 240 / 480 1240 / 1240 Lab / Micro Data 10/13/25 06:38 10/13/25 06:38 Labs: Laboratory Results - last 24 hr 10/12/25 13:54: WBC 5.8, RBC 5.08, Hgb 14.9, Hct 44.6, MCV 87.8, MCH 29.3, MCHC 33.4, RDW Std Deviation 41.3, RDW Coeff of Gabriele 12.7, Plt Count 249, MPV 9.4, Immature Gran % (Auto) 0.900, Neut % (Auto) 71.9 H, Lymph % (Auto) 17.0 L, [place] % (Auto) 8.7, Eos % (Auto) 1.0, Baso % (Auto) 0.5, Absolute Neuts (auto) 4.2, Absolute Lymphs (auto) 0.98, Nucleated RBC % 0, Sodium 139, Potassium 4.3, Chloride 102, Carbon Dioxide 27.1, Anion Gap 10, BUN 17, Creatinine 1.00, Estim Creat Clear Calc 89.60, Est GFR (MDRD) Non-Af 87, BUN/Creatinine Ratio 16.9, Glucose 97, Lactic Acid 1.0, Calcium 9.2, Magnesium 2.1 10/12/25 14:15: Urine Color Yellow, Urine Clarity Clear, Urine pH 6.0, Ur Specific [place] 1.020, Urine Protein 15 H, Urine Glucose (UA) Normal, Urine Ketones Negative, Urine Occult Blood 10 H, Urine Nitrite Negative, Urine Bilirubin Negative, Urine Urobilinogen Normal, Ur Leukocyte Esterase Negative, Urine RBC 0-5 SEEN, Urine WBC 0 SEEN, Ur Squamous Epith Cells 0 SEEN, Urine Bacteria 0 SEEN, Urine Mucus 0 SEEN, Urine Opiates Screen NEGATIVE, U Buprenorphine Qual NEGATIVE, Ur Oxycodone Screen NEGATIVE, Urine Methadone Screen NEGATIVE, Urine Fentanyl Screen NEGATIVE, Ur Barbiturates Screen NEGATIVE, Ur Phencyclidine Scrn NEGATIVE, Ur Amphetamines Screen NEGATIVE, U Benzodiazepines Scrn NEGATIVE, Urine Cocaine Screen NEGATIVE, U Cannabinoids Screen NEGATIVE 10/12/25 15:53: Ethyl Alcohol < 10.1 10/13/25 06:38: WBC 4.7, RBC 4.71, Hgb 13.9, Hct 41.2, MCV 87.5, MCH 29.5, MCHC 33.7, RDW Std Deviation 41.9, RDW Coeff of Gabriele 13.1, Plt Count 208, MPV 9.3, Immature Gran % (Auto) 0.600, Neut % (Auto) 60.1, Lymph % (Auto) 24.9, [place] % (Auto) 11.4 H, Eos % (Auto) 2.4, Baso % (Auto) 0.6, Absolute Neuts (auto) 2.8, Absolute Lymphs (auto) 1.16, Nucleated RBC % 0 Radiography Diagnostic Testing: Radiology Impression Brain CT 10/12/25 13:42 IMPRESSION: No acute intracranial process. Reading Location: [facility] Head/Neck CTA 10/12/25 13:43 IMPRESSION: No high-grade stenosis or large vessel occlusion. No sizable aneurysm is noted. Scattered mild atherosclerotic plaque. Minimal stenosis of the right carotid siphon. Reading Location: [facility] Physical Exam Narrative GENERAL: cooperative HEENT: Atraumatic; normocephalic EYES; Anicteric, Normal Conjunctiva NECK; supple, normal thyroid, RESPIRATORY: Diminished to auscultation CARDIOVASCULAR: Regular S1 S2, GI: soft, normoactive bowel sounds, : No Renal angle tenderness; EXTREMITIES: No edema, no clubbing, MUSCULOSKELETAL: no muscle wasting NEURO: Awake; no lateralizing signs. SKIN: No Rash PSYCH; Flat affect Assessment & Plan Assessment/Plan (1) TIA (transient ischemic attack): PLAN: Plan Patient is a 60-year-old gentleman who presented with multiple complaints including transient amnesia as well as vertigo admitted to a monitored bed for workup of suspected TIA 1. Transient global amnesia ? Placed on a monitored bed every 4 neurochecks ordered as part of patient's management 2D echo fasting lipid MRI ordered for subsequent management. Patient 2D echo and MRI scheduled to be performed on 10/14/2020 2. Elevated blood pressure ? Patient did not have a known diagnosis of hypertension prior to being admitted. Given his presentation permissive hypertensive protocol being followed until CVA is ruled out. Patient blood pressure has however stabilized 3. Dyslipidemia ? Patient is on pravastatin fasting lipid ordered for a.m. 4. Depression with anxiety ? Patient is on sertraline 5. DVT prophylaxis ? Subcu Lovenox. Time spent in the patient's overall evaluation,decision-making process, review of diagnostic data, adjustment of management, discussion with other providers, nursing nursing and ancillary staff involved in patient's care documentation, 40 Minutes Charges/Coding Visit Charges Inpatient E&M: 13477 Subs Hosp L2 NIHSS NIHSS Nursing Documentation NIHSS Nursing Documentation: NIHSS: Ischemic Stroke/TIA Start: 10/12/25 16:48 Text: For PCU Patients: NIH and Neuro Check every 4 Status: Active hours, PRN and with change in RN caregiver. Freq: [id number] Protocol: Activity Type Activity Date Activity User E-sign Co-sign Detail Recorded Client Recorded Date Recorded By Document 10/13/25 05:20 [id number] 10/13/25 06:38 10/13/25 05:20 NIH Stroke Scale [NIHSS] A score of 0 is normal or asymptomatic . Total possible score is 42. Inpatient: RN or Physician to activate a stroke alert for onset of new stroke symptoms or with NIHSS increase >/= 3 points. Following change in neurological status, NIHSS will be performed per physician order or more frequently PRN. -1a. Level of Consciousness 0 - Alert; keenly responsive -1b. LOC Questions 0 - Answers BOTH questions correctly -1c. LOC Commands 0 - Performs BOTH tasks correctly -2. Best Gaze 0 - Normal -3. Visual 0 - No visual loss -4. Facial Palsy 0 - Normal symmetrical movements -5a. Left Arm 0 - No drift; arm holds 90 ( or 45) degrees for full 10 seconds -5b. Right Arm 0 - No drift; arm holds 90 ( or 45) degrees for full 10 seconds -6a. Left Leg 0 - No drift; leg holds 30- degree position for full 5 seconds -6b. Right Leg 0 - No drift; leg holds 30- degree position for full 5 seconds -7. Limb Ataxia 0 - Absent -8. Sensory 0 - Normal; no sensory loss -9. Best Language 0 - No aphasia; normal -10. Dysarthria 0 - Normal -11. Extinction and Inattention 0 - No abnormality -Total 0 Query Text:A score of 0 is normal or asymptomatic. Total possible score is 42 . ED: Notify Physician for NIHSS increase by > / = 3 points. Inpatient: RN or Physician to activate a stroke alert for NIHSS increase of > / = 3 points. Coma Scale [Assess] -Eye Opening Spontaneous -Motor Obeys Commands -Verbal Oriented [Total] -Coma Scale Total 15
[2025-10-13 07:45] LABS: AST(SGOT) 24 U/L (<=37); Alanine Aminotransfer ALT/SGPT 40 U/L (<=46); Albumin, Serum 3.9 g/dL (3.4-4.8); Alkaline Phosphatase 41 U/L (40-129); Anion Gap 10 (5-15); BUN 15 mg/dL (4-19); BUN/Creat Ratio 16.2 RATIO (10-20); Calcium,Total 8.6 mg/dL (7.6-11.0); Carbon Dioxide 24.3 mmol/L (21.0-32.0); Chloride 106 mmol/L (98-108); Cholesterol 177 mg/dL (<=200); Estimated Creatinine Clearance 98.91 ml/min (50-250); Globulin 2.4 g/dL (2.2-4.2); Glucose 106 mg/dL (70-99); Low Density Lipoprotein Calc. 123 mg/dL; Potassium 4.4 mmol/L (3.3-5.1); Triglycerides 86 mg/dL; Very Low Density Lipoprotein 17 mg/dL (5-40); cholesterol:hdl ratio screen 4.68
--- NOTE | 2025-10-13 10:41 | STROKE.CONS ---
Assessment and Plan: Stroke Assessment/Plan SAADIA YEUNG is a 60 M with prior tobacco use, HLD, Anxiety and Depression who presents to the ER with acute episode of confusion and amnesia. His initial BP was elevated per EMS and subsequent reads were normal. Not a TNK or MT candidate. Also has chronic mild issues with memory impairment. Neurological examination shows intact examination. Neuroimaging shows CTA negative. HbA1C = 5.4, LDL = 123. Suspect he had Transient global amnesia Plan Recommend ASA 81mg MRI Brain, ECHO pending Continue statin, target LDL <70 Orthostatics Aim normotension. 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 Can get Vitamin b12, folate Thanks for consult. Please call with questions. Spent 80 min in evaluation and management. HPI Consult Data Date of Consult: 10/13/25 HPI Narrative HPI Narrative: SAADIA YEUNG, is a 60 M with prior tobacco use, HLD, Anxiety and Depression who presents to the ER with acute episode of confusion. Per chart he began to have issues remembering short-term and long-term items including the name of his neighbor or events of the evening. He came home in the afternoon and was talking to his son when he was asking him strange questions that did not make sense. He did not have recollection of events that happened for half -one hour. Son called the squad. The patient has faint recollection of the squads arrival and ride to the ER prior. No recent head trauma or fall and no associated headache or other neurological symptoms but given this confusion and recent issues prompted son to bring patient in for evaluation. 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 Per EMS patient initial blood pressure was 220 prior to arrival. In the ED NIH stroke assessment 0. He was recently evaluated for vertigo which occurred on tuesday. these symptoms had resolved. This am mild dizziness while getting from sitting position and ambulating He has on and off difficulty recalling the right words for last several years. He does not forget things which occur on daily basis. LDL: 123 CT brain with no acute intracranial findings CTA head and neck with no evidence of any high-grade stenosis or large vessel occlusion, scattered mild atherosclerotic plaque and minimal stenosis in the right carotid siphon [facility] Medical History (Updated 10/12/25 @ 16:[address] Christine Teresa MD) CKD (chronic kidney disease), stage II Former tobacco use Anxiety and depression HLD (hyperlipidemia) Home Medications ?Medication ?Instructions ?Recorded ?Last Taken ?Type meclizine 25 mg tablet 25 mg PO TID PRN dizziness #20 tabs 10/07/25 Unknown Rx pravastatin 20 mg tablet 20 mg PO DAILY 10/07/25 10/06/25 History sertraline 100 mg tablet 100 mg PO DAILY 10/07/25 10/06/25 History vitamin B complex 1 tab PO DAILY 10/07/25 10/06/25 History Allergy/AdvReac Type Severity Reaction Status Date / Time simvastatin (From Zocor) AdvReac Mild Pain in Verified 10/12/25 13:22 joints erythromycin base (From AdvReac Abd Verified 10/12/25 13:22 E-Mycin) cramps/diarrhea Family History (Updated 10/12/25 @ 16:[address] Christine Teresa MD) Mother CAD (coronary artery disease) Heart disease Hypertension Myocardial infarction Father Diabetes Hypertension Surgical History (Updated 10/12/25 @ 16:[address] Christine Teresa MD) History of umbilical hernia repair Status post trigger finger release S/P arthroscopic surgery of right knee Social History (Updated 10/12/25 @ 16:[address] Christine Teresa MD) household members: none Smoking Status: Former smoker how long ago did patient quit smoking: Quit 30 years prior, prior to this 1/2 pack/day intermittent since teen. alcohol intake: never substance use type: does not use Vital Signs Vital Signs Vital Signs: 10/12/25 13:16 10/12/25 14:46 10/12/25 16:10 Temperature 97.8 F 98.5 F Temperature Source Oral Pulse Rate 71 80 79 Pulse Strength Respiratory Rate 10 L 16 16 Respiratory Effort Respiratory Depth Respiratory Pattern Blood Pressure 168/83 H 134/80 H 137/86 H Blood Pressure Mean 111 98 103 Blood Pressure Source Blood Pressure Position Blood Pressure Location Pulse Ox 98 97 98 Oxygen Delivery Method Room Air Room Air 10/12/25 17:20 10/12/25 17:25 10/12/25 19:30 Temperature 98.3 F Temperature Source Temporal Pulse Rate 77 Pulse Strength Respiratory Rate 18 Respiratory Effort Normal Non-Labored Normal Non-Labored Respiratory Depth Normal Normal Respiratory Pattern Normal Normal Blood Pressure 149/91 H Blood Pressure Mean 110 Blood Pressure Source Monitor Blood Pressure Position Semi-Fowlers Blood Pressure Location Left Arm Pulse Ox 94 Oxygen Delivery Method Room Air Room Air Room Air 10/12/25 20:09 10/12/25 21:15 10/13/25 00:55 Temperature 98.4 F Temperature Source Oral Pulse Rate 62 Pulse Strength Normal (2+) Respiratory Rate 18 Respiratory Effort Respiratory Depth Respiratory Pattern Blood Pressure 135/78 H Blood Pressure Mean 97 Blood Pressure Source Monitor Blood Pressure Position Semi-Fowlers Blood Pressure Location Left Arm Pulse Ox 96 98 Oxygen Delivery Method Room Air Room Air 10/13/25 01:15 10/13/25 01:20 10/13/25 05:15 Temperature 97.7 F L 98.5 F Temperature Source Oral Oral Pulse Rate 52 L 60 Pulse Strength Respiratory Rate 16 16 Respiratory Effort Normal Non-Labored Respiratory Depth Normal Respiratory Pattern Normal Blood Pressure 112/70 128/83 H Blood Pressure Mean 84 98 Blood Pressure Source Monitor Monitor Blood Pressure Position Semi-Fowlers Semi-Fowlers Blood Pressure Location Left Arm Left Arm Pulse Ox 98 98 Oxygen Delivery Method Room Air Room Air Room Air 10/13/25 07:00 10/13/25 08:00 10/13/25 08:00 Temperature Temperature Source Pulse Rate 59 L Pulse Strength Normal (2+) Respiratory Rate Respiratory Effort Normal Non-Labored Respiratory Depth Normal Respiratory Pattern Normal Blood Pressure Blood Pressure Mean Blood Pressure Source Blood Pressure Position Blood Pressure Location Pulse Ox Oxygen Delivery Method Room Air 10/13/25 08:09 10/13/25 09:15 Temperature 97.9 F Temperature Source Temporal Pulse Rate 71 Pulse Strength Respiratory Rate 18 Respiratory Effort Respiratory Depth Respiratory Pattern Blood Pressure 135/70 H Blood Pressure Mean 91 Blood Pressure Source Monitor Blood Pressure Position Sitting Blood Pressure Location Left Arm Pulse Ox 99 97 Oxygen Delivery Method Room Air Room Air Weight Weight: 91.8 kg Body Mass Index (BMI) 28.2 Physical Exam HEENT normocephalic Head and Scalp: normal to inspection Face and Sinus: normal facial exam Nose: external nose normal Resp normal respiratory effort Neuro Neuro Narrative: Awake, alert, oriented X3. Knows he is in hospital, tells the month accurately CN 2-12 intact Motor power 5/5 Sensation: Intact No ataxia Lab / Micro Data 10/13/25 06:38 10/13/25 06:38 Labs: Laboratory Results - last 24 hr 10/12/25 13:54: WBC 5.8, RBC 5.08, Hgb 14.9, Hct 44.6, MCV 87.8, MCH 29.3, MCHC 33.4, RDW Std Deviation 41.3, RDW Coeff of Gabriele 12.7, Plt Count 249, MPV 9.4, Immature Gran % (Auto) 0.900, Neut % (Auto) 71.9 H, Lymph % (Auto) 17.0 L, [place] % (Auto) 8.7, Eos % (Auto) 1.0, Baso % (Auto) 0.5, Absolute Neuts (auto) 4.2, Absolute Lymphs (auto) 0.98, Nucleated RBC % 0, Sodium 139, Potassium 4.3, Chloride 102, Carbon Dioxide 27.1, Anion Gap 10, BUN 17, Creatinine 1.00, Estim Creat Clear Calc 89.60, Est GFR (MDRD) Non-Af 87, BUN/Creatinine Ratio 16.9, Glucose 97, Lactic Acid 1.0, Calcium 9.2, Magnesium 2.1 10/12/25 14:15: Urine Color Yellow, Urine Clarity Clear, Urine pH 6.0, Ur Specific [place] 1.020, Urine Protein 15 H, Urine Glucose (UA) Normal, Urine Ketones Negative, Urine Occult Blood 10 H, Urine Nitrite Negative, Urine Bilirubin Negative, Urine Urobilinogen Normal, Ur Leukocyte Esterase Negative, Urine RBC 0-5 SEEN, Urine WBC 0 SEEN, Ur Squamous Epith Cells 0 SEEN, Urine Bacteria 0 SEEN, Urine Mucus 0 SEEN, Urine Opiates Screen NEGATIVE, U Buprenorphine Qual NEGATIVE, Ur Oxycodone Screen NEGATIVE, Urine Methadone Screen NEGATIVE, Urine Fentanyl Screen NEGATIVE, Ur Barbiturates Screen NEGATIVE, Ur Phencyclidine Scrn NEGATIVE, Ur Amphetamines Screen NEGATIVE, U Benzodiazepines Scrn NEGATIVE, Urine Cocaine Screen NEGATIVE, U Cannabinoids Screen NEGATIVE 10/12/25 15:53: Ethyl Alcohol < 10.1 10/13/25 06:38: WBC 4.7, RBC 4.71, Hgb 13.9, Hct 41.2, MCV 87.5, MCH 29.5, MCHC 33.7, RDW Std Deviation 41.9, RDW Coeff of Gabriele 13.1, Plt Count 208, MPV 9.3, Immature Gran % (Auto) 0.600, Neut % (Auto) 60.1, Lymph % (Auto) 24.9, [place] % (Auto) 11.4 H, Eos % (Auto) 2.4, Baso % (Auto) 0.6, Absolute Neuts (auto) 2.8, Absolute Lymphs (auto) 1.16, Nucleated RBC % 0, Sodium 140, Potassium 4.4, Chloride 106, Carbon Dioxide 24.3, Anion Gap 10, BUN 15, Creatinine 0.92, Estim Creat Clear Calc 98.91, Est GFR (MDRD) Non-Af 96, BUN/Creatinine Ratio 16.2, Glucose 106 H, Hemoglobin A1c 5.4, Calcium 8.6, Total Bilirubin 0.40, AST 24, ALT 40, Alkaline Phosphatase 41, Total Protein 6.3, Albumin 3.9, Globulin 2.4, Albumin/Globulin Ratio 1.7, Triglycerides 86, Cholesterol 177, LDL Cholesterol, Calc 123, VLDL Cholesterol 17, HDL Cholesterol 38 L, Cholesterol/HDL Ratio 4.68, TSH 1.540 Imaging Radiology Impression Brain CT 10/12/25 13:42 IMPRESSION: No acute intracranial process. Reading Location: [facility] Head/Neck CTA 10/12/25 13:43 IMPRESSION: No high-grade stenosis or large vessel occlusion. No sizable aneurysm is noted. Scattered mild atherosclerotic plaque. Minimal stenosis of the right carotid siphon. Reading Location: [facility] Active Medications Active Medications Active Medications: Current Medications Generic Name Dose Route Start Last Admin Trade Name Freq PRN Reason Stop Dose Admin Acetaminophen 650 mg 10/12/25 16:48 Acetaminophen 325 Mg Tablet PO Q4H PRN PRN Fever, pain 1-08/23 Al Hydroxide/Mg Hydroxide 30 ml 10/12/25 16:48 Mag Hydrox/Al Hydrox/Simeth 30 Ml Udc PO Q6H PRN PRN Gastric Burning Albuterol Sulfate 2.5 mg 10/12/25 16:48 Albuterol 2.5 Mg/3 Ml Vial.Neb. INHALATION Q2H PRN PRN Dyspnea, wheezing Aspirin 81 mg 10/13/25 08:00 10/13/25 10:02 Aspirin 81 Mg Tab.Chew PO 81 mg BREAKFAST TABITHA Administration Enoxaparin Sodium 40 mg 10/13/25 10:00 10/13/25 10:02 Enoxaparin 40 Mg/0.4 Ml Syringe SC 40 mg DAILY TABITHA Administration Guaifenesin 20 ml 10/12/25 16:48 Guaifenesin 10 Ml Udc (200mg/10ml) PO Q4H PRN PRN COUGH Hydralazine HCl 5 mg 10/12/25 16:48 Hydralazine 20 Mg/Ml Vial IV 10/13/25 16:48 Q30M PRN maintain BP parameters with HR <60 Labetalol HCl 10 - 20 mg 10/12/25 16:48 Labetalol 20 Mg/4 Ml Vial IV 10/13/25 16:48 Q10M PRN PRN maintain BP parameters with HR >/=60 Meclizine HCl 25 mg 10/12/25 16:48 Meclizine Hcl 25 Mg Tablet PO TID PRN PRN DIZZINESS Melatonin 3 mg 10/12/25 16:48 Melatonin 3 Mg Tablet PO QHS PRN PRN INSOMNIA Ondansetron HCl 4 mg 10/12/25 16:48 Ondansetron 4 Mg/2 Ml Vial IV Q8H PRN PRN NAUSEA/VOMITING Pravastatin Sodium 20 mg 10/12/25 22:00 10/12/25 21:52 Pravastatin 20 Mg Tablet PO 20 mg QHS TABITHA Administration Senna/Docusate Sodium 2 tablet 10/12/25 16:48 Senna/Docusate Sodium 1 Tablet PO BID PRN PRN Constipation Sertraline HCl 100 mg 10/12/25 22:00 10/12/25 21:52 Sertraline 100 Mg Tablet PO 100 mg QHS TABITHA Administration Sodium Chloride 10 - 40 ml 10/12/25 17:02 10/13/25 05:25 0.9% Saline Lock 10 Ml Syringe IV 5 ml UD PRN Administration SALINE FLUSH NIHSS NIHSS Nursing Documentation NIHSS Nursing Documentation: NIHSS: Ischemic Stroke/TIA Start: 10/12/25 16:48 Text: For PCU Patients: NIH and Neuro Check every 4 Status: Active hours, PRN and with change in RN caregiver. Freq: [id number] Protocol: Activity Type Activity Date Activity User E-sign Co-sign Detail Recorded Client Recorded Date Recorded By Document 10/13/25 09:15 [email or web address] [id number] 10/13/25 09:58 [email or web address] 10/13/25 09:15 NIH Stroke Scale [NIHSS] A score of 0 is normal or asymptomatic . Total possible score is 42. Inpatient: RN or Physician to activate a stroke alert for onset of new stroke symptoms or with NIHSS increase >/= 3 points. Following change in neurological status, NIHSS will be performed per physician order or more frequently PRN. -1a. Level of Consciousness 0 - Alert; keenly responsive -1b. LOC Questions 0 - Answers BOTH questions correctly -1c. LOC Commands 0 - Performs BOTH tasks correctly -2. Best Gaze 0 - Normal -3. Visual 0 - No visual loss -4. Facial Palsy 0 - Normal symmetrical movements -5a. Left Arm 0 - No drift; arm holds 90 ( or 45) degrees for full 10 seconds -5b. Right Arm 0 - No drift; arm holds 90 ( or 45) degrees for full 10 seconds -6a. Left Leg 0 - No drift; leg holds 30- degree position for full 5 seconds -6b. Right Leg 0 - No drift; leg holds 30- degree position for full 5 seconds -7. Limb Ataxia 0 - Absent -8. Sensory 0 - Normal; no sensory loss -9. Best Language 0 - No aphasia; normal -10. Dysarthria 0 - Normal -11. Extinction and Inattention 0 - No abnormality -Total 0 Query Text:A score of 0 is normal or asymptomatic. Total possible score is 42 . ED: Notify Physician for NIHSS increase by > / = 3 points. Inpatient: RN or Physician to activate a stroke alert for NIHSS increase of > / = 3 points. Coma Scale [Assess] -Eye Opening Spontaneous -Motor Obeys Commands -Verbal Oriented [Total] -Coma Scale Total 15 NIHSS 1a. Level of Consciousness: 0 - Alert; keenly responsive 1b. LOC Questions: 0 - Answers BOTH questions correctly 1c. LOC Commands: 0 - Performs BOTH tasks correctly 2. Best Gaze: 0 - Normal 3. Visual: 0 - No visual loss 4. Facial Palsy: 0 - Normal symmetrical movements 5a. Left Arm: 0 - No drift; arm holds 90 (or 45) degrees for full 10 seconds 5b. Right Arm: 0 - No drift; arm holds 90 (or 45) degrees for full 10 seconds 6a. Left Le - No drift; leg holds 30-degree position for full 5 seconds 6b. Right Le - No drift; leg holds 30-degree position for full 5 seconds 7. Limb Ataxia: 0 - Absent 8. Sensory: 0 - Normal; no sensory loss 9. Best Language: 0 - No aphasia; normal 10. Dysarthria: 0 - Normal 11. Extinction and Inattention: 0 - No abnormality Total: 0
[2025-10-14 01:15] VITALS: BP 119/68; PULSE 54; RESP 16; TEMP 36.8; O2SAT 97
[2025-10-14 02:01] VITALS: BMI 28.3
[2025-10-14 05:15] VITALS: BP 115/75; PULSE 66; RESP 18; TEMP 36.7; O2SAT 97
[2025-10-14] MEDS: 0.9% Saline Lock 10 ML Syringe IV (05:19)
--- NOTE | 2025-10-14 06:00 | MRI_ITS ---
PROCEDURE: BRAIN WITHOUT CONTRAST 10/14/2025 REASON FOR EXAM: TIA/CVA TECHNIQUE: Procedure Code: MRIBR Modality: MR Procedure: BRAIN WITHOUT CONTRAST Multiplanar and multisequence images were obtained. COMPARISON: CT head October 12, 2025. FINDINGS: Brain: Normal signal intensities. Ventricles: Normal. Major Intracranial Vessels: Patent Sinuses: Clear. Mastoids: Clear. MRI/Brain without Contrast IMPRESSION: Unremarkable MRI brain without acute abnormalities. Reading Location: [id number]
--- NOTE | 2025-10-14 07:28 | PCM.PN.HOSP ---
Reason for Visit Chief Complaint: Memory impairment. Subjective Subjective Patient seen underwent MRI this a.m. awaiting result. Also scheduled to undergo 2D echo if both come back unremarkable plan is for patient to be discharged home Objective Data Objective Data Vital Signs: Vital Signs Temp Pulse Resp BP Pulse Ox O2 Del Method 98.0 F 66 18 115/75 97 Room Air 10/14/25 05:15 10/14/25 05:15 10/14/25 05:15 10/14/25 05:15 10/14/25 05:15 10/14/25 05:15 Oxygen Delivery Method Room Air Weight: 92.3 kg Body Mass Index (BMI) 28.3 Intake & Output: Intake and Output for Last 24 Hours 10/12/25 10/13/25 10/14/25 23:59 23:59 23:59 Intake Total 240 / 480 1959 Balance 240 / 480 1959 Lab / Micro Data 10/13/25 06:38 10/13/25 06:38 Labs: Laboratory Results - last 24 hr 10/13/25 06:38: Sodium 140, Potassium 4.4, Chloride 106, Carbon Dioxide 24.3, Anion Gap 10, BUN 15, Creatinine 0.92, Estim Creat Clear Calc 98.91, Est GFR (MDRD) Non-Af 96, BUN/Creatinine Ratio 16.2, Glucose 106 H, Hemoglobin A1c 5.4, Calcium 8.6, Total Bilirubin 0.40, AST 24, ALT 40, Alkaline Phosphatase 41, Total Protein 6.3, Albumin 3.9, Globulin 2.4, Albumin/Globulin Ratio 1.7, Triglycerides 86, Cholesterol 177, LDL Cholesterol, Calc 123, VLDL Cholesterol 17, HDL Cholesterol 38 L, Cholesterol/HDL Ratio 4.68, TSH 1.540 Physical Exam Narrative GENERAL: cooperative HEENT: Atraumatic; normocephalic EYES; Anicteric, Normal Conjunctiva NECK; supple, normal thyroid, RESPIRATORY: Diminished to auscultation CARDIOVASCULAR: Regular S1 S2, GI: soft, normoactive bowel sounds, : No Renal angle tenderness; EXTREMITIES: No edema, no clubbing, MUSCULOSKELETAL: no muscle wasting NEURO: Awake; no lateralizing signs. SKIN: No Rash PSYCH; Flat affect Assessment & Plan Assessment/Plan (1) TIA (transient ischemic attack): PLAN: Plan Patient is a 60-year-old gentleman who presented with multiple complaints including transient amnesia as well as vertigo admitted to a monitored bed for workup of suspected TIA 1. Transient global amnesia ? Placed on a monitored bed every 4 neurochecks ordered as part of patient's management 2D echo fasting lipid MRI ordered for subsequent management. Patient 2D echo and MRI scheduled to be performed on 10/14/2025 ?10/14/2025;Patient seen underwent MRI this a.m. awaiting result. Also scheduled to undergo 2D echo if both come back unremarkable plan is for patient to be discharged home 2. Elevated blood pressure ? Patient did not have a known diagnosis of hypertension prior to being admitted. Given his presentation permissive hypertensive protocol being followed until CVA is ruled out. Patient blood pressure has however stabilized 3. Dyslipidemia ? Patient is on pravastatin fasting lipid ordered for a.m. 4. Depression with anxiety ? Patient is on sertraline 5. DVT prophylaxis ? Subcu Lovenox. Time spent in the patient's overall evaluation,decision-making process, review of diagnostic data, adjustment of management, discussion with other providers, nursing nursing and ancillary staff involved in patient's care documentation, 35 Minutes Charges/Coding Visit Charges Inpatient E&M: 52848 Subs Hosp L2 NIHSS NIHSS Nursing Documentation NIHSS Nursing Documentation: NIHSS: Ischemic Stroke/TIA Start: 10/12/25 16:48 Text: For PCU Patients: NIH and Neuro Check every 4 Status: Active hours, PRN and with change in RN caregiver. Freq: [id number] Protocol: Activity Type Activity Date Activity User E-sign Co-sign Detail Recorded Client Recorded Date Recorded By Document 10/14/25 05:15 [id number] 10/14/25 05:19 10/14/25 05:15 NIH Stroke Scale [NIHSS] A score of 0 is normal or asymptomatic . Total possible score is 42. Inpatient: RN or Physician to activate a stroke alert for onset of new stroke symptoms or with NIHSS increase >/= 3 points. Following change in neurological status, NIHSS will be performed per physician order or more frequently PRN. -1a. Level of Consciousness 0 - Alert; keenly responsive -1b. LOC Questions 0 - Answers BOTH questions correctly -1c. LOC Commands 0 - Performs BOTH tasks correctly -2. Best Gaze 0 - Normal -3. Visual 0 - No visual loss -4. Facial Palsy 0 - Normal symmetrical movements -5a. Left Arm 0 - No drift; arm holds 90 ( or 45) degrees for full 10 seconds -5b. Right Arm 0 - No drift; arm holds 90 ( or 45) degrees for full 10 seconds -6a. Left Leg 0 - No drift; leg holds 30- degree position for full 5 seconds -6b. Right Leg 0 - No drift; leg holds 30- degree position for full 5 seconds -7. Limb Ataxia 0 - Absent -8. Sensory 0 - Normal; no sensory loss -9. Best Language 0 - No aphasia; normal -10. Dysarthria 0 - Normal -11. Extinction and Inattention 0 - No abnormality -Total 0 Query Text:A score of 0 is normal or asymptomatic. Total possible score is 42 . ED: Notify Physician for NIHSS increase by > / = 3 points. Inpatient: RN or Physician to activate a stroke alert for NIHSS increase of > / = 3 points. Coma Scale [Assess] -Eye Opening Spontaneous -Motor Obeys Commands -Verbal Oriented [Total] -Coma Scale Total 15
[2025-10-14 09:15] VITALS: BP 126/73; PULSE 73; RESP 16; TEMP 36.8; O2SAT 95
[2025-10-14 10:00] VITALS: BMI 28.3
--- NOTE | 2025-10-14 10:40 | CASEMGMT ---
Social Work Per imaging pt negative for stroke, therefore PHQ9 not completed. KP Cardona
--- NOTE | 2025-10-14 11:46 | STROKE.CONS ---
Assessment and Plan: Stroke Assessment/Plan SAADIA YEUNG is a 60 M with a history of HLD who presents for evaluation of memory loss. Neurological examination shows NIH 0. Neuroimaging shows MRI and CTA wnl. Dx - TGA Although formal pathology is unkown, it is considered a vascular event. I would start pt on ASA 81mg. Conintue Statin. And Monitor blood pressure to make sure SBP < 130. - Anti-platelet medication: Aspirin 81 mg daily - Occupational/ Physical therapy consults - DVT prophylaxis with SCDs and heparin SQ - Vascular risk factor modification. The following are the recommended guidelines: LDL Goal < 70 Smoking Cessation Diabetes Management terminal operations manager blood pressure control should achieve <130/80 mmHg. BP management should aim to achieve intermission coordinator contorl in a reasonable amount of time, taking into consideration the individual patient's requirements and characteristics. Weight Management: Goal for BMI is 18.5 -24.9 kg/m2 Alcohol: No more than 2 drinks/day for men or 1 drink/day for non- women - Promote lifestyle modification: weight control, physical activity, moderation of alcohol intake, moderate sodium intake. Followup with PCP in 1-2 weeks, and in Cognitive Neurology clinic in 6-12 weeks HPI Consult Data Date of Consult: 10/14/25 HPI Narrative HPI Narrative: SAADIA YEUNG, is a 60 M who presents [ ] [facility] Medical History (Updated 10/12/25 @ 16:[address] Christine Teresa MD) CKD (chronic kidney disease), stage II Former tobacco use Anxiety and depression HLD (hyperlipidemia) Home Medications ?Medication ?Instructions ?Recorded ?Last Taken ?Type meclizine 25 mg tablet 25 mg PO TID PRN dizziness #20 tabs 10/07/25 Unknown Rx pravastatin 20 mg tablet 20 mg PO DAILY 10/07/25 10/06/25 History sertraline 100 mg tablet 100 mg PO DAILY 10/07/25 10/06/25 History vitamin B complex 1 tab PO DAILY 10/07/25 10/06/25 History Allergy/AdvReac Type Severity Reaction Status Date / Time simvastatin (From Zocor) AdvReac Mild Pain in Verified 10/12/25 13:22 joints erythromycin base (From AdvReac Abd Verified 10/12/25 13:22 E-Mycin) cramps/diarrhea Family History (Updated 10/12/25 @ 16:[address] Christine Teresa MD) Mother CAD (coronary artery disease) Heart disease Hypertension Myocardial infarction Father Diabetes Hypertension Surgical History (Updated 10/12/25 @ 16:[address] Christine Teresa MD) History of umbilical hernia repair Status post trigger finger release S/P arthroscopic surgery of right knee Social History (Updated 10/12/25 @ 16:[address] Christine Teresa MD) household members: none Smoking Status: Former smoker how long ago did patient quit smoking: Quit 30 years prior, prior to this 1/2 pack/day intermittent since teen. alcohol intake: never substance use type: does not use Vital Signs Vital Signs Vital Signs: 10/13/25 13:15 10/13/25 13:58 10/13/25 17:15 Temperature 97.4 F L 97.2 F L Temperature Source Temporal Temporal Pulse Rate 71 61 Pulse Strength Respiratory Rate 18 18 Respiratory Effort Normal Non-Labored Respiratory Depth Normal Respiratory Pattern Normal Blood Pressure 141/83 H 135/92 H Blood Pressure Mean 102 106 Blood Pressure Source Monitor Monitor Blood Pressure Position Semi-Fowlers Semi-Fowlers Blood Pressure Location Left Arm Left Arm Pulse Ox 95 94 Oxygen Delivery Method Room Air Room Air Room Air 10/13/25 19:45 10/13/25 21:15 10/13/25 22:00 Temperature 97.3 F L Temperature Source Temporal Pulse Rate 55 L Pulse Strength Normal (2+) Respiratory Rate 16 Respiratory Effort Normal Non-Labored Respiratory Depth Normal Respiratory Pattern Normal Blood Pressure 124/74 H Blood Pressure Mean 90 Blood Pressure Source Monitor Blood Pressure Position Semi-Fowlers Blood Pressure Location Left Arm Pulse Ox 97 Oxygen Delivery Method Room Air Room Air 10/14/25 01:15 10/14/25 01:20 10/14/25 05:15 Temperature 98.3 F 98.0 F Temperature Source Oral Oral Pulse Rate 54 L 66 Pulse Strength Respiratory Rate 16 18 Respiratory Effort Normal Non-Labored Respiratory Depth Normal Respiratory Pattern Normal Blood Pressure 119/68 115/75 Blood Pressure Mean 85 88 Blood Pressure Source Monitor Monitor Blood Pressure Position Semi-Fowlers Semi-Fowlers Blood Pressure Location Left Arm Left Arm Pulse Ox 97 97 Oxygen Delivery Method Room Air Room Air Room Air 10/14/25 07:55 10/14/25 09:15 10/14/25 10:28 Temperature 98.2 F Temperature Source Oral Pulse Rate 73 Pulse Strength Normal (2+) Respiratory Rate 16 Respiratory Effort Respiratory Depth Respiratory Pattern Blood Pressure 126/73 H Blood Pressure Mean 90 Blood Pressure Source Monitor Blood Pressure Position Semi-Fowlers Blood Pressure Location Left Arm Pulse Ox 95 Oxygen Delivery Method Room Air Room Air 10/14/25 10:34 Temperature Temperature Source Pulse Rate Pulse Strength Respiratory Rate Respiratory Effort Normal Non-Labored Respiratory Depth Normal Respiratory Pattern Normal Blood Pressure Blood Pressure Mean Blood Pressure Source Blood Pressure Position Blood Pressure Location Pulse Ox Oxygen Delivery Method Room Air Weight Weight: 92.3 kg Body Mass Index (BMI) 28.3 EEG Results Procedure Details EEG Procedure Details: SAADIA YEUNG is a 60 year old M with a past medical history of , who presents for evaluation of Electroencephalogram on DATE at TIME Lab / Micro Data 10/13/25 06:38 10/13/25 06:38 Imaging Radiology Impression Brain MRI 10/14/25 06:00 IMPRESSION: Unremarkable MRI brain without acute abnormalities. Reading Location: [facility] Active Medications Active Medications Active Medications: Current Medications Generic Name Dose Route Start Last Admin Trade Name Freq PRN Reason Stop Dose Admin Acetaminophen 650 mg 10/12/25 16:48 Acetaminophen 325 Mg Tablet PO Q4H PRN PRN Fever, pain 1-08/23 Al Hydroxide/Mg Hydroxide 30 ml 10/12/25 16:48 Mag Hydrox/Al Hydrox/Simeth 30 Ml Udc PO Q6H PRN PRN Gastric Burning Albuterol Sulfate 2.5 mg 10/12/25 16:48 Albuterol 2.5 Mg/3 Ml Vial.Neb. INHALATION Q2H PRN PRN Dyspnea, wheezing Aspirin 81 mg 10/13/25 08:00 10/14/25 10:12 Aspirin 81 Mg Tab.Chew PO 81 mg BREAKFAST TABITHA Administration Enoxaparin Sodium 40 mg 10/13/25 10:00 10/14/25 10:14 Enoxaparin 40 Mg/0.4 Ml Syringe SC Not Given DAILY TABITHA Guaifenesin 20 ml 10/12/25 16:48 Guaifenesin 10 Ml Udc (200mg/10ml) PO Q4H PRN PRN COUGH Meclizine HCl 25 mg 10/12/25 16:48 Meclizine Hcl 25 Mg Tablet PO TID PRN PRN DIZZINESS Melatonin 3 mg 10/12/25 16:48 Melatonin 3 Mg Tablet PO QHS PRN PRN INSOMNIA Ondansetron HCl 4 mg 10/12/25 16:48 Ondansetron 4 Mg/2 Ml Vial IV Q8H PRN PRN NAUSEA/VOMITING Pravastatin Sodium 20 mg 10/12/25 22:00 10/13/25 21:00 Pravastatin 20 Mg Tablet PO 20 mg QHS TABITHA Administration Senna/Docusate Sodium 2 tablet 10/12/25 16:48 Senna/Docusate Sodium 1 Tablet PO BID PRN PRN Constipation Sertraline HCl 100 mg 10/12/25 22:00 10/13/25 21:00 Sertraline 100 Mg Tablet PO 100 mg QHS TABITHA Administration Sodium Chloride 10 - 40 ml 10/12/25 17:02 10/14/25 05:19 0.9% Saline Lock 10 Ml Syringe IV 10 ml UD PRN Administration SALINE FLUSH NIHSS NIHSS Nursing Documentation NIHSS Nursing Documentation: NIHSS: Ischemic Stroke/TIA Start: 10/12/25 16:48 Text: For PCU Patients: NIH and Neuro Check every 4 Status: Complete hours, PRN and with change in RN caregiver. Freq: [id number] Protocol: Activity Type Activity Date Activity User E-sign Co-sign Detail Recorded Client Recorded Date Recorded By Document 10/14/25 09:15 [id number] 10/14/25 10:27 10/14/25 09:15 NIH Stroke Scale [NIHSS] A score of 0 is normal or asymptomatic . Total possible score is 42. Inpatient: RN or Physician to activate a stroke alert for onset of new stroke symptoms or with NIHSS increase >/= 3 points. Following change in neurological status, NIHSS will be performed per physician order or more frequently PRN. -1a. Level of Consciousness 0 - Alert; keenly responsive -1b. LOC Questions 0 - Answers BOTH questions correctly -1c. LOC Commands 0 - Performs BOTH tasks correctly -2. Best Gaze 0 - Normal -3. Visual 0 - No visual loss -4. Facial Palsy 0 - Normal symmetrical movements -5a. Left Arm 0 - No drift; arm holds 90 ( or 45) degrees for full 10 seconds -5b. Right Arm 0 - No drift; arm holds 90 ( or 45) degrees for full 10 seconds -6a. Left Leg 0 - No drift; leg holds 30- degree position for full 5 seconds -6b. Right Leg 0 - No drift; leg holds 30- degree position for full 5 seconds -7. Limb Ataxia 0 - Absent -8. Sensory 0 - Normal; no sensory loss -9. Best Language 0 - No aphasia; normal -10. Dysarthria 0 - Normal -11. Extinction and Inattention 0 - No abnormality -Total 0 Query Text:A score of 0 is normal or asymptomatic. Total possible score is 42 . ED: Notify Physician for NIHSS increase by > / = 3 points. Inpatient: RN or Physician to activate a stroke alert for NIHSS increase of > / = 3 points. Coma Scale [Assess] -Eye Opening Spontaneous -Motor Obeys Commands -Verbal Oriented [Total] -Coma Scale Total 15
--- NOTE | 2025-10-14 12:36 | DS.PCM_ITS ---
Providers Date of Admission: 10/12/25 Date of Discharge: 10/14/25 Primary Care Physician: Dr. Steve Aceves MD Consultations 10/12/25 16:48 Consult: Tele-Neurology Routine Consulting Provider: [facility] Reason for Consult: Acute Ischemic Stroke/TIA EMERGENT Consult: No MD Notified: Yes Date Notified: 10/12/25 Time Notified: 17:04 Method of Notification: Answering Service Nursing Unit Staff Notify [facility] of Tele-Neurology Consult: Yes Reason For Visit: ? TIA/CVA Diagnosis Discharge Diagnosis (1) TIA (transient ischemic attack): Status: Acute Code(s): G45.9 - Transient cerebral ischemic attack, unspecified Plan Patient is a 60-year-old gentleman who presented with multiple complaints including transient amnesia as well as vertigo admitted to a monitored bed for workup of suspected TIA 1. Transient global amnesia ? Placed on a monitored bed every 4 neurochecks ordered as part of patient's management 2D echo fasting lipid MRI ordered for subsequent management. Patient 2D echo and MRI scheduled to be performed on 10/14/2025 ?10/14/2025;Patient seen underwent MRI this a.m. awaiting result. Also scheduled to undergo 2D echo if both come back unremarkable plan is for patient to be discharged home ? Patient MRI came back negative for CVA. Patient was also seen in consultation by teleneuro recommendations reviewed. 2. Elevated blood pressure ? Patient did not have a known diagnosis of hypertension prior to being admitted. Given his presentation permissive hypertensive protocol being followed until CVA is ruled out. Patient blood pressure has however stabilized 3. Dyslipidemia ? Patient is on pravastatin fasting lipid ordered for a.m. 4. Depression with anxiety ? Patient is on sertraline 5. DVT prophylaxis ? Subcu Lovenox. Time spent in the patient's overall evaluation,decision-making process, review of diagnostic data, adjustment of management, discussion with other providers, nursing nursing and ancillary staff involved in patient's care documentation, 35 Minutes Medications at Discharge Home Medications meclizine 25 mg tablet 25 mg PO TID PRN dizziness #20 tabs 10/07/25 sertraline 100 mg tablet 100 mg PO DAILY 10/07/25 vitamin B complex 1 tab PO DAILY 10/07/25 aspirin 81 mg chewable tablet 81 mg PO BREAKFAST #90 tabs 12/01/25 atorvastatin 40 mg tablet (Lipitor) 40 mg PO QHS #90 tabs 10/14/25 Physical Exam Narrative GENERAL: cooperative HEENT: Atraumatic; normocephalic EYES; Anicteric, Normal Conjunctiva NECK; supple, normal thyroid, RESPIRATORY: Diminished to auscultation CARDIOVASCULAR: Regular S1 S2, GI: soft, normoactive bowel sounds, : No Renal angle tenderness; EXTREMITIES: No edema, no clubbing, MUSCULOSKELETAL: no muscle wasting NEURO: Awake; no lateralizing signs. SKIN: No Rash PSYCH; Flat affect Weight / BMI Weight Weight: 92.3 kg Body Mass Index (BMI) 28.3 ABG / Lab / Microbiology Data 10/13/25 06:38 10/13/25 06:38 Radiography Diagnostic Testing: Radiology Impression Echocardiogram 10/12/25 16:48 Interpretation Summary The left ventricular ejection fraction is 65 %. The left atrium is moderately enlarged. Bubble contrast study is negative for PFO/ASD. Mild (1+) mitral valve insufficiency. Mild (1+) aortic valve insufficiency. Ordering Physician: Christine Teresa Performed By: Johny Mcfarland RCS Brain MRI 10/14/25 06:00 IMPRESSION: Unremarkable MRI brain without acute abnormalities. Reading Location: [facility] D/C Instructions Discharge Activity: Return to Normal Activity Call your doctor if you observe: Fever of 101 or Higher, Shortness of breath, Fainting spells and Chest pain DC O2, CPAP, BIPAP Needs Home O2 Discharge instructions: No Meaningful Use Info Meaningful Use Meaningful Use Diagnoses (Choose all that apply): None applicable Discharge Plan Admission Admit Date/Time: 10/12/25 15:57 Attending Provider: Navin Mckenzie Primary Care Provider: Steve Aceves Consulting Providers: Rafal Soto; Miesha Nguyen; Aura Malin; Tracy Moon; Lilly Hollins; Ezequiel Hearn; Marielena Zarate; Leo Nunes; Kamaljit Cervantes; Jose Luis Kan; Aislinn Solorzano; Mandi Jo; Blane Pathak; Germania Lofton; Jean Seay; Soha Lau; Eris Valente; Laura Daley; Elmer Kurtz; Lauren Sanchez; Seb Owens; Christine Teresa Discharge Orders/Prescriptions Prescriptions: New aspirin 81 mg Tablet,Chewable 81 mg PO BREAKFAST Qty: 90 0RF atorvastatin [Lipitor] 40 mg tablet 40 mg PO QHS Qty: 90 0RF Continued sertraline 100 mg tablet 100 mg PO DAILY vitamin B complex Tablet 1 tab PO DAILY meclizine 25 mg tablet 25 mg PO TID PRN (Reason: dizziness) Qty: 20 0RF Discontinued pravastatin 20 mg tablet 20 mg PO DAILY Referrals / Follow Up: Steve Aceves MD [Primary Care Provider, Medical] - Within 1 Week Disposition Disposition (needs filled in before D/C Order can be placed): Home, Self Care Charges/Coding Visit Charges Inpatient E&M: 91685 Disch Hosp >30min
--- NOTE | 2025-10-14 14:40 | CASEMGMT ---
Patient has order for discharge. RN CM in to discuss needs at discharge, son at bedside. Patient denies needs or help at discharge. Patient had no further questions or concerns.
--- NOTE | 2025-10-14 14:50 | PHA.DC_ITS ---
Pharmacy [facility] Counseling Pharmacy Service has performed discharge medication reconciliation and counseling for this patient. The patient's discharge medication list was reviewed for discrepancies and discrepancies were resolved. The patient was counseled on the following discharge medications and changes in medications for homegoing were reviewed. The Reason for Use, instructions for use, and potential side effects were reviewed for all new medications. The patient's questions regarding all of their medications were answered. 1. Aspirin 81 mg PO daily with breakfast 2. Atorvastatin 40 mg PO QHS The patient was able to verbally demonstrate an understanding of their discharge medications. Medications at Discharge Home Medications meclizine 25 mg tablet 25 mg PO TID PRN dizziness #20 tabs 10/07/25 sertraline 100 mg tablet 100 mg PO DAILY 10/07/25 vitamin B complex 1 tab PO DAILY 10/07/25 aspirin 81 mg chewable tablet 81 mg PO BREAKFAST #90 tabs 10/14/25 atorvastatin 40 mg tablet (Lipitor) 40 mg PO QHS #90 tabs 10/14/25
== END 2025-10-14 14:54 | disposition home or self-care (01) ==
LOC: ED 13:50 → PCU 16:08
PROVIDERS: Admitting Provider Family Medicine; Emergency Provider Student in an Organized Health Care Education/Training Program; PCP Family Medicine; Visit Provider Internal Medicine
DX: G45.4 Transient global amnesia (principal); E78.5 Hyperlipidemia, unspecified; F41.9 Anxiety disorder, unspecified; Z87.891 Personal history of nicotine dependence; N18.2 Chronic kidney disease, stage 2 (mild); F32.A Depression, unspecified; Z79.899 Other long term (current) drug therapy; R03.0 Elevated blood-pressure reading, without diagnosis of hypertension
CPT/HCPCS: 36415; 70450; 70496; 70498; 70551; 80048; 80053; 80061; 80307; 81001; 82077; 83036; 83605; 83735; 84443; 85025; 93005; 93306; 94762; 96360; 96361; 96372; 97161; 97165; 97802; 99221; 99285; Q9957; Q9967; A4216; G0378